=== PATIENT | female | born 1965 | race Caucasian/White ===

== ENCOUNTER 2018-02-28 13:03 | Inpatient (IN) ==
[2018-02-28] MEDS ORDERED: Sodium Phosphate Inj 15 MMOL in Sodium Chlor 0.9% Inj 100 ML IV.SIG PRN (15:06)
[2018-02-28] MEDS ORDERED: Potassium Chlor 40 mEq Premix 40 MEQ/100 ML PIGGYBACK IV.SIG PRN ×2 (15:06)
[2018-02-28] MEDS ORDERED: Potassium Chlor 20 mEq Premix 20 MEQ/100 ML PIGGYBACK IV.SIG PRN ×5 (15:06)
[2018-02-28] MEDS ORDERED: Vancomycin Consult Pharmacy OTHER PRN (15:06)
[2018-02-28] MEDS: Sod Chloride 0.9% Inj 1,000 ML IV.CONT SCH ×5 (18:45→22:19)
[2018-02-28] MEDS: Insulin Regular (For Infusion) 100 UNIT in Sodium Chlor 0.9% Inj 99 ML IV.CONT PRN (20:00)
[2018-02-28] MEDS: Dextrose 5%/NaCl 0.9% Inj 1,000 ML IV.CONT SCH ×2 (20:29→20:30)
[2018-02-28] MEDS: Enoxaparin Inj 40 MG/0.4 ML Syringe SQ SCH (20:30)
[2018-02-28] MEDS: Lactobacillus Acidophilus/L. Spores Tablet PO SCH (20:35)
--- NOTE | 2018-02-28 21:15 | P.HPIM ---
History of Present Illness Service: [facility] Primary Care Physician: UNKNOWN Chief Complaint: nausea, vomiting, foot wound History of Present Illness: 52 y/o female with a history of diabetes presented to the ED with complaints of fatigue, nausea and vomiting and a foot wound. She states she has had a foot wound for the past 2 weeks that is been managed by her primary care physician. She states the last 2 days she has been having increased nausea and vomiting and feeling very fatigued with fevers and chills. She denies any foot pain due to her diabetic neuropathy. She is currently only on metformin at home and states she can only take it once a day because she is unable to swallow big pills although it is prescribed twice a day. She has yet to start on long-acting insulin but states her PCP was going to do so. She denies any associated chest pain, or shortness of breath. Inpatient Certification Inpatient Certification: I certify that the inpatient services were ordered in accordance with Medicare regulations governing the order. This includes certification that hospital inpatient services are reasonable and necessary and in the case of services not specified as inpatient-only under 42 CFR 419.22(n), that they are appropriately provided as inpatient services in accordance to with the 2-midnight benchmark under 43 CFR 412.3(e) Estimated Total Length of Stay (Days): 3 Plans for Post Hospital Care: Home Review of Systems Review of Systems: all other systems reviewed are negative [facility] Medical History Medical History Diabetes (Acute) Neuropathic foot ulcer (Acute) Surgical History Surgical History Hx of cholecystectomy (Acute) Social History Social History Substance History: No History of Abuse Second Hand Smoke Exposure: No Smoking Status: Never smoker How Often Do You Have a Drink Containing Alcohol: Never Medications and Allergies Allergies Allergy/AdvReac Type Severity Reaction Status Date / Time Sulfa (Sulfonamide Allergy Hives Verified 02/26/18 11:06 Antibiotics) Home Medications Medication Instructions Recorded Confirmed Type metformin 500 mg PO BID 02/26/18 02/28/18 History Active Medications: Active Medications Acetaminophen (Tylenol) 650 mg PO Q4H PRN PRN Reason: Temp > 100.4 Hydrocodone Bitart/Acetaminophen ([place] 10/325) 1 tab PO Q4H PRN PRN Reason: Pain 7 to 10 Hydrocodone Bitart/Acetaminophen ([place] 5/325) 1 tab PO Q4H PRN PRN Reason: Pain 3 to 6 Al Hydroxide/Mg Hydroxide (Milk Of Magnjeni Liq) 30 ml PO Q12H PRN PRN Reason: Mild Constipation Chlorhexidine Gluconate (Chlorhexidine 2% Cloth) 3 pack TOPICAL DAILY@0400 RAD[facility] Stop: 03/06/18 03:59 Chlorhexidine Gluconate (Chlorhexidine 2% Cloth) 3 pack TOPICAL DAILY@0400 PRN PRN Reason: Extra cloth needed Stop: 03/06/18 03:59 Enoxaparin Sodium (Lovenox Inj) 40 mg SQ Q24H [facility] Last Admin: 02/28/18 20:30 Dose: Not Given Insulin Human Regular 100 unit (/ Sodium Chloride) 100 mls @ 5 mls/hr IV.CONT TITRATE PRN; Protocol PRN Reason: Per Protocol Last Titration: 02/28/18 21:04 Dose: 8 units/hr, 8 mls/hr Potassium Chloride (Kcl 20 Meq Premix Inj) 20 meq in 100 mls @ 100 mls/hr IV.SIG Q1H PRN PRN Reason: for K+ 4.5 to 5 Potassium Chloride (Kcl 20 Meq Premix Inj) 20 meq in 100 mls @ 50 mls/hr IV.SIG Q2H PRN PRN Reason: for K+ 4.5 to 5 Potassium Chloride (Kcl 20 Meq Premix Inj) 20 meq in 100 mls @ 50 mls/hr IV.SIG Q2H PRN PRN Reason: for K+ 3.5 to 4.4 Potassium Chloride (Kcl 20 Meq Premix Inj) 20 meq in 100 mls @ 50 mls/hr IV.SIG Q2H PRN PRN Reason: for Initial K+ ONLY < 3.5 Potassium Chloride (Kcl 40 Meq Premix Inj) 40 meq in 100 mls @ 100 mls/hr IV.SIG Q1H PRN PRN Reason: for Initial K+ ONLY < 3.5 Potassium Chloride (Kcl 20 Meq Premix Inj) 20 meq in 100 mls @ 50 mls/hr IV.SIG Q2H PRN PRN Reason: for Subsequent K+ < 3.5 Potassium Chloride (Kcl 40 Meq Premix Inj) 40 meq in 100 mls @ 50 mls/hr IV.SIG Q2H PRN PRN Reason: for Subsequent K+ < 3.5 Sodium Chloride (Ns Inj) 1,000 mls @ 250 mls/hr IV.CONT .Q4H [facility] Last Admin: 02/28/18 20:31 Dose: Not Given Piperacillin/Tazobactam/Dextrose (Zosyn 3.375 Gm Premix) 3.375 gm in 50 mls @ 100 mls/hr IV.SIG Q8H [facility] Sodium Chloride (Ns Inj) 1,000 mls @ 100 mls/hr IV.CONT .Q10H [facility] Last Admin: 02/28/18 20:34 Dose: Not Given Sodium Phosphate 15 mmol/ (Sodium Chloride) 105 mls @ 25 mls/hr IV.SIG UNSCH PRN PRN Reason: for Phosphate Level < 1.0 Dextrose/Sodium Chloride (D5w/Normal Saline Inj) 1,000 mls @ 200 mls/hr IV.CONT .Q5H [facility] Last Admin: 02/28/18 20:30 Dose: Not Given Potassium Chloride (Kcl 20 Meq Premix Inj) 20 meq in 100 mls @ 100 mls/hr IV.SIG Q1H PRN PRN Reason: for K+ 3.5 to 4.4 Vancomycin HCl 1,250 mg/ (Sodium Chloride) 262.5 mls @ 262.5 mls/hr IV.SIG Q24H [facility] Lactobacillus Acidophilus (Lactinex) 1 tab PO TID [facility] Last Admin: 02/28/18 20:35 Dose: Not Given Miscellaneous Information ([facility] Ordered Lab Info) 0 each OTHER ONCE ONE Stop: 03/03/18 11:46 Ondansetron HCl (Zofran Inj) 4 mg IV.PUSH Q6H PRN PRN Reason: NAUSEA OR VOMITING Pharmacy Profile Note (Vancomycin Consult Pharmacy) 1 each OTHER UNSCH PRN PRN Reason: Pharmacy to dose Sodium Bicarbonate (Sodium Bicarbonate 8.4% Inj) 50 meq IV.PUSH UNSCH PRN PRN Reason: for pH 6.9 to 7.0 Sodium Bicarbonate (Sodium Bicarbonate 8.4% Inj) 100 meq IV.PUSH UNSCH PRN PRN Reason: for pH less than 6.9 Sodium Chloride (Ns Flush) 2 ml IV.FLUSH BID [facility] Sodium Chloride (Ns Flush) 2 ml IV.FLUSH PRN PRN PRN Reason: FLUSH AFTER USING IV ACCESS Physical Exam Vital signs: Intake & Output 02/28/18 02/28/18 03/01/18 06:59 18:59 06:59 Weight 70.1 kg Other: Weight On Admission 70.1 kg Narrative: GENERAL: Well-nourished patient in no acute distress SKIN: Warm and dry. Right foot with a plantar dry ulcer, and a purulent draining ulcer between her first and second digit with surrounding warmth and erythema EYES: No scleral icterus. No injection or drainage. CARDIOVASCULAR: Regular rate and rhythm without murmurs, gallops, or rubs. RESPIRATORY: Breath sounds equal bilaterally. No accessory muscle use. GASTROINTESTINAL: Abdomen soft, non-tender, nondistended. MUSCULOSKELETAL: +2 edema to her right foot Neurological: Alert and oriented x3, moves all follows commands, diabetic neuropathy bilateral feet Results Labs CBC & Chem 7: 02/28/18 23:40 Caprini VTE Risk Assessment Caprini VTE Risk Assessment: No/Low Risk (score <= 1) Caprini Risk Assessment Model: Point Value = 1 Point Value = 2 Point Value = 3 Point Value = 5 Age 41-60 Minor surgery BMI > 25 kg/m2 Swollen legs Varicose veins or History of unexplained or recurrent spontaneous Oral contraceptives or hormone replacement Sepsis (< 1 month) Serious lung disease, including pneumonia (< 1 month) Abnormal pulmonary function Acute myocardial infarction Congestive heart failure (< 1 month) History of inflammatory bowel disease Medical patient at bed rest Age 61-74 Arthroscopic surgery Major open surgery (> 45 min) Laparoscopic surgery (> 45 min) Malignancy Confined to bed (> 72 hours) Immobilizing plaster cast Central venous access Age >= 75 History of VTE Family history of VTE Factor V Leiden Prothrombin [id number] Lupus anticoagulant Anticardiolipin antibodies Elevated serum homocysteine Heparin-induced thrombocytopenia Other congenital or acquired thrombophilia Stroke (< 1 month) Elective arthroplasty Hip, pelvis, or leg fracture Acute spinal cord injury (< 1 month) Prophylaxis Regimen: Total Risk Factor Score Risk Level Prophylaxis Regimen 0-1 Low Early ambulation 2 Moderate Order ONE of the following: *Sequential Compression Device (SCD) *Heparin 5000 units SQ BID 3-4 Higher Order ONE of the following medications: *Heparin 5000 units SQ TID *Enoxaparin/Lovenox 40 mg SQ daily (WT < 150 kg, CrCl > 30 mL/min) *Enoxaparin/Lovenox 30 mg SQ daily (WT < 150 kg, CrCl > 10-29 mL/min) *Enoxaparin/Lovenox 30 mg SQ BID (WT < 150 kg, CrCl > 30 mL/min) AND/OR *Sequential Compression Device (SCD) 5 or more Highest Order ONE of the following medications: *Heparin 5000 units SQ TID (Preferred with Epidurals) *Enoxaparin/Lovenox 40 mg SQ daily (WT < 150 kg, CrCl > 30 mL/min) *Enoxaparin/Lovenox 30 mg SQ daily (WT < 150 kg, CrCl > 10-29 mL/min) *Enoxaparin/Lovenox 30 mg SQ BID (WT < 150 kg, CrCl > 30 mL/min) AND *Sequential Compression Device (SCD) Assessment and Plan Plan 52 y/o female with a history of diabetes presented to the ED with complaints of fatigue, nausea and vomiting and a foot wound. DKA, in a noncompliant type II diabetic, acute Anion gap 28, pH 7.2, bicarb 5, beta hydroxybutyrate 9.5 -Insulin drip with DKA protocol -N.p.o. -Serial labs Sepsis, WBC 17.8, heart rate 130, source right diabetic foot infection Lactic acid 2.0 Foot x-ray reviewed and shows soft tissue swelling surrounding the right great toe. The findings are suggestive of probable cellulitis -Blood cultures and wound culture pending -IV antibiotics vancomycin and Zosyn -Consult podiatry for evaluation -MRI ordered of the right foot for rule out osteomyelitis DVT prophylaxis: SCDs Code Status: Full Discussed Condition With: Patient and RN H&P: Quality VTE Deep Vein Thrombosis/Pulmonary Embolism Present on Admission: No
[2018-02-28] MEDS: Piperacil/Tazo 3.375 GM Premix 3.375 GM/50 ML PIGGYBACK IV.SIG SCH (21:51)
[2018-03-01 00:41] LABS: Carbon Dioxide 13.7 meq/L (21.0-32.0)
[2018-03-01] MEDS: Potassium Chlor 20 mEq Premix 20 MEQ/100 ML PIGGYBACK IV.SIG PRN ×3 (01:07→05:04)
[2018-03-01] MEDS: Dextrose 5%/NaCl 0.9% Inj 1,000 ML IV.CONT SCH ×4 (01:12→16:12)
[2018-03-01] MEDS ORDERED: Vancomycin Inj 1,000 MG in Sodium Chlor 0.9% Inj 250 ML IV.SIG SCH (02:00)
[2018-03-01] MEDS: Sod Chloride 0.9% Inj 1,000 ML IV.CONT SCH ×5 (02:16→23:15)
[2018-03-01] MEDS: Chlorhexidine Gluconate 2% 1 Pack (2 Cloths) TOPICAL SCH (03:03)
[2018-03-01] MEDS ORDERED: Chlorhexidine Gluconate 2% 1 Pack (2 Cloths) TOPICAL PRN (04:00)
[2018-03-01] MEDS: Piperacil/Tazo 3.375 GM Premix 3.375 GM/50 ML PIGGYBACK IV.SIG SCH ×3 (05:02→22:40)
[2018-03-01] MEDS: Insulin Regular (For Infusion) 100 UNIT in Sodium Chlor 0.9% Inj 99 ML IV.CONT PRN (06:02)
[2018-03-01 07:02] LABS: Baso # (Auto) 0.1 th/mm3 (0.0-0.2); Baso % (Auto) 0.4 % (0.0-2.0); Hematocrit 33.9 % (35.0-46.0); Hemoglobin 11.3 gm/dL (11.6-15.3); Lymph # (Auto) 1.1 th/mm3 (1.0-4.8); Lymph % (Auto) 9.2 % (9.0-44.0); Mean Corpuscular HGB Conc 33.4 % (32.0-36.0); Mean Corpuscular Hemoglobin 28.9 pg (27.0-34.0); Mean Corpuscular Volume 86.7 fL (80.0-100.0); Mean Platelet Volume 7.5 fL (7.0-11.0); Mono # (Auto) 1.2 th/mm3 (0.0-0.9); Neut # (Auto) 9.8 th/mm3 (1.8-7.7); Neut % (Auto) 80.4 % (16.0-70.0); Platelet Count 425 th/mm3 (150-450); Red Blood Count 3.91 mil/mm3 (4.00-5.30); Red Cell Distribution Width 13.6 % (11.6-17.2); White Blood Count 12.1 th/mm3 (4.0-11.0)
--- NOTE | 2018-03-01 07:14 | P.PNPOD ---
Physical Exam Vital signs: Vital Signs 02/28/18 20:00 02/28/18 21:00 02/28/18 22:00 Pulse Rate 126 H 115 H 106 H Respiratory Rate 21 25 H Blood Pressure 132/68 134/68 Pulse Oximetry 98 97 97 02/28/18 22:02 02/28/18 23:00 03/01/18 00:00 Pulse Rate 105 H 98 H 107 H Respiratory Rate 19 15 35 H Blood Pressure 124/62 120/60 129/64 Pulse Oximetry 97 95 95 03/01/18 01:00 03/01/18 02:00 03/01/18 03:00 Pulse Rate 119 H 93 H 95 H Respiratory Rate 23 13 31 H Blood Pressure 97/64 L 117/61 147/63 H Pulse Oximetry 97 92 L 96 03/01/18 04:00 03/01/18 05:00 03/01/18 06:00 Pulse Rate 91 H 90 100 H Respiratory Rate 12 24 40 H Blood Pressure 121/68 135/68 130/77 Pulse Oximetry 91 L 94 L 97 Intake & Output 02/28/18 03/01/18 03/01/18 18:59 06:59 18:59 Intake Total 2371 / 2371 Balance 2371 / 2371 Weight 70 kg Intake: IV 2371 / 2371 D5W/Normal Saline Inj 1,000 ML 1000 / 1000 @ 200 mls/hr IV.CONT .Q5H [facility] Rx#:[id number] NovoLIN R (IV Infusion) 100 100 / 100 UNIT In NS Inj 99 ML @ 5 UNITS/ HR 5 mls/hr IV.CONT TITRATE PRN Rx#:[id number] NS Inj 1,000 ML @ 250 mls/hr IV 971 / 971 .CONT .Q4H [facility] Rx#:[id number] Zosyn 3.375 GM Premix 3.375 gm 100 / 100 In 50 ml @ 100 mls/hr IV.SIG Q8H [facility] Rx#:[id number] KCl 20 mEq Premix Inj 20 meq In 200 / 200 100 ml @ 50 mls/hr IV.SIG Q2H PRN Rx#:[id number] Other: # Voids 6 # Bowel Movements 0 # Emeses 6 Weight On Admission 70.1 kg Medications and Allergies Active Medications: Active Medications Acetaminophen (Tylenol) 650 mg PO Q4H PRN PRN Reason: Temp > 100.4 Hydrocodone Bitart/Acetaminophen ([place] 10/325) 1 tab PO Q4H PRN PRN Reason: Pain 7 to 10 Hydrocodone Bitart/Acetaminophen ([place] 5/325) 1 tab PO Q4H PRN PRN Reason: Pain 3 to 6 Al Hydroxide/Mg Hydroxide (Milk Of Magnjeni Liq) 30 ml PO Q12H PRN PRN Reason: Mild Constipation Chlorhexidine Gluconate (Chlorhexidine 2% Cloth) 3 pack TOPICAL DAILY@0400 RADHA Stop: 03/06/18 03:59 Last Admin: 03/01/18 03:03 Dose: 3 pack Chlorhexidine Gluconate (Chlorhexidine 2% Cloth) 3 pack TOPICAL DAILY@0400 PRN PRN Reason: Extra cloth needed Stop: 03/06/18 03:59 Enoxaparin Sodium (Lovenox Inj) 40 mg SQ Q24H [facility] Last Admin: 02/28/18 20:30 Dose: Not Given Insulin Human Regular 100 unit (/ Sodium Chloride) 100 mls @ 5 mls/hr IV.CONT TITRATE PRN; Protocol PRN Reason: Per Protocol Last Titration: 03/01/18 06:49 Dose: 10.5 units/hr, 10.5 mls/hr Potassium Chloride (Kcl 20 Meq Premix Inj) 20 meq in 100 mls @ 100 mls/hr IV.SIG Q1H PRN PRN Reason: for K+ 4.5 to 5 Potassium Chloride (Kcl 20 Meq Premix Inj) 20 meq in 100 mls @ 50 mls/hr IV.SIG Q2H PRN PRN Reason: for K+ 4.5 to 5 Potassium Chloride (Kcl 20 Meq Premix Inj) 20 meq in 100 mls @ 50 mls/hr IV.SIG Q2H PRN PRN Reason: for K+ 3.5 to 4.4 Potassium Chloride (Kcl 20 Meq Premix Inj) 20 meq in 100 mls @ 50 mls/hr IV.SIG Q2H PRN PRN Reason: for Initial K+ ONLY < 3.5 Last Admin: 03/01/18 05:04 Dose: 50 mls/hr Potassium Chloride (Kcl 40 Meq Premix Inj) 40 meq in 100 mls @ 100 mls/hr IV.SIG Q1H PRN PRN Reason: for Initial K+ ONLY < 3.5 Potassium Chloride (Kcl 20 Meq Premix Inj) 20 meq in 100 mls @ 50 mls/hr IV.SIG Q2H PRN PRN Reason: for Subsequent K+ < 3.5 Potassium Chloride (Kcl 40 Meq Premix Inj) 40 meq in 100 mls @ 50 mls/hr IV.SIG Q2H PRN PRN Reason: for Subsequent K+ < 3.5 Sodium Chloride (Ns Inj) 1,000 mls @ 250 mls/hr IV.CONT .Q4H [facility] Last Admin: 03/01/18 06:14 Dose: Not Given Piperacillin/Tazobactam/Dextrose (Zosyn 3.375 Gm Premix) 3.375 gm in 50 mls @ 100 mls/hr IV.SIG Q8H [facility] Last Infusion: 03/01/18 05:34 Dose: Infused Sodium Phosphate 15 mmol/ (Sodium Chloride) 105 mls @ 25 mls/hr IV.SIG UNSCH PRN PRN Reason: for Phosphate Level < 1.0 Dextrose/Sodium Chloride (D5w/Normal Saline Inj) 1,000 mls @ 200 mls/hr IV.CONT .Q5H [facility] Last Admin: 03/01/18 05:14 Dose: 200 mls/hr Potassium Chloride (Kcl 20 Meq Premix Inj) 20 meq in 100 mls @ 100 mls/hr IV.SIG Q1H PRN PRN Reason: for K+ 3.5 to 4.4 Vancomycin HCl 1,250 mg/ (Sodium Chloride) 262.5 mls @ 262.5 mls/hr IV.SIG Q24H [facility] Lactobacillus Acidophilus (Lactinex) 1 tab PO TID [facility] Last Admin: 02/28/18 20:35 Dose: Not Given Miscellaneous Information ([facility] Ordered Lab Info) 0 each OTHER ONCE ONE Stop: 03/03/18 11:46 Ondansetron HCl (Zofran Inj) 4 mg IV.PUSH Q6H PRN PRN Reason: NAUSEA OR VOMITING Last Admin: 02/28/18 23:48 Dose: 4 mg Pharmacy Profile Note (Vancomycin Consult Pharmacy) 1 each OTHER UNSCH PRN PRN Reason: Pharmacy to dose Sodium Bicarbonate (Sodium Bicarbonate 8.4% Inj) 50 meq IV.PUSH UNSCH PRN PRN Reason: for pH 6.9 to 7.0 Sodium Bicarbonate (Sodium Bicarbonate 8.4% Inj) 100 meq IV.PUSH UNSCH PRN PRN Reason: for pH less than 6.9 Sodium Chloride (Ns Flush) 2 ml IV.FLUSH BID [facility] Last Admin: 02/28/18 21:43 Dose: 2 ml Sodium Chloride (Ns Flush) 2 ml IV.FLUSH PRN PRN PRN Reason: FLUSH AFTER USING IV ACCESS Allergies Allergy/AdvReac Type Severity Reaction Status Date / Time Sulfa (Sulfonamide Allergy Hives Verified 02/26/18 11:06 Antibiotics) Home Medications Medication Instructions Recorded Confirmed Type metformin 500 mg PO BID 02/26/18 02/28/18 History Results - Labs CBC & Chem 7: 03/01/18 06:29 02/28/18 23:40 Laboratory Results - last 24 hr 02/28/18 02/28/18 02/28/18 19:15 20:01 21:01 WBC RBC Hgb Hct MCV MCH MCHC RDW Plt Count MPV Neut % (Auto) Lymph % (Auto) [place] % (Auto) Eos % (Auto) Baso % (Auto) Neut # (Auto) Lymph # (Auto) [place] # (Auto) Eos # (Auto) Baso # (Auto) WBC Differential Differential Comment Sodium Potassium Chloride Carbon Dioxide Anion Gap BUN Creatinine Estimated GFR POC Glucose 368 H 376 H Random Glucose Calcium Nasal Screen MRSA (PCR) Not detected 02/28/18 02/28/18 02/28/18 21:58 22:56 23:40 WBC RBC Hgb Hct MCV MCH MCHC RDW Plt Count MPV Neut % (Auto) Lymph % (Auto) [place] % (Auto) Eos % (Auto) Baso % (Auto) Neut # (Auto) Lymph # (Auto) [place] # (Auto) Eos # (Auto) Baso # (Auto) WBC Differential Differential Comment Sodium 147 H D Potassium 3.0 L D Chloride 119 H D Carbon Dioxide 13.7 L Anion Gap 14 BUN 19 H Creatinine 1.00 Estimated GFR 59 L POC Glucose 326 H 246 H Random Glucose 209 H D Calcium 8.0 L D Nasal Screen MRSA (PCR) 02/28/18 03/01/18 03/01/18 23:52 00:57 01:55 WBC RBC Hgb Hct MCV MCH MCHC RDW Plt Count MPV Neut % (Auto) Lymph % (Auto) [place] % (Auto) Eos % (Auto) Baso % (Auto) Neut # (Auto) Lymph # (Auto) [place] # (Auto) Eos # (Auto) Baso # (Auto) WBC Differential Differential Comment Sodium Potassium Chloride Carbon Dioxide Anion Gap BUN Creatinine Estimated GFR POC Glucose 211 H 227 H 208 H Random Glucose Calcium Nasal Screen MRSA (PCR) 03/01/18 03/01/18 03/01/18 03:08 03:56 05:00 WBC RBC Hgb Hct MCV MCH MCHC RDW Plt Count MPV Neut % (Auto) Lymph % (Auto) [place] % (Auto) Eos % (Auto) Baso % (Auto) Neut # (Auto) Lymph # (Auto) [place] # (Auto) Eos # (Auto) Baso # (Auto) WBC Differential Differential Comment Sodium Potassium Chloride Carbon Dioxide Anion Gap BUN Creatinine Estimated GFR POC Glucose 229 H 209 H 194 H Random Glucose Calcium Nasal Screen MRSA (PCR) 03/01/18 03/01/18 03/01/18 05:59 06:29 06:47 WBC 12.1 H RBC 3.91 L Hgb 11.3 L D Hct 33.9 L MCV 86.7 MCH 28.9 MCHC 33.4 RDW 13.6 Plt Count 425 MPV 7.5 Neut % (Auto) 80.4 H Lymph % (Auto) 9.2 [place] % (Auto) 10.0 H Eos % (Auto) 0.0 Baso % (Auto) 0.4 Neut # (Auto) 9.8 H Lymph # (Auto) 1.1 [place] # (Auto) 1.2 H Eos # (Auto) 0.0 Baso # (Auto) 0.1 WBC Differential . Differential Comment Auto diff final Sodium Potassium Chloride Carbon Dioxide Anion Gap BUN Creatinine Estimated GFR POC Glucose 173 H 154 H Random Glucose Calcium Nasal Screen MRSA (PCR) Assessment and Plan - Assessment (1) Diabetic infection of right foot Code(s): E11.628 - Type 2 diabetes mellitus with other skin complications; L08.9 - Local infection of the skin and subcutaneous tissue, unspecified Status: Acute - Plan FULL CONSULT DICTATED. MRI pending, OR today once medically cleared for right foot incision drainage debridement with possible bone biopsy and wound vac application. Will likely need IV ABX minimum 2 weeks, ID consult? Surgery planned for this afternoon, NPO.
[2018-03-01 07:24] LABS: Albumin 2.5 g/dL (3.4-5.0); Anion Gap 9 meq/L (5-15); Aspartate Aminotransferase 5 U/L (15-37); Blood Urea Nitrogen 19 mg/dL (7-18); Carbon Dioxide 19.1 meq/L (21.0-32.0); Chloride 123 meq/L (98-107); Glomerular Filtration Rate 58 mL/min (>89); Glucose,Random 156 mg/dL (74-106); Potassium 3.6 meq/L (3.5-5.1); Sodium 151 meq/L (136-145)
[2018-03-01 07:25] LABS: Alanine Aminotransferase 14 U/L (10-53)
[2018-03-01 07:27] LABS: Alkaline Phosphatase 93 U/L (45-117); Total Protein 6.9 g/dL (6.4-8.2)
--- NOTE | 2018-03-01 07:47 | MB ---
cc: Mic Mohan DPM DATE: 03/01/2018 REASON FOR CONSULTATION: Right diabetic foot infection. HISTORY OF PRESENT ILLNESS: This is a 52-year-old female who presents to the ED with fatigue, nausea, and vomiting. The patient had poorly controlled blood sugar, it was then decided that she be transferred from [place] to inpatient management. Currently, I am seeing the patient at bedside. She is having severe vomiting. She is not having significant pain. She denies any obvious incident or injury associated with the onset of the right foot wound. She does have a history of an ulcer in the past. She has had the current ulcer for the past 2 months. She admits poor hyperglycemic control. PAST MEDICAL HISTORY: Significant for diabetes, neuropathic foot ulcer, history of cholecystectomy history. ALLERGIES: SULFA. INPATIENT MEDICATIONS: Reviewed. The patient is receiving vancomycin and Zosyn. PHYSICAL EXAMINATION: VITAL SIGNS: Afebrile. Elevated pulse rate 126, respiratory rate 21, blood pressure 132/60. GENERAL: This is an alert and oriented female seen at bedside exhibiting nonlabored respirations. She is obviously in distress. She is gagging breathing. No shortness of breath, but she is having significant nausea with a nonproductive emesis. EXTREMITIES: Bilateral lower extremities examined. On the right lower extremity, there is noted to be interdigital eschar, fluctuance, redness, swelling, and a boggy texture. There is an obvious 1st interspace abscess. There is a plantar ulceration that appears to communicate with the dorsal aspect of the foot. There is no obvious gas in the tissue, but there is skin necrosis noted. There is edema that extends to the dorsum of the foot. The pedal pulses are readily palpable. There is mild crepitus upon range of motion of the 1st MPJ, but no instability of the rearfoot, hindfoot, or ankle. Sensation decreased to light touch below the patient's ankle. DIAGNOSTIC DATA: LABORATORY FINDINGS: White blood cell 12.1. Hemoglobin and hematocrit 11 and 33. Platelet count is 425, neutrophils 80.4. Chem-7: Last glucose is 154, sodium 147, potassium 3.0. Repeat labs are pending. Chloride is 119, CO2 is 13.7, BUN is 19. Random glucose as previously stated. AST and ALT are pending. X-ray findings were reviewed. There appears to be increased soft tissue envelope but there is no obvious joint destructive findings consistent with osteomyelitis. MRI ordered and pending. Blood culture and foot culture ordered and pending. ASSESSMENT AND PLAN: Right diabetic foot infection, deep within the 1st interspace, possible osteomyelitis. MRI is pending. Due to the severity of the infection, I am recommending urgent incision, drainage, and debridement if the patient is deemed medically stable. We will continue to monitor the potassium. The plan is for surgery later on today permitting evaluation from medical team. The patient will remain n.p.o. Risks and benefits explained regarding surgical intervention. The patient may need for multiple surgeries at a later date including, but not limited to incision and drainage, debridement, partial foot amputation if not loss of the leg. The patient was educated in great detail the need for strict hyperglycemic control and to take better care of her foot to allow for healing. The patient does appear to have good circulation. I do not feel a vascular intervention or consultation is needed at this point; however, if the patient has minimal bleeding intraoperatively, I will make that decision in the postoperative setting. Plan for surgery later on today. TATIANNA Glez , 07:06 AM , 07:15 AM
[2018-03-01] MEDS: Lactobacillus Acidophilus/L. Spores Tablet PO SCH ×4 (10:01→17:30)
--- NOTE | 2018-03-01 10:10 | MR ---
EXAM DATE: 03/01/2018 9:37 AM EST AGE/SEX: 52 years / Female INDICATIONS: Osteomyelitis. CLINICAL DATA: This is the patient's initial encounter. Patient reports that signs and symptoms have been present for 1 week and indicates a pain score of 0/10. MEDICAL/SURGICAL HISTORY: Diabetes mellitus type II. Cholecystectomy. COMPARISON: [facility], FOOT COMPLETE RIGHT 3V, 02/28/2018. . TECHNIQUE: Multiplanar, multisequence MRI examination was performed without contrast and after th e intravenous administration of 7 ml Gadavist (gadobutrol) single exam dose. FINDINGS: Bones: The osseous structures are in normal alignment. No evidence of fracture or bony edema. There are no obvious erosions present. Joint Spaces: No joint effusion or loose bodies are seen. The joint spaces are preserved. Tendons: The flexor tendons are intact. Soft Tissues: There is some soft tissue edema identified about the great toe particularly in the plan tar region with a small superficial ulceration subjacent to the MTP joint. Other: The plantar fascia is intact. No signal abnormalities are seen in the plantar musculature. Post Contrast: There are no abnormal areas of enhancement in the marrow, muscle or soft tissues on im ages obtained after intravenous administration of gadolinium. CONCLUSION: 1. Small ulcer subjacent to the MTP joint with regional cellulitis. 2. No findings of associated osteomyelitis. Electronically signed by: Dorian Khan MD Board Certified Radiologist 03/01/2018 10:09 AM EST
[2018-03-01] MEDS ORDERED: Gadobutrol PF 7.5 MMOL/7.5 ML Vial (for RAD) IV.SIG ONE (10:28)
[2018-03-01] MEDS ORDERED: Dextrose 50% in Water 50 ML Vial IV.PUSH PRN (10:56)
--- NOTE | 2018-03-01 11:11 | P.PN ---
Subjective Interval history: Follow-up DKA/sepsis/diabetic foot infection March 01, 2018-patient seen and examined, currently n.p.o., significant left foot pain. Afebrile. Positive for nausea, emesis Physical Exam Vital signs: Vital Signs 02/28/18 20:00 02/28/18 21:00 02/28/18 22:00 Temperature Pulse Rate 126 H 115 H 106 H Respiratory Rate 21 25 H Blood Pressure 132/68 134/68 Pulse Oximetry 98 97 97 02/28/18 22:02 02/28/18 23:00 03/01/18 00:00 Temperature Pulse Rate 105 H 98 H 107 H Respiratory Rate 19 15 35 H Blood Pressure 124/62 120/60 129/64 Pulse Oximetry 97 95 95 03/01/18 01:00 03/01/18 02:00 03/01/18 03:00 Temperature Pulse Rate 119 H 93 H 95 H Respiratory Rate 23 13 31 H Blood Pressure 97/64 L 117/61 147/63 H Pulse Oximetry 97 92 L 96 03/01/18 04:00 03/01/18 05:00 03/01/18 06:00 Temperature Pulse Rate 91 H 90 100 H Respiratory Rate 12 24 40 H Blood Pressure 121/68 135/68 130/77 Pulse Oximetry 91 L 94 L 97 03/01/18 08:00 Temperature 98.6 F Pulse Rate 79 Respiratory Rate 13 Blood Pressure 117/57 L Pulse Oximetry 95 Intake & Output 02/28/18 03/01/18 03/01/18 18:59 06:59 18:59 Intake Total 2371 / 2371 0 / 0 Balance 2371 / 2371 0 / 0 Weight 70 kg Intake: IV 2371 / 2371 0 / 0 D5W/Normal Saline Inj 1,000 ML 1000 / 1000 0 / 0 @ 200 mls/hr IV.CONT .Q5H RADHA Rx#:[id number] NovoLIN R (IV Infusion) 100 100 / 100 UNIT In NS Inj 99 ML @ 5 UNITS/ HR 5 mls/hr IV.CONT TITRATE PRN Rx#:[id number] NS Inj 1,000 ML @ 250 mls/hr IV 971 / 971 .CONT .Q4H RADHA Rx#:[id number] Zosyn 3.375 GM Premix 3.375 gm 100 / 100 In 50 ml @ 100 mls/hr IV.SIG Q8H RADHA Rx#:[id number] KCl 20 mEq Premix Inj 20 meq In 200 / 200 100 ml @ 50 mls/hr IV.SIG Q2H PRN Rx#:[id number] Other: # Voids 6 # Bowel Movements 0 # Emeses 6 Weight On Admission 70.1 kg Narrative: GENERAL: NAD SKIN: Warm and dry. Right foot infection, tender to palpation big toe and fourth toe with induration and drainage HEAD: Atraumatic. Normocephalic. EYES: Pupils equal and round. No scleral icterus. No injection or drainage. ENT: No nasal bleeding or discharge. Mucous membranes pink and moist. NECK: Trachea midline. No JVD. CARDIOVASCULAR: Regular rate and rhythm. RESPIRATORY: No accessory muscle use. Clear to auscultation. Breath sounds equal bilaterally. GASTROINTESTINAL: Abdomen soft, non-tender, nondistended. Hepatic and splenic margins not palpable. MUSCULOSKELETAL: Extremities without clubbing, cyanosis, or edema. No obvious deformities. NEUROLOGICAL: Awake and alert. No obvious cranial nerve deficits. Motor grossly within normal limits. Five out of 5 muscle strength in the arms and legs. Normal speech. PSYCHIATRIC: Appropriate mood and affect; insight and judgment normal. Results - Labs CBC & Chem 7: 03/01/18 06:29 03/01/18 06:29 Laboratory Results - last 24 hr 02/28/18 02/28/18 02/28/18 19:15 20:01 21:01 WBC RBC Hgb Hct MCV MCH MCHC RDW Plt Count MPV Neut % (Auto) Lymph % (Auto) [place] % (Auto) Eos % (Auto) Baso % (Auto) Neut # (Auto) Lymph # (Auto) [place] # (Auto) Eos # (Auto) Baso # (Auto) WBC Differential Differential Comment Sodium Potassium Chloride Carbon Dioxide Anion Gap BUN Creatinine Estimated GFR POC Glucose 368 H 376 H Random Glucose Calcium Total Bilirubin AST ALT Alkaline Phosphatase Total Protein Albumin Nasal Screen MRSA (PCR) Not detected 02/28/18 02/28/18 02/28/18 21:58 22:56 23:40 WBC RBC Hgb Hct MCV MCH MCHC RDW Plt Count MPV Neut % (Auto) Lymph % (Auto) [place] % (Auto) Eos % (Auto) Baso % (Auto) Neut # (Auto) Lymph # (Auto) [place] # (Auto) Eos # (Auto) Baso # (Auto) WBC Differential Differential Comment Sodium 147 H D Potassium 3.0 L D Chloride 119 H D Carbon Dioxide 13.7 L Anion Gap 14 BUN 19 H Creatinine 1.00 Estimated GFR 59 L POC Glucose 326 H 246 H Random Glucose 209 H D Calcium 8.0 L D Total Bilirubin AST ALT Alkaline Phosphatase Total Protein Albumin Nasal Screen MRSA (PCR) 02/28/18 03/01/18 03/01/18 23:52 00:57 01:55 WBC RBC Hgb Hct MCV MCH MCHC RDW Plt Count MPV Neut % (Auto) Lymph % (Auto) [place] % (Auto) Eos % (Auto) Baso % (Auto) Neut # (Auto) Lymph # (Auto) [place] # (Auto) Eos # (Auto) Baso # (Auto) WBC Differential Differential Comment Sodium Potassium Chloride Carbon Dioxide Anion Gap BUN Creatinine Estimated GFR POC Glucose 211 H 227 H 208 H Random Glucose Calcium Total Bilirubin AST ALT Alkaline Phosphatase Total Protein Albumin Nasal Screen MRSA (PCR) 03/01/18 03/01/18 03/01/18 03:08 03:56 05:00 WBC RBC Hgb Hct MCV MCH MCHC RDW Plt Count MPV Neut % (Auto) Lymph % (Auto) [place] % (Auto) Eos % (Auto) Baso % (Auto) Neut # (Auto) Lymph # (Auto) [place] # (Auto) Eos # (Auto) Baso # (Auto) WBC Differential Differential Comment Sodium Potassium Chloride Carbon Dioxide Anion Gap BUN Creatinine Estimated GFR POC Glucose 229 H 209 H 194 H Random Glucose Calcium Total Bilirubin AST ALT Alkaline Phosphatase Total Protein Albumin Nasal Screen MRSA (PCR) 03/01/18 03/01/18 03/01/18 05:59 06:29 06:29 WBC 12.1 H RBC 3.91 L Hgb 11.3 L D Hct 33.9 L MCV 86.7 MCH 28.9 MCHC 33.4 RDW 13.6 Plt Count 425 MPV 7.5 Neut % (Auto) 80.4 H Lymph % (Auto) 9.2 [place] % (Auto) 10.0 H Eos % (Auto) 0.0 Baso % (Auto) 0.4 Neut # (Auto) 9.8 H Lymph # (Auto) 1.1 [place] # (Auto) 1.2 H Eos # (Auto) 0.0 Baso # (Auto) 0.1 WBC Differential . Differential Comment Auto diff final Sodium 151 H Potassium 3.6 Chloride 123 H Carbon Dioxide 19.1 L Anion Gap 9 BUN 19 H Creatinine 1.01 H Estimated GFR 58 L POC Glucose 173 H Random Glucose 156 H Calcium 8.0 L Total Bilirubin 0.3 AST 5 L ALT 14 Alkaline Phosphatase 93 Total Protein 6.9 D Albumin 2.5 L D Nasal Screen MRSA (PCR) 03/01/18 03/01/18 06:47 08:14 WBC RBC Hgb Hct MCV MCH MCHC RDW Plt Count MPV Neut % (Auto) Lymph % (Auto) [place] % (Auto) Eos % (Auto) Baso % (Auto) Neut # (Auto) Lymph # (Auto) [place] # (Auto) Eos # (Auto) Baso # (Auto) WBC Differential Differential Comment Sodium Potassium Chloride Carbon Dioxide Anion Gap BUN Creatinine Estimated GFR POC Glucose 154 H 115 H Random Glucose Calcium Total Bilirubin AST ALT Alkaline Phosphatase Total Protein Albumin Nasal Screen MRSA (PCR) - Imaging Impressions Foot MRI 03/01/18 00:00 CONCLUSION: 1. Small ulcer subjacent to the MTP joint with regional cellulitis. 2. No findings of associated osteomyelitis. Assessment and Plan - Plan 52-year-old female with DKA, in a noncompliant type II diabetic, acute Resolved DC insulin drip Diabetes type 1 Start insulin sliding scale Check hemoglobin A1c Likely will start patient on basal insulin Sepsis-source right foot infection/cellulitis Diabetic right foot infection Currently on vancomycin and Zosyn pending culture report MRI of the foot noted and reviewed by me without any evidence of osteomyelitis Appreciate input from podiatry, and plan for incision and drainage today in [place] Infectious disease special consultation PRN Patient is medically clear for today's procedure March 01, 2018 DVT prophylaxis: SCDs Transfer to [facility]
[2018-03-01] MEDS ORDERED: Bupivacaine PF 0.25% Inj 30 ML Vial ONE (11:39)
[2018-03-01] MEDS: Vancomycin Inj 1,250 MG in Sodium Chlor 0.9% Inj 250 ML IV.SIG SCH (11:57)
[2018-03-01] MEDS ORDERED: Lidocaine PF 1% Inj 5 ML Syringe OTHER ONE (12:49)
[2018-03-01] MEDS ORDERED: Chlorhexidine Gluconate 2% 1 Pack (2 Cloths) TOPICAL ONE (13:00)
[2018-03-01] MEDS ORDERED: Metoprolol Tartrate 25 MG Tablet PO ONE (13:00)
[2018-03-01] MEDS ORDERED: Sodium Chlor 0.9% Inj 500 ML IV.CONT ONE (13:00)
[2018-03-01] MEDS: Insulin NovoLOG Aspart Correctional Sugar Inj SQ SCH ×4 (13:35→21:25)
--- NOTE | 2018-03-01 14:06 | P.BOP ---
- Preoperative Diagnosis (1) Abscess of foot including toes (2) Diabetic infection of right foot (3) Right foot infection - Postoperative Diagnosis (1) Abscess of foot including toes (2) Diabetic infection of right foot (3) Right foot infection Date of procedure: 03/01/18 Procedure: Incision drainage debridement expansile to joint capsule and muscle with wound vac application Anesthesia: GETA Surgeon: Mic Russo DPM Estimated blood loss (mL): 30 Tourniquet time (min): 15 (min 250mmhg) Pathology: other (tissue cx deep for for micro) Condition: stable
[2018-03-01] MEDS ORDERED: fentaNYL Citrate Inj 100 MCG/2 ML Ampul ONE (14:11)
--- NOTE | 2018-03-01 14:18 | MP ---
cc: Mic Mohan DPM DATE OF OPERATION: 03/01/2018 PREOPERATIVE DIAGNOSIS: Right foot abscess, cellulitis, severe diabetic foot infection involving interspace and hallux. POSTOPERATIVE DIAGNOSIS: Right foot abscess, cellulitis, severe diabetic foot infection involving interspace and hallux. PROCEDURE PERFORMED: Expansile incision and drainage, debridement to joint capsule first interspace plantar first MPJ, ulcer debridement, and wound VAC application. This was a sharp excisional debridement. ANESTHESIA: General. INJECTABLES: None. TOURNIQUET: Approximately 15 minutes at a setting at 250 mmHg about the patient's right mid calf. SPECIMENS: Deep wound culture. DRAINS: None. However, a wound VAC was applied at 125 continuous suction. ESTIMATED BLOOD LOSS: Less than 30 mL. DISPOSITION: Returned to unit. Monitor medical condition and plan for repeat incision and drainage, debridement within 48 hours. Severe deep infection with expansile soft tissue loss; however, adequate bleeding at the time of surgery. PROCEDURE IN DETAIL: Under mild sedation, the patient was brought to the operating room, placed on the operating table in supine position. Following the induction of general anesthesia, the right lower extremity was scrubbed, prepped and draped in the usual aseptic fashion. The foot was elevated and examined. There was noted to be significant edema, erythema localized to the foot with interdigital fibrotic tissue necrosis with odor extending and communicating to a plantar ulceration beneath the first MPJ. An incision was made in the first interspace. There was noted to be necrotic gunderson tissue. This was debrided down to viable tissue. Further incision was made on the dorsal aspect of the first metatarsal base. There was noted to be an expansile abscess that appeared to go deep to fascia, but superficial to bone and tendon. This was evacuated and deep culture taken. A plantar elliptical incision took place of the first MPJ ulcer. This was approximately 2 cm x 1 cm full-thickness incision. There was noted to be a superficial bursa that was removed at this time. This communicated directly along the FHL tendon to the plantar aspect of the MPJ, but appeared not to involve the joint capsule, but did go to the joint capsule. Tourniquet dropped. There was noted to be adequate bleeding. Bovie and ligation took place of venous structures. No arterial loss was identified. The wound was then flushed with 1 liter of normal saline. A wound VAC was then placed on the first interspace incision under adequate seal and suction. The patient was then transferred to PACU with all vital signs stable. The patient will continue to be followed closely. The plan is for a repeat incision and drainage, debridement within the next 48 hours. I reviewed the case with medicine in the PACU area. TATIANNA Glez/kirsten , 02:06 PM , 02:13 PM
[2018-03-01] MEDS: Enoxaparin Inj 40 MG/0.4 ML Syringe SQ SCH (16:14)
[2018-03-01] MEDS: Insulin Detemir Inj 1,000 UNIT/10 ML Vial SQ SCH (21:25)
[2018-03-02] MEDS: Sod Chloride 0.9% Inj 1,000 ML IV.CONT SCH ×6 (03:20→23:15)
[2018-03-02] MEDS: Chlorhexidine Gluconate 2% 1 Pack (2 Cloths) TOPICAL SCH (04:00)
[2018-03-02 05:38] LABS: Baso # (Auto) 0.1 th/mm3 (0.0-0.2); Baso % (Auto) 0.5 % (0.0-2.0); Hemoglobin 12.1 gm/dL (11.6-15.3); Lymph # (Auto) 1.1 th/mm3 (1.0-4.8); Lymph % (Auto) 10.7 % (9.0-44.0); Mean Corpuscular HGB Conc 33.5 % (32.0-36.0); Mean Corpuscular Hemoglobin 29.1 pg (27.0-34.0); Mean Corpuscular Volume 86.6 fL (80.0-100.0); Mean Platelet Volume 7.5 fL (7.0-11.0); Mono # (Auto) 1.1 th/mm3 (0.0-0.9); Neut # (Auto) 7.9 th/mm3 (1.8-7.7); Neut % (Auto) 77.8 % (16.0-70.0); Platelet Count 432 th/mm3 (150-450); Red Blood Count 4.16 mil/mm3 (4.00-5.30); Red Cell Distribution Width 13.9 % (11.6-17.2); White Blood Count 10.1 th/mm3 (4.0-11.0)
[2018-03-02] MEDS: Piperacil/Tazo 3.375 GM Premix 3.375 GM/50 ML PIGGYBACK IV.SIG SCH ×3 (05:48→21:55)
[2018-03-02 06:08] LABS: Alanine Aminotransferase 13 U/L (10-53); Albumin 2.6 g/dL (3.4-5.0); Alkaline Phosphatase 99 U/L (45-117); Anion Gap 12 meq/L (5-15); Aspartate Aminotransferase 11 U/L (15-37); Blood Urea Nitrogen 22 mg/dL (7-18); Calcium 8.3 mg/dL (8.5-10.1); Carbon Dioxide 21.4 meq/L (21.0-32.0); Chloride 117 meq/L (98-107); Glomerular Filtration Rate 72 mL/min (>89); Glucose,Random 288 mg/dL (74-106); Potassium 3.4 meq/L (3.5-5.1); Sodium 150 meq/L (136-145)
[2018-03-02] MEDS: Insulin NovoLOG Aspart Correctional Sugar Inj SQ SCH ×5 (08:29→22:27)
[2018-03-02] MEDS: Lactobacillus Acidophilus/L. Spores Tablet PO SCH ×3 (08:32→17:04)
[2018-03-02] MEDS: Vancomycin Inj 1,250 MG in Sodium Chlor 0.9% Inj 250 ML IV.SIG SCH (11:39)
--- NOTE | 2018-03-02 12:00 | P.PN ---
Subjective Interval history: Follow-up DKA/sepsis/diabetic foot infection March 01, 2018-patient seen and examined, currently n.p.o., significant left foot pain. Afebrile. Positive for nausea, emesis March 02, 2018-patient seen and examined, still with nausea and dry heaves. She is status post Incision drainage debridement expansile to joint capsule and muscle with wound vac application. Case discussed with podiatry, Dr. Mohan Physical Exam Vital signs: Vital Signs 03/01/18 14:01 03/01/18 14:15 03/01/18 14:30 Temperature 98.4 F Pulse Rate 98 H 92 H 85 Respiratory Rate 12 16 16 Blood Pressure 118/75 142/85 H 131/78 Pulse Oximetry 99 100 100 03/01/18 14:45 03/01/18 15:00 03/01/18 20:00 Temperature 98.3 F 99.6 F Pulse Rate 86 86 87 Respiratory Rate 19 17 18 Blood Pressure 150/75 H 136/77 125/59 L Pulse Oximetry 100 100 96 03/02/18 00:00 03/02/18 04:00 03/02/18 08:00 Temperature 99.4 F 97.8 F 98.6 F Pulse Rate 83 76 69 Respiratory Rate 18 18 18 Blood Pressure 156/73 H 155/75 H 157/82 H Pulse Oximetry 93 L 96 97 03/02/18 08:28 Temperature 99.7 F H Pulse Rate Respiratory Rate Blood Pressure Pulse Oximetry Intake & Output 03/01/18 03/02/18 03/02/18 18:59 06:59 18:59 Intake Total 2312.5 / 2312.5 450 / 450 240 / 240 Output Total 830 / 830 Balance 1482.5 / 1482.5 450 / 450 240 / 240 Weight 70 kg Intake: IV 1412.5 / 1412.5 100 / 100 D5W/Normal Saline Inj 1,000 ML 800 / 800 @ 70 mls/hr IV.CONT .[id number] RADHA Rx#:[id number] NovoLIN R (IV Infusion) 100 100 / 100 UNIT In NS Inj 99 ML @ 5 UNITS/ HR 5 mls/hr IV.CONT TITRATE PRN Rx#:[id number] Zosyn 3.375 GM Premix 3.375 gm 50 / 50 100 / 100 In 50 ml @ 100 mls/hr IV.SIG Q8H RADHA Rx#:[id number] KCl 20 mEq Premix Inj 20 meq In 200 / 200 100 ml @ 50 mls/hr IV.SIG Q2H PRN Rx#:[id number] Vancomycin Inj 1,250 MG In NS 262.5 / 262.5 Inj 250 ML @ 262.5 mls/hr IV. SIG Q24H RADHA Rx#:[id number] Oral 0 / 0 350 / 350 240 / 240 Anesthesia Amount 900 / 900 Output: Urine 300 / 300 Emesis 500 / 500 Estimated Blood Loss 30 / 30 Other: Mode Setting Right Foot Continuous Continuous # Voids 2 3 Narrative: GENERAL: NAD SKIN: Warm and dry. HEAD: Atraumatic. Normocephalic. EYES: Pupils equal and round. No scleral icterus. No injection or drainage. ENT: No nasal bleeding or discharge. Mucous membranes pink and moist. NECK: Trachea midline. No JVD. CARDIOVASCULAR: Regular rate and rhythm. RESPIRATORY: No accessory muscle use. Clear to auscultation. Breath sounds equal bilaterally. GASTROINTESTINAL: Abdomen soft, non-tender, nondistended. Hepatic and splenic margins not palpable. MUSCULOSKELETAL: Extremities without clubbing, cyanosis, or edema. No obvious deformities. Dressing over right foot, wound VAC in place NEUROLOGICAL: Awake and alert. No obvious cranial nerve deficits. Motor grossly within normal limits. Five out of 5 muscle strength in the arms and legs. Normal speech. PSYCHIATRIC: Appropriate mood and affect; insight and judgment normal. Results - Labs CBC & Chem 7: 03/02/18 05:02 03/02/18 05:02 Laboratory Results - last 24 hr 03/01/18 03/01/18 03/01/18 14:04 16:19 22:12 WBC RBC Hgb Hct MCV MCH MCHC RDW Plt Count MPV Neut % (Auto) Lymph % (Auto) [place] % (Auto) Eos % (Auto) Baso % (Auto) Neut # (Auto) Lymph # (Auto) [place] # (Auto) Eos # (Auto) Baso # (Auto) WBC Differential Differential Comment Sodium Potassium Chloride Carbon Dioxide Anion Gap BUN Creatinine Estimated GFR POC Glucose 286 H 334 H 255 H Random Glucose Calcium Total Bilirubin AST ALT Alkaline Phosphatase Total Protein Albumin 03/02/18 03/02/18 03/02/18 05:02 05:02 08:17 WBC 10.1 RBC 4.16 Hgb 12.1 Hct 36.0 MCV 86.6 MCH 29.1 MCHC 33.5 RDW 13.9 Plt Count 432 MPV 7.5 Neut % (Auto) 77.8 H Lymph % (Auto) 10.7 [place] % (Auto) 11.0 H Eos % (Auto) 0.0 Baso % (Auto) 0.5 Neut # (Auto) 7.9 H Lymph # (Auto) 1.1 [place] # (Auto) 1.1 H Eos # (Auto) 0.0 Baso # (Auto) 0.1 WBC Differential . Differential Comment Auto diff final Sodium 150 H Potassium 3.4 L Chloride 117 H Carbon Dioxide 21.4 Anion Gap 12 BUN 22 H Creatinine 0.84 Estimated GFR 72 L POC Glucose 321 H Random Glucose 288 H D Calcium 8.3 L Total Bilirubin 0.6 AST 11 L ALT 13 Alkaline Phosphatase 99 Total Protein 7.0 Albumin 2.6 L 03/02/18 11:50 WBC RBC Hgb Hct MCV MCH MCHC RDW Plt Count MPV Neut % (Auto) Lymph % (Auto) [place] % (Auto) Eos % (Auto) Baso % (Auto) Neut # (Auto) Lymph # (Auto) [place] # (Auto) Eos # (Auto) Baso # (Auto) WBC Differential Differential Comment Sodium Potassium Chloride Carbon Dioxide Anion Gap BUN Creatinine Estimated GFR POC Glucose 294 H Random Glucose Calcium Total Bilirubin AST ALT Alkaline Phosphatase Total Protein Albumin Microbiology 03/01/18 13:15 Wound - Foot Gram Stain - Final 03/01/18 13:15 Wound - Foot Wound Culture - Preliminary Group B beta Strep 03/01/18 13:15 Wound - Foot Fungal Smear - Final No fungal elements seen - Procedures s/p Incision drainage debridement expansile to joint capsule and muscle with wound vac application Assessment and Plan - Plan 52-year-old female with DKA, in a noncompliant type II diabetic, acute Resolved s/p insulin drip Diabetes type 1 Continue with Levemir 5 units at bedtime, insulin sliding scale hemoglobin A1c pending Hypokalemia Replace electrolytes and monitor Diabetic gastroparesis Start Reglan 10 mg TID before meals Sepsis-source right foot infection/cellulitis Diabetic right foot infection Currently on vancomycin and Zosyn pending culture report MRI of the foot noted and reviewed by me without any evidence of osteomyelitis s/p Incision drainage debridement expansile to joint capsule and muscle with wound vac application Appreciate input from podiatry, Infectious disease special consultation PRN DVT prophylaxis: SCDs
--- NOTE | 2018-03-02 12:59 | P.PNPOD ---
Subjective Interval history: Nausea epigastric pain remains, minimal right foot pain Physical Exam Vital signs: Vital Signs 03/01/18 14:01 03/01/18 14:15 03/01/18 14:30 Temperature 98.4 F Pulse Rate 98 H 92 H 85 Respiratory Rate 12 16 16 Blood Pressure 118/75 142/85 H 131/78 Pulse Oximetry 99 100 100 03/01/18 14:45 03/01/18 15:00 03/01/18 20:00 Temperature 98.3 F 99.6 F Pulse Rate 86 86 87 Respiratory Rate 19 17 18 Blood Pressure 150/75 H 136/77 125/59 L Pulse Oximetry 100 100 96 03/02/18 00:00 03/02/18 04:00 03/02/18 08:00 Temperature 99.4 F 97.8 F 98.6 F Pulse Rate 83 76 69 Respiratory Rate 18 18 18 Blood Pressure 156/73 H 155/75 H 157/82 H Pulse Oximetry 93 L 96 97 03/02/18 08:28 03/02/18 12:00 Temperature 99.7 F H 99.0 F Pulse Rate 81 Respiratory Rate 20 Blood Pressure 145/69 H Pulse Oximetry 97 Intake & Output 03/01/18 03/02/18 03/02/18 18:59 06:59 18:59 Intake Total 2312.5 / 2312.5 450 / 450 240 / 240 Output Total 830 / 830 Balance 1482.5 / 1482.5 450 / 450 240 / 240 Weight 70 kg Intake: IV 1412.5 / 1412.5 100 / 100 D5W/Normal Saline Inj 1,000 ML 800 / 800 @ 70 mls/hr IV.CONT .[id number] [facility] Rx#:[id number] NovoLIN R (IV Infusion) 100 100 / 100 UNIT In NS Inj 99 ML @ 5 UNITS/ HR 5 mls/hr IV.CONT TITRATE PRN Rx#:[id number] Zosyn 3.375 GM Premix 3.375 gm 50 / 50 100 / 100 In 50 ml @ 100 mls/hr IV.SIG Q8H [facility] Rx#:[id number] KCl 20 mEq Premix Inj 20 meq In 200 / 200 100 ml @ 50 mls/hr IV.SIG Q2H PRN Rx#:[id number] Vancomycin Inj 1,250 MG In NS 262.5 / 262.5 Inj 250 ML @ 262.5 mls/hr IV. SIG Q24H [facility] Rx#:[id number] Oral 0 / 0 350 / 350 240 / 240 Anesthesia Amount 900 / 900 Output: Urine 300 / 300 Emesis 500 / 500 Estimated Blood Loss 30 / 30 Other: Mode Setting Right Foot Continuous Continuous # Voids 2 3 - Constitutional no acute distress Comments: Nauseated with dry heaving - Neurological Alert and oriented x3 - Routine Extremities Exam Comments: Right lower extremity significant edema erythema with wound VAC intact dorsum of the foot, ankle appears to have no ascending signs of infection capillary refill time remains to digits sensation decreased to light touch Medications and Allergies Active Medications: Active Medications Acetaminophen (Tylenol) 650 mg PO Q4H PRN PRN Reason: Temp > 100.4 Hydrocodone Bitart/Acetaminophen ([place] 10/325) 1 tab PO Q4H PRN PRN Reason: Pain 7 to 10 Hydrocodone Bitart/Acetaminophen ([place] 5/325) 1 tab PO Q4H PRN PRN Reason: Pain 3 to 6 Al Hydroxide/Mg Hydroxide (Milk Of Magnesia Liq) 30 ml PO Q12H PRN PRN Reason: Mild Constipation Chlorhexidine Gluconate (Chlorhexidine 2% Cloth) 3 pack TOPICAL DAILY@0400 [facility] Stop: 03/06/18 03:59 Last Admin: 03/02/18 04:00 Dose: Not Given Chlorhexidine Gluconate (Chlorhexidine 2% Cloth) 3 pack TOPICAL DAILY@0400 PRN PRN Reason: Extra cloth needed Stop: 03/06/18 03:59 Dextrose (D50w Vial) 50 ml IV.PUSH UNSCH PRN PRN Reason: PER HYPOGLYCEMIA PROTOCOL Enoxaparin Sodium (Lovenox Inj) 40 mg SQ Q24H [facility] Last Admin: 03/01/18 16:14 Dose: Not Given Glucagon (Glucagon Inj) 1 mg OTHER PRN PRN PRN Reason: for Hypoglycemia Protocol Sodium Chloride (Ns Inj) 1,000 mls @ 250 mls/hr IV.CONT .Q4H [facility] Last Admin: 03/02/18 11:43 Dose: Not Given Piperacillin/Tazobactam/Dextrose (Zosyn 3.375 Gm Premix) 3.375 gm in 50 mls @ 100 mls/hr IV.SIG Q8H [facility] Last Infusion: 03/02/18 06:25 Dose: Infused Sodium Phosphate 15 mmol/ (Sodium Chloride) 105 mls @ 25 mls/hr IV.SIG UNSCH PRN PRN Reason: for Phosphate Level < 1.0 Vancomycin HCl 1,250 mg/ (Sodium Chloride) 262.5 mls @ 262.5 mls/hr IV.SIG Q24H [facility] Last Admin: 03/02/18 11:39 Dose: 262.5 mls/hr Lactated Ringer's (Lr 1000 Ml Inj) 1,000 mls @ 30 mls/hr IV.CONT .Q24H [facility] Stop: 03/02/18 12:59 Last Admin: 03/01/18 16:13 Dose: Not Given Potassium Chloride (Kcl 10 Meq Premix Inj) 10 meq in 100 mls @ 100 mls/hr IV.SIG Q1H [facility] Stop: 03/02/18 14:59 Insulin Aspart (Novolog Insulin [place] Sugar Inj) 0 unit SQ ACHS [facility]; Protocol Last Admin: 03/02/18 11:53 Dose: 7 unit Insulin Detemir (Levemir Inj) 5 unit SQ HS [facility] Last Admin: 03/01/18 21:25 Dose: 5 unit Lactobacillus Acidophilus (Lactinex) 1 tab PO TID [facility] Last Admin: 03/02/18 08:32 Dose: 1 tab Metoclopramide HCl (Reglan Inj) 10 mg IV.PUSH Q8HR [facility]; Protocol Miscellaneous Information ([facility] Ordered Lab Info) 0 each OTHER ONCE ONE Stop: 03/03/18 11:46 Ondansetron HCl (Zofran Inj) 4 mg IV.PUSH Q6H PRN PRN Reason: NAUSEA OR VOMITING Last Admin: 03/02/18 08:30 Dose: 4 mg Pharmacy Profile Note (Vancomycin Consult Pharmacy) 1 each OTHER UNSCH PRN PRN Reason: Pharmacy to dose Prochlorperazine Edisylate (Compazine Inj) 10 mg IV.PUSH Q6H PRN PRN Reason: NAUSEA Sodium Bicarbonate (Sodium Bicarbonate 8.4% Inj) 50 meq IV.PUSH UNSCH PRN PRN Reason: for pH 6.9 to 7.0 Sodium Bicarbonate (Sodium Bicarbonate 8.4% Inj) 100 meq IV.PUSH UNSCH PRN PRN Reason: for pH less than 6.9 Sodium Chloride (Ns Flush) 2 ml IV.FLUSH BID [facility] Last Admin: 03/02/18 08:31 Dose: 2 ml Sodium Chloride (Ns Flush) 2 ml IV.FLUSH PRN PRN PRN Reason: FLUSH AFTER USING IV ACCESS Allergies Allergy/AdvReac Type Severity Reaction Status Date / Time Sulfa (Sulfonamide Allergy Hives Verified 02/26/18 11:06 Antibiotics) Home Medications Medication Instructions Recorded Confirmed Type metformin 500 mg PO BID 02/26/18 02/28/18 History Results - Labs CBC & Chem 7: 03/02/18 05:02 03/02/18 05:02 Laboratory Results - last 24 hr 03/01/18 03/01/18 03/01/18 14:04 16:19 22:12 WBC RBC Hgb Hct MCV MCH MCHC RDW Plt Count MPV Neut % (Auto) Lymph % (Auto) [place] % (Auto) Eos % (Auto) Baso % (Auto) Neut # (Auto) Lymph # (Auto) [place] # (Auto) Eos # (Auto) Baso # (Auto) WBC Differential Differential Comment Sodium Potassium Chloride Carbon Dioxide Anion Gap BUN Creatinine Estimated GFR POC Glucose 286 H 334 H 255 H Random Glucose Calcium Total Bilirubin AST ALT Alkaline Phosphatase Total Protein Albumin 03/02/18 03/02/18 03/02/18 05:02 05:02 08:17 WBC 10.1 RBC 4.16 Hgb 12.1 Hct 36.0 MCV 86.6 MCH 29.1 MCHC 33.5 RDW 13.9 Plt Count 432 MPV 7.5 Neut % (Auto) 77.8 H Lymph % (Auto) 10.7 [place] % (Auto) 11.0 H Eos % (Auto) 0.0 Baso % (Auto) 0.5 Neut # (Auto) 7.9 H Lymph # (Auto) 1.1 [place] # (Auto) 1.1 H Eos # (Auto) 0.0 Baso # (Auto) 0.1 WBC Differential . Differential Comment Auto diff final Sodium 150 H Potassium 3.4 L Chloride 117 H Carbon Dioxide 21.4 Anion Gap 12 BUN 22 H Creatinine 0.84 Estimated GFR 72 L POC Glucose 321 H Random Glucose 288 H D Calcium 8.3 L Total Bilirubin 0.6 AST 11 L ALT 13 Alkaline Phosphatase 99 Total Protein 7.0 Albumin 2.6 L 03/02/18 11:50 WBC RBC Hgb Hct MCV MCH MCHC RDW Plt Count MPV Neut % (Auto) Lymph % (Auto) [place] % (Auto) Eos % (Auto) Baso % (Auto) Neut # (Auto) Lymph # (Auto) [place] # (Auto) Eos # (Auto) Baso # (Auto) WBC Differential Differential Comment Sodium Potassium Chloride Carbon Dioxide Anion Gap BUN Creatinine Estimated GFR POC Glucose 294 H Random Glucose Calcium Total Bilirubin AST ALT Alkaline Phosphatase Total Protein Albumin Microbiology 03/01/18 13:15 Wound - Foot Gram Stain - Final 03/01/18 13:15 Wound - Foot Wound Culture - Preliminary Group B beta Strep 03/01/18 13:15 Wound - Foot Fungal Smear - Final No fungal elements seen - Procedures s/p Incision drainage debridement expansile to joint capsule and muscle with wound vac application Assessment and Plan - Assessment (1) Diabetic infection of right foot Code(s): E11.628 - Type 2 diabetes mellitus with other skin complications; L08.9 - Local infection of the skin and subcutaneous tissue, unspecified Status: Acute - Plan Unsure if the patient is improving at this point, recommend incision and drainage and repeat debridement tomorrow with replacement of wound VAC right foot. We had a long discussion regarding possible first ray amputation versus transmetatarsal amputation. The patient wishes for digit and forefoot salvage at this point. Patient will be n.p.o. after midnight surgery tomorrow. Reviewed the case with medicine.
[2018-03-02] MEDS: Potassium Chlor 10 mEq Premix 10 MEQ/100 ML PIGGYBACK IV.SIG SCH ×3 (14:07→17:03)
[2018-03-02] MEDS: Enoxaparin Inj 40 MG/0.4 ML Syringe SQ SCH (17:54)
[2018-03-02] MEDS: Insulin Detemir Inj 1,000 UNIT/10 ML Vial SQ SCH (22:23)
[2018-03-03] MEDS: Sod Chloride 0.9% Inj 1,000 ML IV.CONT SCH ×3 (03:16→19:28)
[2018-03-03] MEDS ORDERED: Sodium Chlor 0.9% Inj 500 ML IV.CONT ONE (04:00)
[2018-03-03] MEDS ORDERED: Chlorhexidine Gluconate 2% 1 Pack (2 Cloths) TOPICAL ONE (04:00)
[2018-03-03] MEDS: Piperacil/Tazo 3.375 GM Premix 3.375 GM/50 ML PIGGYBACK IV.SIG SCH ×2 (05:04→14:03)
[2018-03-03 06:33] LABS: Baso % (Auto) 0.5 % (0.0-2.0); Hematocrit 34.9 % (35.0-46.0); Hemoglobin 11.9 gm/dL (11.6-15.3); Lymph # (Auto) 1.3 th/mm3 (1.0-4.8); Lymph % (Auto) 17.4 % (9.0-44.0); Mean Corpuscular HGB Conc 34.2 % (32.0-36.0); Mean Corpuscular Hemoglobin 29.5 pg (27.0-34.0); Mean Corpuscular Volume 86.2 fL (80.0-100.0); Mean Platelet Volume 7.9 fL (7.0-11.0); Mono # (Auto) 0.9 th/mm3 (0.0-0.9); Mono % (Auto) 12.1 % (0.0-8.0); Neut # (Auto) 5.2 th/mm3 (1.8-7.7); Platelet Count 382 th/mm3 (150-450); Red Blood Count 4.05 mil/mm3 (4.00-5.30); Red Cell Distribution Width 13.7 % (11.6-17.2); White Blood Count 7.4 th/mm3 (4.0-11.0)
[2018-03-03] MEDS: Acetaminophen 325 MG Tablet PO PRN (07:20)
[2018-03-03] MEDS: Insulin NovoLOG Aspart Correctional Sugar Inj SQ SCH ×4 (07:30→21:33)
[2018-03-03] MEDS ORDERED: Succinylcholine Inj 100 MG/5 ML Syringe IV.PUSH ONE (07:57)
[2018-03-03] MEDS ORDERED: Phenylephrine/NS 1000 MCG/10ML Syringe IV.PUSH ONE (07:57)
[2018-03-03] MEDS ORDERED: Lidocaine PF 1% Inj 5 ML Syringe OTHER ONE (07:57)
--- NOTE | 2018-03-03 08:50 | P.BOP ---
- Preoperative Diagnosis (1) Right foot infection (2) Abscess of foot including toes (3) Diabetic infection of right foot - Postoperative Diagnosis (1) Right foot infection (2) Abscess of foot including toes (3) Diabetic infection of right foot Date of procedure: 03/03/18 Procedure: Right foot incision drainage debridement to muscle and joint capsule with wound vac application Anesthesia: MATT Surgeon: Mic Russo DPM Estimated blood loss (mL): 15 (mL) Pathology: none sent Condition: stable
[2018-03-03] MEDS ORDERED: fentaNYL Citrate Inj 100 MCG/2 ML Ampul ONE (09:01)
[2018-03-03] MEDS: Chlorhexidine Gluconate 2% 1 Pack (2 Cloths) TOPICAL SCH (10:56)
[2018-03-03] MEDS: Lactobacillus Acidophilus/L. Spores Tablet PO SCH ×3 (10:57→18:48)
[2018-03-03] MEDS ORDERED: Pharmacy Ordered Lab Info OTHER ONE (11:45)
[2018-03-03] MEDS ORDERED: Insulin Detemir Inj 1,000 UNIT/10 ML Vial SQ SCH (11:45)
--- NOTE | 2018-03-03 11:48 | P.PN ---
Subjective Interval history: Follow-up DKA/sepsis/diabetic foot infection March 01, 2018-patient seen and examined, currently n.p.o., significant left foot pain. Afebrile. Positive for nausea, emesis March 02, 2018-patient seen and examined, still with nausea and dry heaves. She is status post Incision drainage debridement expansile to joint capsule and muscle with wound vac application. Case discussed with podiatry, Dr. Mohan March 03, 2018-patient seen and examined, came back from the OR where patient is status post I&D. Only complaint of nausea without any emesis. States she is feeling much better today. Physical Exam Vital signs: Vital Signs 03/02/18 12:00 03/02/18 16:00 03/02/18 20:00 Temperature 99.0 F 99.4 F 99.7 F H Pulse Rate 81 75 73 Respiratory Rate 20 18 18 Blood Pressure 145/69 H 143/70 H 172/69 H Pulse Oximetry 97 96 98 03/03/18 00:00 03/03/18 04:00 03/03/18 07:48 Temperature 99.2 F 99.2 F 101.3 F H Pulse Rate 78 69 74 Respiratory Rate 18 18 18 Blood Pressure 187/83 H 187/83 H 181/79 H Pulse Oximetry 97 97 94 L 03/03/18 08:53 03/03/18 09:00 03/03/18 09:15 Temperature 99.8 F H Pulse Rate 83 83 79 Respiratory Rate 14 15 17 Blood Pressure 145/72 H 150/78 H 156/81 H Pulse Oximetry 96 94 L 94 L Intake & Output 03/02/18 03/03/18 03/03/18 18:59 06:59 18:59 Intake Total 3012.5 / 3012.5 50 / 50 50 / 50 Output Total 300 / 300 Balance 2712.5 / 2712.5 50 / 50 50 / 50 Weight 71 kg Intake: IV 612.5 / 612.5 50 / 50 50 / 50 Zosyn 3.375 GM Premix 3.375 gm 50 / 50 50 / 50 50 / 50 In 50 ml @ 100 mls/hr IV.SIG Q8H [facility] Rx#:[id number] KCl 10 mEq Premix Inj 10 meq In 300 / 300 100 ml @ 100 mls/hr IV.SIG Q1H [facility] Rx#:[id number] Vancomycin Inj 1,250 MG In NS 262.5 / 262.5 Inj 250 ML @ 262.5 mls/hr IV. SIG Q24H [facility] Rx#:[id number] Oral 2400 / 2400 Output: Urine 300 / 300 Other: # Voids 1 4 Narrative: GENERAL: NAD SKIN: Warm and dry. HEAD: Atraumatic. Normocephalic. EYES: Pupils equal and round. No scleral icterus. No injection or drainage. ENT: No nasal bleeding or discharge. Mucous membranes pink and moist. NECK: Trachea midline. No JVD. CARDIOVASCULAR: Regular rate and rhythm. RESPIRATORY: No accessory muscle use. Clear to auscultation. Breath sounds equal bilaterally. GASTROINTESTINAL: Abdomen soft, non-tender, nondistended. Hepatic and splenic margins not palpable. MUSCULOSKELETAL: Extremities without clubbing, cyanosis, or edema. No obvious deformities. Dressing over right foot, wound VAC in place NEUROLOGICAL: Awake and alert. No obvious cranial nerve deficits. Motor grossly within normal limits. Five out of 5 muscle strength in the arms and legs. Normal speech. PSYCHIATRIC: Appropriate mood and affect; insight and judgment normal. Results - Labs CBC & Chem 7: 03/03/18 05:17 03/02/18 05:02 Laboratory Results - last 24 hr 03/02/18 03/02/18 03/02/18 05:02 11:50 17:59 WBC RBC Hgb Hct MCV MCH MCHC RDW Plt Count MPV Neut % (Auto) Lymph % (Auto) [place] % (Auto) Eos % (Auto) Baso % (Auto) Neut # (Auto) Lymph # (Auto) [place] # (Auto) Eos # (Auto) Baso # (Auto) WBC Differential Differential Comment POC Glucose 294 H 276 H Hemoglobin A1c 13.0 H 03/02/18 03/03/18 21:53 05:17 WBC 7.4 RBC 4.05 Hgb 11.9 Hct 34.9 L MCV 86.2 MCH 29.5 MCHC 34.2 RDW 13.7 Plt Count 382 MPV 7.9 Neut % (Auto) 70.0 Lymph % (Auto) 17.4 [place] % (Auto) 12.1 H Eos % (Auto) 0.0 Baso % (Auto) 0.5 Neut # (Auto) 5.2 Lymph # (Auto) 1.3 [place] # (Auto) 0.9 Eos # (Auto) 0.0 Baso # (Auto) 0.0 WBC Differential . Differential Comment Auto diff final POC Glucose 235 H Hemoglobin A1c Microbiology 03/01/18 13:15 Wound - Foot Gram Stain - Final 03/01/18 13:15 Wound - Foot Wound Culture - Final Group B beta Strep 03/01/18 13:15 Wound - Foot Fungal Smear - Final No fungal elements seen - Procedures s/p Incision drainage debridement expansile to joint capsule and muscle with wound vac application Assessment and Plan - Plan 52-year-old female with DKA, in a noncompliant type II diabetic, acute Resolved s/p insulin drip Diabetes type 1 Increase Levemir to 10 units at bedtime, insulin sliding scale. Will add short acting insulin when patient is able to tolerate p.o. hemoglobin A1c >13 Hypokalemia Replace electrolytes and monitor Diabetic gastroparesis Continue Reglan 10 mg TID before meals Sepsis-source right foot infection/cellulitis Diabetic right foot infection Currently on vancomycin and Zosyn pending culture report MRI of the foot without any evidence of osteomyelitis s/p Incision drainage debridement expansile to joint capsule and muscle with wound vac application Appreciate input from podiatry, Infectious disease special consultation PRN DVT prophylaxis: SCDs
--- NOTE | 2018-03-03 12:40 | MP ---
cc: Mic Mohan DPM DATE OF OPERATION: 03/03/2018 PREOPERATIVE DIAGNOSIS: Severe right foot infection, abscess with ulceration. POSTOPERATIVE DIAGNOSIS: Severe right foot infection, abscess with ulceration. PROCEDURE PERFORMED: Right foot incision and drainage, debridement to muscle and joint capsule with wound VAC application. COMPLICATIONS: None. ANESTHESIA: General. ESTIMATED BLOOD LOSS: 15 mL. PATHOLOGY: No pathology sent. DISPOSITION: Return to floor. The patient will need minimum 2-4 weeks of wound VAC changes to hopefully promote secondary intention and may need skin graft or grafting type procedure to close the wound. PROCEDURE IN DETAIL: Under mild sedation, the patient was brought to the operating room, placed on the operating table in supine position. Following the induction of general anesthesia, the right lower extremity was scrubbed, prepped and draped in the usual aseptic fashion. The foot was elevated and examined. Overall, the foot remained viable. There was increased ischemic findings of the dorsal aspect of the distal first interspace incision. Sharp dissection took place of this necrotic skin. Utilizing curette and rongeur, any fibrotic tissue deep within the first interspace, the plantar first MPJ joint capsule was debrided to viable bleeding tissue. The wound was then flushed with 1 liter pulse lavage normal saline. Muscle was debrided down to joint capsule of the first MPJ. At this time, the most proximal aspect of the incision was coapted utilizing nylon. Now, leaving a soft tissue void that went to joint capsule of the plantar hallux with a small skin island in the first interspace. The wound measurements were approximately 4.5 x 2 cm with 1.5 cm of depth. The wound VAC was then applied under adequate sealant suction 125 mmHg. We had difficulty getting a seal and suction. The nail was noted to be very large, thick, and fungal. At this time, the nail was debrided to allow for sealant suction of the wound VAC. Otherwise, there was no way to get the suction given the severe deformity and chronic fungal infection of the nail. The patient then recovered in PACU. The plan is for wound VAC changes Sunday, Sunday, Sunday. My recommendation is the next wound VAC change to take place on Sunday. This is a severe infection. In order to salvage the patient's extremity, she will need IV antibiotics, careful wound care, strict hyperglycemic glycemic control. Given the patient self-pay status, I am unsure if we can get those arranged for outpatient followup to have success keeping the extremity and preventing the first ray amputation. Given that the patient does ambulate, she is employed, she is 52, I am trying to provide all digit and limb salvage efforts at this point. A wound VAC nurse will be consulted. We will continue to follow. I will sign out to Dr. Jacobson, who will begin care starting on Sunday. No further immediate surgical plans at this point; however, the patient may need a skin graft or graft-like substance applied in the next 10-14 days. TATIANNA Glez/deedee , 10:49 AM , 10:57 AM
[2018-03-03] MEDS: Vancomycin Inj 1,250 MG in Sodium Chlor 0.9% Inj 250 ML IV.SIG SCH ×2 (13:30→21:04)
[2018-03-03] MEDS: Enoxaparin Inj 40 MG/0.4 ML Syringe SQ SCH (16:00)
[2018-03-04] MEDS: Piperacil/Tazo 3.375 GM Premix 3.375 GM/50 ML PIGGYBACK IV.SIG SCH ×4 (00:22→21:06)
[2018-03-04] MEDS: Chlorhexidine Gluconate 2% 1 Pack (2 Cloths) TOPICAL SCH (03:13)
[2018-03-04] MEDS: Insulin NovoLOG Aspart Correctional Sugar Inj SQ SCH ×4 (09:07→20:36)
[2018-03-04 09:13] LABS: Baso % (Auto) 0.5 % (0.0-2.0); Hematocrit 35.6 % (35.0-46.0); Hemoglobin 11.8 gm/dL (11.6-15.3); Lymph # (Auto) 1.2 th/mm3 (1.0-4.8); Lymph % (Auto) 15.2 % (9.0-44.0); Mean Corpuscular Hemoglobin 29.1 pg (27.0-34.0); Mean Platelet Volume 7.8 fL (7.0-11.0); Mono # (Auto) 0.9 th/mm3 (0.0-0.9); Mono % (Auto) 10.9 % (0.0-8.0); Neut % (Auto) 73.4 % (16.0-70.0); Platelet Count 343 th/mm3 (150-450); Red Blood Count 4.04 mil/mm3 (4.00-5.30); Red Cell Distribution Width 13.7 % (11.6-17.2); White Blood Count 8.1 th/mm3 (4.0-11.0)
[2018-03-04 09:39] LABS: Alanine Aminotransferase 15 U/L (10-53); Albumin 2.5 g/dL (3.4-5.0); Alkaline Phosphatase 73 U/L (45-117); Anion Gap 11 meq/L (5-15); Aspartate Aminotransferase 15 U/L (15-37); Blood Urea Nitrogen 14 mg/dL (7-18); Calcium 7.7 mg/dL (8.5-10.1); Carbon Dioxide 26.7 meq/L (21.0-32.0); Chloride 110 meq/L (98-107); Glomerular Filtration Rate Greater Than 89 mL/min (>89); Glucose,Random 257 mg/dL (74-106); Sodium 148 meq/L (136-145); Total Protein 6.4 g/dL (6.4-8.2)
[2018-03-04] MEDS: Vancomycin Inj 1,250 MG in Sodium Chlor 0.9% Inj 250 ML IV.SIG SCH ×2 (09:55→20:37)
[2018-03-04] MEDS: Lactobacillus Acidophilus/L. Spores Tablet PO SCH ×3 (09:55→18:40)
[2018-03-04 10:05] LABS: Potassium 2.8 meq/L (3.5-5.1)
[2018-03-04] MEDS ORDERED: Potassium Chloride 25 MEQ Effervescent Tablet PO ONE (10:32)
--- NOTE | 2018-03-04 10:35 | P.PN ---
Subjective Interval history: Follow-up DKA/sepsis/diabetic foot infection March 01, 2018-patient seen and examined, currently n.p.o., significant left foot pain. Afebrile. Positive for nausea, emesis March 02, 2018-patient seen and examined, still with nausea and dry heaves. She is status post Incision drainage debridement expansile to joint capsule and muscle with wound vac application. Case discussed with podiatry, Dr. Mohan March 03, 2018-patient seen and examined, came back from the OR where patient is status post I&D. Only complaint of nausea without any emesis. States she is feeling much better today. March 04, 2018-patient seen and examined, planes of abdominal pain. Denies any emesis times 2 days. Physical Exam Vital signs: Vital Signs 03/03/18 12:00 03/03/18 16:00 03/03/18 20:00 Temperature 100.1 F H 99.2 F 99.0 F Pulse Rate 84 84 79 Respiratory Rate 20 18 18 Blood Pressure 156/74 H 179/84 H 162/88 H Pulse Oximetry 97 96 98 03/04/18 00:00 03/04/18 04:00 03/04/18 08:00 Temperature 98.7 F 98.7 F 99.3 F Pulse Rate 80 82 76 Respiratory Rate 18 18 18 Blood Pressure 163/71 H 177/87 H 167/81 H Pulse Oximetry 95 95 94 L Intake & Output 03/03/18 03/04/18 03/04/18 18:59 06:59 18:59 Intake Total 1320 / 1320 625.00 / 625.00 240 / 240 Output Total 15 / 15 Balance 1305 / 1305 625.00 / 625.00 240 / 240 Weight 68.9 kg Intake: IV 100 / 100 625.00 / 625.00 Zosyn 3.375 GM Premix 3.375 gm 100 / 100 100 / 100 In 50 ml @ 100 mls/hr IV.SIG Q8H [facility] Rx#:[id number] Vancomycin Inj 1,250 MG In NS 525.00 / 525.00 Inj 250 ML @ 262.5 mls/hr IV. SIG Q12H [facility] Rx#:[id number] Oral 720 / 720 240 / 240 Anesthesia Amount 500 / 500 Output: Estimated Blood Loss 15 / 15 Other: # Voids 4 6 Narrative: GENERAL: NAD SKIN: Warm and dry. HEAD: Atraumatic. Normocephalic. EYES: Pupils equal and round. No scleral icterus. No injection or drainage. ENT: No nasal bleeding or discharge. Mucous membranes pink and moist. NECK: Trachea midline. No JVD. CARDIOVASCULAR: Regular rate and rhythm. RESPIRATORY: No accessory muscle use. Clear to auscultation. Breath sounds equal bilaterally. GASTROINTESTINAL: Abdomen soft, mildly tender, nondistended. Hepatic and splenic margins not palpable. MUSCULOSKELETAL: Extremities without clubbing, cyanosis, or edema. No obvious deformities. Dressing over right foot, wound VAC in place NEUROLOGICAL: Awake and alert. No obvious cranial nerve deficits. Motor grossly within normal limits. Five out of 5 muscle strength in the arms and legs. Normal speech. PSYCHIATRIC: Appropriate mood and affect; insight and judgment normal. Results - Labs CBC & Chem 7: 03/04/18 07:37 03/04/18 07:37 Laboratory Results - last 24 hr 03/02/18 03/03/18 03/04/18 05:02 13:00 07:37 WBC 8.1 RBC 4.04 Hgb 11.8 Hct 35.6 MCV 88.0 MCH 29.1 MCHC 33.0 RDW 13.7 Plt Count 343 MPV 7.8 Neut % (Auto) 73.4 H Lymph % (Auto) 15.2 [place] % (Auto) 10.9 H Eos % (Auto) 0.0 Baso % (Auto) 0.5 Neut # (Auto) 6.0 Lymph # (Auto) 1.2 [place] # (Auto) 0.9 Eos # (Auto) 0.0 Baso # (Auto) 0.0 WBC Differential . Differential Comment Auto diff final Sodium Potassium Chloride Carbon Dioxide Anion Gap BUN Creatinine Estimated GFR Random Glucose Hemoglobin A1c 13.0 H Calcium Total Bilirubin AST ALT Alkaline Phosphatase Total Protein Albumin Vancomycin Trough 1.1 L 03/04/18 07:37 WBC RBC Hgb Hct MCV MCH MCHC RDW Plt Count MPV Neut % (Auto) Lymph % (Auto) [place] % (Auto) Eos % (Auto) Baso % (Auto) Neut # (Auto) Lymph # (Auto) [place] # (Auto) Eos # (Auto) Baso # (Auto) WBC Differential Differential Comment Sodium 148 H Potassium 2.8 L* Chloride 110 H Carbon Dioxide 26.7 Anion Gap 11 BUN 14 Creatinine 0.49 L Estimated GFR Greater than 89 Random Glucose 257 H Hemoglobin A1c Calcium 7.7 L Total Bilirubin 0.8 AST 15 ALT 15 Alkaline Phosphatase 73 Total Protein 6.4 D Albumin 2.5 L Vancomycin Trough Microbiology 03/01/18 13:15 Wound - Foot Gram Stain - Final 03/01/18 13:15 Wound - Foot Wound Culture - Final Group B beta Strep - Procedures s/p Incision drainage debridement expansile to joint capsule and muscle with wound vac application Assessment and Plan - Plan 52-year-old female with DKA, in a noncompliant type II diabetic, acute Resolved s/p insulin drip Diabetes type 1 Currently on Levemir 10 units at bedtime, insulin sliding scale. Add Aspart 3 units TIDAC hemoglobin A1c >13 Hypokalemia Keep potassium 75 mEq x1 now and monitor Diabetic gastroparesis Continue Reglan 10 mg TID before meals Sepsis-source right foot infection/cellulitis Diabetic right foot infection Currently on vancomycin and Zosyn pending culture report MRI of the foot without any evidence of osteomyelitis s/p Incision drainage debridement expansile to joint capsule and muscle with wound vac application Wound VAC management per podiatry Appreciate input from podiatry, Infectious disease special consultation PRN Abdominal pain No clear etiology Consider abdominal CT scan DVT prophylaxis: SCDs
--- NOTE | 2018-03-04 16:36 | CT ---
EXAM DATE: 03/04/2018 4:32 PM EST AGE/SEX: 52 years / Female INDICATIONS: Right upper abdominal pain. CLINICAL DATA: This is the patient's initial encounter. Patient reports that signs and symptoms have been present for 1 week and indicates a pain score of 10/10. MEDICAL/SURGICAL HISTORY: Diabetes. Cholecystectomy. ORAL CONTRAST: No oral contrast ingested. RADIATION DOSE: 15.97 CTDI (mGy) COMPARISON: No prior exams available for comparison. TECHNIQUE: Multiple contiguous axial images were obtained through the abdomen and pelvis following b olus infusion of 75 ml Omnipaque 350 (iohexol) nonionic water-soluble contrast as a single exam dos e. No oral contrast ingested. Using automated exposure control and adjustment of the mA and/or kV ac cording to patient size, radiation dose was kept as low as reasonably achievable to obtain optimal di agnostic quality images. DICOM format image data is available electronically for review and comparis on. FINDINGS: Lower Lungs: The visualized lower lungs are clear. Liver: The liver is mildly enlarged. The liver has a homogeneous density without space-occupying lesi on. There is no dilation of the biliary tree. The gallbladder has been resected. Spleen: Homogeneous density without enlargement. Pancreas: Unremarkable without mass or calcification. Kidneys: Normal in size and shape. No evidence of mass or hydronephrosis. Adrenal Glands: Unremarkable. Aorta: The aorta and proximal iliac vessels are grossly unremarkable without aneurysmal dilation. Bowel/Mesentery: The bowel loops are grossly unremarkable. The cecum and sigmoid colon have a normal configuration. Appendix is normal. Abdominal Wall: Intact. Retroperitoneum: No evidence of adenopathy in the retrocrural, para-aortic, or deep pelvic regions. Bladder: Contours are smooth. Reproductive Organs: No abnormal masses or calcifications seen. Inguinal: The inguinal region is unremarkable without evidence of adenopathy. Bony Structures: Mild degenerative changes are noted throughout the thoracolumbar spine. CONCLUSION: 1. Mild hepatomegaly. 2. Mild degenerative changes throughout the thoracolumbar spine. Electronically signed by: Thomas Gamez MD Board Certified Radiologist 03/04/2018 4:35 PM EST
[2018-03-04] MEDS: Enoxaparin Inj 40 MG/0.4 ML Syringe SQ SCH (16:43)
--- NOTE | 2018-03-04 17:46 | P.PNPOD ---
Subjective Interval history: Patient seen bedside with family present resting comfortably. Denies any issues with her right foot however she does report severe abdominal pain. She states the pain is sharp in nature. She reports she just returned from [place]. Physical Exam Vital signs: Vital Signs 03/03/18 20:00 03/04/18 00:00 03/04/18 04:00 Temperature 99.0 F 98.7 F 98.7 F Pulse Rate 79 80 82 Respiratory Rate 18 18 18 Blood Pressure 162/88 H 163/71 H 177/87 H Pulse Oximetry 98 95 95 03/04/18 08:00 03/04/18 12:00 03/04/18 16:00 Temperature 99.3 F 98.9 F 99.6 F Pulse Rate 68 77 75 Respiratory Rate 18 20 18 Blood Pressure 167/81 H 159/81 H 161/79 H Pulse Oximetry 94 L 97 94 L Intake & Output 03/03/18 03/04/18 03/04/18 18:59 06:59 18:59 Intake Total 1320 / 1320 625.00 / 625.00 1979 Output Total Balance 1305 / 1305 625.00 / 625.00 1979 Weight 68.9 kg Intake: IV 100 / 100 625.00 / 625.00 300 / 300 Zosyn 3.375 GM Premix 3.375 gm 100 / 100 100 / 100 50 / 50 In 50 ml @ 100 mls/hr IV.SIG Q8H [facility] Rx#:[id number] Vancomycin Inj 1,250 MG In NS 525.00 / 525.00 250 / 250 Inj 250 ML @ 262.5 mls/hr IV. SIG Q12H [facility] Rx#:[id number] Oral 720 / 720 1680 / 1680 Anesthesia Amount 500 / 500 Output: Estimated Blood Loss Other: # Voids 4 6 Narrative: Dressing intact to right lower extremity. Wound VAC functioning at 125 mm per mercury. No leaks detected to right foot wound VAC. Medications and Allergies Active Medications: Active Medications Acetaminophen (Tylenol) 650 mg PO Q4H PRN PRN Reason: Temp > 100.4 Last Admin: 03/03/18 07:20 Dose: 650 mg Hydrocodone Bitart/Acetaminophen ([place] 10/325) 1 tab PO Q4H PRN PRN Reason: Pain 7 to 10 Hydrocodone Bitart/Acetaminophen ([place] 5/325) 1 tab PO Q4H PRN PRN Reason: Pain 3 to 6 Al Hydroxide/Mg Hydroxide (Milk Of Nicole Liq) 30 ml PO Q12H PRN PRN Reason: Mild Constipation Chlorhexidine Gluconate (Chlorhexidine 2% Cloth) 3 pack TOPICAL DAILY@0400 [facility] Stop: 03/06/18 03:59 Last Admin: 03/04/18 03:13 Dose: Not Given Chlorhexidine Gluconate (Chlorhexidine 2% Cloth) 3 pack TOPICAL DAILY@0400 PRN PRN Reason: Extra cloth needed Stop: 03/06/18 03:59 Dextrose (D50w Vial) 50 ml IV.PUSH UNSCH PRN PRN Reason: PER HYPOGLYCEMIA PROTOCOL Enalaprilat (Vasotec Inj) 2.5 mg IV.PUSH Q6H PRN PRN Reason: SBP>160, DBP>90 Enoxaparin Sodium (Lovenox Inj) 40 mg SQ Q24H [facility] Last Admin: 03/04/18 16:43 Dose: 40 mg Glucagon (Glucagon Inj) 1 mg OTHER PRN PRN PRN Reason: for Hypoglycemia Protocol Piperacillin/Tazobactam/Dextrose (Zosyn 3.375 Gm Premix) 3.375 gm in 50 mls @ 100 mls/hr IV.SIG Q8H [facility] Last Infusion: 03/04/18 14:17 Dose: Infused Sodium Phosphate 15 mmol/ (Sodium Chloride) 105 mls @ 25 mls/hr IV.SIG UNSCH PRN PRN Reason: for Phosphate Level < 1.0 Vancomycin HCl 1,250 mg/ (Sodium Chloride) 262.5 mls @ 262.5 mls/hr IV.SIG Q12H [facility] Last Infusion: 03/04/18 11:00 Dose: Infused Insulin Aspart (Novolog Insulin Correctional Sugar Inj) 0 unit SQ ACHS [facility]; Protocol Last Admin: 03/04/18 13:41 Dose: 4 unit Insulin Human Isoph/Insulin Regular (Novolin 70/30 Inj) 13 units SQ BID@0800, 1700 [facility] Lactobacillus Acidophilus (Lactinex) 1 tab PO TID [facility] Last Admin: 03/04/18 13:41 Dose: 1 tab Metoclopramide HCl (Reglan Inj) 10 mg IV.PUSH Q8HR [facility]; Protocol Last Admin: 03/04/18 13:41 Dose: 10 mg Miscellaneous Information ([facility] Ordered Lab Info) 0 each OTHER ONCE ONE Stop: 03/05/18 08:46 Ondansetron HCl (Zofran Inj) 4 mg IV.PUSH Q6H PRN PRN Reason: NAUSEA OR VOMITING Last Admin: 03/04/18 09:56 Dose: 4 mg Pharmacy Profile Note (Vancomycin Consult Pharmacy) 1 each OTHER UNSCH PRN PRN Reason: Pharmacy to dose Prochlorperazine Edisylate (Compazine Inj) 10 mg IV.PUSH Q6H PRN PRN Reason: NAUSEA Last Admin: 03/04/18 16:44 Dose: 10 mg Sodium Bicarbonate (Sodium Bicarbonate 8.4% Inj) 50 meq IV.PUSH UNSCH PRN PRN Reason: for pH 6.9 to 7.0 Sodium Bicarbonate (Sodium Bicarbonate 8.4% Inj) 100 meq IV.PUSH UNSCH PRN PRN Reason: for pH less than 6.9 Sodium Chloride (Ns Flush) 2 ml IV.FLUSH BID [facility] Last Admin: 03/04/18 11:19 Dose: 2 ml Sodium Chloride (Ns Flush) 2 ml IV.FLUSH PRN PRN PRN Reason: FLUSH AFTER USING IV ACCESS Last Admin: 03/04/18 09:56 Dose: 2 ml Allergies Allergy/AdvReac Type Severity Reaction Status Date / Time Sulfa (Sulfonamide Allergy Hives Verified 02/26/18 11:06 Antibiotics) Home Medications Medication Instructions Recorded Confirmed Type metformin 500 mg PO BID 02/26/18 02/28/18 History Results - Labs CBC & Chem 7: 03/04/18 07:37 03/04/18 07:37 Laboratory Results - last 24 hr 03/04/18 03/04/18 07:37 07:37 WBC 8.1 RBC 4.04 Hgb 11.8 Hct 35.6 MCV 88.0 MCH 29.1 MCHC 33.0 RDW 13.7 Plt Count 343 MPV 7.8 Neut % (Auto) 73.4 H Lymph % (Auto) 15.2 [place] % (Auto) 10.9 H Eos % (Auto) 0.0 Baso % (Auto) 0.5 Neut # (Auto) 6.0 Lymph # (Auto) 1.2 [place] # (Auto) 0.9 Eos # (Auto) 0.0 Baso # (Auto) 0.0 WBC Differential . Differential Comment Auto diff final Sodium 148 H Potassium 2.8 L* Chloride 110 H Carbon Dioxide 26.7 Anion Gap 11 BUN 14 Creatinine 0.49 L Estimated GFR Greater than 89 Random Glucose 257 H Calcium 7.7 L Total Bilirubin 0.8 AST 15 ALT 15 Alkaline Phosphatase 73 Total Protein 6.4 D Albumin 2.5 L - Imaging Impressions Abdomen/Pelvis CT 03/04/18 00:00 CONCLUSION: 1. Mild hepatomegaly. 2. Mild degenerative changes throughout the thoracolumbar spine. - Procedures s/p Incision drainage debridement expansile to joint capsule and muscle with wound vac application Assessment and Plan - Assessment (1) Diabetic infection of right foot Code(s): E11.628 - Type 2 diabetes mellitus with other skin complications; L08.9 - Local infection of the skin and subcutaneous tissue, unspecified Status: Acute - Plan 52-year-old female status post right foot incision and drainage with wound VAC placement performed by Dr. Mohan Patient examined and evaluated with all questions answered Will evaluate wound in 48 hours Patient may need repeat debridement and irrigation Possible wound graft placement Patient to remain in house Continue IV antibiotics Nonweightbearing to right foot, heel touch okay in surgical shoe
[2018-03-05] MEDS: Chlorhexidine Gluconate 2% 1 Pack (2 Cloths) TOPICAL SCH (03:24)
[2018-03-05] MEDS: Piperacil/Tazo 3.375 GM Premix 3.375 GM/50 ML PIGGYBACK IV.SIG SCH (06:06)
[2018-03-05 07:33] LABS: Baso % (Auto) 0.4 % (0.0-2.0); Eos % (Auto) 0.1 % (0.0-4.0); Hemoglobin 11.8 gm/dL (11.6-15.3); Lymph # (Auto) 1.6 th/mm3 (1.0-4.8); Lymph % (Auto) 17.6 % (9.0-44.0); Mean Corpuscular HGB Conc 32.8 % (32.0-36.0); Mean Corpuscular Hemoglobin 28.6 pg (27.0-34.0); Mean Corpuscular Volume 87.3 fL (80.0-100.0); Mean Platelet Volume 7.7 fL (7.0-11.0); Mono # (Auto) 0.9 th/mm3 (0.0-0.9); Mono % (Auto) 9.7 % (0.0-8.0); Neut # (Auto) 6.4 th/mm3 (1.8-7.7); Neut % (Auto) 72.2 % (16.0-70.0); Platelet Count 339 th/mm3 (150-450); Red Blood Count 4.12 mil/mm3 (4.00-5.30); Red Cell Distribution Width 13.3 % (11.6-17.2); White Blood Count 8.8 th/mm3 (4.0-11.0)
[2018-03-05 08:00] LABS: Alanine Aminotransferase 14 U/L (10-53); Albumin 2.6 g/dL (3.4-5.0); Alkaline Phosphatase 66 U/L (45-117); Anion Gap 11 meq/L (5-15); Aspartate Aminotransferase 13 U/L (15-37); Blood Urea Nitrogen 12 mg/dL (7-18); Calcium 7.7 mg/dL (8.5-10.1); Carbon Dioxide 28.3 meq/L (21.0-32.0); Chloride 105 meq/L (98-107); Glomerular Filtration Rate Greater Than 89 mL/min (>89); Glucose,Random 206 mg/dL (74-106); Sodium 144 meq/L (136-145); Total Protein 6.2 g/dL (6.4-8.2)
[2018-03-05 08:21] LABS: Potassium 2.8 meq/L (3.5-5.1)
[2018-03-05] MEDS ORDERED: Pharmacy Ordered Lab Info OTHER ONE (08:45)
[2018-03-05] MEDS ORDERED: Potassium Chloride 25 MEQ Effervescent Tablet PO ONE (09:20)
[2018-03-05] MEDS: Lisinopril 5 MG Tablet PO SCH (10:19)
[2018-03-05] MEDS: Lactobacillus Acidophilus/L. Spores Tablet PO SCH ×3 (10:20→19:02)
[2018-03-05] MEDS: Vancomycin Inj 1,250 MG in Sodium Chlor 0.9% Inj 250 ML IV.SIG SCH (10:24)
[2018-03-05] MEDS: Insulin NovoLOG Aspart Correctional Sugar Inj SQ SCH ×4 (10:26→21:44)
--- NOTE | 2018-03-05 11:29 | P.PN ---
Subjective Interval history: Follow-up DKA/sepsis/diabetic foot infection March 01, 2018-patient seen and examined, currently n.p.o., significant left foot pain. Afebrile. Positive for nausea, emesis March 02, 2018-patient seen and examined, still with nausea and dry heaves. She is status post Incision drainage debridement expansile to joint capsule and muscle with wound vac application. Case discussed with podiatry, Dr. Mohan March 03, 2018-patient seen and examined, came back from the OR where patient is status post I&D. Only complaint of nausea without any emesis. States she is feeling much better today. March 04, 2018-patient seen and examined, planes of abdominal pain. Denies any emesis times 2 days. March 05, 2018-patient seen and examined, reports some improvement of abdominal pain. Denies any emesis. Labile blood glucose and blood pressure. Low potassium. Physical Exam Vital signs: Vital Signs 03/04/18 12:00 03/04/18 16:00 03/04/18 20:00 Temperature 98.9 F 99.6 F 98.6 F Pulse Rate 77 75 67 Respiratory Rate 20 18 18 Blood Pressure 159/81 H 161/79 H 140/67 Pulse Oximetry 97 94 L 92 L 03/04/18 20:10 03/05/18 00:00 03/05/18 02:04 Temperature 99.1 F Pulse Rate 68 62 Respiratory Rate 18 16 Blood Pressure 125/60 Pulse Oximetry 95 03/05/18 04:00 03/05/18 05:19 03/05/18 08:00 Temperature 97.8 F 98.5 F Pulse Rate 80 61 70 Respiratory Rate 18 20 Blood Pressure 171/83 H 183/84 H Pulse Oximetry 95 97 Intake & Output 03/04/18 03/05/18 03/05/18 18:59 06:59 18:59 Intake Total 1979 362.5 / 362.5 Balance 1979 362.5 / 362.5 Weight 68.9 kg Intake: IV 300 / 300 362.5 / 362.5 Zosyn 3.375 GM Premix 3.375 gm 50 / 50 100 / 100 In 50 ml @ 100 mls/hr IV.SIG Q8H [facility] Rx#:[id number] Vancomycin Inj 1,250 MG In NS 250 / 250 262.5 / 262.5 Inj 250 ML @ 262.5 mls/hr IV. SIG Q12H [facility] Rx#:[id number] Oral 1680 / 1680 Other: Mode Setting Right Foot Continuous # Voids 4 Narrative: GENERAL: NAD SKIN: Warm and dry. HEAD: Atraumatic. Normocephalic. EYES: Pupils equal and round. No scleral icterus. No injection or drainage. ENT: No nasal bleeding or discharge. Mucous membranes pink and moist. NECK: Trachea midline. No JVD. CARDIOVASCULAR: Regular rate and rhythm. RESPIRATORY: No accessory muscle use. Clear to auscultation. Breath sounds equal bilaterally. GASTROINTESTINAL: Abdomen soft, nontender, nondistended. Hepatic and splenic margins not palpable. MUSCULOSKELETAL: Extremities without clubbing, cyanosis, or edema. No obvious deformities. Dressing over right foot, wound VAC in place NEUROLOGICAL: Awake and alert. No obvious cranial nerve deficits. Motor grossly within normal limits. Five out of 5 muscle strength in the arms and legs. Normal speech. PSYCHIATRIC: Appropriate mood and affect; insight and judgment normal. Results - Labs CBC & Chem 7: 03/05/18 06:39 03/05/18 06:39 Laboratory Results - last 24 hr 03/03/18 03/03/18 03/03/18 05:56 07:20 08:56 WBC RBC Hgb Hct MCV MCH MCHC RDW Plt Count MPV Neut % (Auto) Lymph % (Auto) [place] % (Auto) Eos % (Auto) Baso % (Auto) Neut # (Auto) Lymph # (Auto) [place] # (Auto) Eos # (Auto) Baso # (Auto) WBC Differential Differential Comment Sodium Potassium Chloride Carbon Dioxide Anion Gap BUN Creatinine Estimated GFR POC Glucose 295 H 264 H 241 H Random Glucose Calcium Total Bilirubin AST ALT Alkaline Phosphatase Total Protein Albumin Vancomycin Trough 03/03/18 03/03/18 03/03/18 13:16 19:05 21:06 WBC RBC Hgb Hct MCV MCH MCHC RDW Plt Count MPV Neut % (Auto) Lymph % (Auto) [place] % (Auto) Eos % (Auto) Baso % (Auto) Neut # (Auto) Lymph # (Auto) [place] # (Auto) Eos # (Auto) Baso # (Auto) WBC Differential Differential Comment Sodium Potassium Chloride Carbon Dioxide Anion Gap BUN Creatinine Estimated GFR POC Glucose 312 H 326 H 242 H Random Glucose Calcium Total Bilirubin AST ALT Alkaline Phosphatase Total Protein Albumin Vancomycin Trough 03/04/18 03/04/18 03/04/18 07:36 12:46 17:41 WBC RBC Hgb Hct MCV MCH MCHC RDW Plt Count MPV Neut % (Auto) Lymph % (Auto) [place] % (Auto) Eos % (Auto) Baso % (Auto) Neut # (Auto) Lymph # (Auto) [place] # (Auto) Eos # (Auto) Baso # (Auto) WBC Differential Differential Comment Sodium Potassium Chloride Carbon Dioxide Anion Gap BUN Creatinine Estimated GFR POC Glucose 259 H 201 H 213 H Random Glucose Calcium Total Bilirubin AST ALT Alkaline Phosphatase Total Protein Albumin Vancomycin Trough 03/04/18 03/05/18 03/05/18 20:33 06:39 06:39 WBC 8.8 RBC 4.12 Hgb 11.8 Hct 36.0 MCV 87.3 MCH 28.6 MCHC 32.8 RDW 13.3 Plt Count 339 MPV 7.7 Neut % (Auto) 72.2 H Lymph % (Auto) 17.6 [place] % (Auto) 9.7 H Eos % (Auto) 0.1 Baso % (Auto) 0.4 Neut # (Auto) 6.4 Lymph # (Auto) 1.6 [place] # (Auto) 0.9 Eos # (Auto) 0.0 Baso # (Auto) 0.0 WBC Differential . Differential Comment Auto diff final Sodium 144 Potassium 2.8 L* Chloride 105 Carbon Dioxide 28.3 Anion Gap 11 BUN 12 Creatinine 0.43 L Estimated GFR Greater than 89 POC Glucose 182 H Random Glucose 206 H Calcium 7.7 L Total Bilirubin 0.7 AST 13 L ALT 14 Alkaline Phosphatase 66 Total Protein 6.2 L Albumin 2.6 L Vancomycin Trough 03/05/18 03/05/18 07:51 08:40 WBC RBC Hgb Hct MCV MCH MCHC RDW Plt Count MPV Neut % (Auto) Lymph % (Auto) [place] % (Auto) Eos % (Auto) Baso % (Auto) Neut # (Auto) Lymph # (Auto) [place] # (Auto) Eos # (Auto) Baso # (Auto) WBC Differential Differential Comment Sodium Potassium Chloride Carbon Dioxide Anion Gap BUN Creatinine Estimated GFR POC Glucose 220 H Random Glucose Calcium Total Bilirubin AST ALT Alkaline Phosphatase Total Protein Albumin Vancomycin Trough 5.1 - Imaging Impressions Abdomen/Pelvis CT 03/04/18 00:00 CONCLUSION: 1. Mild hepatomegaly. 2. Mild degenerative changes throughout the thoracolumbar spine. - Procedures s/p Incision drainage debridement expansile to joint capsule and muscle with wound vac application Assessment and Plan - Plan 52-year-old female with DKA, in a noncompliant type II diabetic, acute Resolved s/p insulin drip Diabetes type 1 Currently on NovoLog 70/30 and increased to 15 units twice daily, insulin sliding scale. hemoglobin A1c >13 Hypokalemia Continue with potassium replacement Diabetic gastroparesis Continue Reglan 10 mg TID before meals Hypertension Start lisinopril 10 mg daily Sepsis-source right foot infection/cellulitis Diabetic right foot infection Currently on vancomycin and Zosyn pending culture report, however will discontinue Zosyn MRI of the foot without any evidence of osteomyelitis s/p Incision drainage debridement expansile to joint capsule and muscle with wound vac application Wound VAC management per podiatry Appreciate input from podiatry, and considering possible wound graft placement Infectious disease special consultation PRN Abdominal pain Likely secondary to gastroparesis CT abdomen/pelvis unremarkable DVT prophylaxis: Lovenox
[2018-03-05] MEDS: Metoclopramide 10 MG Tablet PO SCH ×3 (13:13→21:34)
[2018-03-05] MEDS: Enoxaparin Inj 40 MG/0.4 ML Syringe SQ SCH (15:30)
[2018-03-05] MEDS: Vancomycin Inj 1,500 MG in Sodium Chlor 0.9% Inj 500 ML IV.SIG SCH (20:40)
[2018-03-06] MEDS: Vancomycin Inj 1,500 MG in Sodium Chlor 0.9% Inj 500 ML IV.SIG SCH ×3 (08:58→21:00)
[2018-03-06] MEDS: Lactobacillus Acidophilus/L. Spores Tablet PO SCH ×3 (09:01→18:36)
[2018-03-06] MEDS: Lisinopril 5 MG Tablet PO SCH (09:01)
[2018-03-06] MEDS: Metoclopramide 10 MG Tablet PO SCH ×4 (09:10→22:01)
[2018-03-06 09:11] LABS: Anion Gap 8 meq/L (5-15); Blood Urea Nitrogen 8 mg/dL (7-18); Calcium 7.7 mg/dL (8.5-10.1); Carbon Dioxide 30.4 meq/L (21.0-32.0); Chloride 100 meq/L (98-107); Glomerular Filtration Rate Greater Than 89 mL/min (>89); Glucose,Random 201 mg/dL (74-106); Potassium 3.2 meq/L (3.5-5.1); Sodium 138 meq/L (136-145)
[2018-03-06] MEDS: Insulin NovoLOG Aspart Correctional Sugar Inj SQ SCH ×4 (09:11→21:30)
--- NOTE | 2018-03-06 10:55 | P.PN ---
Subjective Interval history: Follow-up DKA/sepsis/diabetic foot infection March 01, 2018-patient seen and examined, currently n.p.o., significant left foot pain. Afebrile. Positive for nausea, emesis March 02, 2018-patient seen and examined, still with nausea and dry heaves. She is status post Incision drainage debridement expansile to joint capsule and muscle with wound vac application. Case discussed with podiatry, Dr. Mohan March 03, 2018-patient seen and examined, came back from the OR where patient is status post I&D. Only complaint of nausea without any emesis. States she is feeling much better today. March 04, 2018-patient seen and examined, planes of abdominal pain. Denies any emesis times 2 days. March 05, 2018-patient seen and examined, reports some improvement of abdominal pain. Denies any emesis. Labile blood glucose and blood pressure. Low potassium. March 06, 2018-patient seen and examined, taking p.o. without any complication of abdominal pain, nausea and vomiting. Afebrile. Physical Exam Vital signs: Vital Signs 03/05/18 12:00 03/05/18 16:00 03/05/18 20:00 Temperature 99.2 F 97.8 F 97.4 F L Pulse Rate 77 70 55 L Respiratory Rate 20 20 19 Blood Pressure 147/76 H 147/82 H 140/71 Pulse Oximetry 97 97 98 03/06/18 00:00 03/06/18 04:00 03/06/18 08:15 Temperature 97.9 F 97.3 F L 98.0 F Pulse Rate 54 L 51 L 66 Respiratory Rate 18 19 20 Blood Pressure 150/74 H 163/74 H 157/74 H Pulse Oximetry 95 98 99 Intake & Output 03/05/18 03/06/18 03/06/18 18:59 06:59 18:59 Intake Total 262.5 / 262.5 515 / 515 Balance 262.5 / 262.5 515 / 515 Intake: IV 262.5 / 262.5 515 / 515 Vancomycin Inj 1,250 MG In NS 262.5 / 262.5 Inj 250 ML @ 262.5 mls/hr IV. SIG Q12H [facility] Rx#:[id number] Vancomycin Inj 1,500 MG In NS 515 / 515 Inj 500 ML @ 257.5 mls/hr IV. SIG Q12H [facility] Rx#:[id number] Narrative: GENERAL: NAD SKIN: Warm and dry. HEAD: Atraumatic. Normocephalic. EYES: Pupils equal and round. No scleral icterus. No injection or drainage. ENT: No nasal bleeding or discharge. Mucous membranes pink and moist. NECK: Trachea midline. No JVD. CARDIOVASCULAR: Regular rate and rhythm. RESPIRATORY: No accessory muscle use. Clear to auscultation. Breath sounds equal bilaterally. GASTROINTESTINAL: Abdomen soft, nontender, nondistended. Hepatic and splenic margins not palpable. MUSCULOSKELETAL: Extremities without clubbing, cyanosis, or edema. No obvious deformities. Dressing over right foot, wound VAC in place NEUROLOGICAL: Awake and alert. No obvious cranial nerve deficits. Motor grossly within normal limits. Five out of 5 muscle strength in the arms and legs. Normal speech. PSYCHIATRIC: Appropriate mood and affect; insight and judgment normal. Results - Labs CBC & Chem 7: 03/05/18 06:39 03/06/18 07:50 Laboratory Results - last 24 hr 03/05/18 03/05/18 03/05/18 12:16 18:25 21:31 Sodium Potassium Chloride Carbon Dioxide Anion Gap BUN Creatinine Estimated GFR POC Glucose 200 H 169 H 146 H Random Glucose Calcium 03/06/18 03/06/18 07:49 07:50 Sodium 138 Potassium 3.2 L Chloride 100 Carbon Dioxide 30.4 Anion Gap 8 BUN 8 Creatinine 0.40 L Estimated GFR Greater than 89 POC Glucose 207 H Random Glucose 201 H Calcium 7.7 L Microbiology 03/01/18 13:15 Wound - Foot Acid Fast Bacilli Smear - Final No acid fast bacilli seen - Procedures s/p Incision drainage debridement expansile to joint capsule and muscle with wound vac application Assessment and Plan - Plan 52-year-old female with DKA, in a noncompliant type II diabetic, acute Resolved s/p insulin drip Diabetes type 1 Currently on NovoLog 70/30 and increased to 20 units twice daily, insulin sliding scale. hemoglobin A1c >13 Hypokalemia Continue with potassium replacement Diabetic gastroparesis Continue Reglan 10 mg TID before meals Hypertension Start lisinopril 10 mg daily Sepsis-source right foot infection/cellulitis Diabetic right foot infection Currently on vancomycin IV MRI of the foot without any evidence of osteomyelitis s/p Incision drainage debridement expansile to joint capsule and muscle with wound vac application Wound VAC management per podiatry Appreciate input from podiatry, and considering possible wound graft placement Infectious disease special consultation PRN Abdominal pain Likely secondary to gastroparesis CT abdomen/pelvis unremarkable DVT prophylaxis: Lovenox
[2018-03-06] MEDS: Enoxaparin Inj 40 MG/0.4 ML Syringe SQ SCH (16:05)
--- NOTE | 2018-03-06 17:10 | P.PNWCN ---
Wound Care Nurse Consult Description: Patient seen today for wound VAC dressing change today with Doctor Jacobson Communicated with: DANIEL Patricio, Doctor Jacobson, and DANIEL Chadwick Recommendation: R foot 1st interspace 1.Please cleanse wound to R foot 1st interspace with normal saline only. DO NOT use wound cleanser with Santyl. 2. Apply Santyl roxana thickness to wound bed and loosely pack wound with moistened fluffed 2x2 gauze pad. 3. Cover with dry 4x4 gauze secure with rolled gauze and YOHAN (elastic) wrap. 4. Change dressing daily R great toe, toe nail area 1.Cleanse open wound with normal saline and pat dry 2.Apply oil emulsion gauze over open pink tissue. 3. Secure with rolled gauze. 4. Change daily Wound/Pressure Injury - Wound Right foot first interspace Wound Assessment: Ongoing Wound Type: Traumatic Wound Is This a Chronic Wound: No Requested from Provider a Wound Care Consult: Yes (Patient seen for wound VAC dressing change today by wound care) Length (cm): 7 Width (cm): 1.9 Depth (cm): 0.9 Wound Bed Appearance: Red, Yellow Wound Bed Appearance: ~60% yellow slough and ~40% pink tissue. Periwound presents with 3 sutures at 6 o'clock. There is also 3 sutures noted to plantar surface of R foot. Surrounding Tissue Appearance: Blanched/Dull Surrounding Tissue Temperature: Warm Drainage Description: Serosanguinous Drainage Amount: Scant Drainage Odor: No Odor Dressing Status: Changed Cleansing Solution: Saline Primary Dressing: Gauze Pad Cover Dressing: gauze pad, secured with rolled gauze and elastic wrap Wound Dressing Change Date: 03/06/18 Wound Margin Description: Steep - Additional Information Patient seen on for wound VAC dressing change and wound assessment.Patient is noted laying in bed upon film writer's arrival. Patient was seen and assessed today with the assistance of DANIEL Chadwick and Doctor Jacobson was at bedside for assessment.Wound VAC dressing including one piece of black foam was removed at this time to reveal open open wound to R foot first interspace. Wound bed presents with ~60% yellow slough and ~40% pink tissue. Periwound presents with 3 sutures at 6 o'clock. There is also 3 sutures noted to plantar surface of R foot.Periwound is macerated with partial thickness skin loss on the plantar distal foot.Wound drainage is scant and sero-sanguinousand is without odor. Wound VAC was discontinued at this time, per Doctor Kavon order, she then ordered Santyl ointment for wound to R foot 1st interspace. There is a missing toe nail on the R great toe, reveal pink open tissue that has scant sero -sanguinous drainage that is without foul odor. Cleansed open wounds with normal saline and patted dry.Applied moist to dry dressing, secured dressing in place with rolled gauze and elastic (Yohan) wrap. Until santyl is available for R great toe 1st interspace. Covered R great toenail site with oil emulsion gauze and secured with dry 4x4 gauze and tape.Patient tolerated wound assessment and dressing change well. Please follow podiatry orders and recommendations for wound care per Doctor Jacobson. Wound Vac - Wound Vac Right foot first interspace Wound Vac Discontinue Date: 03/06/18 Wound Vac Discontinue Time: 15:45 Wound Vac DC'd by: Kasey Velasquez
--- NOTE | 2018-03-06 17:27 | P.PNPOD ---
Subjective Interval history: Patient seen bedside with wound care present for wound VAC dressing change. Patient is anxious to get out of the hospital as she states there is a cruise she would like to attend with her family on the . Physical Exam Vital signs: Vital Signs 03/05/18 20:00 03/06/18 00:00 03/06/18 04:00 Temperature 97.4 F L 97.9 F 97.3 F L Pulse Rate 55 L 54 L 51 L Respiratory Rate 19 18 19 Blood Pressure 140/71 150/74 H 163/74 H Pulse Oximetry 98 95 98 03/06/18 08:15 03/06/18 12:00 Temperature 98.0 F 98.0 F Pulse Rate 66 72 Respiratory Rate 20 20 Blood Pressure 157/74 H 175/83 H Pulse Oximetry 99 100 Intake & Output 03/05/18 03/06/18 03/06/18 18:59 06:59 18:59 Intake Total 262.5 / 262.5 515 / 515 515 / 515 Balance 262.5 / 262.5 515 / 515 515 / 515 Intake: IV 262.5 / 262.5 515 / 515 515 / 515 Vancomycin Inj 1,250 MG In NS 262.5 / 262.5 Inj 250 ML @ 262.5 mls/hr IV. SIG Q12H [facility] Rx#:[id number] Vancomycin Inj 1,500 MG In NS 515 / 515 515 / 515 Inj 500 ML @ 257.5 mls/hr IV. SIG Q12H [facility] Rx#:[id number] Narrative: Right foot dorsal wound with probe to proximal phalanx of right hallux wound has fibro-granular mixed base. No periwound erythema or edema noted. Medications and Allergies Active Medications: Active Medications Acetaminophen (Tylenol) 650 mg PO Q4H PRN PRN Reason: Temp > 100.4 Last Admin: 03/03/18 07:20 Dose: 650 mg Hydrocodone Bitart/Acetaminophen ([place] 10/325) 1 tab PO Q4H PRN PRN Reason: Pain 7 to 10 Hydrocodone Bitart/Acetaminophen ([place] 5/325) 1 tab PO Q4H PRN PRN Reason: Pain 3 to 6 Al Hydroxide/Mg Hydroxide (Milk Of Magnesia Liq) 30 ml PO Q12H PRN PRN Reason: Mild Constipation Collagenase (Santyl Oint) 1 applicatio TOPICAL DAILY [facility] Dextrose (D50w Vial) 50 ml IV.PUSH UNSCH PRN PRN Reason: PER HYPOGLYCEMIA PROTOCOL Enalaprilat (Vasotec Inj) 2.5 mg IV.PUSH Q6H PRN PRN Reason: SBP>160, DBP>90 Enoxaparin Sodium (Lovenox Inj) 40 mg SQ Q24H [facility] Last Admin: 03/06/18 16:05 Dose: 40 mg Glucagon (Glucagon Inj) 1 mg OTHER PRN PRN PRN Reason: for Hypoglycemia Protocol Sodium Phosphate 15 mmol/ (Sodium Chloride) 105 mls @ 25 mls/hr IV.SIG UNSCH PRN PRN Reason: for Phosphate Level < 1.0 Vancomycin HCl 1,500 mg/ (Sodium Chloride) 515 mls @ 257.5 mls/hr IV.SIG Q12H [facility] Last Infusion: 03/06/18 11:30 Dose: Infused Insulin Aspart (Novolog Insulin Correctional Sugar Inj) 0 unit SQ ACHS [facility]; Protocol Last Admin: 03/06/18 13:18 Dose: 4 unit Insulin Human Isoph/Insulin Regular (Novolin 70/30 Inj) 20 units SQ BID@0800, 1700 [facility] Lactobacillus Acidophilus (Lactinex) 1 tab PO TID [facility] Last Admin: 03/06/18 13:17 Dose: 1 tab Lisinopril (Prinivil) 5 mg PO DAILY [facility] Last Admin: 03/06/18 09:01 Dose: 5 mg Metoclopramide HCl (Reglan) 10 mg PO ACHS [facility] Last Admin: 03/06/18 13:17 Dose: 10 mg Miscellaneous Information ([facility] Ordered Lab Info) 0 each OTHER ONCE ONE Stop: 03/07/18 07:46 Ondansetron HCl (Zofran Inj) 4 mg IV.PUSH Q6H PRN PRN Reason: NAUSEA OR VOMITING Last Admin: 03/04/18 09:56 Dose: 4 mg Pharmacy Profile Note (Vancomycin Consult Pharmacy) 1 each OTHER UNSCH PRN PRN Reason: Pharmacy to dose Prochlorperazine Edisylate (Compazine Inj) 10 mg IV.PUSH Q6H PRN PRN Reason: NAUSEA Last Admin: 03/04/18 16:44 Dose: 10 mg Sodium Bicarbonate (Sodium Bicarbonate 8.4% Inj) 50 meq IV.PUSH UNSCH PRN PRN Reason: for pH 6.9 to 7.0 Sodium Bicarbonate (Sodium Bicarbonate 8.4% Inj) 100 meq IV.PUSH UNSCH PRN PRN Reason: for pH less than 6.9 Sodium Chloride (Ns Flush) 2 ml IV.FLUSH BID [facility] Last Admin: 03/06/18 09:12 Dose: 2 ml Sodium Chloride (Ns Flush) 2 ml IV.FLUSH PRN PRN PRN Reason: FLUSH AFTER USING IV ACCESS Last Admin: 03/04/18 09:56 Dose: 2 ml Allergies Allergy/AdvReac Type Severity Reaction Status Date / Time Sulfa (Sulfonamide Allergy Hives Verified 02/26/18 11:06 Antibiotics) Home Medications Medication Instructions Recorded Confirmed Type metformin 500 mg PO BID 02/26/18 02/28/18 History Results - Labs CBC & Chem 7: 03/05/18 06:39 03/06/18 07:50 Laboratory Results - last 24 hr 03/05/18 03/05/18 03/06/18 18:25 21:31 07:49 Sodium Potassium Chloride Carbon Dioxide Anion Gap BUN Creatinine Estimated GFR POC Glucose 169 H 146 H 207 H Random Glucose Calcium 03/06/18 03/06/18 07:50 11:52 Sodium 138 Potassium 3.2 L Chloride 100 Carbon Dioxide 30.4 Anion Gap 8 BUN 8 Creatinine 0.40 L Estimated GFR Greater than 89 POC Glucose 225 H Random Glucose 201 H Calcium 7.7 L - Procedures s/p Incision drainage debridement expansile to joint capsule and muscle with wound vac application Assessment and Plan - Assessment (1) Diabetic infection of right foot Code(s): E11.628 - Type 2 diabetes mellitus with other skin complications; L08.9 - Local infection of the skin and subcutaneous tissue, unspecified Status: Acute - Plan 52-year-old female status post right foot incision and drainage with wound VAC placement performed by Dr. Mohan Patient examined and evaluated with all questions answered Wound VAC discontinued and Santyl with moist to dry dressing to be applied to right dorsal foot Possible wound graft placement later early next week depending on progress of wound Continue IV antibiotics There is probe to bone and patient has high risk of limb loss Patient to stay in house for IV antibiotics secondary to degree of infection as well as to closely monitor wound at this time Nonweightbearing to right foot, heel touch okay in surgical shoe
[2018-03-07] MEDS ORDERED: Pharmacy Ordered Lab Info OTHER ONE ×2 (07:45→11:45)
[2018-03-07] MEDS: Metoclopramide 10 MG Tablet PO SCH ×4 (09:41→21:41)
[2018-03-07] MEDS: Lisinopril 5 MG Tablet PO SCH (09:41)
[2018-03-07] MEDS: Insulin NovoLOG Aspart Correctional Sugar Inj SQ SCH ×4 (09:41→21:40)
[2018-03-07] MEDS: Lactobacillus Acidophilus/L. Spores Tablet PO SCH ×3 (09:41→17:56)
--- NOTE | 2018-03-07 10:20 | P.PN ---
Subjective Interval history: Follow-up DKA/sepsis/diabetic foot infection March 07, 2018-patient seen and examined, wound VAC has been removed yesterday by podiatry. Patient has no complaints. Currently afebrile. Physical Exam Vital signs: Vital Signs 03/06/18 12:00 03/06/18 12:10 03/06/18 16:00 Temperature 98.0 F 98.2 F Pulse Rate 72 56 L 65 Respiratory Rate 20 20 Blood Pressure 175/83 H 164/77 H Pulse Oximetry 100 98 03/06/18 19:52 03/07/18 00:00 03/07/18 04:00 Temperature 98.3 F 98.0 F 97.6 F Pulse Rate 69 60 55 L Respiratory Rate 20 20 20 Blood Pressure 132/75 119/59 L 117/56 L Pulse Oximetry 99 98 97 03/07/18 08:00 Temperature 97.2 F L Pulse Rate 66 Respiratory Rate 20 Blood Pressure 138/72 Pulse Oximetry 96 Intake & Output 03/06/18 03/07/18 03/07/18 18:59 06:59 18:59 Intake Total 1395 / 1395 251 / 251 Balance 1395 / 1395 251 / 251 Intake: IV 515 / 515 Vancomycin Inj 1,500 MG In NS 515 / 515 Inj 500 ML @ 257.5 mls/hr IV. SIG Q12H [facility] Rx#:[id number] Oral 880 / 880 251 / 251 Other: # Voids 5 # Incontinent Voids 2 Narrative: GENERAL: NAD SKIN: Warm and dry. HEAD: Atraumatic. Normocephalic. EYES: Pupils equal and round. No scleral icterus. No injection or drainage. ENT: No nasal bleeding or discharge. Mucous membranes pink and moist. NECK: Trachea midline. No JVD. CARDIOVASCULAR: Regular rate and rhythm. RESPIRATORY: No accessory muscle use. Clear to auscultation. Breath sounds equal bilaterally. GASTROINTESTINAL: Abdomen soft, nontender, nondistended. Hepatic and splenic margins not palpable. MUSCULOSKELETAL: Extremities without clubbing, cyanosis, or edema. No obvious deformities. Dressing over right foot NEUROLOGICAL: Awake and alert. No obvious cranial nerve deficits. Motor grossly within normal limits. Five out of 5 muscle strength in the arms and legs. Normal speech. PSYCHIATRIC: Appropriate mood and affect; insight and judgment normal. Results - Labs CBC & Chem 7: 03/05/18 06:39 03/06/18 07:50 Laboratory Results - last 24 hr 03/06/18 03/06/18 03/06/18 11:52 17:43 21:58 POC Glucose 225 H 181 H 173 H 03/07/18 07:45 POC Glucose 151 H - Procedures s/p Incision drainage debridement expansile to joint capsule and muscle with wound vac application Assessment and Plan - Plan 52-year-old female with DKA, in a noncompliant type II diabetic, acute Resolved s/p insulin drip Diabetes type 1 Currently on NovoLog 70/30 20 units twice daily, insulin sliding scale. hemoglobin A1c >13 Hypokalemia Resolved with potassium replacement Diabetic gastroparesis Continue Reglan 10 mg TID before meals Hypertension Continue lisinopril 10 mg daily Sepsis-source right foot infection/cellulitis Diabetic right foot infection Currently on vancomycin IV MRI of the foot without any evidence of osteomyelitis s/p Incision drainage debridement expansile to joint capsule and muscle with wound vac application Wound VAC management per podiatry, however he was removed on March 06, 2018 Appreciate input from podiatry, and considering possible wound graft placement next week Infectious disease special consultation PRN Abdominal pain Likely secondary to gastroparesis CT abdomen/pelvis unremarkable DVT prophylaxis: Lovenox
[2018-03-07] MEDS: Collagenase Oint 30 GM Tube TOPICAL SCH (12:25)
[2018-03-07] MEDS: Vancomycin Inj 1,500 MG in Sodium Chlor 0.9% Inj 500 ML IV.SIG SCH ×2 (12:28→15:17)
[2018-03-07] MEDS: Enoxaparin Inj 40 MG/0.4 ML Syringe SQ SCH (15:42)
[2018-03-08] MEDS: Vancomycin Inj 1,500 MG in Sodium Chlor 0.9% Inj 500 ML IV.SIG SCH ×2 (00:33→12:22)
[2018-03-08] MEDS: Insulin NovoLOG Aspart Correctional Sugar Inj SQ SCH ×4 (08:26→23:07)
[2018-03-08] MEDS: Metoclopramide 10 MG Tablet PO SCH ×4 (08:26→22:59)
[2018-03-08] MEDS: Lactobacillus Acidophilus/L. Spores Tablet PO SCH ×3 (08:26→17:15)
[2018-03-08] MEDS: Collagenase Oint 30 GM Tube TOPICAL SCH (08:27)
[2018-03-08] MEDS: Lisinopril 5 MG Tablet PO SCH (08:27)
--- NOTE | 2018-03-08 12:48 | P.PN ---
Subjective Interval history: Follow-up DKA/sepsis/diabetic foot infection March 07, 2018-patient seen and examined, wound VAC has been removed yesterday by podiatry. Patient has no complaints. Currently afebrile. March 08, 2018-patient seen and examined, appears stable and no complaint. Denies any abdominal pain. Afebrile. Physical Exam Vital signs: Vital Signs 03/07/18 13:10 03/07/18 15:45 03/07/18 20:00 Temperature 97.8 F 98.1 F 98.8 F Pulse Rate 68 71 76 Respiratory Rate 20 20 18 Blood Pressure 144/73 H 147/74 H 121/53 L Pulse Oximetry 99 97 99 03/08/18 00:00 03/08/18 04:00 03/08/18 07:45 Temperature 98.3 F 98.7 F 98.0 F Pulse Rate 90 80 80 Respiratory Rate 18 18 20 Blood Pressure 121/55 L 121/55 L 140/83 Pulse Oximetry 100 100 97 Intake & Output 03/07/18 03/08/18 03/08/18 18:59 06:59 18:59 Intake Total 1235 / 1235 515 / 515 Balance 1235 / 1235 515 / 515 Weight 69.9 kg Intake: IV 515 / 515 515 / 515 Vancomycin Inj 1,500 MG In NS 515 / 515 515 / 515 Inj 500 ML @ 257.5 mls/hr IV. SIG Q12H [facility] Rx#:[id number] Oral 720 / 720 Other: # Voids 5 3 Narrative: GENERAL: NAD SKIN: Warm and dry. HEAD: Atraumatic. Normocephalic. EYES: Pupils equal and round. No scleral icterus. No injection or drainage. ENT: No nasal bleeding or discharge. Mucous membranes pink and moist. NECK: Trachea midline. No JVD. CARDIOVASCULAR: Regular rate and rhythm. RESPIRATORY: No accessory muscle use. Clear to auscultation. Breath sounds equal bilaterally. GASTROINTESTINAL: Abdomen soft, nontender, nondistended. Hepatic and splenic margins not palpable. MUSCULOSKELETAL: Extremities without clubbing, cyanosis, or edema. No obvious deformities. Dressing over right foot NEUROLOGICAL: Awake and alert. No obvious cranial nerve deficits. Motor grossly within normal limits. Five out of 5 muscle strength in the arms and legs. Normal speech. PSYCHIATRIC: Appropriate mood and affect; insight and judgment normal. Results - Labs CBC & Chem 7: 03/05/18 06:39 03/06/18 07:50 Laboratory Results - last 24 hr 03/07/18 03/07/18 03/07/18 11:45 17:01 21:03 POC Glucose 161 H 212 H Vancomycin Trough 3.4 L 03/08/18 03/08/18 07:22 11:52 POC Glucose 166 H 196 H Vancomycin Trough - Procedures s/p Incision drainage debridement expansile to joint capsule and muscle with wound vac application Assessment and Plan - Plan 52-year-old female with Sepsis-source right foot infection/cellulitis-resolved Diabetic right foot infection Currently on vancomycin IV MRI of the foot without any evidence of osteomyelitis s/p Incision drainage debridement expansile to joint capsule and muscle with wound vac application Wound VAC management per podiatry, however it was removed on March 06, 2018 Appreciate input from podiatry, and considering possible wound graft placement next week Infectious disease special consultation PRN DKA, in a noncompliant type II diabetic, acute Resolved s/p insulin drip Diabetes type 1 Currently on NovoLog 70/30 20 units twice daily, insulin sliding scale. hemoglobin A1c >13 Hypokalemia Resolved with potassium replacement Diabetic gastroparesis Continue Reglan 10 mg TID before meals Hypertension Continue lisinopril 10 mg daily Abdominal pain-resolved Likely secondary to gastroparesis CT abdomen/pelvis unremarkable DVT prophylaxis: Lovenox
[2018-03-08] MEDS: Enoxaparin Inj 40 MG/0.4 ML Syringe SQ SCH (15:40)
--- NOTE | 2018-03-08 16:40 | P.PNPOD ---
Subjective Interval history: No events over night, nausea has resolved Physical Exam Vital signs: Vital Signs 03/07/18 20:00 03/08/18 00:00 03/08/18 04:00 Temperature 98.8 F 98.3 F 98.7 F Pulse Rate 76 90 80 Respiratory Rate 18 18 18 Blood Pressure 121/53 L 121/55 L 121/55 L Pulse Oximetry 99 100 100 03/08/18 07:45 03/08/18 13:00 Temperature 98.0 F 98.1 F Pulse Rate 80 70 Respiratory Rate 20 20 Blood Pressure 140/83 139/73 Pulse Oximetry 97 100 Intake & Output 03/07/18 03/08/18 03/08/18 18:59 06:59 18:59 Intake Total 1235 / 1235 515 / 515 515 / 515 Balance 1235 / 1235 515 / 515 515 / 515 Weight 69.9 kg Intake: IV 515 / 515 515 / 515 515 / 515 Vancomycin Inj 1,500 MG In NS 515 / 515 515 / 515 515 / 515 Inj 500 ML @ 257.5 mls/hr IV. SIG Q12H [facility] Rx#:[id number] Oral 720 / 720 Other: # Voids 5 3 - Neurological Alert and oriented x3 - Routine Extremities Exam Comments: Right foot- 1st interspace surgical ulcer, full thickness to muscle and 1st MPJ with increased granulation tissue with mixed fibrotic tissue at the borders of wound down to plantar hallux, aprrox 7cm 3cm 1.5cm, plantar 1st MPJ ulcer closed with sutures intact. loss of sensation below ankle, no crepitus or instability of digits, pulses palpable good CFT to digits. Medications and Allergies Active Medications: Active Medications Acetaminophen (Tylenol) 650 mg PO Q4H PRN PRN Reason: Temp > 100.4 Last Admin: 03/03/18 07:20 Dose: 650 mg Hydrocodone Bitart/Acetaminophen ([place] 10/325) 1 tab PO Q4H PRN PRN Reason: Pain 7 to 10 Hydrocodone Bitart/Acetaminophen ([place] 5/325) 1 tab PO Q4H PRN PRN Reason: Pain 3 to 6 Al Hydroxide/Mg Hydroxide (Milk Of Magnesia Liq) 30 ml PO Q12H PRN PRN Reason: Mild Constipation Collagenase (Santyl Oint) 1 applicatio TOPICAL DAILY [facility] Last Admin: 03/08/18 08:27 Dose: 1 applicatio Dextrose (D50w Vial) 50 ml IV.PUSH UNSCH PRN PRN Reason: PER HYPOGLYCEMIA PROTOCOL Enalaprilat (Vasotec Inj) 2.5 mg IV.PUSH Q6H PRN PRN Reason: SBP>160, DBP>90 Enoxaparin Sodium (Lovenox Inj) 40 mg SQ Q24H [facility] Last Admin: 03/08/18 15:40 Dose: 40 mg Glucagon (Glucagon Inj) 1 mg OTHER PRN PRN PRN Reason: for Hypoglycemia Protocol Sodium Phosphate 15 mmol/ (Sodium Chloride) 105 mls @ 25 mls/hr IV.SIG UNSCH PRN PRN Reason: for Phosphate Level < 1.0 Vancomycin HCl 1,500 mg/ (Sodium Chloride) 515 mls @ 257.5 mls/hr IV.SIG Q12H [facility] Last Infusion: 03/08/18 12:30 Dose: Infused Insulin Aspart (Novolog Insulin Correctional Sugar Inj) 0 unit SQ ACHS [facility]; Protocol Last Admin: 03/08/18 12:21 Dose: 2 unit Insulin Human Isoph/Insulin Regular (Novolin 70/30 Inj) 20 units SQ BID@0800, 1700 [facility] Last Admin: 03/08/18 08:25 Dose: 20 units Lactobacillus Acidophilus (Lactinex) 1 tab PO TID [facility] Last Admin: 03/08/18 12:21 Dose: 1 tab Lisinopril (Prinivil) 5 mg PO DAILY [facility] Last Admin: 03/08/18 08:27 Dose: 5 mg Metoclopramide HCl (Reglan) 10 mg PO ACHS [facility] Last Admin: 03/08/18 12:21 Dose: 10 mg Miscellaneous Information ([facility] Ordered Lab Info) 1 each OTHER ONCE ONE Stop: 03/08/18 23:46 Ondansetron HCl (Zofran Inj) 4 mg IV.PUSH Q6H PRN PRN Reason: NAUSEA OR VOMITING Last Admin: 03/04/18 09:56 Dose: 4 mg Pharmacy Profile Note (Vancomycin Consult Pharmacy) 1 each OTHER UNSCH PRN PRN Reason: Pharmacy to dose Prochlorperazine Edisylate (Compazine Inj) 10 mg IV.PUSH Q6H PRN PRN Reason: NAUSEA Last Admin: 03/04/18 16:44 Dose: 10 mg Sodium Bicarbonate (Sodium Bicarbonate 8.4% Inj) 50 meq IV.PUSH UNSCH PRN PRN Reason: for pH 6.9 to 7.0 Sodium Bicarbonate (Sodium Bicarbonate 8.4% Inj) 100 meq IV.PUSH UNSCH PRN PRN Reason: for pH less than 6.9 Sodium Chloride (Ns Flush) 2 ml IV.FLUSH BID [facility] Last Admin: 03/08/18 08:34 Dose: 2 ml Sodium Chloride (Ns Flush) 2 ml IV.FLUSH PRN PRN PRN Reason: FLUSH AFTER USING IV ACCESS Last Admin: 03/04/18 09:56 Dose: 2 ml Allergies Allergy/AdvReac Type Severity Reaction Status Date / Time Sulfa (Sulfonamide Allergy Hives Verified 02/26/18 11:06 Antibiotics) Home Medications Medication Instructions Recorded Confirmed Type metformin 500 mg PO BID 02/26/18 02/28/18 History Results - Labs CBC & Chem 7: 03/05/18 06:39 03/06/18 07:50 Laboratory Results - last 24 hr 03/07/18 03/07/18 03/08/18 17:01 21:03 07:22 POC Glucose 161 H 212 H 166 H 03/08/18 11:52 POC Glucose 196 H Microbiology 03/01/18 13:15 Wound - Foot Fungal Smear - Final No fungal elements seen 03/01/18 13:15 Wound - Foot Fungal Culture - Preliminary No growth in 1 week 03/01/18 13:15 Wound - Foot Acid Fast Bacilli Smear - Final No acid fast bacilli seen 03/01/18 13:15 Wound - Foot Mycobacterial Culture - Preliminary No growth in 1 week - Procedures s/p Incision drainage debridement expansile to joint capsule and muscle with wound vac application Assessment and Plan - Assessment (1) Diabetic infection of right foot Code(s): E11.628 - Type 2 diabetes mellitus with other skin complications; L08.9 - Local infection of the skin and subcutaneous tissue, unspecified Status: Acute - Plan There is improvement, surgery tomorrow for right foot repeat incision drainage debridement with partial Delayed primary closure of wound with possible wound vac. Reviewed case with medicine, hoping for skin graft next week if continues to improve. Dr Cannon to assume care tomorrow. Continue ABX, bandage changed.
[2018-03-08] MEDS ORDERED: Pharmacy Ordered Lab Info OTHER ONE (23:45)
[2018-03-09] MEDS: Vancomycin Inj 1,500 MG in Sodium Chlor 0.9% Inj 500 ML IV.SIG SCH (00:32)
[2018-03-09] MEDS: Vancomycin Inj 1,000 MG in Sodium Chlor 0.9% Inj 250 ML IV.SIG SCH ×2 (08:13→17:25)
[2018-03-09] MEDS: Lactobacillus Acidophilus/L. Spores Tablet PO SCH ×3 (09:23→17:25)
[2018-03-09] MEDS: Metoclopramide 10 MG Tablet PO SCH ×3 (09:23→17:25)
[2018-03-09] MEDS: Lisinopril 5 MG Tablet PO SCH (09:23)
[2018-03-09] MEDS: Collagenase Oint 30 GM Tube TOPICAL SCH (09:24)
[2018-03-09] MEDS: Insulin NovoLOG Aspart Correctional Sugar Inj SQ SCH ×3 (09:24→17:27)
[2018-03-09 10:05] LABS: Alanine Aminotransferase 19 U/L (10-53); Albumin 2.5 g/dL (3.4-5.0); Alkaline Phosphatase 63 U/L (45-117); Anion Gap 6 meq/L (5-15); Aspartate Aminotransferase 14 U/L (15-37); Blood Urea Nitrogen 7 mg/dL (7-18); Calcium 8.5 mg/dL (8.5-10.1); Carbon Dioxide 31.7 meq/L (21.0-32.0); Chloride 105 meq/L (98-107); Glomerular Filtration Rate Greater Than 89 mL/min (>89); Glucose,Random 184 mg/dL (74-106); Potassium 4.2 meq/L (3.5-5.1); Sodium 143 meq/L (136-145); Total Protein 6.1 g/dL (6.4-8.2)
--- NOTE | 2018-03-09 11:02 | P.PN ---
Subjective Interval history: Follow-up DKA/sepsis/diabetic foot infection March 07, 2018-patient seen and examined, wound VAC has been removed yesterday by podiatry. Patient has no complaints. Currently afebrile. March 08, 2018-patient seen and examined, appears stable and no complaint. Denies any abdominal pain. Afebrile. March 09, 2018-patient seen and examined, currently n.p.o. pending trip to the OR for debridement of right diabetic foot. Afebrile. Physical Exam Vital signs: Vital Signs 03/08/18 13:00 03/08/18 16:00 03/08/18 20:00 Temperature 98.1 F 98.1 F 98.7 F Pulse Rate 70 60 74 Respiratory Rate 20 20 18 Blood Pressure 139/73 138/80 125/79 Pulse Oximetry 100 96 97 03/08/18 23:42 03/09/18 00:00 03/09/18 04:00 Temperature 98.8 F 98.8 F 98.6 F Pulse Rate 79 79 66 Respiratory Rate 20 20 18 Blood Pressure 128/67 128/67 116/58 L Pulse Oximetry 99 99 96 03/09/18 07:45 Temperature 98.3 F Pulse Rate 69 Respiratory Rate 20 Blood Pressure 143/68 H Pulse Oximetry 93 L Intake & Output 03/08/18 03/09/18 03/09/18 18:59 06:59 18:59 Intake Total 515 / 515 250 / 250 Balance 515 / 515 250 / 250 Weight 74.7 kg Intake: IV 515 / 515 250 / 250 Vancomycin Inj 1,000 MG In NS 250 / 250 Inj 250 ML @ 250 mls/hr IV.SIG Q8H [facility] Rx#:[id number] Vancomycin Inj 1,500 MG In NS 515 / 515 Inj 500 ML @ 257.5 mls/hr IV. SIG Q12H [facility] Rx#:[id number] Other: # Voids 3 4 Narrative: GENERAL: NAD SKIN: Warm and dry. HEAD: Atraumatic. Normocephalic. EYES: Pupils equal and round. No scleral icterus. No injection or drainage. ENT: No nasal bleeding or discharge. Mucous membranes pink and moist. NECK: Trachea midline. No JVD. CARDIOVASCULAR: Regular rate and rhythm. RESPIRATORY: No accessory muscle use. Clear to auscultation. Breath sounds equal bilaterally. GASTROINTESTINAL: Abdomen soft, nontender, nondistended. Hepatic and splenic margins not palpable. MUSCULOSKELETAL: Extremities without clubbing, cyanosis, or edema. No obvious deformities. Dressing over right foot NEUROLOGICAL: Awake and alert. No obvious cranial nerve deficits. Motor grossly within normal limits. Five out of 5 muscle strength in the arms and legs. Normal speech. PSYCHIATRIC: Appropriate mood and affect; insight and judgment normal. Results - Labs CBC & Chem 7: 03/05/18 06:39 03/09/18 09:06 Laboratory Results - last 24 hr 03/08/18 03/08/18 03/08/18 11:52 16:56 23:06 Sodium Potassium Chloride Carbon Dioxide Anion Gap BUN Creatinine Estimated GFR POC Glucose 196 H 212 H 191 H Random Glucose Calcium Total Bilirubin AST ALT Alkaline Phosphatase Total Protein Albumin Vancomycin Trough 03/09/18 03/09/18 03/09/18 00:01 07:31 09:06 Sodium 143 Potassium 4.2 Chloride 105 Carbon Dioxide 31.7 Anion Gap 6 BUN 7 Creatinine 0.56 Estimated GFR Greater than 89 POC Glucose 176 H Random Glucose 184 H Calcium 8.5 Total Bilirubin 0.4 AST 14 L ALT 19 Alkaline Phosphatase 63 Total Protein 6.1 L Albumin 2.5 L Vancomycin Trough 10.6 H Microbiology 03/01/18 13:15 Wound - Foot Fungal Smear - Final No fungal elements seen 03/01/18 13:15 Wound - Foot Fungal Culture - Preliminary No growth in 1 week 03/01/18 13:15 Wound - Foot Acid Fast Bacilli Smear - Final No acid fast bacilli seen 03/01/18 13:15 Wound - Foot Mycobacterial Culture - Preliminary No growth in 1 week - Procedures s/p Incision drainage debridement expansile to joint capsule and muscle with wound vac application Assessment and Plan - Plan 52-year-old female with Sepsis-source right foot infection/cellulitis-resolved Diabetic right foot infection Currently on vancomycin IV MRI of the foot without any evidence of osteomyelitis s/p Incision drainage debridement expansile to joint capsule and muscle with wound vac application Wound VAC management per podiatry, however it was removed on March 06, 2018 Plan for Incision drainage debridement today 03/09/18 Appreciate input from podiatry, and considering possible wound graft placement next week Infectious disease special consultation PRN DKA, in a noncompliant type II diabetic, acute Resolved s/p insulin drip Diabetes type 1 Currently on NovoLog 70/30 20 units twice daily, insulin sliding scale. hemoglobin A1c >13 Hypokalemia Resolved with potassium replacement Diabetic gastroparesis Continue Reglan 10 mg TID before meals Hypertension Continue lisinopril 10 mg daily Abdominal pain-resolved Likely secondary to gastroparesis CT abdomen/pelvis unremarkable DVT prophylaxis: Lovenox
[2018-03-09] MEDS ORDERED: Chlorhexidine Gluconate 2% 1 Pack (2 Cloths) TOPICAL ONE (11:30)
[2018-03-09] MEDS ORDERED: Metoprolol Tartrate 25 MG Tablet PO ONE (11:30)
[2018-03-09] MEDS ORDERED: Sodium Chlor 0.9% Inj 500 ML IV.CONT ONE (11:30)
[2018-03-09] MEDS ORDERED: Neostigmine Inj 5 MG/5 ML Syringe IV.PUSH ONE (13:46)
[2018-03-09] MEDS ORDERED: Glycopyrrolate Inj 1 MG/5 ML Syringe IV.PUSH ONE (13:46)
[2018-03-09] MEDS ORDERED: Lidocaine PF 1% Inj 5 ML Syringe INFILTRATN ONE (13:46)
[2018-03-09] MEDS ORDERED: Succinylcholine Inj 100 MG/5 ML Syringe IV.PUSH ONE (13:46)
--- NOTE | 2018-03-09 14:40 | P.BOP ---
- Preoperative Diagnosis (1) Ulcer of right foot with necrosis of muscle (2) Abscess of right foot (3) Diabetic infection of right foot - Postoperative Diagnosis (1) Diabetic infection of right foot (2) Abscess of right foot (3) Ulcer of right foot with necrosis of muscle Date of procedure: 03/09/18 Procedure: 1. Irrigation and debridement of ulcer right foot with wound vac and partial delayed primary closure Wound to dorsal 1st interspace extending to under great toe. Approximately 4cm x 2cm x 1cm depth Excisional debridement of fibrotic tissue down to level of tendon and joint capsule of 1st MTP joint with #15 blade, curette, and rongeur. Partial closure to dorsal aspect with wound extending and open to plantar hallux and 1st interspace area. Wound vac applied. 125mmHg medium continuous setting. DISPOSITION: Follow up with Dr Jacobson 2 weeks after discharge Continue wound vac upon discharge. Orders in chart. MWF dressing changes. Nonweightbearing right foot Implants: n/a Anesthesia: GETA Surgeon: Florentino Cannon DPM Litigation Specialist: staff Estimated blood loss (mL): 10 Pathology: none sent Condition: stable
[2018-03-09] MEDS: Enoxaparin Inj 40 MG/0.4 ML Syringe SQ SCH (17:25)
[2018-03-09] MEDS ORDERED: fentaNYL Citrate Inj 100 MCG/2 ML Ampul ONE (19:11)
[2018-03-10] MEDS: Metoclopramide 10 MG Tablet PO SCH ×5 (00:37→22:25)
[2018-03-10] MEDS: Insulin NovoLOG Aspart Correctional Sugar Inj SQ SCH ×4 (00:48→18:20)
[2018-03-10] MEDS ORDERED: Pharmacy Ordered Lab Info OTHER ONE (07:45)
[2018-03-10] MEDS: Vancomycin Inj 1,000 MG in Sodium Chlor 0.9% Inj 250 ML IV.SIG SCH ×2 (08:30→09:16)
[2018-03-10] MEDS: Lisinopril 5 MG Tablet PO SCH (09:19)
[2018-03-10] MEDS: Lactobacillus Acidophilus/L. Spores Tablet PO SCH ×4 (09:19→19:26)
--- NOTE | 2018-03-10 09:45 | P.PN ---
Subjective Interval history: awake and alert up in chair no complains known dfiabetic for 10 years0 states good hyplyvemic awareness PCP- in [facility] known diabetic- on metformin 500 mg bid per patient she just got a phone call and got approved for Trulicity states she does not have glucometer at home Physical Exam Vital signs: Vital Signs 03/09/18 12:35 03/09/18 14:36 03/09/18 14:40 Temperature 97.7 F 97.8 F Pulse Rate 58 L 83 79 Respiratory Rate 20 17 17 Blood Pressure 150/75 H 136/74 140/70 Pulse Oximetry 97 97 97 03/09/18 14:45 03/09/18 15:00 03/09/18 15:06 Temperature 97.9 F Pulse Rate 78 60 Respiratory Rate 17 17 Blood Pressure 146/73 H 155/76 H Pulse Oximetry 96 96 96 03/09/18 16:00 03/09/18 20:00 03/10/18 00:00 Temperature 98.2 F 97.1 F L 98.6 F Pulse Rate 63 65 68 Respiratory Rate 20 18 18 Blood Pressure 159/82 H 141/75 H 129/70 Pulse Oximetry 100 97 95 03/10/18 04:00 03/10/18 08:00 Temperature 98.4 F 98.3 F Pulse Rate 71 69 Respiratory Rate 18 20 Blood Pressure 114/59 L 152/70 H Pulse Oximetry 95 95 Intake & Output 03/09/18 03/10/18 03/10/18 18:59 06:59 18:59 Intake Total 900 / 900 730 / 730 Output Total Balance 890 / 890 725 / 725 Weight 74.9 kg Intake: IV 500 / 500 250 / 250 Vancomycin Inj 1,000 MG In NS 500 / 500 250 / 250 Inj 250 ML @ 250 mls/hr IV.SIG Q8H [facility] Rx#:[id number] Oral 480 / 480 Anesthesia Amount 400 / 400 Output: Estimated Blood Loss Wound Drainage # 1 Right Foot Other: Mode Setting Right Foot Continuous Right foot first interspace Continuous # Voids 4 3 Narrative: NAD Normocephalic. anicteric neck supple Regular rate and rhythm. Clear to auscultation. Breath sounds equal bilaterally. Abdomen soft, nontender, LE- foot - wioth post op dressing in palve, VAC in place no calf tenderness Results - Labs CBC & Chem 7: 03/05/18 06:39 03/09/18 09:06 Laboratory Results - last 24 hr 03/09/18 03/09/18 03/09/18 09:06 11:39 14:48 Sodium 143 Potassium 4.2 Chloride 105 Carbon Dioxide 31.7 Anion Gap 6 BUN 7 Creatinine 0.56 Estimated GFR Greater than 89 POC Glucose 176 H 180 H Random Glucose 184 H Calcium 8.5 Total Bilirubin 0.4 AST 14 L ALT 19 Alkaline Phosphatase 63 Total Protein 6.1 L Albumin 2.5 L Vancomycin Trough 03/09/18 03/10/18 03/10/18 17:01 00:26 08:45 Sodium Potassium Chloride Carbon Dioxide Anion Gap BUN Creatinine Estimated GFR POC Glucose 161 H 167 H Random Glucose Calcium Total Bilirubin AST ALT Alkaline Phosphatase Total Protein Albumin Vancomycin Trough 10.3 H - Procedures 03/0903/09/18 Procedure: 1. Irrigation and debridement of ulcer right foot with wound vac and partial delayed primary closure Wound to dorsal 1st interspace extending to under great toe. Approximately 4cm x 2cm x 1cm depth Excisional debridement of fibrotic tissue down to level of tendon and joint capsule of 1st MTP joint with #15 blade, curette, and rongeur. Partial closure to dorsal aspect with wound extending and open to plantar hallux and 1st interspace area. Wound vac applied. 125mmHg medium continuous setting. Assessment and Plan - Plan 52-year-old female known dfiabetic for 10 years0 states good hyplyvemic awareness PCP- in [facility] known diabetic- on metformin 500 mg bid per patient she just got a phone call and got approved for Trulicity states she does not have glucometer at home Diabetic right foot infection - ulcer/abscess with necrosis into the muscle S/P repeated I and D with wound Vac application- last debrided 03/09 s/p Incision drainage debridement expansile to joint capsule and muscle with wound vac application Currently on vancomycin IV MRI of the foot without any evidence of osteomyelitis Wound VAC management per podiatry, Infectious disease consult for recommendation DKA, in a noncompliant type II diabetic, acute hemoglobin a1C - 13 Resolved continue on 70/30 regimen and adjust based on readings will restart her metformin 500 mg po bid per patient her Trulicity was jsut approved Hypokalemia Resolved with potassium replacement Diabetic gastroparesis Continue Reglan 10 mg TID before meals Hypertension Continue lisinopril 10 mg daily Abdominal pain-resolved Likely secondary to gastroparesis CT abdomen/pelvis unremarkable DVT prophylaxis: Lovenox needs to ff up with a PCP- CM consult- needs a glucometer Home health care - going home with a VAC Follow up with Dr Jacobson 2 weeks after discharge Continue wound vac upon discharge. Orders in chart. MWF dressing changes. Nonweightbearing right foot
--- NOTE | 2018-03-10 14:39 | P.PNPOD ---
Physical Exam Vital signs: Vital Signs 03/09/18 14:40 03/09/18 14:45 03/09/18 15:00 Temperature 97.9 F Pulse Rate 79 78 60 Respiratory Rate 17 17 17 Blood Pressure 140/70 146/73 H 155/76 H Pulse Oximetry 97 96 96 03/09/18 15:06 03/09/18 16:00 03/09/18 20:00 Temperature 98.2 F 97.1 F L Pulse Rate 63 65 Respiratory Rate 20 18 Blood Pressure 159/82 H 141/75 H Pulse Oximetry 96 100 97 03/10/18 00:00 03/10/18 04:00 03/10/18 08:00 Temperature 98.6 F 98.4 F 98.3 F Pulse Rate 68 71 69 Respiratory Rate 18 18 20 Blood Pressure 129/70 114/59 L 152/70 H Pulse Oximetry 95 95 95 03/10/18 11:10 Temperature 98.4 F Pulse Rate 72 Respiratory Rate 20 Blood Pressure 148/69 H Pulse Oximetry 96 Intake & Output 03/09/18 03/10/18 03/10/18 18:59 06:59 18:59 Intake Total 900 / 900 730 / 730 Output Total 10 / 10 5 / 5 Balance 890 / 890 725 / 725 Weight 74.9 kg Intake: IV 500 / 500 250 / 250 Vancomycin Inj 1,000 MG In NS 500 / 500 250 / 250 Inj 250 ML @ 250 mls/hr IV.SIG Q8H [facility] Rx#:[id number] Oral 480 / 480 Anesthesia Amount 400 / 400 Output: Estimated Blood Loss 10 / 10 Wound Drainage 5 / 5 # 1 Right Foot 5 / 5 Other: Mode Setting Right Foot Continuous Right foot first interspace Continuous # Voids 4 3 Narrative: Wound vac functioning properly right foot Medications and Allergies Active Medications: Active Medications Acetaminophen (Tylenol) 650 mg PO Q4H PRN PRN Reason: Temp > 100.4 Last Admin: 03/03/18 07:20 Dose: 650 mg Hydrocodone Bitart/Acetaminophen ([place] 10/325) 1 tab PO Q4H PRN PRN Reason: Pain 7 to 10 Hydrocodone Bitart/Acetaminophen ([place] 5/325) 1 tab PO Q4H PRN PRN Reason: Pain 3 to 6 Al Hydroxide/Mg Hydroxide (Milk Of Magnesia Liq) 30 ml PO Q12H PRN PRN Reason: Mild Constipation Collagenase (Santyl Oint) 1 applicatio TOPICAL DAILY [facility] Last Admin: 03/09/18 09:24 Dose: Not Given Dextrose (D50w Vial) 50 ml IV.PUSH UNSCH PRN PRN Reason: PER HYPOGLYCEMIA PROTOCOL Enalaprilat (Vasotec Inj) 2.5 mg IV.PUSH Q6H PRN PRN Reason: SBP>160, DBP>90 Enoxaparin Sodium (Lovenox Inj) 40 mg SQ Q24H [facility] Last Admin: 03/09/18 17:25 Dose: 40 mg Glucagon (Glucagon Inj) 1 mg OTHER PRN PRN PRN Reason: for Hypoglycemia Protocol Sodium Phosphate 15 mmol/ (Sodium Chloride) 105 mls @ 25 mls/hr IV.SIG UNSCH PRN PRN Reason: for Phosphate Level < 1.0 Vancomycin HCl 1,000 mg/ (Sodium Chloride) 250 mls @ 250 mls/hr IV.SIG Q12H [facility] Insulin Aspart (Novolog Insulin Correctional Sugar Inj) 0 unit SQ [facility]; Protocol Last Admin: 03/10/18 14:15 Dose: 7 unit Insulin Human Isoph/Insulin Regular (Novolin 70/30 Inj) 20 units SQ BID@0800, 1700 [facility] Last Admin: 03/10/18 09:20 Dose: 20 units Lactobacillus Acidophilus (Lactinex) 1 tab PO TID [facility] Last Admin: 03/10/18 13:59 Dose: 1 tab Lisinopril (Prinivil) 5 mg PO DAILY [facility] Last Admin: 03/10/18 09:19 Dose: 5 mg [facility] Last Admin: 03/10/18 13:58 Dose: 500 mg Metoclopramide HCl (Reglan) 10 mg PO [facility] Last Admin: 03/10/18 13:58 Dose: 10 mg Miscellaneous Information [place] 0 each OTHER UNSCH PRN PRN Reason: SEE LABEL COMMENTS Stop: 03/10/18 14:37 Miscellaneous Information ([facility] Ordered [place] Info) 0 each OTHER ONCE ONE Stop: 03/11/18 08:46 Ondansetron HCl (Zofran Inj) 4 mg IV.PUSH Q6H PRN PRN Reason: NAUSEA OR VOMITING Last Admin: 03/04/18 09:56 Dose: 4 mg Pharmacy Profile Note (Vancomycin Consult Pharmacy) 1 each OTHER UNSCH PRN PRN Reason: Pharmacy to dose Prochlorperazine Edisylate (Compazine Inj) 10 mg IV.PUSH Q6H PRN PRN Reason: NAUSEA Last Admin: 03/04/18 16:44 Dose: 10 mg Sodium Bicarbonate (Sodium Bicarbonate 8.4% Inj) 50 meq IV.PUSH UNSCH PRN PRN Reason: for pH 6.9 to 7.0 Sodium Bicarbonate (Sodium Bicarbonate 8.4% Inj) 100 meq IV.PUSH UNSCH PRN PRN Reason: for pH less than 6.9 Sodium Chloride (Ns Flush) 2 ml IV.FLUSH BID [facility] Last Admin: 03/10/18 00:44 Dose: 2 ml Sodium Chloride (Ns Flush) 2 ml IV.FLUSH PRN PRN PRN Reason: FLUSH AFTER USING IV ACCESS Last Admin: 03/04/18 09:56 Dose: 2 ml Allergies Allergy/AdvReac Type Severity Reaction Status Date / Time Sulfa (Sulfonamide Allergy Hives Verified 02/26/18 11:06 Antibiotics) Home Medications Medication Instructions Recorded Confirmed Type metformin 500 mg PO BID 02/26/18 02/28/18 History Results - Labs CBC & Chem 7: 03/05/18 06:39 03/09/18 09:06 Laboratory Results - last 24 hr 03/09/18 03/09/18 03/10/18 14:48 17:01 00:26 POC Glucose 180 H 161 H 167 H Vancomycin Trough 03/10/18 08:45 POC Glucose Vancomycin Trough 10.3 H - Procedures 03/0903/09/18 Procedure: 1. Irrigation and debridement of ulcer right foot with wound vac and partial delayed primary closure Wound to dorsal 1st interspace extending to under great toe. Approximately 4cm x 2cm x 1cm depth Excisional debridement of fibrotic tissue down to level of tendon and joint capsule of 1st MTP joint with #15 blade, curette, and rongeur. Partial closure to dorsal aspect with wound extending and open to plantar hallux and 1st interspace area. Wound vac applied. 125mmHg medium continuous setting. Assessment and Plan - Assessment (1) Diabetic infection of right foot Code(s): E11.628 - Type 2 diabetes mellitus with other skin complications; L08.9 - Local infection of the skin and subcutaneous tissue, unspecified Status: Acute - Plan s/p irrigation and debridement right foot with wound vac Wound vac orders in chart Follow up with Wound care center recommended. Patient notified that without insurance, there will be a charge in our outpatient clinic. Discussed with patient long recovery period likely and to reduce amount of time she is on her feet, as well as control blood sugar to improve healing ability.
[2018-03-10] MEDS ORDERED: ceFAZolin Inj 2,000 MG in Sodium Chlor 0.9% Inj 80 ML IV.SIG SCH (16:41)
[2018-03-10] MEDS: Enoxaparin Inj 40 MG/0.4 ML Syringe SQ SCH (16:45)
[2018-03-10] MEDS: Collagenase Oint 30 GM Tube TOPICAL SCH (16:45)
--- NOTE | 2018-03-10 19:22 | MB ---
cc: Blaise Ricci MD DATE: 03/10/2018 REQUESTING PHYSICIAN: Anupama Jenkins MD REASON FOR CONSULTATION: Diabetic foot infection. Status post repeated I and D with findings of necrosis into the muscle. HISTORY OF PRESENT ILLNESS: This is a 52-year-old white female who presented to the emergency department because she had development of an infection of the right great toe interspace. The patient has a callus at the bottom of the interspace between the first and second toe of the right foot, which was being cared for by outpatient debridement of the callus. She came to the emergency department because she noticed redness of the foot. She was seen in the emergency department on 02/26/2018 because of foot and right leg pain. She noted that she was evaluated and a Doppler ultrasound was performed that was negative for deep venous thrombosis and she was sent home. She noted that a blister formed at the dorsal aspect of the interspace between the first and second toe and presented again to the emergency department on 02/28/2018. X-ray of the right foot showed soft tissue swelling surrounding the right great toe suggestive of probable cellulitis and there was no acute fracture or dislocation. MRI of the foot was performed and it showed a small ulcer subjacent to the MTP joint with regional cellulitis. The patient was evaluated by podiatry. She was noted to have vomiting. She was taken to surgery by podiatry and she underwent incision and drainage and also debridement of the joint capsule of the first interspace, and a wound VAC was applied. She was noted to have an abscess, which appeared to go deep into the fascia. A culture was taken and the culture came back showing group B beta strep. Consultation was requested for antibiotic management. The patient's white count was elevated at 17.8 on 02/28/2018. The white blood cell count has decreased to normal. Currently, she has no other complaints. She is afebrile. PAST MEDICAL HISTORY: Neuropathic foot ulcer, diabetes mellitus, history of cholecystectomy. ALLERGIES: SULFA. MEDICATIONS: 1. Lovenox. 2. Insulin. 3. Lactinex 4. Prinivil. 5. Glucophage. 6. Compazine. 7. Vancomycin. SOCIAL HISTORY: No tobacco, no alcohol, no illicit drugs. FAMILY HISTORY: Noncontributory. REVIEW OF SYSTEMS: All systems have been reviewed and negative. PHYSICAL EXAMINATION: GENERAL: She is a well-developed female who is in no acute distress. She is awake and alert and oriented. VITAL SIGNS: Temperature 98.4, BP 140/69, respirations 20, heart rate 72. HEENT: Head is atraumatic. Extraocular movements are grossly intact. Pupils reactive to light. No icterus. Oropharynx: Moist mucosa. No visible lesions. NECK: Supple without adenopathy. LUNGS: Clear to auscultation. HEART: Regular S1 and S2, without murmurs, rubs or gallops. ABDOMEN: Bowel sounds present, soft, nontender. EXTREMITIES: The right foot has a VAC device in place. There is obvious swelling. No visible erythema. SKIN: No diffuse rash. NEUROLOGIC: No gross focal finding. PSYCHIATRIC: The patient is calm and cooperative. LABORATORY DATA: WBC 8.8, platelets 339, hemoglobin 11.8. Creatinine 0.56. Estimated GFR 89. IMPRESSION: 1. Wound infection and abscess of the right foot due to group B beta strep. The patient is status post incision and debridement. 2. Diabetes mellitus. 3. Diabetic foot infection. RECOMMENDATIONS: 1. Discontinue vancomycin. 2. Begin Ancef IV for the group B strep. 3. We will need to arrange for IV Rocephin, which can be given once a day instead of the Ancef when she is discharged. She will require a course of intravenous antibiotics to complete treatment. I anticipate that she will need at least 2-3 weeks of antibiotics. Thank you for this consultation. The patient's progress will be monitored. MD CHARBEL Corrales/graciela , 04:39 PM , 04:50 PM
[2018-03-10] MEDS ORDERED: Vancomycin Inj 1,000 MG in Sodium Chlor 0.9% Inj 250 ML IV.SIG SCH (21:00)
[2018-03-11] MEDS: ceFAZolin 2 GM Premix Inj 2 GM/50 ML PIGGYBACK IV.SIG SCH ×5 (03:48→21:37)
[2018-03-11] MEDS: Insulin NovoLOG Aspart Correctional Sugar Inj SQ SCH ×5 (06:39→21:36)
[2018-03-11 07:22] LABS: Glomerular Filtration Rate Greater Than 89 mL/min (>89)
[2018-03-11] MEDS ORDERED: Pharmacy Ordered Lab Info OTHER ONE (08:45)
[2018-03-11] MEDS: Lactobacillus Acidophilus/L. Spores Tablet PO SCH ×3 (08:49→17:44)
[2018-03-11] MEDS: Lisinopril 5 MG Tablet PO SCH (08:50)
[2018-03-11] MEDS: Metoclopramide 10 MG Tablet PO SCH ×4 (08:50→21:40)
--- NOTE | 2018-03-11 14:40 | MP ---
cc: Florentino Cannon DPOlga DATE OF OPERATION: 03/09/2018 INDICATIONS: The patient presented initially with an abscess to the right plantar and dorsal foot that communicated up there, and surgery was performed with Dr. Mohan originally. She has been undergoing wound VAC changes while in-house. Wound VAC was removed secondary to maceration and she was found to have significant fibrotic and necrotic buildup in the area, and it was deemed necessary to take her back for another repeat irrigation and debridement of the ulcer residual from that original problem to the right foot with possible wound VAC placement. She discussed the risks, benefits and potential complications, and agreed to move forward with surgery. The patient was seen in preop holding by myself, nursing staff, and anesthesia, where the correct patient, side, and site were all confirmed to be correct in the right foot. She was then taken to the surgical suite in supine position. Right foot was addressed. There was a wound noted to the dorsal first interspace area extending to under the great toe. Measurements were approximately 4 x 2 cm and 1 cm in depth. Excisional debridement was performed of this wound of the fibrotic tissue down to the level of tendon and the joint capsule was exposed of the first metatarsophalangeal joint with a number 15 blade curette and rongeur down to healthy bleeding tissue. Partial closure was performed to the entire dorsal aspect, but the wound did extend to between the first and second digits to a large open area under the plantar hallux with measurements as above. The wound VAC was then applied, a small GranuFoam wound VAC and set at 125 mmHg medium continuous setting. The patient tolerated the procedure and anesthesia well and was taken back to PACU with vital signs stable and vascular status intact to the remainder of the right foot. She will be nonweightbearing strictly to the right foot, undergo Sunday, Sunday, Sunday dressing changes, and will continue the wound VAC until it is granulated in enough to receive a graft in order to try to salvage her foot. I did discuss with the patient, however, that worst case scenario the infection would worsen in the area and require something like a partial first ray amputation in order to achieve primary closure of the area, so she can get back to activity and did offer that, and she was not interested in that at this time. She is very much interested in limb salvage as much as possible. SHORT OPERATIVE NOTE SURGEON: Florentino Cannon DPM [employer]: Staff. PREOPERATIVE DIAGNOSES: 1. Ulcer, right foot with necrosis of muscle. 2. Abscess, right foot. 3. Diabetic infection of right foot. POSTOPERATIVE DIAGNOSES: 1. Ulcer, right foot with necrosis of muscle. 2. Abscess, right foot. 3. Diabetic infection of right foot. PROCEDURE PERFORMED: Irrigation and debridement of ulcer right foot with wound VAC and partial delayed primary closure of wound, right foot. PROPHYLAXIS: On scheduled antibiotics. PATHOLOGY: None. ANESTHESIA: General endotracheal anesthesia plus local consisting of 10 mL of 0.25% Marcaine plain. ESTIMATED BLOOD LOSS: 10 mL. COMPLICATIONS: None. CONDITION: Stable to PACU. DISPOSITION: Nonweightbearing to the right foot. Continue wound VAC. We will continue to monitor the progression of the wound. We do recommend that the patient stay in house as long as possible, secondary to having no insurance and likelihood that she will be right back in the hospital with another infection if she is discharged too soon before she is able to have some kind of a definitive treatment. TATIANNA Salmon/graciela , 12:55 PM , 01:03 PM
[2018-03-11] MEDS: Collagenase Oint 30 GM Tube TOPICAL SCH (14:44)
[2018-03-11] MEDS: Enoxaparin Inj 40 MG/0.4 ML Syringe SQ SCH (17:43)
--- NOTE | 2018-03-11 18:36 | P.PNWCN ---
Wound Care Nurse Consult Description: Patient seen today for wound VAC dressing change per Doctor Drake's request Communicated with: DANIEL Ceron and Doctor Drake Recommendation: Wound care will change wound VAc dressing per Doctor Drake's orders.Please reinforce dressing as needed for leaks with shauna seal and VAC drape. Wound/Pressure Injury - Wound Right foot 1st interspace Wound Assessment: Ongoing Wound Type: Traumatic Wound Is This a Chronic Wound: No Requested from Provider a Wound Care Consult: Yes (Patient seen per podiatry request for wound VAC dressing change) Length (cm): 13 Width (cm): 1 Depth (cm): 1.7 Wound Bed Appearance: Wound is partially approximated with 4 sutures toward the proximal dorsal foot portion of wound. Wound is open at the distal portion at the first interspace, revealing 90% red tissue and ~10% yellow tissue Surrounding Tissue Appearance: Edematous, Erythema Surrounding Tissue Temperature: Warm Drainage Description: Serosanguinous Drainage Amount: Scant Drainage Odor: No Odor Dressing Status: Changed Cleansing Solution: Saline Wound Packing Type: Woundvac Sponge Primary Dressing: Negative Pressure Wound Dressing Cover Dressing: Secured with rolled gauze and elastic wrap Wound Dressing Change Date: 03/11/18 Wound Margin Description: Wound margins are steep. - Additional Information Patient seen on for wound VAC dressing change following I&D from Doctor Cannon over the weekend with wound VAC placement. Per request from Doctor Drake, for wound VAC dressing to be reapplied today after he saw the wound. Removed dressing in place to reveal wound.Patient has 4 intact sutures to the dorsal R foot to incision line. Wound was left open and unapproximated at the distal end of the incision at the R foot first interspace.Periwound is erythematous and edematous. Wound bed of open portion of incision presents with ~90% red tissue and ~10% yellow tissue. entire incision was cleansed with normal saline. Shauna seal was applied over approximated area of incision and lining incision area that is open. Covered exposed tendon with oil emulsion gauze. Then one piece of black foam was placed in wound. Black foam was bridged over VAC drape to R medial lower leg. Sensi trac pad was placed over black foam on R lower leg and all exposed granufoam was covered with VAC drape. Wound VAC is suctioning without leaks. Patient tolerated dressing change well. Wound Vac - Wound Vac Right foot 1st interspace Pressure Setting (mmHg): 125 (low) Mode Setting: Continuous Foam type: Black
--- NOTE | 2018-03-11 19:16 | P.PNIM ---
Subjective Interval history: Patient says she is feeling right. Denies any pain. Denies any chest pain or shortness of breath. Physical Exam Vital signs: Vital Signs 03/10/18 20:00 03/11/18 04:00 03/11/18 07:51 Temperature 98.7 F 98.6 F 98.2 F Pulse Rate 66 69 68 Respiratory Rate 18 18 20 Blood Pressure 131/70 124/62 134/71 Pulse Oximetry 98 97 97 03/11/18 12:00 03/11/18 16:13 Temperature 97.8 F 97.9 F Pulse Rate 68 71 Respiratory Rate 20 20 Blood Pressure 155/70 H 148/70 H Pulse Oximetry 96 98 Intake & Output 03/11/18 03/11/18 03/12/18 06:59 18:59 06:59 Intake Total 820 / 820 980 / 980 Output Total Balance 805 / 805 980 / 980 Weight 74.9 kg Intake: IV 300 / 300 100 / 100 Ancef 2 GM Premix Inj 2 gm In 50 / 50 100 / 100 50 ml @ 100 mls/hr IV.SIG Q8H [facility] Rx#:[id number] Oral 520 / 520 880 / 880 Output: Wound Vac Amount Right Foot Other: Mode Setting Right Foot Continuous Continuous Right foot 1st interspace Continuous # Voids 3 6 Date of Last Bowel Movement 03/08/18 Narrative: GENERAL: Sitting up in bed. Appears comfortable. SKIN: Warm and dry. HEAD: Normocephalic. EYES: No scleral icterus. No injection or drainage. NECK: Supple, trachea midline. No JVD . CARDIOVASCULAR: Regular rate and rhythm without murmurs, gallops, or rubs. RESPIRATORY: Breath sounds equal bilaterally. No accessory muscle use. GASTROINTESTINAL: Abdomen soft, non-tender, nondistended. MUSCULOSKELETAL: No cyanosis. Wound care changing right foot dressing during exam. BACK: Nontender without obvious deformity. No CVA tenderness. Results - Labs CBC & Chem 7: 03/05/18 06:39 03/11/18 06:42 Laboratory Results - last 24 hr 03/10/18 03/10/18 03/10/18 08:36 12:39 17:33 Creatinine Estimated GFR POC Glucose 190 H 251 H 231 H 01/27/19 01/28/19 01/28/19 20:14 06:42 07:33 Creatinine 0.51 Estimated GFR Greater than 89 POC Glucose 220 H 139 H 03/11/18 03/11/18 12:12 17:19 Creatinine Estimated GFR POC Glucose 207 H 166 H - Procedures 03/0903/09/18 Procedure: 1. Irrigation and debridement of ulcer right foot with wound vac and partial delayed primary closure Wound to dorsal 1st interspace extending to under great toe. Approximately 4cm x 2cm x 1cm depth Excisional debridement of fibrotic tissue down to level of tendon and joint capsule of 1st MTP joint with #15 blade, curette, and rongeur. Partial closure to dorsal aspect with wound extending and open to plantar hallux and 1st interspace area. Wound vac applied. 125mmHg medium continuous setting. Assessment and Plan - Plan 52-year-old female known dfiabetic for 10 years states good hyplyvemic awareness PCP- in [facility] known diabetic- on metformin 500 mg bid per patient she just got a phone call and got approved for Trulicity states she does not have glucometer at home //Diabetic right foot infection - ulcer/abscess with necrosis into the muscle S/P repeated I and D with wound Vac application- last debrided 03/09 s/p Incision drainage debridement expansile to joint capsule and muscle with wound vac application Currently on vancomycin IV MRI of the foot without any evidence of osteomyelitis Wound VAC management per podiatry, Infectious disease consult for recommendation =Continue with wound VAC as per podiatry as well as IV antibiotics as per infectious disease. //DKA, in a noncompliant type II diabetic, acute hemoglobin a1C - 13 Resolved continue on 70/30 regimen and adjust based on readings will restart her metformin 500 mg po bid per patient her Trulicity was just approved = Glucose overall acceptable here. Continue //Hypokalemia Resolved with potassium replacement //Diabetic gastroparesis Continue Reglan 10 mg TID before meals //Hypertension Continue lisinopril 10 mg daily //Abdominal pain-resolved Likely secondary to gastroparesis CT abdomen/pelvis unremarkable //DVT prophylaxis: Lovenox Discussed Condition With: Patient, nurse. Discharge Planning: needs to ff up with a PCP- CM consult- needs a glucometer Home health care - going home with a VAC ending podiatry clearance Follow up with Dr Jacobson 2 weeks after discharge Continue wound vac upon discharge. Orders in chart. MWF dressing changes. Nonweightbearing right foot
--- NOTE | 2018-03-11 22:23 | P.PNPOD ---
Subjective Interval history: s/p right foot I and D with delayed primary closure and VAC application. DOS 03/09/18. Dr Cannon. Seen at bedside with nursing staff this pm. Physical Exam Vital signs: Vital Signs 03/11/18 04:00 03/11/18 07:51 03/11/18 12:00 Temperature 98.6 F 98.2 F 97.8 F Pulse Rate 69 68 68 Respiratory Rate 18 20 20 Blood Pressure 124/62 134/71 155/70 H Pulse Oximetry 97 97 96 03/11/18 16:13 03/11/18 20:00 Temperature 97.9 F 98.8 F Pulse Rate 71 72 Respiratory Rate 20 18 Blood Pressure 148/70 H 128/61 Pulse Oximetry 98 96 Intake & Output 03/11/18 03/11/18 03/12/18 06:59 18:59 06:59 Intake Total 820 / 820 980 / 980 Output Total Balance 805 / 805 980 / 980 Weight 74.9 kg Intake: IV 300 / 300 100 / 100 Ancef 2 GM Premix Inj 2 gm In 50 / 50 100 / 100 50 ml @ 100 mls/hr IV.SIG Q8H [facility] Rx#:[id number] Oral 520 / 520 880 / 880 Output: Wound Vac Amount Right Foot Other: Mode Setting Right Foot Continuous Continuous Right foot 1st interspace Continuous # Voids 3 6 Date of Last Bowel Movement 03/11/18 # Bowel Movements 1 Narrative: RLE Intact sutures, no exposed tendon, 95% granular, mild serous drainage. NVS unchnaged. Medications and Allergies Active Medications: Active Medications Acetaminophen (Tylenol) 650 mg PO Q4H PRN PRN Reason: Temp > 100.4 Last Admin: 03/03/18 07:20 Dose: 650 mg Hydrocodone Bitart/Acetaminophen (Pomona 10/325) 1 tab PO Q4H PRN PRN Reason: Pain 7 to 10 Hydrocodone Bitart/Acetaminophen (Pomona 5/325) 1 tab PO Q4H PRN PRN Reason: Pain 3 to 6 Al Hydroxide/Mg Hydroxide (Milk Of Magnesia Liq) 30 ml PO Q12H PRN PRN Reason: Mild Constipation Collagenase (Santyl Oint) 1 applicatio TOPICAL DAILY [facility] Last Admin: 03/11/18 14:44 Dose: Not Given Dextrose (D50w Vial) 50 ml IV.PUSH UNSCH PRN PRN Reason: PER HYPOGLYCEMIA PROTOCOL Enalaprilat (Vasotec Inj) 2.5 mg IV.PUSH Q6H PRN PRN Reason: SBP>160, DBP>90 Enoxaparin Sodium (Lovenox Inj) 40 mg SQ Q24H [facility] Last Admin: 03/11/18 17:43 Dose: 40 mg Glucagon (Glucagon Inj) 1 mg OTHER PRN PRN PRN Reason: for Hypoglycemia Protocol Sodium Phosphate 15 mmol/ (Sodium Chloride) 105 mls @ 25 mls/hr IV.SIG UNSCH PRN PRN Reason: for Phosphate Level < 1.0 Cefazolin Sodium/Dextrose (Ancef 2 Gm Premix Inj) 2 gm in 50 mls @ 100 mls/hr IV.SIG Q8H [facility] Last Admin: 03/11/18 21:37 Dose: 100 mls/hr Insulin Aspart (Novolog Insulin Correctional Sugar Inj) 0 unit SQ [facility]; Protocol Last Admin: 03/11/18 21:36 Dose: Not Given Insulin Human Isoph/Insulin Regular (Novolin 70/30 Inj) 20 units SQ BID@0800, 1700 [facility] Last Admin: 03/11/18 17:44 Dose: 20 units Lactobacillus Acidophilus (Lactinex) 1 tab PO TID [facility] Last Admin: 03/11/18 17:44 Dose: 1 tab Lisinopril (Prinivil) 5 mg PO DAILY [facility] Last Admin: 03/11/18 08:50 Dose: 5 mg Metformin HCl (Glucophage) 500 [facility] Last Admin: 03/11/18 17:44 Dose: 500 mg Metoclopramide HCl (Reglan) 10 mg PO [facility] Last Admin: 03/11/18 21:40 Dose: 10 mg Ondansetron HCl (Zofran Inj) 4 mg IV.PUSH Q6H PRN PRN Reason: NAUSEA OR VOMITING Last Admin: 03/04/18 09:56 Dose: 4 mg Prochlorperazine Edisylate (Compazine Inj) 10 mg IV.PUSH Q6H PRN PRN Reason: NAUSEA Last Admin: 03/04/18 16:44 Dose: 10 mg Sodium Bicarbonate (Sodium Bicarbonate 8.4% Inj) 50 meq IV.PUSH UNSCH PRN PRN Reason: for pH 6.9 to 7.0 Sodium Bicarbonate (Sodium Bicarbonate 8.4% Inj) 100 meq IV.PUSH UNSCH PRN PRN Reason: for pH less than 6.9 Sodium Chloride (Ns Flush) 2 ml IV.FLUSH BID [facility] Last Admin: 03/11/18 21:36 Dose: 2 ml Sodium Chloride (Ns Flush) 2 ml IV.FLUSH PRN PRN PRN Reason: FLUSH AFTER USING IV ACCESS Last Admin: 03/04/18 09:56 Dose: 2 ml Allergies Allergy/AdvReac Type Severity Reaction Status Date / Time Sulfa (Sulfonamide Allergy Hives Verified 02/26/18 11:06 Antibiotics) Home Medications Medication Instructions Recorded Confirmed Type metformin 500 mg PO BID 02/26/18 02/28/18 History Results - Labs CBC & Chem 7: 03/05/18 06:39 03/11/18 06:42 Laboratory Results - last 24 hr 03/10/18 03/10/18 03/10/18 08:36 12:39 17:33 Creatinine Estimated GFR POC Glucose 190 H 251 H 231 H 03/10/18 03/11/18 03/11/18 20:14 06:42 07:33 Creatinine 0.51 Estimated GFR Greater than 89 POC Glucose 220 H 139 H 03/11/18 03/11/18 03/11/18 12:12 17:19 21:35 Creatinine Estimated GFR POC Glucose 207 H 166 H 143 H - Procedures 03/0903/09/18 Procedure: 1. Irrigation and debridement of ulcer right foot with wound vac and partial delayed primary closure Wound to dorsal 1st interspace extending to under great toe. Approximately 4cm x 2cm x 1cm depth Excisional debridement of fibrotic tissue down to level of tendon and joint capsule of 1st MTP joint with #15 blade, curette, and rongeur. Partial closure to dorsal aspect with wound extending and open to plantar hallux and 1st interspace area. Wound vac applied. 125mmHg medium continuous setting. Assessment and Plan - Assessment (1) Diabetic infection of right foot Code(s): E11.628 - Type 2 diabetes mellitus with other skin complications; L08.9 - Local infection of the skin and subcutaneous tissue, unspecified Status: Acute - Plan Continue with wound VAC
[2018-03-12] MEDS: ceFAZolin 2 GM Premix Inj 2 GM/50 ML PIGGYBACK IV.SIG SCH ×3 (05:29→21:26)
[2018-03-12] MEDS: Insulin NovoLOG Aspart Correctional Sugar Inj SQ SCH ×4 (08:54→21:42)
[2018-03-12] MEDS: Lisinopril 5 MG Tablet PO SCH (08:55)
[2018-03-12] MEDS: Lactobacillus Acidophilus/L. Spores Tablet PO SCH ×3 (08:55→18:19)
[2018-03-12] MEDS: Metoclopramide 10 MG Tablet PO SCH ×4 (08:55→21:26)
[2018-03-12] MEDS: Collagenase Oint 30 GM Tube TOPICAL SCH (11:19)
--- NOTE | 2018-03-12 16:25 | P.PNIM ---
Subjective Interval history: Patient says she is feeling well. Reports pain is controlled. Denies any chest pain or shortness of breath. Physical Exam Vital signs: Vital Signs 03/11/18 20:00 03/12/18 00:00 03/12/18 03:04 Temperature 98.8 F 98.5 F Pulse Rate 72 75 Respiratory Rate 18 18 16 Blood Pressure 128/61 113/58 L Pulse Oximetry 96 95 03/12/18 04:00 03/12/18 07:50 Temperature 98.6 F 98.4 F Pulse Rate 79 66 Respiratory Rate 18 20 Blood Pressure 140/70 131/71 Pulse Oximetry 96 96 Intake & Output 03/11/18 03/12/18 03/12/18 18:59 06:59 18:59 Intake Total 980 / 980 100 / 100 Balance 980 / 980 100 / 100 Weight 88.6 kg Intake: IV 100 / 100 100 / 100 Ancef 2 GM Premix Inj 2 gm In 100 / 100 100 / 100 50 ml @ 100 mls/hr IV.SIG Q8H [facility] Rx#:[id number] Oral 880 / 880 Other: Mode Setting Right Foot Continuous Continuous Continuous Right foot 1st interspace Continuous # Voids 6 5 Date of Last Bowel Movement 03/11/18 03/11/18 # Bowel Movements 1 Narrative: GENERAL: Sitting up in bed. Appears comfortable. Alert and oriented x3. SKIN: Warm and dry. HEAD: Normocephalic. EYES: No scleral icterus. No injection or drainage. NECK: Supple, trachea midline. No JVD . CARDIOVASCULAR: Regular rate and rhythm without murmurs, gallops, or rubs. RESPIRATORY: Breath sounds equal bilaterally. No accessory muscle use. GASTROINTESTINAL: Abdomen soft, non-tender, nondistended. MUSCULOSKELETAL: No cyanosis. Right foot with wound VAC in place. BACK: Nontender without obvious deformity. No CVA tenderness. Results - Labs CBC & Chem 7: 03/05/18 06:39 03/11/18 06:42 Laboratory Results - last 24 hr 03/11/18 03/11/18 03/12/18 17:19 21:35 07:57 POC Glucose 166 H 143 H 241 H 03/12/18 11:54 POC Glucose 240 H - Procedures 03/0903/09/18 Procedure: 1. Irrigation and debridement of ulcer right foot with wound vac and partial delayed primary closure Wound to dorsal 1st interspace extending to under great toe. Approximately 4cm x 2cm x 1cm depth Excisional debridement of fibrotic tissue down to level of tendon and joint capsule of 1st MTP joint with #15 blade, curette, and rongeur. Partial closure to dorsal aspect with wound extending and open to plantar hallux and 1st interspace area. Wound vac applied. 125mmHg medium continuous setting. Assessment and Plan - Plan 52-year-old female known dfiabetic for 10 years states good hyplyvemic awareness PCP- in [facility] known diabetic- on metformin 500 mg bid per patient she just got a phone call and got approved for Trulicity states she does not have glucometer at home //Diabetic right foot infection - ulcer/abscess with necrosis into the muscle S/P repeated I and D with wound Vac application- last debrided 03/09 s/p Incision drainage debridement expansile to joint capsule and muscle with wound vac application Currently on vancomycin IV MRI of the foot without any evidence of osteomyelitis Wound VAC management per podiatry, Infectious disease consult for recommendation =Continue with wound VAC as per podiatry as well as IV antibiotics as per infectious disease. //DKA, in a noncompliant type II diabetic, acute hemoglobin a1C - 13 Resolved continue on 70/30 regimen and adjust based on readings will restart her metformin 500 mg po bid per patient her Trulicity was just approved = Glucose elevated in the 200s. Will start insulin 2 units before meals. //Hypokalemia Resolved with potassium replacement //Diabetic gastroparesis Continue Reglan 10 mg TID before meals //Hypertension Continue lisinopril 10 mg daily //Abdominal pain-resolved Likely secondary to gastroparesis CT abdomen/pelvis unremarkable //DVT prophylaxis: Lovenox Discharge Planning: needs to ff up with a PCP- CM consult- needs a glucometer Home health care - going home with a VAC pending podiatry clearance Follow up with Dr Jacobson 2 weeks after discharge Continue wound vac upon discharge. Orders in chart. MWF dressing changes. Nonweightbearing right foot
[2018-03-12] MEDS: Enoxaparin Inj 40 MG/0.4 ML Syringe SQ SCH (18:20)
[2018-03-13] MEDS: ceFAZolin 2 GM Premix Inj 2 GM/50 ML PIGGYBACK IV.SIG SCH ×3 (05:50→21:07)
[2018-03-13 07:45] LABS: Glomerular Filtration Rate Greater Than 89 mL/min (>89)
[2018-03-13] MEDS: Lactobacillus Acidophilus/L. Spores Tablet PO SCH ×3 (08:51→17:32)
[2018-03-13] MEDS: Metoclopramide 10 MG Tablet PO SCH ×4 (08:51→21:22)
[2018-03-13] MEDS: Insulin NovoLOG Aspart Correctional Sugar Inj SQ SCH ×4 (08:51→21:24)
[2018-03-13] MEDS: Lisinopril 5 MG Tablet PO SCH (08:51)
[2018-03-13] MEDS: Collagenase Oint 30 GM Tube TOPICAL SCH (08:55)
--- NOTE | 2018-03-13 13:21 | P.PNWCN ---
Wound Care Nurse Consult Description: Patient seen today for wound VAC dressing change today Communicated with: RN Yumiko shukla, and Doctor Drake Recommendation: Wound care will change wound VAc dressing per Doctor Drake's orders.Please reinforce dressing as needed for leaks with shauna seal and VAC drape. Wound/Pressure Injury - Wound Right foot 1st interspace Depth (cm): 1.7 Wound Bed Appearance: Wound is noted with 4 sutures toward the proximal dorsal foot portion of wound that are dehiscing to reveal a mix of yellow and pink tissue. Wound is open at the distal portion at the first interspace, revealing 90% red tissue and ~10% yellow tissue. Surrounding Tissue Appearance: Edematous, [place] Surrounding Tissue Temperature: Cool Drainage Description: Serosanguinous Drainage Amount: Scant Drainage Odor: No Odor Dressing Status: Changed Cleansing Solution: Saline Topical: Povidine-Iodine (Betadine) (to dehiscing incision line) Wound Packing Type: Woundvac Sponge Primary Dressing: Steri strips and maxorb II to dehiscing incision line Cover Dressing: shauna seal and transparent drape Wound Dressing Change Date: 03/13/18 Wound Margin Description: Wound margins are steep. - Additional Information Patient seen for wound VAC dressing change. Removed dressing in place to reveal wound to include one piece of black foam and shauna seal.Patient has 4 sutures to the dorsal R foot incision line that dehiscing to reveal a mix pink and yellow tissue. Wound is open and unapproximated at the distal end of the incision at the R foot first interspace.Periwound is erythematous and edematous. Wound bed of open portion of incision presents with ~90% red tissue and ~10% yellow tissue. entire incision was cleansed with normal saline.Spoke with Doctor Drake about dehiscing incision line on dorsal foot. Doctor still wants VAC dressing, but also wants incision line cleaned with povidone-iodine( betadine, then reinforce sutures with steri strips. Covered incision line with maxorb II. Shauna seal was then applied over sutures and lining open wound at 1 st interspace of R foot. Covered exposed tendon with oil emulsion gauze. Then one piece of black foam was placed in wound. Black foam was bridged over VAC drape to R medial lower leg. Sensi trac pad was placed over black foam on R lower leg and all exposed granufoam was covered with VAC drape. Wound VAC is suctioning without leaks. Patient tolerated dressing change well. Wound Vac - Wound Vac Right foot 1st interspace Pressure Setting (mmHg): 125 Mode Setting: Continuous Drainage Description: Serosanguinous Foam type: Black
[2018-03-13] MEDS: Enoxaparin Inj 40 MG/0.4 ML Syringe SQ SCH (14:17)
--- NOTE | 2018-03-13 14:19 | P.PNID ---
Subjective Remarks: Patient states she feels okay. Afebrile. Has wound VAC in place. Serous drainage. 52-year-old white female who presented to the emergency department because she had development of an infection of the right great toe interspace. The patient has a callus at the bottom of the interspace between the first and second toe of the right foot, which was being cared for by outpatient debridement of the callus. She came to the emergency department because she noticed redness of the foot. She was seen in the emergency department on 02/26/2018 because of foot and right leg pain. She noted that she was evaluated and a Doppler ultrasound was performed that was negative for deep venous thrombosis and she was sent home. She noted that a blister formed at the dorsal aspect of the interspace between the first and second toe and presented again to the emergency department on 02/28/2018. X-ray of the right foot showed soft tissue swelling surrounding the right great toe suggestive of probable cellulitis and there was no acute fracture or dislocation. MRI of the foot was performed and it showed a small ulcer subjacent to the MTP joint with regional cellulitis. The patient was evaluated by podiatry. She was noted to have vomiting. She was taken to surgery by podiatry and she underwent incision and drainage and also debridement of the joint capsule of the first interspace, and a wound VAC was applied. She was noted to have an abscess, which appeared to go deep into the fascia. Consultation was requested for antibiotic management. Past Medical History: PAST MEDICAL HISTORY: Neuropathic foot ulcer, diabetes mellitus, history of cholecystectomy. Allergies/Adverse Reactions: Allergies Sulfa (Sulfonamide Antibiotics) Allergy (Verified 02/26/18 11:06) Hives Objective Vital Signs 03/12/18 16:00 03/12/18 20:00 03/13/18 00:00 Temperature 98.5 F 99.5 F 98.3 F Pulse Rate 83 83 67 Respiratory Rate 20 17 20 Blood Pressure 119/70 118/69 115/58 L Pulse Oximetry 97 95 93 L 03/13/18 02:44 03/13/18 05:40 03/13/18 07:55 Temperature 98.5 F 98.2 F Pulse Rate 72 67 Respiratory Rate 16 20 20 Blood Pressure 137/64 121/74 Pulse Oximetry 95 95 03/13/18 12:55 Temperature 97.9 F Pulse Rate 77 Respiratory Rate 20 Blood Pressure 111/62 Pulse Oximetry 96 Intake & Output 03/12/18 03/13/18 03/13/18 18:59 06:59 18:59 Intake Total 930 / 930 100 / 100 Balance 930 / 930 100 / 100 Weight 86.5 kg Intake: IV 50 / 50 100 / 100 Ancef 2 GM Premix Inj 2 gm In 50 / 50 100 / 100 50 ml @ 100 mls/hr IV.SIG Q8H [facility] Rx#:[id number] Oral 880 / 880 Other: Mode Setting Right Foot Continuous Continuous Right foot 1st interspace Continuous Continuous # Voids 4 3 Date of Last Bowel Movement 03/12/18 # Bowel Movements 2 Lab - Chemistry Results 03/11/18 03/11/18 03/12/18 17:19 21:35 07:57 Creatinine Estimated GFR POC Glucose 166 H 143 H 241 H 03/12/18 03/12/18 03/12/18 11:54 18:08 21:25 Creatinine Estimated GFR POC Glucose 240 H 245 H 236 H 03/13/18 03/13/18 03/13/18 06:00 07:44 11:47 Creatinine 0.60 Estimated GFR Greater than 89 POC Glucose 164 H 154 H Imaging: ITS Impressions Foot MRI 03/01/18 00:00 CONCLUSION: 1. Small ulcer subjacent to the MTP joint with regional cellulitis. 2. No findings of associated osteomyelitis. Abdomen/Pelvis CT 03/04/18 00:00 CONCLUSION: 1. Mild hepatomegaly. 2. Mild degenerative changes throughout the thoracolumbar spine. Physical Exam: PHYSICAL EXAMINATION: GENERAL: Patient in no acute distress. She is awake and alert and oriented. HEENT: Head is atraumatic. Extraocular movements are grossly intact. Pupils reactive to light. No icterus. Oropharynx: Moist mucosa. No visible lesions. NECK: Supple without adenopathy. LUNGS: Clear to auscultation. HEART: Regular S1 and S2, without murmurs, rubs or gallops. ABDOMEN: Bowel sounds present, soft, nontender. EXTREMITIES: The right foot has a VAC device in place. No erythema visible. SKIN: No diffuse rash. NEUROLOGIC: No gross focal finding. PSYCHIATRIC: Calm and cooperative. Assessment and Plan - Plan IMPRESSION: 1. Wound infection and abscess of the right foot due to group B beta strep. Status post incision and debridement. 2. Diabetes mellitus. 3. Diabetic foot infection. RECOMMENDATIONS: Continue Ancef IV. Make arrangements for IV Rocephin 2 gms daily until March 27, 2018 when ready for discharge by podiatry. Will need a PICC line for IV antibiotics if it is to be administered outpatient.
--- NOTE | 2018-03-13 18:23 | P.PNIM ---
Subjective Interval history: Patient says she is feeling right. Reports pain is controlled. Denies any chest pain or shortness of breath. Physical Exam Vital signs: Vital Signs 03/12/18 20:00 03/13/18 00:00 03/13/18 02:44 Temperature 99.5 F 98.3 F Pulse Rate 83 67 Respiratory Rate 17 20 16 Blood Pressure 118/69 115/58 L Pulse Oximetry 95 93 L 03/13/18 05:40 03/13/18 07:55 03/13/18 12:55 Temperature 98.5 F 98.2 F 97.9 F Pulse Rate 72 67 77 Respiratory Rate 20 20 20 Blood Pressure 137/64 121/74 111/62 Pulse Oximetry 95 95 96 03/13/18 16:00 Temperature 98.3 F Pulse Rate 69 Respiratory Rate 20 Blood Pressure 118/61 Pulse Oximetry 94 L Intake & Output 03/12/18 03/13/18 03/13/18 18:59 06:59 18:59 Intake Total 930 / 930 100 / 100 50 / 50 Balance 930 / 930 100 / 100 50 / 50 Weight 86.5 kg Intake: IV 50 / 50 100 / 100 50 / 50 Ancef 2 GM Premix Inj 2 gm In 50 / 50 100 / 100 50 / 50 50 ml @ 100 mls/hr IV.SIG Q8H [facility] Rx#:[id number] Oral 880 / 880 Other: Mode Setting Right Foot Continuous Continuous Right foot 1st interspace Continuous Continuous # Voids 4 3 4 Date of Last Bowel Movement 03/12/18 03/13/18 # Bowel Movements 2 2 Narrative: GENERAL: Sitting up in recliner.. Appears comfortable. Alert and oriented x3. SKIN: Warm and dry. HEAD: Normocephalic. EYES: No scleral icterus. No injection or drainage. NECK: Supple, trachea midline. No JVD . CARDIOVASCULAR: Regular rate and rhythm without murmurs, gallops, or rubs. RESPIRATORY: Breath sounds equal bilaterally. No accessory muscle use. GASTROINTESTINAL: Abdomen soft, non-tender, nondistended. MUSCULOSKELETAL: No cyanosis. Right foot with wound VAC in place. No change on exam. BACK: Nontender without obvious deformity. No CVA tenderness. Results - Labs CBC & Chem 7: 03/05/18 06:39 03/13/18 06:00 Laboratory Results - last 24 hr 03/12/18 03/13/18 03/13/18 21:25 06:00 07:44 Creatinine 0.60 Estimated GFR Greater than 89 POC Glucose 236 H 164 H 03/13/18 03/13/18 11:47 17:17 Creatinine Estimated GFR POC Glucose 154 H 109 - Procedures 03/0903/09/18 Procedure: 1. Irrigation and debridement of ulcer right foot with wound vac and partial delayed primary closure Wound to dorsal 1st interspace extending to under great toe. Approximately 4cm x 2cm x 1cm depth Excisional debridement of fibrotic tissue down to level of tendon and joint capsule of 1st MTP joint with #15 blade, curette, and rongeur. Partial closure to dorsal aspect with wound extending and open to plantar hallux and 1st interspace area. Wound vac applied. 125mmHg medium continuous setting. Assessment and Plan - Plan 52-year-old female known dfiabetic for 10 years states good hyplyvemic awareness PCP- in [facility] known diabetic- on metformin 500 mg bid per patient she just got a phone call and got approved for Trulicity states she does not have glucometer at home //Diabetic right foot infection - ulcer/abscess with necrosis into the muscle S/P repeated I and D with wound Vac application- last debrided 03/09 s/p Incision drainage debridement expansile to joint capsule and muscle with wound vac application Currently on vancomycin IV MRI of the foot without any evidence of osteomyelitis Wound VAC management per podiatry, Infectious disease consult for recommendation =Continue with wound VAC as per podiatry as well as IV antibiotics as per infectious disease. //DKA, in a noncompliant type II diabetic, acute hemoglobin a1C - 13 Resolved continue on 70/30 regimen and adjust based on readings will restart her metformin 500 mg po bid per patient her Trulicity was just approved = Glucose elevated in the 200s. Will start insulin 2 units before meals. = Glucose improved today. Continue to monitor. //Hypokalemia Resolved with potassium replacement //Diabetic gastroparesis Continue Reglan 10 mg TID before meals //Hypertension Continue lisinopril 10 mg daily //Abdominal pain-resolved Likely secondary to gastroparesis CT abdomen/pelvis unremarkable //DVT prophylaxis: Lovenox Discharge Planning: needs to ff up with a PCP- CM consult- needs a glucometer Home health care - going home with a VAC pending podiatry clearance = 03/13. Discussed with podiatry, who will see the patient tomorrow Patient will need IV antibiotics as per ID until 03/27. May need PICC line if cleared to go home. Follow up with Dr Jacobson 2 weeks after discharge Continue wound vac upon discharge. Orders in chart. MWF dressing changes. Nonweightbearing right foot
[2018-03-14 08:09] LABS: Baso # (Auto) 0.1 th/mm3 (0.0-0.2); Baso % (Auto) 0.8 % (0.0-2.0); Eos # (Auto) 0.1 th/mm3 (0.0-0.4); Eos % (Auto) 1.6 % (0.0-4.0); Hematocrit 33.8 % (35.0-46.0); Hemoglobin 11.4 gm/dL (11.6-15.3); Lymph # (Auto) 1.5 th/mm3 (1.0-4.8); Lymph % (Auto) 22.2 % (9.0-44.0); Mean Corpuscular HGB Conc 33.9 % (32.0-36.0); Mean Corpuscular Hemoglobin 29.5 pg (27.0-34.0); Mean Corpuscular Volume 87.1 fL (80.0-100.0); Mean Platelet Volume 8.3 fL (7.0-11.0); Mono % (Auto) 14.8 % (0.0-8.0); Neut # (Auto) 4.2 th/mm3 (1.8-7.7); Neut % (Auto) 60.6 % (16.0-70.0); Platelet Count 319 th/mm3 (150-450); Red Blood Count 3.88 mil/mm3 (4.00-5.30); Red Cell Distribution Width 14.2 % (11.6-17.2); White Blood Count 6.9 th/mm3 (4.0-11.0)
[2018-03-14 08:46] LABS: Alanine Aminotransferase 15 U/L (10-53); Albumin 2.6 g/dL (3.4-5.0); Anion Gap 7 meq/L (5-15); Aspartate Aminotransferase 7 U/L (15-37); Blood Urea Nitrogen 15 mg/dL (7-18); Calcium 8.9 mg/dL (8.5-10.1); Carbon Dioxide 27.5 meq/L (21.0-32.0); Chloride 104 meq/L (98-107); Glomerular Filtration Rate Greater Than 89 mL/min (>89); Glucose,Random 167 mg/dL (74-106); Magnesium 1.8 mg/dL (1.5-2.5); Phosphorus 4.2 mg/dL (2.5-4.9); Potassium 4.1 meq/L (3.5-5.1); Sodium 138 meq/L (136-145)
[2018-03-14 08:48] LABS: Alkaline Phosphatase 67 U/L (45-117); Total Protein 6.6 g/dL (6.4-8.2)
[2018-03-14] MEDS: Lisinopril 5 MG Tablet PO SCH (08:59)
[2018-03-14] MEDS: Metoclopramide 10 MG Tablet PO SCH ×4 (08:59→21:03)
[2018-03-14] MEDS: Lactobacillus Acidophilus/L. Spores Tablet PO SCH ×3 (08:59→17:19)
[2018-03-14] MEDS: Insulin NovoLOG Aspart Correctional Sugar Inj SQ SCH ×4 (09:03→21:21)
[2018-03-14] MEDS: Collagenase Oint 30 GM Tube TOPICAL SCH (09:07)
--- NOTE | 2018-03-14 11:41 | P.PNIM ---
Subjective Interval history: Patient says she is feeling right. Reports pain is controlled. Denies any chest pain shortness of breath. Denies nausea or vomiting. Physical Exam Vital signs: Vital Signs 03/13/18 12:55 03/13/18 16:00 03/13/18 20:00 Temperature 97.9 F 98.3 F 96.6 F L Pulse Rate 77 69 79 Respiratory Rate 20 20 20 Blood Pressure 111/62 118/61 119/70 Pulse Oximetry 96 94 L 96 03/14/18 00:30 03/14/18 02:54 03/14/18 04:35 Temperature 98.3 F 98.2 F Pulse Rate 69 76 Respiratory Rate 20 16 20 Blood Pressure 120/63 124/76 Pulse Oximetry 95 96 03/14/18 08:00 Temperature 97.6 F Pulse Rate 79 Respiratory Rate 20 Blood Pressure 137/63 Pulse Oximetry 97 Intake & Output 03/13/18 03/14/18 03/14/18 18:59 06:59 18:59 Intake Total 50 / 50 50 / 50 Balance 50 / 50 50 / 50 Weight 86.4 kg Intake: IV 50 / 50 50 / 50 Ancef 2 GM Premix Inj 2 gm In 50 / 50 50 / 50 50 ml @ 100 mls/hr IV.SIG Q8H [facility] Rx#:[id number] Other: Mode Setting Right Foot Continuous Right foot 1st interspace Continuous Continuous # Voids 4 1 Date of Last Bowel Movement 03/13/18 03/13/18 # Bowel Movements 2 Narrative: GENERAL: Sitting up in recliner.. Appears comfortable. Alert and oriented x3. SKIN: Warm and dry. HEAD: Normocephalic. EYES: No scleral icterus. No injection or drainage. NECK: Supple, trachea midline. No JVD . CARDIOVASCULAR: Regular rate and rhythm without murmurs, gallops, or rubs. RESPIRATORY: Breath sounds equal bilaterally. No accessory muscle use. GASTROINTESTINAL: Abdomen soft, non-tender, nondistended. MUSCULOSKELETAL: No cyanosis. Right foot with wound VAC in place. again No change on exam. BACK: Nontender without obvious deformity. No CVA tenderness. Results - Labs CBC & Chem 7: 03/14/18 06:55 03/14/18 06:55 Laboratory Results - last 24 hr 03/13/18 03/13/18 03/13/18 11:47 17:17 21:09 WBC RBC Hgb Hct MCV MCH MCHC RDW Plt Count MPV Neut % (Auto) Lymph % (Auto) [place] % (Auto) Eos % (Auto) Baso % (Auto) Neut # (Auto) Lymph # (Auto) [place] # (Auto) Eos # (Auto) Baso # (Auto) WBC Differential Differential Comment Sodium Potassium Chloride Carbon Dioxide Anion Gap BUN Creatinine Estimated GFR POC Glucose 154 H 109 242 H Random Glucose Calcium Phosphorus Magnesium Total Bilirubin Direct Bilirubin Indirect Bilirubin AST ALT Alkaline Phosphatase Total Protein Albumin 03/14/18 03/14/18 03/14/18 06:55 06:55 07:19 WBC 6.9 RBC 3.88 L Hgb 11.4 L Hct 33.8 L MCV 87.1 MCH 29.5 MCHC 33.9 RDW 14.2 Plt Count 319 MPV 8.3 Neut % (Auto) 60.6 Lymph % (Auto) 22.2 [place] % (Auto) 14.8 H Eos % (Auto) 1.6 Baso % (Auto) 0.8 Neut # (Auto) 4.2 Lymph # (Auto) 1.5 [place] # (Auto) 1.0 H Eos # (Auto) 0.1 Baso # (Auto) 0.1 WBC Differential . Differential Comment Auto diff final Sodium 138 Potassium 4.1 Chloride 104 Carbon Dioxide 27.5 Anion Gap 7 BUN 15 Creatinine 0.64 Estimated GFR Greater than 89 POC Glucose 160 H Random Glucose 167 H Calcium 8.9 Phosphorus 4.2 Magnesium 1.8 Total Bilirubin 0.2 Direct Bilirubin 0.1 Indirect Bilirubin 0.1 AST 7 L ALT 15 Alkaline Phosphatase 67 Total Protein 6.6 Albumin 2.6 L - Procedures 03/0903/09/18 Procedure: 1. Irrigation and debridement of ulcer right foot with wound vac and partial delayed primary closure Wound to dorsal 1st interspace extending to under great toe. Approximately 4cm x 2cm x 1cm depth Excisional debridement of fibrotic tissue down to level of tendon and joint capsule of 1st MTP joint with #15 blade, curette, and rongeur. Partial closure to dorsal aspect with wound extending and open to plantar hallux and 1st interspace area. Wound vac applied. 125mmHg medium continuous setting. Assessment and Plan - Plan 52-year-old female known dfiabetic for 10 years states good hyplyvemic awareness PCP- in [facility] known diabetic- on metformin 500 mg bid per patient she just got a phone call and got approved for Trulicity states she does not have glucometer at home //Diabetic right foot infection - ulcer/abscess with necrosis into the muscle S/P repeated I and D with wound Vac application- last debrided 03/09 s/p Incision drainage debridement expansile to joint capsule and muscle with wound vac application Currently on vancomycin IV MRI of the foot without any evidence of osteomyelitis Wound VAC management per podiatry, Infectious disease consult for recommendation =Continue with wound VAC as per podiatry as well as IV antibiotics as per infectious disease.\ = 03/14 follow-up podiatry recommendations today. //DKA, in a noncompliant type II diabetic, acute hemoglobin a1C - 13 Resolved continue on 70/30 regimen and adjust based on readings will restart her metformin 500 mg po bid per patient her Trulicity was just approved = Glucose elevated in the 200s. Will start insulin 2 units before meals. = Glucose improved today. Continue to monitor. //Hypokalemia Resolved with potassium replacement //Diabetic gastroparesis Continue Reglan 10 mg TID before meals //Hypertension Continue lisinopril 10 mg daily //Abdominal pain-resolved Likely secondary to gastroparesis CT abdomen/pelvis unremarkable //DVT prophylaxis: Lovenox Discharge Planning: needs to ff up with a PCP- CM consult- needs a glucometer Home health care - going home with a VAC pending podiatry clearance = 03/13. Discussed with podiatry, who will see the patient tomorrow Patient will need IV antibiotics as per ID until 03/27. May need PICC line if cleared to go home. Follow up with Dr Jacobson 2 weeks after discharge Continue wound vac upon discharge. Orders in chart. MWF dressing changes. Nonweightbearing right foot
[2018-03-14] MEDS: ceFAZolin 2 GM Premix Inj 2 GM/50 ML PIGGYBACK IV.SIG SCH ×3 (14:49→23:20)
[2018-03-14] MEDS: Enoxaparin Inj 40 MG/0.4 ML Syringe SQ SCH (14:50)
--- NOTE | 2018-03-14 23:13 | P.PNPOD ---
Subjective Interval history: s/p I an D and vac application 03/09/18 Dr Cannon. Physical Exam Vital signs: Vital Signs 03/14/18 00:30 03/14/18 02:54 03/14/18 04:35 Temperature 98.3 F 98.2 F Pulse Rate 69 76 Respiratory Rate 20 16 20 Blood Pressure 120/63 124/76 Pulse Oximetry 95 96 03/14/18 08:00 03/14/18 11:55 03/14/18 16:00 Temperature 97.6 F 97.9 F 98.6 F Pulse Rate 79 73 59 L Respiratory Rate 20 20 20 Blood Pressure 137/63 122/56 L 105/58 L Pulse Oximetry 97 99 97 03/14/18 20:40 Temperature 98.8 F Pulse Rate 79 Respiratory Rate 20 Blood Pressure 117/65 Pulse Oximetry 96 Intake & Output 03/14/18 03/14/18 03/15/18 06:59 18:59 06:59 Intake Total 50 / 50 50 / 50 Balance 50 / 50 50 / 50 Weight 86.4 kg Intake: IV 50 / 50 50 / 50 Ancef 2 GM Premix Inj 2 gm In 50 / 50 50 / 50 50 ml @ 100 mls/hr IV.SIG Q8H [facility] Rx#:[id number] Other: Mode Setting Right Foot Continuous Right foot 1st interspace Continuous # Voids 1 4 Date of Last Bowel Movement 03/13/18 03/14/18 # Bowel Movements 1 Narrative: Intact Vac and no strikethrough Medications and Allergies Active Medications: Active Medications Acetaminophen (Tylenol) 650 mg PO Q4H PRN PRN Reason: Temp > 100.4 Last Admin: 03/03/18 07:20 Dose: 650 mg Hydrocodone Bitart/Acetaminophen ([place] 10/325) 1 tab PO Q4H PRN PRN Reason: Pain 7 to 10 Hydrocodone Bitart/Acetaminophen ([place] 5/325) 1 tab PO Q4H PRN PRN Reason: Pain 3 to 6 Al Hydroxide/Mg Hydroxide (Milk Of Magnesia Liq) 30 ml PO Q12H PRN PRN Reason: Mild Constipation Collagenase (Santyl Oint) 1 applicatio TOPICAL DAILY [facility] Last Admin: 03/14/18 09:07 Dose: Not Given Dextrose (D50w Vial) 50 ml IV.PUSH UNSCH PRN PRN Reason: PER HYPOGLYCEMIA PROTOCOL Enalaprilat (Vasotec Inj) 2.5 mg IV.PUSH Q6H PRN PRN Reason: SBP>160, DBP>90 Enoxaparin Sodium (Lovenox Inj) 40 mg SQ Q24H [facility] Last Admin: 03/14/18 14:50 Dose: 40 mg Glucagon (Glucagon Inj) 1 mg OTHER PRN PRN PRN Reason: for Hypoglycemia Protocol Sodium Phosphate 15 mmol/ (Sodium Chloride) 105 mls @ 25 mls/hr IV.SIG UNSCH PRN PRN Reason: for Phosphate Level < 1.0 Cefazolin Sodium/Dextrose (Ancef 2 Gm Premix Inj) 2 gm in 50 mls @ 100 mls/hr IV.SIG Q8H [facility] Last Admin: 03/14/18 21:03 Dose: 100 mls/hr Insulin Aspart (Novolog Insulin Correctional Sugar Inj) 0 unit SQ [facility]; Protocol Last Admin: 03/14/18 21:21 Dose: Not Given Insulin Aspart (Novolog Inj) 2 units SQ TIDAC [facility] Last Admin: 03/14/18 17:21 Dose: 2 units Insulin Human Isoph/Insulin Regular (Novolin 70/30 Inj) 20 units SQ BID@0800, 1700 [facility] Last Admin: 03/14/18 17:21 Dose: 20 units Lactobacillus Acidophilus (Lactinex) 1 tab PO TID [facility] Last Admin: 03/14/18 17:19 Dose: 1 tab Lisinopril (Prinivil) 5 mg PO DAILY [facility] Last Admin: 03/14/18 08:59 Dose: 5 mg [facility] Last Admin: 03/14/18 17:19 Dose: 500 mg Metoclopramide HCl (Reglan) 10 mg PO [facility] Last Admin: 03/14/18 21:03 Dose: 10 mg Ondansetron HCl (Zofran Inj) 4 mg IV.PUSH Q6H PRN PRN Reason: NAUSEA OR VOMITING Last Admin: 03/04/18 09:56 Dose: 4 mg Prochlorperazine Edisylate (Compazine Inj) 10 mg IV.PUSH Q6H PRN PRN Reason: NAUSEA Last Admin: 03/04/18 16:44 Dose: 10 mg Sodium Bicarbonate (Sodium Bicarbonate 8.4% Inj) 50 meq IV.PUSH UNSCH PRN PRN Reason: for pH 6.9 to 7.0 Sodium Bicarbonate (Sodium Bicarbonate 8.4% Inj) 100 meq IV.PUSH UNSCH PRN PRN Reason: for pH less than 6.9 Sodium Chloride (Ns Flush) 2 ml IV.FLUSH BID [facility] Last Admin: 03/14/18 21:20 Dose: 2 ml Sodium Chloride (Ns Flush) 2 ml IV.FLUSH PRN PRN PRN Reason: FLUSH AFTER USING IV ACCESS Last Admin: 03/04/18 09:56 Dose: 2 ml Allergies Allergy/AdvReac Type Severity Reaction Status Date / Time Sulfa (Sulfonamide Allergy Hives Verified 02/26/18 11:06 Antibiotics) Home Medications Medication Instructions Recorded Confirmed Type metformin 500 mg PO BID 02/26/18 02/28/18 History Results - Labs CBC & Chem 7: 03/14/18 06:55 03/14/18 06:55 Laboratory Results - last 24 hr 03/14/18 03/14/18 03/14/18 06:55 06:55 07:19 WBC 6.9 RBC 3.88 L Hgb 11.4 L Hct 33.8 L MCV 87.1 MCH 29.5 MCHC 33.9 RDW 14.2 Plt Count 319 MPV 8.3 Neut % (Auto) 60.6 Lymph % (Auto) 22.2 [place] % (Auto) 14.8 H Eos % (Auto) 1.6 Baso % (Auto) 0.8 Neut # (Auto) 4.2 Lymph # (Auto) 1.5 [place] # (Auto) 1.0 H Eos # (Auto) 0.1 Baso # (Auto) 0.1 WBC Differential . Differential Comment Auto diff final Sodium 138 Potassium 4.1 Chloride 104 Carbon Dioxide 27.5 Anion Gap 7 BUN 15 Creatinine 0.64 Estimated GFR Greater than 89 POC Glucose 160 H Random Glucose 167 H Calcium 8.9 Phosphorus 4.2 Magnesium 1.8 Total Bilirubin 0.2 Direct Bilirubin 0.1 Indirect Bilirubin 0.1 AST 7 L ALT 15 Alkaline Phosphatase 67 Total Protein 6.6 Albumin 2.6 L 03/14/18 03/14/18 03/14/18 12:01 16:44 21:11 WBC RBC Hgb Hct MCV MCH MCHC RDW Plt Count MPV Neut % (Auto) Lymph % (Auto) [place] % (Auto) Eos % (Auto) Baso % (Auto) Neut # (Auto) Lymph # (Auto) [place] # (Auto) Eos # (Auto) Baso # (Auto) WBC Differential Differential Comment Sodium Potassium Chloride Carbon Dioxide Anion Gap BUN Creatinine Estimated GFR POC Glucose 118 H 132 H 104 Random Glucose Calcium Phosphorus Magnesium Total Bilirubin Direct Bilirubin Indirect Bilirubin AST ALT Alkaline Phosphatase Total Protein Albumin - Procedures 03/0903/09/18 Procedure: 1. Irrigation and debridement of ulcer right foot with wound vac and partial delayed primary closure Wound to dorsal 1st interspace extending to under great toe. Approximately 4cm x 2cm x 1cm depth Excisional debridement of fibrotic tissue down to level of tendon and joint capsule of 1st MTP joint with #15 blade, curette, and rongeur. Partial closure to dorsal aspect with wound extending and open to plantar hallux and 1st interspace area. Wound vac applied. 125mmHg medium continuous setting. Assessment and Plan - Assessment (1) Diabetic infection of right foot Code(s): E11.628 - Type 2 diabetes mellitus with other skin complications; L08.9 - Local infection of the skin and subcutaneous tissue, unspecified Status: Acute - Plan Continue with wound VAC Plan for Dressing chnage with wounc segun and Dr Jacobson on 03/15/18
[2018-03-15] MEDS: ceFAZolin 2 GM Premix Inj 2 GM/50 ML PIGGYBACK IV.SIG SCH ×3 (06:42→21:13)
[2018-03-15] MEDS: Lisinopril 5 MG Tablet PO SCH (09:23)
[2018-03-15] MEDS: Insulin NovoLOG Aspart Correctional Sugar Inj SQ SCH ×4 (09:23→21:13)
[2018-03-15] MEDS: Collagenase Oint 30 GM Tube TOPICAL SCH (09:24)
[2018-03-15] MEDS: Lactobacillus Acidophilus/L. Spores Tablet PO SCH ×3 (09:24→18:30)
[2018-03-15] MEDS: Metoclopramide 10 MG Tablet PO SCH ×4 (09:28→21:09)
--- NOTE | 2018-03-15 10:14 | P.PNIM ---
Subjective Interval history: Patient says she is feeling right. Denies any chest pain or shortness of breath. Denies nausea vomiting. Reports pain is controlled.. Physical Exam Vital signs: Vital Signs 03/14/18 11:55 03/14/18 16:00 03/14/18 20:40 Temperature 97.9 F 98.6 F 98.8 F Pulse Rate 73 59 L 79 Respiratory Rate 20 20 20 Blood Pressure 122/56 L 105/58 L 117/65 Pulse Oximetry 99 97 96 03/15/18 00:35 03/15/18 04:40 03/15/18 08:48 Temperature 98.7 F 98.7 F 97.9 F Pulse Rate 75 77 68 Respiratory Rate 20 20 16 Blood Pressure 104/56 L 105/61 131/70 Pulse Oximetry 95 96 96 Intake & Output 03/14/18 03/15/18 03/15/18 18:59 06:59 18:59 Intake Total 50 / 50 50 / 50 Balance 50 / 50 50 / 50 Weight 86 kg Intake: IV 50 / 50 50 / 50 Ancef 2 GM Premix Inj 2 gm In 50 / 50 50 / 50 50 ml @ 100 mls/hr IV.SIG Q8H [facility] Rx#:[id number] Other: Mode Setting Right foot 1st interspace Continuous Continuous Continuous # Voids 4 3 Date of Last Bowel Movement 03/14/18 03/14/18 03/15/18 # Bowel Movements 1 Narrative: GENERAL: Sitting up in bed eating breakfast.. Appears comfortable. Alert and oriented x3. SKIN: Warm and dry. HEAD: Normocephalic. EYES: No scleral icterus. No injection or drainage. NECK: Supple, trachea midline. No JVD . CARDIOVASCULAR: Regular rate and rhythm without murmurs, gallops, or rubs. RESPIRATORY: Breath sounds equal bilaterally. No accessory muscle use. GASTROINTESTINAL: Abdomen soft, non-tender, nondistended. MUSCULOSKELETAL: No cyanosis. Right foot with wound VAC in place. BACK: Nontender without obvious deformity. No CVA tenderness. Results - Labs CBC & Chem 7: 03/14/18 06:55 03/14/18 06:55 Laboratory Results - last 24 hr 03/14/18 03/14/18 03/14/18 12:01 16:44 21:11 POC Glucose 118 H 132 H 104 03/15/18 07:40 POC Glucose 149 H - Procedures 1/26 01/26/19 Procedure: 1. Irrigation and debridement of ulcer right foot with wound vac and partial delayed primary closure Wound to dorsal 1st interspace extending to under great toe. Approximately 4cm x 2cm x 1cm depth Excisional debridement of fibrotic tissue down to level of tendon and joint capsule of 1st MTP joint with #15 blade, curette, and rongeur. Partial closure to dorsal aspect with wound extending and open to plantar hallux and 1st interspace area. Wound vac applied. 125mmHg medium continuous setting. Assessment and Plan - Plan 52-year-old female known dfiabetic for 10 years states good hyplyvemic awareness PCP- in [facility] known diabetic- on metformin 500 mg bid per patient she [facility] states she does not have glucometer at home //Diabetic right foot infection - ulcer/abscess with necrosis into the muscle S/P repeated I and D with wound Vac application- last debrided 03/09 s/p Incision drainage debridement expansile to joint capsule and muscle with wound vac application Currently on vancomycin IV MRI of the foot without any evidence of osteomyelitis Wound VAC management per podiatry, Infectious disease consult for recommendation =Continue with wound VAC as per podiatry as well as IV antibiotics as per infectious disease.\ = 03/14 follow-up podiatry recommendations today. = 03/15. Discussed with podiatry. Patient is not cleared for discharge from podiatry perspective. //DKA, in a noncompliant type II diabetic, acute hemoglobin a1C - 13 Resolved continue on 70/30 regimen and adjust based on readings will restart her metformin 500 mg po bid per patient her Trulicity was just approved = Glucose elevated in the 200s. Will start insulin 2 units before meals. = Glucose improved today. Continue to monitor. //Hypokalemia Resolved with potassium replacement //Diabetic gastroparesis Continue Reglan 10 mg TID before meals //Hypertension Continue lisinopril 10 mg daily //Abdominal pain-resolved Likely secondary to gastroparesis CT abdomen/pelvis unremarkable //DVT prophylaxis: Lovenox Discharge Planning: needs to ff up with a PCP- CM consult- needs a glucometer Home health care - going home with a VAC pending podiatry clearance = 03/13. Discussed with podiatry, who will see the patient tomorrow Patient will need IV antibiotics as per ID until 03/27. May need PICC line if cleared to go home. Follow up with Dr Jacobson 2 weeks after discharge Continue wound vac upon discharge. Orders in chart. MWF dressing changes. Nonweightbearing right foot
[2018-03-15] MEDS: Enoxaparin Inj 40 MG/0.4 ML Syringe SQ SCH (16:48)
--- NOTE | 2018-03-15 17:34 | P.PNPOD ---
Subjective Interval history: Patient seen bedside with wound care present. Patient denies any nausea vomiting fevers or chills. States she has been staying off her foot as much as she can. Physical Exam Vital signs: Vital Signs 03/14/18 20:40 03/15/18 00:35 03/15/18 04:40 Temperature 98.8 F 98.7 F 98.7 F Pulse Rate 79 75 77 Respiratory Rate 20 20 20 Blood Pressure 117/65 104/56 L 105/61 Pulse Oximetry 96 95 96 03/15/18 08:48 03/15/18 12:22 Temperature 97.9 F 97.9 F Pulse Rate 68 76 Respiratory Rate 16 18 Blood Pressure 131/70 115/76 Pulse Oximetry 96 98 Intake & Output 03/14/18 03/15/18 03/15/18 18:59 06:59 18:59 Intake Total 50 / 50 50 / 50 100 / 100 Balance 50 / 50 50 / 50 100 / 100 Weight 86 kg Intake: IV 50 / 50 50 / 50 100 / 100 Ancef 2 GM Premix Inj 2 gm In 50 / 50 50 / 50 100 / 100 50 ml @ 100 mls/hr IV.SIG Q8H [facility] Rx#:[id number] Other: Mode Setting Right foot 1st interspace Continuous Continuous Continuous # Voids 4 3 Date of Last Bowel Movement 03/14/18 03/14/18 03/15/18 # Bowel Movements 1 Narrative: Mild erythema and edema noted to proximal aspect of wound. Granulation tissue noted to wound bed. Capillary refill time under 3 seconds to digits x5. DP/PT palpable right foot. Medications and Allergies Active Medications: Active Medications Acetaminophen (Tylenol) 650 mg PO Q4H PRN PRN Reason: Temp > 100.4 Last Admin: 03/03/18 07:20 Dose: 650 mg Hydrocodone Bitart/Acetaminophen ([place] 10/325) 1 tab PO Q4H PRN PRN Reason: Pain 7 to 10 Hydrocodone Bitart/Acetaminophen ([place] 5/325) 1 tab PO Q4H PRN PRN Reason: Pain 3 to 6 Al Hydroxide/Mg Hydroxide (Milk Of Magnesia Liq) 30 ml PO Q12H PRN PRN Reason: Mild Constipation Collagenase (Santyl Oint) 1 applicatio TOPICAL DAILY [facility] Last Admin: 03/15/18 09:24 Dose: Not Given Dextrose (D50w Vial) 50 ml IV.PUSH UNSCH PRN PRN Reason: PER HYPOGLYCEMIA PROTOCOL Enalaprilat (Vasotec Inj) 2.5 mg IV.PUSH Q6H PRN PRN Reason: SBP>160, DBP>90 Enoxaparin Sodium (Lovenox Inj) 40 mg SQ Q24H [facility] Last Admin: 03/15/18 16:48 Dose: 40 mg Glucagon (Glucagon Inj) 1 mg OTHER PRN PRN PRN Reason: for Hypoglycemia Protocol Sodium Phosphate 15 mmol/ (Sodium Chloride) 105 mls @ 25 mls/hr IV.SIG UNSCH PRN PRN Reason: for Phosphate Level < 1.0 Cefazolin Sodium/Dextrose (Ancef 2 Gm Premix Inj) 2 gm in 50 mls @ 100 mls/hr IV.SIG Q8H [facility] Last Infusion: 03/15/18 16:48 Dose: Infused Insulin Aspart (Novolog Insulin Correctional Sugar Inj) 0 unit SQ [facility]; Protocol Last Admin: 03/15/18 13:51 Dose: Not Given Insulin Aspart (Novolog Inj) 2 units SQ TIDAC [facility] Last Admin: 03/15/18 13:51 Dose: 2 units Insulin Human Isoph/Insulin Regular (Novolin 70/30 Inj) 20 units SQ BID@0800, 1700 [facility] Last Admin: 03/15/18 09:22 Dose: 20 units Lactobacillus Acidophilus (Lactinex) 1 tab PO TID [facility] Last Admin: 03/15/18 13:51 Dose: 1 tab Lisinopril (Prinivil) 5 mg PO DAILY [facility] Last Admin: 03/15/18 09:23 Dose: 5 mg Metformin HCl (Glucophage) 500 mg [facility] Last Admin: 03/15/18 09:23 Dose: 500 mg Metoclopramide HCl (Reglan) 10 mg PO [facility] Last Admin: 03/15/18 13:51 Dose: 10 mg Ondansetron HCl (Zofran Inj) 4 mg IV.PUSH Q6H PRN PRN Reason: NAUSEA OR VOMITING Last Admin: 03/04/18 09:56 Dose: 4 mg Prochlorperazine Edisylate (Compazine Inj) 10 mg IV.PUSH Q6H PRN PRN Reason: NAUSEA Last Admin: 03/04/18 16:44 Dose: 10 mg Sodium Bicarbonate (Sodium Bicarbonate 8.4% Inj) 50 meq IV.PUSH UNSCH PRN PRN Reason: for pH 6.9 to 7.0 Sodium Bicarbonate (Sodium Bicarbonate 8.4% Inj) 100 meq IV.PUSH UNSCH PRN PRN Reason: for pH less than 6.9 Sodium Chloride (Ns Flush) 2 ml IV.FLUSH BID [facility] Last Admin: 03/15/18 09:24 Dose: 2 ml Sodium Chloride (Ns Flush) 2 ml IV.FLUSH PRN PRN PRN Reason: FLUSH AFTER USING IV ACCESS Last Admin: 03/04/18 09:56 Dose: 2 ml Allergies Allergy/AdvReac Type Severity Reaction Status Date / Time Sulfa (Sulfonamide Allergy Hives Verified 02/26/18 11:06 Antibiotics) Home Medications Medication Instructions Recorded Confirmed Type metformin 500 mg PO BID 02/26/18 02/28/18 History Results - Labs CBC & Chem 7: 03/14/18 06:55 03/14/18 06:55 Laboratory Results - last 24 hr 03/14/18 03/15/18 03/15/18 21:11 07:40 12:13 POC Glucose 104 149 H 143 H Microbiology 03/01/18 13:15 Wound - Foot Fungal Smear - Final No fungal elements seen 03/01/18 13:15 Wound - Foot Fungal Culture - Preliminary No growth in 2 weeks 03/01/18 13:15 Wound - Foot Acid Fast Bacilli Smear - Final No acid fast bacilli seen 03/01/18 13:15 Wound - Foot Mycobacterial Culture - Preliminary No growth in 2 weeks - Procedures 03/0903/09/18 Procedure: 1. Irrigation and debridement of ulcer right foot with wound vac and partial delayed primary closure Wound to dorsal 1st interspace extending to under great toe. Approximately 4cm x 2cm x 1cm depth Excisional debridement of fibrotic tissue down to level of tendon and joint capsule of 1st MTP joint with #15 blade, curette, and rongeur. Partial closure to dorsal aspect with wound extending and open to plantar hallux and 1st interspace area. Wound vac applied. 125mmHg medium continuous setting. Assessment and Plan - Assessment (1) Diabetic infection of right foot Code(s): E11.628 - Type 2 diabetes mellitus with other skin complications; L08.9 - Local infection of the skin and subcutaneous tissue, unspecified Status: Acute - Plan 52-year-old female status post right foot incision and drainage with wound VAC placement performed by Dr. Mohan; repeat debridement irrigation performed by Dr. Cannon Patient examined and evaluated with all questions answered Discussed repeat debridement irrigation with graft placement and wound VAC placement to right foot with patient She understands all risks, occasions alternatives and benefits and would like to proceed with surgical intervention Nonweightbearing to right foot, heel touch okay in surgical shoe Please obtain consent: Consent to read right foot debridement and irrigation with graft placement and wound VAC placement N.p.o. after midnight
--- NOTE | 2018-03-15 18:02 | P.PNWCN ---
Wound Care Nurse Consult Description: Patient seen today for wound VAC dressing change today and wound assessment with Doctor Jacobson. Communicated with: DANIEL Hernandes, patient and Doctor Jacobson Recommendation: Please reinforce dressing as needed for leaks with shauna seal and VAC drape.Doctor Jacobson will see patient on Sunday for possible graft placement. Wound/Pressure Injury - Wound Right foot 1st interspace Wound Assessment: Ongoing Wound Type: Traumatic Wound Requested from Provider a Wound Care Consult: Yes (Patient seen today for wound VAC dressing change and wound assessment) Wound Bed Appearance: Red, Sutures, Yellow Wound Bed Appearance: Wound bed presents with ~10% yellow tissue, 10% white tissue and ~80% red tissue. Periwound presents with erythema today. Doctor Kavon removed 3 sutures on the dorsal aspect of the R foot. Surrounding Tissue Appearance: Erythema Surrounding Tissue Temperature: Warm Drainage Description: Serosanguinous Drainage Amount: Scant Drainage Odor: No Odor Dressing Status: Changed Cleansing Solution: Saline Topical: Povidine-Iodine (Betadine) Wound Packing Type: Woundvac Sponge Primary Dressing: maxorb II to incision line, and hydrocolloid shauna seal to seal with wound VAC dressing Cover Dressing: Transparent Wound Dressing Change Date: 03/15/18 Wound Margin Description: Wound margins are steep. Wound Vac - Wound Vac Right foot 1st interspace Pressure Setting (mmHg): 125 (low) Mode Setting: Continuous Foam type: Black - Additional Information Patient seen for wound VAC dressing change, full note to follow.
[2018-03-16] MEDS: ceFAZolin 2 GM Premix Inj 2 GM/50 ML PIGGYBACK IV.SIG SCH ×3 (06:17→21:37)
[2018-03-16] MEDS ORDERED: Bupivacaine PF 0.5% Inj 30 ML Vial ONE (07:17)
[2018-03-16] MEDS ORDERED: Glycopyrrolate Inj 1 MG/5 ML Syringe IV.PUSH ONE (08:03)
[2018-03-16] MEDS ORDERED: Neostigmine Inj 5 MG/5 ML Syringe IV.PUSH ONE (08:03)
[2018-03-16] MEDS ORDERED: Lidocaine PF 1% Inj 5 ML Syringe OTHER ONE (08:03)
--- NOTE | 2018-03-16 08:07 | P.PNPOD ---
Subjective Interval history: Patient seen preoperatively. Agrees with planned procedure. Physical Exam Vital signs: Vital Signs 03/15/18 08:48 03/15/18 12:22 03/15/18 16:50 Temperature 97.9 F 97.9 F 98.1 F Pulse Rate 68 76 88 Respiratory Rate 16 18 16 Blood Pressure 131/70 115/76 118/72 Pulse Oximetry 96 98 97 03/15/18 20:00 03/16/18 00:00 03/16/18 04:00 Temperature 99.4 F 97.9 F 97.9 F Pulse Rate 77 80 72 Respiratory Rate 20 20 20 Blood Pressure 132/67 135/69 117/63 Pulse Oximetry 96 95 96 Intake & Output 03/15/18 03/16/18 03/16/18 18:59 06:59 18:59 Intake Total 100 / 100 50 / 50 Balance 100 / 100 50 / 50 Weight 86 kg Intake: IV 100 / 100 50 / 50 Ancef 2 GM Premix Inj 2 gm In 100 / 100 50 / 50 50 ml @ 100 mls/hr IV.SIG Q8H [facility] Rx#:[id number] Other: Mode Setting Right foot 1st interspace Continuous Continuous # Voids 3 Date of Last Bowel Movement 03/15/18 03/15/18 Narrative: Wound vac on and functioning at 125mmHg to right foot. [employer] under 3 secs to digits x 5 right foot. Medications and Allergies Active Medications: Active Medications Acetaminophen (Tylenol) 650 mg PO Q4H PRN PRN Reason: Temp > 100.4 Last Admin: 03/03/18 07:20 Dose: 650 mg Hydrocodone Bitart/Acetaminophen ([place] 10/325) 1 tab PO Q4H PRN PRN Reason: Pain 7 to 10 Hydrocodone Bitart/Acetaminophen ([place] 5/325) 1 tab PO Q4H PRN PRN Reason: Pain 3 to 6 Al Hydroxide/Mg Hydroxide (Milk Of Magnesia Liq) 30 ml PO Q12H PRN PRN Reason: Mild Constipation Collagenase (Santyl Oint) 1 applicatio TOPICAL DAILY [facility] Last Admin: 03/15/18 09:24 Dose: Not Given Dextrose (D50w Vial) 50 ml IV.PUSH UNSCH PRN PRN Reason: PER HYPOGLYCEMIA PROTOCOL Enalaprilat (Vasotec Inj) 2.5 mg IV.PUSH Q6H PRN PRN Reason: SBP>160, DBP>90 Enoxaparin Sodium (Lovenox Inj) 40 mg SQ Q24H [facility] Last Admin: 03/15/18 16:48 Dose: 40 mg Glucagon (Glucagon Inj) 1 mg OTHER PRN PRN PRN Reason: for Hypoglycemia Protocol Sodium Phosphate 15 mmol/ (Sodium Chloride) 105 mls @ 25 mls/hr IV.SIG UNSCH PRN PRN Reason: for Phosphate Level < 1.0 Cefazolin Sodium/Dextrose (Ancef 2 Gm Premix Inj) 2 gm in 50 mls @ 100 mls/hr IV.SIG Q8H [facility] Last Admin: 03/16/18 06:17 Dose: 100 mls/hr Insulin Aspart (Novolog Insulin Correctional Sugar Inj) 0 unit SQ [facility]; Protocol Last Admin: 03/15/18 21:13 Dose: Not Given Insulin Aspart (Novolog Inj) 2 units SQ TIDAC [facility] Last Admin: 03/15/18 18:21 Dose: 2 units Insulin Human Isoph/Insulin Regular (Novolin 70/30 Inj) 20 units SQ BID@0800, 1700 [facility] Last Admin: 03/15/18 18:21 Dose: 20 units Lactobacillus Acidophilus (Lactinex) 1 tab PO TID [facility] Last Admin: 03/15/18 18:30 Dose: Not Given Lisinopril (Prinivil) 5 mg PO DAILY [facility] Last Admin: 03/15/18 09:23 Dose: 5 mg Metformin HCl (Glucophage) 500 mg PO BIDPC [facility] Last Admin: 03/15/18 18:20 Dose: 500 mg Metoclopramide HCl (Reglan) 10 mg PO [facility] Last Admin: 03/15/18 21:09 Dose: 10 mg Ondansetron HCl (Zofran Inj) 4 mg IV.PUSH Q6H PRN PRN Reason: NAUSEA OR VOMITING Last Admin: 03/04/18 09:56 Dose: 4 mg Prochlorperazine Edisylate (Compazine Inj) 10 mg IV.PUSH Q6H PRN PRN Reason: NAUSEA Last Admin: 03/04/18 16:44 Dose: 10 mg Sodium Bicarbonate (Sodium Bicarbonate 8.4% Inj) 50 meq IV.PUSH UNSCH PRN PRN Reason: for pH 6.9 to 7.0 Sodium Bicarbonate (Sodium Bicarbonate 8.4% Inj) 100 meq IV.PUSH UNSCH PRN PRN Reason: for pH less than 6.9 Sodium Chloride (Ns Flush) 2 ml IV.FLUSH BID [facility] Last Admin: 03/15/18 21:09 Dose: 2 ml Sodium Chloride (Ns Flush) 2 ml IV.FLUSH PRN PRN PRN Reason: FLUSH AFTER USING IV ACCESS Last Admin: 03/04/18 09:56 Dose: 2 ml Allergies Allergy/AdvReac Type Severity Reaction Status Date / Time Sulfa (Sulfonamide Allergy Hives Verified 02/26/18 11:06 Antibiotics) Home Medications Medication Instructions Recorded Confirmed Type metformin 500 mg PO BID 02/26/18 02/28/18 History Results - Labs CBC & Chem 7: 03/14/18 06:55 03/14/18 06:55 Laboratory Results - last 24 hr 03/15/18 03/15/18 03/15/18 12:13 17:33 21:12 POC Glucose 143 H 206 H 229 H 03/16/18 07:15 POC Glucose 195 H Microbiology 03/01/18 13:15 Wound - Foot Fungal Smear - Final No fungal elements seen 03/01/18 13:15 Wound - Foot Fungal Culture - Preliminary No growth in 2 weeks 03/01/18 13:15 Wound - Foot Acid Fast Bacilli Smear - Final No acid fast bacilli seen 03/01/18 13:15 Wound - Foot Mycobacterial Culture - Preliminary No growth in 2 weeks - Procedures 03/0903/09/18 Procedure: 1. Irrigation and debridement of ulcer right foot with wound vac and partial delayed primary closure Wound to dorsal 1st interspace extending to under great toe. Approximately 4cm x 2cm x 1cm depth Excisional debridement of fibrotic tissue down to level of tendon and joint capsule of 1st MTP joint with #15 blade, curette, and rongeur. Partial closure to dorsal aspect with wound extending and open to plantar hallux and 1st interspace area. Wound vac applied. 125mmHg medium continuous setting. Assessment and Plan - Assessment (1) Diabetic infection of right foot Code(s): E11.628 - Type 2 diabetes mellitus with other skin complications; L08.9 - Local infection of the skin and subcutaneous tissue, unspecified Status: Acute - Plan 52-year-old female status post right foot incision and drainage with wound VAC placement performed by Dr. Mohan; repeat debridement irrigation performed by Dr. Cannon Patient examined and evaluated with all questions answered To OR today for debridement irrigation with graft placement and wound VAC placement to right foot with patient She understands all risks, occasions alternatives and benefits and would like to proceed with surgical intervention Nonweightbearing to right foot, heel touch okay in surgical shoe Consent obtained RLE marked
[2018-03-16] MEDS: Insulin NovoLOG Aspart Correctional Sugar Inj SQ SCH ×4 (09:02→21:35)
[2018-03-16] MEDS: Lactobacillus Acidophilus/L. Spores Tablet PO SCH ×3 (09:03→18:57)
[2018-03-16] MEDS: Metoclopramide 10 MG Tablet PO SCH ×4 (09:03→21:36)
[2018-03-16] MEDS: Lisinopril 5 MG Tablet PO SCH (09:03)
[2018-03-16] MEDS: Collagenase Oint 30 GM Tube TOPICAL SCH (09:03)
[2018-03-16] MEDS ORDERED: fentaNYL Citrate Inj 100 MCG/2 ML Ampul ONE (09:23)
--- NOTE | 2018-03-16 09:23 | P.PCN ---
Date of procedure: 03/16/18 Pre-op diagnosis: Right foot wound/ulceration Post-op diagnosis: same Procedure: Right foot debridement and irrigation with graft and wound vac placement Anesthesia: CHOCO Surgeon: Evonne Jacobson Estimated blood loss (mL): 20 Pathology: none sent Condition: stable Disposition: PACU (with VSS and NVS intact)
--- NOTE | 2018-03-16 10:16 | MP ---
cc: Evonne Jacobson DPM DATE OF OPERATION: 03/16/2018 SURGEON: Evonne Jacobson DPM. LAPIDARIST: None. PREOPERATIVE DIAGNOSIS: Right foot wound/ulceration. POSTOPERATIVE DIAGNOSIS: Right foot wound/ulceration. PROCEDURE PERFORMED: Right foot debridement and irrigation with graft placement as well as wound VAC placement. ANESTHESIA: General. HEMOSTASIS: None. ESTIMATED BLOOD LOSS: 20 mL. MATERIALS: Amniox NEOX cord 3 x 3. INJECTABLES: 0.5% Marcaine plain infiltrated about right foot. COMPLICATIONS: None. INDICATIONS FOR PROCEDURE: The patient is a 52-year-old female who has been admitted in the hospital. She has had repeat debridement and irrigation. At this time, the wound is granular and she is on IV antibiotics with no clinical signs of infection. We will move forward with planned surgical intervention. She understands all risks, benefits, and alternatives associated with a surgical procedure. DESCRIPTION OF PROCEDURE: The patient was brought to the operating room. General anesthesia was then induced. Right foot was prepped and draped in the usual sterile fashion. Attention was then directed to the right foot, where a full-thickness excisional debridement to muscle, tendon, and bone was performed to dorsal foot ulceration as well as a plantar ulcer. There was noted to be a wound dorsally measuring 4 cm x 9 cm. There was also noted to be a wound plantarly measuring 2 cm x 2 cm. Previous sutures that were applied to that site were removed and there was noted to be an open ulcer. Site was copiously irrigated. Versajet was also utilized to debride both sites. An Amniox NEOX cord 3 x 3 graft was applied to the dorsal and plantar submetatarsal wound with 3-0 chromic gut. Adaptic was then applied, followed by wound VAC. The patient tolerated the procedure and anesthesia well. Wound VAC was functioning at 125 mmHg. Prior to patient leaving room, she was transferred to PACU with vital signs stable and neurovascular status intact. Evonne Jacobson DPM JIP/ts , 09:43 AM , 09:49 AM
[2018-03-16] MEDS: Enoxaparin Inj 40 MG/0.4 ML Syringe SQ SCH (14:14)
--- NOTE | 2018-03-16 15:48 | P.PNIM ---
Subjective Interval history: Patient seen today after surgery. Says she is feeling right. Denies any chest pain or shortness of breath. Reports pain is controlled. Physical Exam Vital signs: Vital Signs 03/15/18 16:50 03/15/18 20:00 03/16/18 00:00 Temperature 98.1 F 99.4 F 97.9 F Pulse Rate 88 77 80 Respiratory Rate 16 20 20 Blood Pressure 118/72 132/67 135/69 Pulse Oximetry 97 96 95 03/16/18 04:00 03/16/18 07:16 03/16/18 09:15 Temperature 97.9 F 97.9 F 98.3 F Pulse Rate 72 74 75 Respiratory Rate 20 18 16 Blood Pressure 117/63 135/70 109/64 Pulse Oximetry 96 97 95 03/16/18 09:30 03/16/18 09:40 03/16/18 09:45 Temperature 98.3 F Pulse Rate 72 69 Respiratory Rate 15 16 Blood Pressure 111/67 120/71 Pulse Oximetry 96 95 96 03/16/18 12:20 Temperature 98.1 F Pulse Rate 74 Respiratory Rate 18 Blood Pressure 123/74 Pulse Oximetry 97 Intake & Output 03/15/18 03/16/18 03/16/18 18:59 06:59 18:59 Intake Total 100 / 100 100 / 100 50 / 50 Balance 100 / 100 100 / 100 50 / 50 Weight 86 kg Intake: IV 100 / 100 100 / 100 50 / 50 Ancef 2 GM Premix Inj 2 gm In 100 / 100 100 / 100 50 / 50 50 ml @ 100 mls/hr IV.SIG Q8H [facility] Rx#:[id number] Other: Mode Setting Right foot 1st interspace Continuous Continuous Continuous # Voids 3 Date of Last Bowel Movement 03/15/18 03/15/18 Narrative: GENERAL: Sitting up in bed eating breakfast.. Appears comfortable. Alert and oriented x3. SKIN: Warm and dry. HEAD: Normocephalic. EYES: No scleral icterus. No injection or drainage. NECK: Supple, trachea midline. No JVD . CARDIOVASCULAR: Regular rate and rhythm without murmurs, gallops, or rubs. RESPIRATORY: Breath sounds equal bilaterally. No accessory muscle use. GASTROINTESTINAL: Abdomen soft, non-tender, nondistended. MUSCULOSKELETAL: No cyanosis. Right foot with wound VAC in place. BACK: Nontender without obvious deformity. No CVA tenderness. Results - Labs CBC & Chem 7: 03/14/18 06:55 03/14/18 06:55 Laboratory Results - last 24 hr 03/15/18 03/15/18 03/16/18 17:33 21:12 07:15 POC Glucose 206 H 229 H 195 H 03/16/18 03/16/18 09:21 12:58 POC Glucose 197 H 235 H Microbiology 03/15/18 19:04 Wound - Foot Gram Stain - Final 03/15/18 19:04 Wound - Foot Wound Culture - Preliminary gram negative rods 03/01/18 13:15 Wound - Foot Fungal Smear - Final No fungal elements seen 03/01/18 13:15 Wound - Foot Fungal Culture - Preliminary No growth in 2 weeks 03/01/18 13:15 Wound - Foot Acid Fast Bacilli Smear - Final No acid fast bacilli seen 03/01/18 13:15 Wound - Foot Mycobacterial Culture - Preliminary No growth in 2 weeks - Procedures 03/0903/09/18 Procedure: 1. Irrigation and debridement of ulcer right foot with wound vac and partial delayed primary closure Wound to dorsal 1st interspace extending to under great toe. Approximately 4cm x 2cm x 1cm depth Excisional debridement of fibrotic tissue down to level of tendon and joint capsule of 1st MTP joint with #15 blade, curette, and rongeur. Partial closure to dorsal aspect with wound extending and open to plantar hallux and 1st interspace area. Wound vac applied. 125mmHg medium continuous setting. Assessment and Plan - Plan 52-year-old female known dfiabetic for 10 years states good hyplyvemic awareness PCP- in [facility] known diabetic- on metformin 500 mg bid per patient she just got a phone call and got approved for [employer] states she does not have glucometer at home //Diabetic right foot infection - ulcer/abscess with necrosis into the muscle S/P repeated I and D with wound Vac application- last debrided 03/09 s/p Incision drainage debridement expansile to joint capsule and muscle with wound vac application Currently on vancomycin IV MRI of the foot without any evidence of osteomyelitis Wound VAC management per podiatry, Infectious disease consult for recommendation =Continue with wound VAC as per podiatry as well as IV antibiotics as per infectious disease.\ = 03/14 follow-up podiatry recommendations today. = 2/1. Discussed with podiatry. Patient is not cleared for discharge from podiatry perspective. = 03/16. Patient underwent right foot with graft and wound VAC placement. Appreciate podiatry assistance. //DKA, in a noncompliant type II diabetic, acute hemoglobin a1C - 13 Resolved continue on 70/30 regimen and adjust based on readings will restart her metformin 500 mg po bid per patient her Trulicity was just approved = Glucose elevated in the 200s. Will start insulin 2 units before meals. = Glucose improved today. Continue to monitor. //Hypokalemia Resolved with potassium replacement //Diabetic gastroparesis Continue Reglan 10 mg TID before meals //Hypertension Continue lisinopril 10 mg daily //Abdominal pain-resolved Likely secondary to gastroparesis CT abdomen/pelvis unremarkable //DVT prophylaxis: Lovenox Discussed Condition With: Patient, nurse Discharge Planning: needs to ff up with a PCP- CM consult- needs a glucometer Home health care - going home with a VAC pending podiatry clearance = 03/13. Discussed with podiatry, who will see the patient tomorrow Patient will need IV antibiotics as per ID until 03/27. May need PICC line if cleared to go home. Follow up with Dr Jacobson 2 weeks after discharge Continue wound vac upon discharge. Orders in chart. MWF dressing changes. Nonweightbearing right foot
[2018-03-17] MEDS: ceFAZolin 2 GM Premix Inj 2 GM/50 ML PIGGYBACK IV.SIG SCH ×3 (06:24→21:58)
[2018-03-17] MEDS: Lactobacillus Acidophilus/L. Spores Tablet PO SCH ×3 (08:55→18:32)
[2018-03-17] MEDS: Metoclopramide 10 MG Tablet PO SCH ×4 (08:55→20:21)
[2018-03-17] MEDS: Lisinopril 5 MG Tablet PO SCH (08:55)
[2018-03-17] MEDS: Insulin NovoLOG Aspart Correctional Sugar Inj SQ SCH ×4 (08:56→20:21)
[2018-03-17 09:54] LABS: Baso # (Auto) 0.1 th/mm3 (0.0-0.2); Baso % (Auto) 1.3 % (0.0-2.0); Eos # (Auto) 0.1 th/mm3 (0.0-0.4); Eos % (Auto) 0.9 % (0.0-4.0); Hematocrit 35.6 % (35.0-46.0); Hemoglobin 12.3 gm/dL (11.6-15.3); Lymph # (Auto) 1.6 th/mm3 (1.0-4.8); Lymph % (Auto) 23.4 % (9.0-44.0); Mean Corpuscular HGB Conc 34.5 % (32.0-36.0); Mean Corpuscular Hemoglobin 29.9 pg (27.0-34.0); Mean Corpuscular Volume 86.8 fL (80.0-100.0); Mono # (Auto) 0.7 th/mm3 (0.0-0.9); Mono % (Auto) 10.7 % (0.0-8.0); Neut # (Auto) 4.4 th/mm3 (1.8-7.7); Neut % (Auto) 63.7 % (16.0-70.0); Platelet Count 310 th/mm3 (150-450); Red Blood Count 4.11 mil/mm3 (4.00-5.30); Red Cell Distribution Width 14.4 % (11.6-17.2); White Blood Count 6.9 th/mm3 (4.0-11.0)
[2018-03-17 10:35] LABS: Chloride 102 meq/L (98-107); Glomerular Filtration Rate Greater Than 89 mL/min (>89); Potassium 4.3 meq/L (3.5-5.1); Sodium 137 meq/L (136-145)
[2018-03-17 10:41] LABS: Albumin 2.9 g/dL (3.4-5.0); Anion Gap 9 meq/L (5-15); Blood Urea Nitrogen 14 mg/dL (7-18); Calcium 8.4 mg/dL (8.5-10.1); Carbon Dioxide 26.1 meq/L (21.0-32.0); Glucose,Random 202 mg/dL (74-106); Phosphorus 3.3 mg/dL (2.5-4.9)
--- NOTE | 2018-03-17 11:44 | P.PNPOD ---
Subjective Interval history: Patient seen postop day 1. Denies any calf pain to right lower extremity or shortness of breath. Physical Exam Vital signs: Vital Signs 03/16/18 12:20 03/16/18 16:17 03/16/18 19:30 Temperature 98.1 F 98.4 F 98.2 F Pulse Rate 74 75 79 Respiratory Rate 18 16 17 Blood Pressure 123/74 109/55 L 130/68 Pulse Oximetry 97 95 95 03/16/18 23:50 03/17/18 03:40 03/17/18 08:05 Temperature 98.3 F 98.3 F 97.9 F Pulse Rate 72 71 60 Respiratory Rate 17 19 16 Blood Pressure 123/58 L 125/59 L 110/63 Pulse Oximetry 96 97 99 Intake & Output 03/16/18 03/17/18 03/17/18 18:59 06:59 18:59 Intake Total 650 / 650 50 / 50 Output Total Balance 630 / 630 50 / 50 Weight 84.2 kg Intake: IV 50 / 50 50 / 50 Ancef 2 GM Premix Inj 2 gm In 50 / 50 50 / 50 50 ml @ 100 mls/hr IV.SIG Q8H [facility] Rx#:[id number] Anesthesia Amount 600 / 600 Output: Estimated Blood Loss Other: Mode Setting Right foot 1st interspace Continuous Continuous Continuous # Voids 1 Date of Last Bowel Movement 03/16/18 03/16/18 # Bowel Movements 1 Narrative: Dressing intact to right lower extremity. Wound VAC on and functioning at 125 mm per mercury. Capillary refill time under 3 seconds to digits x5 right foot. Negative pain on calf squeeze right lower extremity. Medications and Allergies Active Medications: Active Medications Acetaminophen (Tylenol) 650 mg PO Q4H PRN PRN Reason: Temp > 100.4 Last Admin: 03/03/18 07:20 Dose: 650 mg Hydrocodone Bitart/Acetaminophen ([place] 10/325) 1 tab PO Q4H PRN PRN Reason: Pain 7 to 10 Hydrocodone Bitart/Acetaminophen ([place] 5/325) 1 tab PO Q4H PRN PRN Reason: Pain 3 to 6 Al Hydroxide/Mg Hydroxide (Milk Of Magnesia Liq) 30 ml PO Q12H PRN PRN Reason: Mild Constipation Collagenase (Santyl Oint) 1 applicatio TOPICAL DAILY [facility] Last Admin: 03/16/18 09:03 Dose: Not Given Dextrose (D50w Vial) 50 ml IV.PUSH UNSCH PRN PRN Reason: PER HYPOGLYCEMIA PROTOCOL Enalaprilat (Vasotec Inj) 2.5 mg IV.PUSH Q6H PRN PRN Reason: SBP>160, DBP>90 Enoxaparin Sodium (Lovenox Inj) 40 mg SQ Q24H [facility] Last Admin: 03/16/18 14:14 Dose: Not Given Glucagon (Glucagon Inj) 1 mg OTHER PRN PRN PRN Reason: for Hypoglycemia Protocol Sodium Phosphate 15 mmol/ (Sodium Chloride) 105 mls @ 25 mls/hr IV.SIG UNSCH PRN PRN Reason: for Phosphate Level < 1.0 Cefazolin Sodium/Dextrose (Ancef 2 Gm Premix Inj) 2 gm in 50 mls @ 100 mls/hr IV.SIG Q8H [facility] Last Admin: 03/17/18 06:24 Dose: 100 mls/hr Insulin Aspart (Novolog Insulin Correctional Sugar Inj) 0 unit SQ [facility]; Protocol Last Admin: 03/17/18 08:56 Dose: 2 unit Insulin Aspart (Novolog Inj) 2 units SQ TIDAC [facility] Last Admin: 03/17/18 08:56 Dose: 2 units Insulin Human Isoph/Insulin Regular (Novolin 70/30 Inj) 20 units SQ BID@0800, 1700 [facility] Last Admin: 03/17/18 08:56 Dose: 20 units Lactobacillus Acidophilus (Lactinex) 1 tab PO TID [facility] Last Admin: 03/17/18 08:55 Dose: 1 tab Lisinopril (Prinivil) 5 mg PO DAILY [facility] Last Admin: 03/17/18 08:55 Dose: 5 mg Metformin HCl (Glucophage) 500 mg PO BIDPC [facility] Last Admin: 03/17/18 08:56 Dose: 500 mg Metoclopramide HCl (Reglan) 10 mg PO [facility] Last Admin: 03/17/18 08:55 Dose: 10 mg Ondansetron HCl (Zofran Inj) 4 mg IV.PUSH Q6H PRN PRN Reason: NAUSEA OR VOMITING Last Admin: 03/04/18 09:56 Dose: 4 mg Prochlorperazine Edisylate (Compazine Inj) 10 mg IV.PUSH Q6H PRN PRN Reason: NAUSEA Last Admin: 03/04/18 16:44 Dose: 10 mg Sodium Bicarbonate (Sodium Bicarbonate 8.4% Inj) 50 meq IV.PUSH UNSCH PRN PRN Reason: for pH 6.9 to 7.0 Sodium Bicarbonate (Sodium Bicarbonate 8.4% Inj) 100 meq IV.PUSH UNSCH PRN PRN Reason: for pH less than 6.9 Sodium Chloride (Ns Flush) 2 ml IV.FLUSH BID [facility] Last Admin: 03/17/18 08:57 Dose: 2 ml Sodium Chloride (Ns Flush) 2 ml IV.FLUSH PRN PRN PRN Reason: FLUSH AFTER USING IV ACCESS Last Admin: 03/04/18 09:56 Dose: 2 ml Allergies Allergy/AdvReac Type Severity Reaction Status Date / Time Sulfa (Sulfonamide Allergy Hives Verified 02/26/18 11:06 Antibiotics) Home Medications Medication Instructions Recorded Confirmed Type metformin 500 mg PO BID 02/26/18 02/28/18 History Results - Labs CBC & Chem 7: 03/17/18 09:29 03/17/18 09:29 Laboratory Results - last 24 hr 03/16/18 03/16/18 03/16/18 12:58 18:06 20:17 WBC RBC Hgb Hct MCV MCH MCHC RDW Plt Count MPV Neut % (Auto) Lymph % (Auto) [place] % (Auto) Eos % (Auto) Baso % (Auto) Neut # (Auto) Lymph # (Auto) [place] # (Auto) Eos # (Auto) Baso # (Auto) WBC Differential Differential Comment Sodium Potassium Chloride Carbon Dioxide Anion Gap BUN Creatinine Estimated GFR POC Glucose 235 H 212 H 242 H Random Glucose Calcium Phosphorus Albumin 03/17/18 03/17/18 03/17/18 07:34 09:29 09:29 WBC 6.9 RBC 4.11 Hgb 12.3 Hct 35.6 MCV 86.8 MCH 29.9 MCHC 34.5 RDW 14.4 Plt Count 310 MPV 8.0 Neut % (Auto) 63.7 Lymph % (Auto) 23.4 [place] % (Auto) 10.7 H Eos % (Auto) 0.9 Baso % (Auto) 1.3 Neut # (Auto) 4.4 Lymph # (Auto) 1.6 [place] # (Auto) 0.7 Eos # (Auto) 0.1 Baso # (Auto) 0.1 WBC Differential . Differential Comment Auto diff final Sodium 137 Potassium 4.3 Chloride 102 Carbon Dioxide 26.1 Anion Gap 9 BUN 14 Creatinine 0.61 Estimated GFR Greater than 89 POC Glucose 199 H Random Glucose 202 H Calcium 8.4 L Phosphorus 3.3 Albumin 2.9 L Microbiology 03/15/18 19:04 Wound - Foot Gram Stain - Final 03/15/18 19:04 Wound - Foot Wound Culture - Final Pseudomonas aeruginosa - Procedures 03/0903/09/18 Procedure: 1. Irrigation and debridement of ulcer right foot with wound vac and partial delayed primary closure Wound to dorsal 1st interspace extending to under great toe. Approximately 4cm x 2cm x 1cm depth Excisional debridement of fibrotic tissue down to level of tendon and joint capsule of 1st MTP joint with #15 blade, curette, and rongeur. Partial closure to dorsal aspect with wound extending and open to plantar hallux and 1st interspace area. Wound vac applied. 125mmHg medium continuous setting. Assessment and Plan - Assessment (1) Diabetic infection of right foot Code(s): E11.628 - Type 2 diabetes mellitus with other skin complications; L08.9 - Local infection of the skin and subcutaneous tissue, unspecified Status: Acute - Plan 52-year-old female status post right foot incision and drainage with wound VAC placement performed by Dr. Mohan; repeat debridement irrigation performed by Dr. Cannon; postop day 1 from repeat debridement irrigation with graft placement and wound VAC placement performed by Dr. Jacobson Patient examined and evaluated with all questions answered Nonweightbearing to right foot Wound care to change wound VAC Sunday, Sunday and Sunday Will have Dr. Cannon evaluate wound later this week
--- NOTE | 2018-03-17 12:11 | P.PNIM ---
Subjective Interval history: Patient says he is feeling well. Denies any chest pain or shortness of breath. Denies nausea or vomiting. Denies constipation. Pain under control. Physical Exam Vital signs: Vital Signs 03/16/18 12:20 03/16/18 16:17 03/16/18 19:30 Temperature 98.1 F 98.4 F 98.2 F Pulse Rate 74 75 79 Respiratory Rate 18 16 17 Blood Pressure 123/74 109/55 L 130/68 Pulse Oximetry 97 95 95 03/16/18 23:50 03/17/18 03:40 03/17/18 08:05 Temperature 98.3 F 98.3 F 97.9 F Pulse Rate 72 71 60 Respiratory Rate 17 19 16 Blood Pressure 123/58 L 125/59 L 110/63 Pulse Oximetry 96 97 99 Intake & Output 03/16/18 03/17/18 03/17/18 18:59 06:59 18:59 Intake Total 650 / 650 50 / 50 Output Total 20 / 20 Balance 630 / 630 50 / 50 Weight 84.2 kg Intake: IV 50 / 50 50 / 50 Ancef 2 GM Premix Inj 2 gm In 50 / 50 50 / 50 50 ml @ 100 mls/hr IV.SIG Q8H [facility] Rx#:[id number] Anesthesia Amount 600 / 600 Output: Estimated Blood Loss Other: Mode Setting Right foot 1st interspace Continuous Continuous Continuous # Voids 1 Date of Last Bowel Movement 03/16/18 03/16/18 # Bowel Movements 1 Narrative: GENERAL: Sitting up in bed eating breakfast.. Appears comfortable. Alert and oriented x3. SKIN: Warm and dry. HEAD: Normocephalic. EYES: No scleral icterus. No injection or drainage. NECK: Supple, trachea midline. No JVD . CARDIOVASCULAR: Regular rate and rhythm without murmurs, gallops, or rubs. RESPIRATORY: Breath sounds equal bilaterally. No accessory muscle use. GASTROINTESTINAL: Abdomen soft, non-tender, nondistended. MUSCULOSKELETAL: No cyanosis. Right foot with wound VAC in place, as before. BACK: Nontender without obvious deformity. No CVA tenderness. Results - Labs CBC & Chem 7: 03/17/18 09:29 03/17/18 09:29 Laboratory Results - last 24 hr 03/16/18 03/16/18 03/16/18 12:58 18:06 20:17 WBC RBC Hgb Hct MCV MCH MCHC RDW Plt Count MPV Neut % (Auto) Lymph % (Auto) [place] % (Auto) Eos % (Auto) Baso % (Auto) Neut # (Auto) Lymph # (Auto) [place] # (Auto) Eos # (Auto) Baso # (Auto) WBC Differential Differential Comment Sodium Potassium Chloride Carbon Dioxide Anion Gap BUN Creatinine Estimated GFR POC Glucose 235 H 212 H 242 H Random Glucose Calcium Phosphorus Albumin 03/17/18 03/17/18 03/17/18 07:34 09:29 09:29 WBC 6.9 RBC 4.11 Hgb 12.3 Hct 35.6 MCV 86.8 MCH 29.9 MCHC 34.5 RDW 14.4 Plt Count 310 MPV 8.0 Neut % (Auto) 63.7 Lymph % (Auto) 23.4 [place] % (Auto) 10.7 H Eos % (Auto) 0.9 Baso % (Auto) 1.3 Neut # (Auto) 4.4 Lymph # (Auto) 1.6 [place] # (Auto) 0.7 Eos # (Auto) 0.1 Baso # (Auto) 0.1 WBC Differential . Differential Comment Auto diff final Sodium 137 Potassium 4.3 Chloride 102 Carbon Dioxide 26.1 Anion Gap 9 BUN 14 Creatinine 0.61 Estimated GFR Greater than 89 POC Glucose 199 H Random Glucose 202 H Calcium 8.4 L Phosphorus 3.3 Albumin 2.9 L 03/17/18 12:03 WBC RBC Hgb Hct MCV MCH MCHC RDW Plt Count MPV Neut % (Auto) Lymph % (Auto) [place] % (Auto) Eos % (Auto) Baso % (Auto) Neut # (Auto) Lymph # (Auto) [place] # (Auto) Eos # (Auto) Baso # (Auto) WBC Differential Differential Comment Sodium Potassium Chloride Carbon Dioxide Anion Gap BUN Creatinine Estimated GFR POC Glucose 227 H Random Glucose Calcium Phosphorus Albumin Microbiology 03/15/18 19:04 Wound - Foot Gram Stain - Final 03/15/18 19:04 Wound - Foot Wound Culture - Final Pseudomonas aeruginosa - Procedures 03/0903/09/18 Procedure: 1. Irrigation and debridement of ulcer right foot with wound vac and partial delayed primary closure Wound to dorsal 1st interspace extending to under great toe. Approximately 4cm x 2cm x 1cm depth Excisional debridement of fibrotic tissue down to level of tendon and joint capsule of 1st MTP joint with #15 blade, curette, and rongeur. Partial closure to dorsal aspect with wound extending and open to plantar hallux and 1st interspace area. Wound vac applied. 125mmHg medium continuous setting. Assessment and Plan - Plan 52-year-old female known dfiabetic for 10 years states good hyplyvemic awareness PCP- in [facility] known diabetic- on metformin 500 mg bid per patient she just got a phone call and got approved for [facility] states she does not have glucometer at home //Diabetic right foot infection - ulcer/abscess with necrosis into the muscle S/P repeated I and D with wound Vac application- last debrided 03/09 s/p Incision drainage debridement expansile to joint capsule and muscle with wound vac application Currently on vancomycin IV MRI of the foot without any evidence of osteomyelitis Wound VAC management per podiatry, Infectious disease consult for recommendation =Continue with wound VAC as per podiatry as well as IV antibiotics as per infectious disease.\ = 03/14 follow-up podiatry recommendations today. = 03/15. Discussed with podiatry. Patient is not cleared for discharge from podiatry perspective. = 03/16. Patient underwent right foot with graft and wound VAC placement. Appreciate podiatry assistance. = 03/17. Discussed with podiatry. Follow-up Dr. Cannon recommendations. Patient likely to be in hospital at least 10 days. //DKA, in a noncompliant type II diabetic, acute hemoglobin a1C - 13 Resolved continue on 70/30 regimen and adjust based on readings will restart her metformin 500 mg po bid per patient her Trulicity was just approved = Glucose elevated in the 200s. Will start insulin 2 units before meals. = Glucose improved today. Continue to monitor. //Hypokalemia Resolved with potassium replacement //Diabetic gastroparesis Continue Reglan 10 mg TID before meals //Hypertension Continue lisinopril 10 mg daily //Abdominal pain-resolved Likely secondary to gastroparesis CT abdomen/pelvis unremarkable //DVT prophylaxis: Lovenox Discussed Condition With: Patient, nurse, outsole skiver. Discharge Planning: needs to ff up with a PCP- CM consult- needs a glucometer Home health care - going home with a VAC pending podiatry clearance = 03/13. Discussed with podiatry, who will see the patient tomorrow Patient will need IV antibiotics as per ID until 03/27. May need PICC line if cleared to go home. Follow up with Dr Jacobson 2 weeks after discharge Continue wound vac upon discharge. Orders in chart. MWF dressing changes. Nonweightbearing right foot
[2018-03-17] MEDS: Collagenase Oint 30 GM Tube TOPICAL SCH (13:07)
[2018-03-17] MEDS: Enoxaparin Inj 40 MG/0.4 ML Syringe SQ SCH (15:41)
[2018-03-18] MEDS: ceFAZolin 2 GM Premix Inj 2 GM/50 ML PIGGYBACK IV.SIG SCH ×3 (06:42→22:31)
[2018-03-18] MEDS: Insulin NovoLOG Aspart Correctional Sugar Inj SQ SCH ×4 (09:06→22:50)
[2018-03-18] MEDS: Lisinopril 5 MG Tablet PO SCH (09:08)
[2018-03-18] MEDS: Lactobacillus Acidophilus/L. Spores Tablet PO SCH ×3 (09:09→17:20)
[2018-03-18] MEDS: Metoclopramide 10 MG Tablet PO SCH ×4 (09:15→22:47)
[2018-03-18] MEDS: Collagenase Oint 30 GM Tube TOPICAL SCH (09:16)
--- NOTE | 2018-03-18 10:57 | P.PNIM ---
Subjective Interval history: Patient says she is feeling all right. No chest pain or shortness of breath. No nausea or vomiting. No constipation. Pain is under control. Physical Exam Vital signs: Vital Signs 03/17/18 11:57 03/17/18 16:53 03/17/18 20:00 Temperature 97.7 F 97.9 F 98.3 F Pulse Rate 83 86 90 Respiratory Rate 16 18 20 Blood Pressure 112/70 135/60 130/75 Pulse Oximetry 97 98 98 03/18/18 00:00 03/18/18 01:46 03/18/18 04:15 Temperature 98.3 F 98.0 F Pulse Rate 90 87 Respiratory Rate 18 18 18 Blood Pressure 131/68 130/74 Pulse Oximetry 97 96 03/18/18 07:45 Temperature 97.9 F Pulse Rate 79 Respiratory Rate 20 Blood Pressure 134/61 Pulse Oximetry 98 Intake & Output 03/17/18 03/18/18 03/18/18 18:59 06:59 18:59 Intake Total 50 / 50 50 / 50 50 / 50 Balance 50 / 50 50 / 50 50 / 50 Weight 87.1 kg Intake: IV 50 / 50 50 / 50 50 / 50 Ancef 2 GM Premix Inj 2 gm In 50 / 50 50 / 50 50 / 50 50 ml @ 100 mls/hr IV.SIG Q8H [facility] Rx#:[id number] Other: Mode Setting Right foot 1st interspace Continuous Continuous # Voids 3 Date of Last Bowel Movement 03/16/18 03/17/18 Narrative: GENERAL: Sitting up in bed eating breakfast.. Appears comfortable. Alert and oriented x3. SKIN: Warm and dry. HEAD: Normocephalic. EYES: No scleral icterus. No injection or drainage. NECK: Supple, trachea midline. No JVD . CARDIOVASCULAR: Regular rate and rhythm without murmurs, gallops, or rubs. RESPIRATORY: Breath sounds equal bilaterally. No accessory muscle use. GASTROINTESTINAL: Abdomen soft, non-tender, nondistended. MUSCULOSKELETAL: No cyanosis. Patient seen during wound dressing change. Graft in place. BACK: Nontender without obvious deformity. No CVA tenderness. Results - Labs CBC & Chem 7: 03/17/18 09:29 03/17/18 09:29 Laboratory Results - last 24 hr 02/03/19 02/03/19 02/03/19 12:03 17:39 20:13 POC Glucose 227 H 202 H 254 H 03/18/18 08:32 POC Glucose 159 H Microbiology 03/15/18 19:04 Wound - Foot Gram Stain - Final 03/15/18 19:04 Wound - Foot Wound Culture - Final Pseudomonas aeruginosa - Procedures 03/0903/09/18 Procedure: 1. Irrigation and debridement of ulcer right foot with wound vac and partial delayed primary closure Wound to dorsal 1st interspace extending to under great toe. Approximately 4cm x 2cm x 1cm depth Excisional debridement of fibrotic tissue down to level of tendon and joint capsule of 1st MTP joint with #15 blade, curette, and rongeur. Partial closure to dorsal aspect with wound extending and open to plantar hallux and 1st interspace area. Wound vac applied. 125mmHg medium continuous setting. Assessment and Plan - Plan 52-year-old female known dfiabetic for 10 years states good hyplyvemic awareness PCP- in [facility] known diabetic- on metformin 500 mg bid per patient she just got a phone call and got approved [facility] states she does not have glucometer at home //Diabetic right foot infection - ulcer/abscess with necrosis into the muscle S/P repeated I and D with wound Vac application- last debrided 03/09 s/p Incision drainage debridement expansile to joint capsule and muscle with wound vac application Currently on vancomycin IV MRI of the foot without any evidence of osteomyelitis Wound VAC management per podiatry, Infectious disease consult for recommendation =Continue with wound VAC as per podiatry as well as IV antibiotics as per infectious disease.\ = 03/14 follow-up podiatry recommendations today. = 2/. Discussed with podiatry. Patient is not cleared for discharge from podiatry perspective. = 2/2. Patient underwent right foot with graft and wound VAC placement. Appreciate podiatry assistance. = 2/3. Discussed with podiatry. Follow-up Dr. Cannon recommendations. Patient likely to be in hospital at least 10 days. = 2/4. Continue wound VAC. Wound cultures positive for Pseudomonas. ID notified. Podiatry following. Will add Levaquin by mouth. //DKA, in a noncompliant type II diabetic, acute hemoglobin a1C - 13 Resolved continue on 70/30 regimen and adjust based on readings will restart her metformin 500 mg po bid per patient her Trulicity was just approved = Glucose elevated in the 200s. Will start insulin 2 units before meals. = Glucose improved today. Continue to monitor. //Hypokalemia Resolved with potassium replacement //Diabetic gastroparesis Continue Reglan 10 mg TID before meals //Hypertension Continue lisinopril 10 mg daily //Abdominal pain-resolved Likely secondary to gastroparesis CT abdomen/pelvis unremarkable //DVT prophylaxis: Lovenox Discussed Condition With: Patient, nurse, Dr. Ricci Discharge Planning: needs to ff up with a PCP- CM consult- needs a glucometer Home health care - going home with a VAC pending podiatry clearance = 03/13. Discussed with podiatry, who will see the patient tomorrow Patient will need IV antibiotics as per ID until 03/27. May need PICC line if cleared to go home. Follow up with Dr Jacobson 2 weeks after discharge Continue wound vac upon discharge. Orders in chart. MWF dressing changes. Nonweightbearing right foot
--- NOTE | 2018-03-18 12:30 | P.PNID ---
Subjective Remarks: Patient states she feels okay. Afebrile. Has wound VAC in place. Changed this morning. Serous drainage. Drainage is less. New culture was performed on 03/15/18 which has Pseudomonas. Patient underwent full-thickness excision of muscle tendon and bone. 52-year-old white female who presented to the emergency department because she had development of an infection of the right great toe interspace. The patient has a callus at the bottom of the interspace between the first and second toe of the right foot, which was being cared for by outpatient debridement of the callus. She came to the emergency department because she noticed redness of the foot. She was seen in the emergency department on 02/26/2018 because of foot and right leg pain. She noted that she was evaluated and a Doppler ultrasound was performed that was negative for deep venous thrombosis and she was sent home. She noted that a blister formed at the dorsal aspect of the interspace between the first and second toe and presented again to the emergency department on 02/28/2018. X-ray of the right foot showed soft tissue swelling surrounding the right great toe suggestive of probable cellulitis and there was no acute fracture or dislocation. MRI of the foot was performed and it showed a small ulcer subjacent to the MTP joint with regional cellulitis. The patient was evaluated by podiatry. She was noted to have vomiting. She was taken to surgery by podiatry and she underwent incision and drainage and also debridement of the joint capsule of the first interspace, and a wound VAC was applied. She was noted to have an abscess, which appeared to go deep into the fascia. Consultation was requested for antibiotic management. Antibiotics: Ceftriaxone Past Medical History: PAST MEDICAL HISTORY: Neuropathic foot ulcer, diabetes mellitus, history of cholecystectomy. Allergies/Adverse Reactions: Allergies Sulfa (Sulfonamide Antibiotics) Allergy (Verified 02/26/18 11:06) Hives Objective Vital Signs 03/17/18 16:53 03/17/18 20:00 03/18/18 00:00 Temperature 97.9 F 98.3 F 98.3 F Pulse Rate 86 90 90 Respiratory Rate 18 20 18 Blood Pressure 135/60 130/75 131/68 Pulse Oximetry 98 98 97 03/18/18 01:46 03/18/18 04:15 03/18/18 07:45 Temperature 98.0 F 97.9 F Pulse Rate 87 79 Respiratory Rate 18 18 20 Blood Pressure 130/74 134/61 Pulse Oximetry 96 98 Intake & Output 03/17/18 03/18/18 03/18/18 18:59 06:59 18:59 Intake Total 50 / 50 50 / 50 50 / 50 Balance 50 / 50 50 / 50 50 / 50 Weight 87.1 kg Intake: IV 50 / 50 50 / 50 50 / 50 Ancef 2 GM Premix Inj 2 gm In 50 / 50 50 / 50 50 / 50 50 ml @ 100 mls/hr IV.SIG Q8H RADHA Rx#:[id number] Other: Mode Setting Right foot 1st interspace Continuous Continuous # Voids 3 Date of Last Bowel Movement 03/16/18 03/17/18 03/15/18 19:04 Wound - Foot Gram Stain - Final 03/15/18 19:04 Wound - Foot Wound Culture - Final Pseudomonas aeruginosa 03/01/18 13:15 Wound - Foot Fungal Smear - Final No fungal elements seen 03/01/18 13:15 Wound - Foot Fungal Culture - Preliminary No growth in 2 weeks 03/01/18 13:15 Wound - Foot Acid Fast Bacilli Smear - Final No acid fast bacilli seen 03/01/18 13:15 Wound - Foot Mycobacterial Culture - Preliminary No growth in 2 weeks Lab - Hematology Results 03/17/18 09:29 WBC 6.9 RBC 4.11 Hgb 12.3 Hct 35.6 MCV 86.8 MCH 29.9 MCHC 34.5 RDW 14.4 Plt Count 310 MPV 8.0 Neut % (Auto) 63.7 Lymph % (Auto) 23.4 Emmons % (Auto) 10.7 H Eos % (Auto) 0.9 Baso % (Auto) 1.3 Neut # (Auto) 4.4 Lymph # (Auto) 1.6 Emmons # (Auto) 0.7 Eos # (Auto) 0.1 Baso # (Auto) 0.1 WBC Differential . Differential Comment Auto diff final Lab - Chemistry Results 03/16/18 03/16/18 03/16/18 12:58 18:06 20:17 Sodium Potassium Chloride Carbon Dioxide Anion Gap BUN Creatinine Estimated GFR POC Glucose 235 H 212 H 242 H Random Glucose Calcium Phosphorus Albumin 03/17/18 03/17/18 03/17/18 07:34 09:29 12:03 Sodium 137 Potassium 4.3 Chloride 102 Carbon Dioxide 26.1 Anion Gap 9 BUN 14 Creatinine 0.61 Estimated GFR Greater than 89 POC Glucose 199 H 227 H Random Glucose 202 H Calcium 8.4 L Phosphorus 3.3 Albumin 2.9 L 03/17/18 03/17/18 03/18/18 17:39 20:13 08:32 Sodium Potassium Chloride Carbon Dioxide Anion Gap BUN Creatinine Estimated GFR POC Glucose 202 H 254 H 159 H Random Glucose Calcium Phosphorus Albumin Imaging: ITS Impressions Foot MRI 03/01/18 00:00 CONCLUSION: 1. Small ulcer subjacent to the MTP joint with regional cellulitis. 2. No findings of associated osteomyelitis. Abdomen/Pelvis CT 03/04/18 00:00 CONCLUSION: 1. Mild hepatomegaly. 2. Mild degenerative changes throughout the thoracolumbar spine. Physical Exam: PHYSICAL EXAMINATION: GENERAL: Patient in no acute distress. She is awake and alert and oriented. HEENT: Head is atraumatic. Extraocular movements are grossly intact. Pupils reactive to light. No icterus. Oropharynx: Moist mucosa. No visible lesions. NECK: Supple without adenopathy. LUNGS: Clear to auscultation. HEART: Regular S1 and S2, without murmurs, rubs or gallops. ABDOMEN: Bowel sounds present, soft, nontender. EXTREMITIES: The right foot has a VAC device in place. SKIN: No diffuse rash. NEUROLOGIC: No gross focal finding. PSYCHIATRIC: Calm and cooperative. Assessment and Plan - Plan IMPRESSION: 1. Wound infection and abscess of the right foot due to group B beta strep. Status post incision and debridement. Repeat culture has Pseudomonas. Patient status post excision of the tendon and bone. 2. Diabetes mellitus. 3. Diabetic foot infection. RECOMMENDATIONS: Continue Ancef IV. Add Levaquin for the Pseudomonas. Discussed with Dr. Rey. Make arrangements for IV Rocephin 2 gms daily until March 27, 2018 when ready for discharge by podiatry Based on the findings from the last podiatry surgery the IV and po antibiotic may need to be continued beyond March 27. Will need a PICC line if IV antibiotics is to be administered outpatient.
[2018-03-18] MEDS: levoFLOXacin 750 MG Tablet PO SCH (13:44)
--- NOTE | 2018-03-18 15:09 | P.PNWCN ---
Wound Care Nurse Consult Description: Patient seen today for wound VAC dressing change today and wound assessment. Communicated with: Spoke with bedside nurse Cory Chisholm RN. Recommendation: Please reinforce dressing as needed for leaks with shauna seal and VAC drape. Wound care to change wound vac dressings [facility]. Additional information: Patient seen for wound VAC dressing change. Removed dressing in place to reveal wound to include one piece of black foam and adaptic gauze. Patient has 2 sutures to the dorsal R foot incision line. Wound is open and unapproximated at the distal end of the incision at the R foot first interspace. Periwound has improving erythema and edema. Wound bed of open portion of incision presents with ~40% red tissue and ~60% white tissue. Skin graft in place and appears healthy at this time. Entire incision was cleansed with normal saline. Shauna seal was then applied ryan wound. Covered exposed tendon with oil emulsion gauze. Then one piece of black foam was placed in wound. Black foam was bridged over VAC drape to R medial lower leg. Sensi trac pad was placed over black foam on R lower leg and all exposed granufoam was covered with VAC drape. Wound VAC is suctioning without leaks. Patient tolerated dressing change well. Wound/Pressure Injury - Patient Status Premedicated for Pain Prior to Dressing Change: No (Not needed) - Wound Right Foot Wound Assessment: Ongoing Wound Type: Traumatic Wound Requested from Provider a Wound Care Consult: Yes (Patient seen today by wound care for dressing change.) Length (cm): 8 Width (cm): 2 Depth (cm): 1.1 (~1.1 cm) Wound Bed Appearance: Red, White Wound Bed Appearance: ~40% Red Granulated tissue and ~60% white tissue. Surrounding Tissue Appearance: Blanched/Dull, Edematous, Erythema Surrounding Tissue Temperature: Warm Drainage Description: Serosanguinous Drainage Amount: Scant Drainage Odor: No Odor Cleansing Solution: Saline Wound Packing Type: Woundvac Sponge (Adaptic Gauze to wound bed then Black Granulofoam. ) Primary Dressing: Negative Pressure Wound Dressing Wound Dressing Change Date: 03/18/18 Wound Vac - Wound Vac Right Foot Pressure Setting (mmHg): 125 Mode Setting: Continuous Drainage Description: Serosanguinous Foam type: Black
[2018-03-18] MEDS: Enoxaparin Inj 40 MG/0.4 ML Syringe SQ SCH (15:27)
[2018-03-19] MEDS: ceFAZolin 2 GM Premix Inj 2 GM/50 ML PIGGYBACK IV.SIG SCH ×3 (05:27→21:50)
[2018-03-19] MEDS: levoFLOXacin 750 MG Tablet PO SCH (08:52)
[2018-03-19] MEDS: Metoclopramide 10 MG Tablet PO SCH ×4 (08:53→22:13)
[2018-03-19] MEDS: Lisinopril 5 MG Tablet PO SCH (08:53)
[2018-03-19] MEDS: Lactobacillus Acidophilus/L. Spores Tablet PO SCH ×3 (08:54→17:33)
[2018-03-19] MEDS: Insulin NovoLOG Aspart Correctional Sugar Inj SQ SCH ×4 (08:58→21:51)
[2018-03-19] MEDS: Collagenase Oint 30 GM Tube TOPICAL SCH (09:00)
[2018-03-19] MEDS: Enoxaparin Inj 40 MG/0.4 ML Syringe SQ SCH (15:51)
--- NOTE | 2018-03-19 16:25 | P.PNIM ---
Subjective Interval history: Patient says she is feeling alright. Denies any chest pain or shortness of breath. Reports pain is controlled. Physical Exam Vital signs: Vital Signs 03/18/18 20:15 03/19/18 00:10 03/19/18 04:15 Temperature 98.7 F 98.3 F 98.6 F Pulse Rate 75 77 89 Respiratory Rate 20 20 20 Blood Pressure 122/58 L 114/58 L 113/57 L Pulse Oximetry 97 97 96 03/19/18 08:10 03/19/18 12:00 Temperature 98.5 F 98.0 F Pulse Rate 83 99 H Respiratory Rate 20 20 Blood Pressure 124/71 106/78 Pulse Oximetry 98 97 Intake & Output 03/18/18 03/19/18 03/19/18 18:59 06:59 18:59 Intake Total 100 / 100 100 / 100 Balance 100 / 100 100 / 100 Weight 83.8 kg Intake: IV 100 / 100 100 / 100 Ancef 2 GM Premix Inj 2 gm In 100 / 100 100 / 100 50 ml @ 100 mls/hr IV.SIG Q8H RADHA Rx#:[id number] Other: Mode Setting Right Foot Continuous Right foot 1st interspace Continuous Continuous # Voids 3 4 Date of Last Bowel Movement 03/17/18 03/17/18 Narrative: GENERAL: Sitting up in bed eating breakfast.. Appears comfortable. Alert and oriented x3. SKIN: Warm and dry. HEAD: Normocephalic. EYES: No scleral icterus. No injection or drainage. NECK: Supple, trachea midline. No JVD . CARDIOVASCULAR: Regular rate and rhythm without murmurs, gallops, or rubs. RESPIRATORY: Breath sounds equal bilaterally. No accessory muscle use. GASTROINTESTINAL: Abdomen soft, non-tender, nondistended. MUSCULOSKELETAL: No cyanosis. 2/4 patient seen during wound dressing change. Graft in place. 2/. Wound VAC in place. BACK: Nontender without obvious deformity. No CVA tenderness. Results - Labs CBC & Chem 7: 03/17/18 09:29 03/17/18 09:29 Laboratory Results - last 24 hr 03/18/18 03/18/18 03/19/18 17:19 22:47 08:07 POC Glucose 173 H 111 H 194 H 03/19/18 12:43 POC Glucose 129 H - Procedures 03/0903/09/18 Procedure: 1. Irrigation and debridement of ulcer right foot with wound vac and partial delayed primary closure Wound to dorsal 1st interspace extending to under great toe. Approximately 4cm x 2cm x 1cm depth Excisional debridement of fibrotic tissue down to level of tendon and joint capsule of 1st MTP joint with #15 blade, curette, and rongeur. Partial closure to dorsal aspect with wound extending and open to plantar hallux and 1st interspace area. Wound vac applied. 125mmHg medium continuous setting. Assessment and Plan - Plan 52-year-old female known dfiabetic for 10 years states good hyplyvemic awareness PCP- in [facility] known diabetic- on metformin 500 mg bid per patient she just got a phone call and got approved for [facility] states she does not have glucometer at home //Diabetic right foot infection - ulcer/abscess with necrosis into the muscle S/P repeated I and D with wound Vac application- last debrided 03/09 s/p Incision drainage debridement expansile to joint capsule and muscle with wound vac application Currently on vancomycin IV MRI of the foot without any evidence of osteomyelitis Wound VAC management per podiatry, Infectious disease consult for recommendation =Continue with wound VAC as per podiatry as well as IV antibiotics as per infectious disease.\ = 03/14 follow-up podiatry recommendations today. = 2/. Discussed with podiatry. Patient is not cleared for discharge from podiatry perspective. = 2/2. Patient underwent right foot with graft and wound VAC placement. Appreciate podiatry assistance. = 2/3. Discussed with podiatry. Follow-up Dr. Cannon recommendations. Patient likely to be in hospital at least 10 days. = 2/4. Continue wound VAC. Wound cultures positive for Pseudomonas. ID notified. Podiatry following. Will add Levaquin by mouth. = 2/4. Continue antibiotics as per ID. Follow-up podiatry recommendations. //DKA, in a noncompliant type II diabetic, acute hemoglobin a1C - 13 Resolved continue on 70/30 regimen and adjust based on readings will restart her metformin 500 mg po bid per patient her Trulicity was just approved = Glucose elevated in the 200s. Will start insulin 2 units before meals. = Glucose acceptable. Continue to monitor. //Hypokalemia Resolved with potassium replacement //Diabetic gastroparesis Continue Reglan 10 mg TID before meals //Hypertension Continue lisinopril 10 mg daily //Abdominal pain-resolved Likely secondary to gastroparesis CT abdomen/pelvis unremarkable //DVT prophylaxis: Lovenox Discussed Condition With: Patient, nurse, pillowcase folder. Discharge Planning: Pending podiatry clearance. needs to ff up with a PCP- CM consult- needs a glucometer Home health care - going home with a VAC pending podiatry clearance Patient will need IV antibiotics as per ID until 03/27. May need PICC line if cleared to go home. Follow up with Dr Jacobson 2 weeks after discharge Continue wound vac upon discharge. Orders in chart. MWF dressing changes. Nonweightbearing right foot
[2018-03-20] MEDS: ceFAZolin 2 GM Premix Inj 2 GM/50 ML PIGGYBACK IV.SIG SCH ×3 (05:52→21:08)
[2018-03-20] MEDS: levoFLOXacin 750 MG Tablet PO SCH (09:30)
[2018-03-20] MEDS: Lactobacillus Acidophilus/L. Spores Tablet PO SCH ×3 (09:30→17:55)
[2018-03-20] MEDS: Lisinopril 5 MG Tablet PO SCH (09:31)
[2018-03-20] MEDS: Metoclopramide 10 MG Tablet PO SCH ×4 (09:31→21:18)
[2018-03-20] MEDS: Insulin NovoLOG Aspart Correctional Sugar Inj SQ SCH ×4 (09:36→21:12)
[2018-03-20] MEDS: Collagenase Oint 30 GM Tube TOPICAL SCH (12:46)
[2018-03-20] MEDS: Enoxaparin Inj 40 MG/0.4 ML Syringe SQ SCH (15:19)
--- NOTE | 2018-03-20 16:08 | P.PNIM ---
Subjective Interval history: Patient says she is feeling right. Denies any chest pain or shortness of breath. Denies nausea or vomiting. Denies constipation. Reports pain is under control. Physical Exam Vital signs: Vital Signs 03/19/18 21:11 03/20/18 01:23 03/20/18 05:22 Temperature 97.6 F 98.1 F 98.1 F Pulse Rate 79 73 79 Respiratory Rate 20 20 20 Blood Pressure 133/69 125/60 152/66 H Pulse Oximetry 99 97 98 03/20/18 08:15 03/20/18 11:20 Temperature 98.1 F 98.3 F Pulse Rate 77 81 Respiratory Rate 20 20 Blood Pressure 117/74 119/74 Pulse Oximetry 97 99 Intake & Output 03/19/18 03/20/18 03/20/18 18:59 06:59 18:59 Intake Total 410 / 410 50 / 50 50 / 50 Balance 410 / 410 50 / 50 50 / 50 Weight 87.2 kg Intake: IV 50 / 50 50 / 50 50 / 50 Ancef 2 GM Premix Inj 2 gm In 50 / 50 50 / 50 50 / 50 50 ml @ 100 mls/hr IV.SIG Q8H RADHA Rx#:[id number] Oral 360 / 360 Other: Mode Setting Right foot 1st interspace Continuous Continuous # Voids 3 2 Date of Last Bowel Movement 03/17/18 # Bowel Movements 1 Narrative: GENERAL: Sitting up in chair. Appears comfortable. Alert and oriented x3. SKIN: Warm and dry. HEAD: Normocephalic. EYES: No scleral icterus. No injection or drainage. NECK: Supple, trachea midline. No JVD . CARDIOVASCULAR: Regular rate and rhythm without murmurs, gallops, or rubs. RESPIRATORY: Breath sounds equal bilaterally. No accessory muscle use. GASTROINTESTINAL: Abdomen soft, non-tender, nondistended. MUSCULOSKELETAL: No cyanosis. Dressing in place with wound VAC as before. BACK: Nontender without obvious deformity. No CVA tenderness. Results - Labs CBC & Chem 7: 03/17/18 09:29 03/17/18 09:29 Laboratory Results - last 24 hr 03/19/18 03/19/18 03/20/18 17:32 20:51 08:17 POC Glucose 117 H 178 H 137 H 03/20/18 11:08 POC Glucose 182 H - Procedures 03/0903/09/18 Procedure: 1. Irrigation and debridement of ulcer right foot with wound vac and partial delayed primary closure Wound to dorsal 1st interspace extending to under great toe. Approximately 4cm x 2cm x 1cm depth Excisional debridement of fibrotic tissue down to level of tendon and joint capsule of 1st MTP joint with #15 blade, curette, and rongeur. Partial closure to dorsal aspect with wound extending and open to plantar hallux and 1st interspace area. Wound vac applied. 125mmHg medium continuous setting. Assessment and Plan - Plan 52-year-old female known diabetic for 10 years, A1c of 13, her right foot diabetic ulcer. It is post debridements and graft placement. On IV antibiotics as per ID. Difficult discharge due to self-pay. Pending podiatry clearance. PCP- in [facility] known diabetic- on metformin 500 mg bid per patient she just got a phone call and got approved for [facility] states she does not have glucometer at home //Diabetic right foot infection - ulcer/abscess with necrosis into the muscle S/P repeated I and D with wound Vac application- last debrided 03/09 s/p Incision drainage debridement expansile to joint capsule and muscle with wound vac application Currently on vancomycin IV MRI of the foot without any evidence of osteomyelitis Wound VAC management per podiatry, Infectious disease consult for recommendation =Continue with wound VAC as per podiatry as well as IV antibiotics as per infectious disease.\ = 03/14 follow-up podiatry recommendations today. = 03/15. Discussed with podiatry. Patient is not cleared for discharge from podiatry perspective. = 2/2. Patient underwent right foot with graft and wound VAC placement. Appreciate podiatry assistance. = 2/3. Discussed with podiatry. Follow-up Dr. Cannon recommendations. Patient likely to be in hospital at least 10 days. = 2/4. Continue wound VAC. Wound cultures positive for Pseudomonas. ID notified. Podiatry following. Will add Levaquin by mouth. = 2/. Continue antibiotics as per ID. Follow-up podiatry recommendations. = 2. Follow-up podiatry recommendations. Continues on IV antibiotics as per ID. //DKA, in a noncompliant type II diabetic, acute hemoglobin a1C - 13 Resolved continue on 70/30 regimen and adjust based on readings will restart her metformin 500 mg po bid per patient her Trulicity was just approved = Glucose elevated in the 200s. Will start insulin 2 units before meals. = Glucose acceptable. Continue to monitor. //Hypokalemia Resolved with potassium replacement //Diabetic gastroparesis Continue Reglan 10 mg TID before meals //Hypertension Continue lisinopril 10 mg daily //Abdominal pain-resolved Likely secondary to gastroparesis CT abdomen/pelvis unremarkable //DVT prophylaxis: Lovenox Discussed Condition With: Patient, nurse Discharge Planning: Pending podiatry clearance. needs to ff up with a PCP- CM consult- needs a glucometer Home health care - going home with a VAC pending podiatry clearance Patient will need IV antibiotics as per ID until 03/27. May need PICC line if cleared to go home. Follow up with Dr Jacobson 2 weeks after discharge Continue wound vac upon discharge. Orders in chart. MWF dressing changes. Nonweightbearing right foot
[2018-03-20] MEDS: Acetaminophen 325 MG Tablet PO PRN (21:08)
[2018-03-21] MEDS: ceFAZolin 2 GM Premix Inj 2 GM/50 ML PIGGYBACK IV.SIG SCH ×3 (05:29→20:59)
[2018-03-21] MEDS: levoFLOXacin 750 MG Tablet PO SCH (09:26)
[2018-03-21] MEDS: Metoclopramide 10 MG Tablet PO SCH ×4 (09:26→20:59)
[2018-03-21] MEDS: Lactobacillus Acidophilus/L. Spores Tablet PO SCH ×3 (09:26→17:52)
[2018-03-21] MEDS: Lisinopril 5 MG Tablet PO SCH (09:26)
[2018-03-21] MEDS: Insulin NovoLOG Aspart Correctional Sugar Inj SQ SCH ×4 (09:28→21:35)
[2018-03-21] MEDS: Collagenase Oint 30 GM Tube TOPICAL SCH (09:29)
[2018-03-21] MEDS: Enoxaparin Inj 40 MG/0.4 ML Syringe SQ SCH (14:32)
--- NOTE | 2018-03-21 14:41 | P.PNPOD ---
Subjective Interval history: Patient doing well continuing IV antibiotics and wound VAC Physical Exam Vital signs: Vital Signs 03/20/18 16:15 03/20/18 20:00 03/21/18 00:00 Temperature 97.6 F 98 F 97.7 F Pulse Rate 88 77 73 Respiratory Rate 20 18 18 Blood Pressure 105/63 114/66 131/61 Pulse Oximetry 98 96 99 03/21/18 04:00 03/21/18 07:30 03/21/18 11:50 Temperature 97.9 F 98.1 F 98.1 F Pulse Rate 71 78 80 Respiratory Rate 18 16 18 Blood Pressure 126/62 111/55 L 123/71 Pulse Oximetry 97 97 100 Intake & Output 03/20/18 03/21/18 03/21/18 18:59 06:59 18:59 Intake Total 100 / 100 500 / 500 Balance 100 / 100 500 / 500 Weight 85.7 kg Intake: IV 100 / 100 100 / 100 Ancef 2 GM Premix Inj 2 gm In 100 / 100 100 / 100 50 ml @ 100 mls/hr IV.SIG Q8H [facility] Rx#:[id number] Oral 400 / 400 Other: Mode Setting Right foot 1st interspace Continuous Continuous Continuous # Voids 4 1 Date of Last Bowel Movement 03/20/18 03/20/18 # Bowel Movements 1 - Constitutional no acute distress - Neurological Alert and oriented x3 - Routine Extremities Exam Comments: Right lower extremity, please see wound care nurse for complete exact wound care measurements. There appears to remain a deep cavitating surgical ulcer but no longer probes to bone it appears to be granulating in. The dorsum of the foot has wound graft intact there appears to be much improvement with minimal edema with minimal redness dorsum of the foot good capillary fill time to digits sensation decreased below the ankle no crepitus or instability of forefoot hindfoot ankle Medications and Allergies Active Medications: Active Medications Acetaminophen (Tylenol) 650 mg PO Q4H PRN PRN Reason: Temp > 100.4 Last Admin: 03/20/18 21:08 Dose: 650 mg Hydrocodone Bitart/Acetaminophen ([place] 10/325) 1 tab PO Q4H PRN PRN Reason: Pain 7 to 10 Hydrocodone Bitart/Acetaminophen ([place] 5/325) 1 tab PO Q4H PRN PRN Reason: Pain 3 to 6 Al Hydroxide/Mg Hydroxide (Milk Of Magnesia Liq) 30 ml PO Q12H PRN PRN Reason: Mild Constipation Collagenase (Santyl Oint) 1 applicatio TOPICAL DAILY [facility] Last Admin: 03/21/18 09:29 Dose: Not Given Dextrose (D50w Vial) 50 ml IV.PUSH UNSCH PRN PRN Reason: PER HYPOGLYCEMIA PROTOCOL Enalaprilat (Vasotec Inj) 2.5 mg IV.PUSH Q6H PRN PRN Reason: SBP>160, DBP>90 Enoxaparin Sodium (Lovenox Inj) 40 mg SQ Q24H [facility] Last Admin: 03/21/18 14:32 Dose: 40 mg Glucagon (Glucagon Inj) 1 mg OTHER PRN PRN PRN Reason: for Hypoglycemia Protocol Sodium Phosphate 15 mmol/ (Sodium Chloride) 105 mls @ 25 mls/hr IV.SIG UNSCH PRN PRN Reason: for Phosphate Level < 1.0 Cefazolin Sodium/Dextrose (Ancef 2 Gm Premix Inj) 2 gm in 50 mls @ 100 mls/hr IV.SIG Q8H [facility] Last Admin: 03/21/18 14:02 Dose: 100 mls/hr Insulin Aspart (Novolog Insulin Correctional Sugar Inj) 0 unit SQ [facility]; Protocol Last Admin: 03/21/18 12:49 Dose: 7 unit Insulin Aspart (Novolog Inj) 2 units SQ TIDAC [facility] Last Admin: 03/21/18 12:48 Dose: 2 units Insulin Human Isoph/Insulin Regular (Novolin 70/30 Inj) 20 units SQ BID@0800, 1700 [facility] Last Admin: 03/21/18 09:25 Dose: 20 units Lactobacillus Acidophilus (Lactinex) 1 tab PO TID [facility] Last Admin: 03/21/18 12:49 Dose: 1 tab Levofloxacin (Levaquin) 750 mg PO DAILY [facility] Last Admin: 03/21/18 09:26 Dose: 750 mg Lisinopril (Prinivil) 5 mg PO DAILY [facility] Last Admin: 03/21/18 09:26 Dose: 5 mg Metformin HCl (Glucophage) 500 mg PO BIDPC [facility] Last Admin: 03/21/18 09:26 Dose: 500 mg Metoclopramide HCl (Reglan) 10 mg PO ACHS [facility] Last Admin: 03/21/18 12:49 Dose: 10 mg Ondansetron HCl (Zofran Inj) 4 mg IV.PUSH Q6H PRN PRN Reason: NAUSEA OR VOMITING Last Admin: 03/04/18 09:56 Dose: 4 mg Prochlorperazine Edisylate (Compazine Inj) 10 mg IV.PUSH Q6H PRN PRN Reason: NAUSEA Last Admin: 03/04/18 16:44 Dose: 10 mg Sodium Bicarbonate (Sodium Bicarbonate 8.4% Inj) 50 meq IV.PUSH UNSCH PRN PRN Reason: for pH 6.9 to 7.0 Sodium Bicarbonate (Sodium Bicarbonate 8.4% Inj) 100 meq IV.PUSH UNSCH PRN PRN Reason: for pH less than 6.9 Sodium Chloride (Ns Flush) 2 ml IV.FLUSH BID [facility] Last Admin: 03/21/18 09:27 Dose: 2 ml Sodium Chloride (Ns Flush) 2 ml IV.FLUSH PRN PRN PRN Reason: FLUSH AFTER USING IV ACCESS Last Admin: 03/20/18 05:52 Dose: 2 ml Allergies Allergy/AdvReac Type Severity Reaction Status Date / Time Sulfa (Sulfonamide Allergy Hives Verified 02/26/18 11:06 Antibiotics) Home Medications Medication Instructions Recorded Confirmed Type metformin 500 mg PO BID 02/26/18 02/28/18 History Results - Labs CBC & Chem 7: 03/17/18 09:29 03/17/18 09:29 Laboratory Results - last 24 hr 03/20/18 03/20/18 03/21/18 17:58 21:10 07:54 POC Glucose 217 H 147 H 145 H 03/21/18 11:48 POC Glucose 261 H - Procedures 03/0903/09/18 Procedure: 1. Irrigation and debridement of ulcer right foot with wound vac and partial delayed primary closure Wound to dorsal 1st interspace extending to under great toe. Approximately 4cm x 2cm x 1cm depth Excisional debridement of fibrotic tissue down to level of tendon and joint capsule of 1st MTP joint with #15 blade, curette, and rongeur. Partial closure to dorsal aspect with wound extending and open to plantar hallux and 1st interspace area. Wound vac applied. 125mmHg medium continuous setting. Assessment and Plan - Assessment (1) Diabetic infection of right foot Code(s): E11.628 - Type 2 diabetes mellitus with other skin complications; L08.9 - Local infection of the skin and subcutaneous tissue, unspecified Status: Acute - Plan There is improvement, however wound needs to further granulate in in preparation for artificial or graft harvesting placement. Wound culture taken after superficial debridement with iris scissors. Possibly plan for skin graft placement 5-7 days. Continue wound VAC changes Sunday, Sunday bandage changed will be coordinated with wound care nurse.
--- NOTE | 2018-03-21 14:44 | P.PNWCN ---
Wound Care Nurse Consult Description: Patient seen today for wound VAC dressing change today and wound assessment. Communicated with: DANIEL shukla and Doctor Mohan Recommendation: Please reinforce dressing as needed for leaks with shauna seal and VAC drape. Wound care to change wound vac dressing on Sunday and then will change with podiatry on Sunday. Wound/Pressure Injury - Wound Right foot 1st interspace surgical wound Wound Assessment: Ongoing Is This a Chronic Wound: No Requested from Provider a Wound Care Consult: Yes Wound Bed Appearance: [place], White Wound Bed Appearance: Wound bed presents with ~40% red granulation tissue and ~60% white tissue. Amniox graft was placed by Doctor marion on 03/16/2018 Surrounding Tissue Appearance: [place] (There is a small wound with slough located at 11 o'clock to periwound) Surrounding Tissue Temperature: Cool Drainage Description: Serosanguinous Drainage Amount: Scant Drainage Odor: No Odor Dressing Status: Changed Cleansing Solution: Saline Wound Packing Type: Woundvac Sponge Wound Margin Description: Wound margins are steep. Wound Vac - Wound Vac Right foot 1st interspace surgical wound Pressure Setting (mmHg): 125 (low) Mode Setting: Continuous Foam type: Black - Additional Information Patient seen for wound VAC dressing change. Removed all dressings from R foot including gauze, rolled gauze, elastic wrap (GLENROY wrap), 1 piece of black foam shauna seal from periwound, hydrocolloid from periwound and maxorb II from periwound to reveal open surgical wound to R first interspace with amniox graft in place. ~6 sutures are noted to periwound. Wound bed presents ~40% red granulation tissue and ~60% white tissue. Amniox graft was placed by Doctor marion on 03/16/2018. Periwound has improved. Small wound with slough is noted to periwound at 11 o'clock. Wound was cleansed with normal saline and patted dry. Applied skin barrier film to periwound and up to R medial lower leg. Applied maxorb II over open wound to periwound and covered with hydrocolloid dressing and secured with VAC transparent drape. One piece of black foam was applied to wound bed and bridged over VAC drape to R medial lower leg. Shauna seal was applied lining open wound to seal. Sensi Trac pad was applied over black foam to bridged foam on R medial lower leg. All exposed black foam was covered with transparent VAC drape. Wound VAC is suctioning well without leaks at 125 mm/Hg low continuous suction. Patient tolerated procedure well. Doctor Mohan was in room today to assess wound during dressing change. Doctor Removed two sutures from the plantar aspect of the R foot.Will change wound VAC dressing on Sunday03/25/2018.
--- NOTE | 2018-03-21 16:26 | P.PN ---
Subjective Interval history: Follow-up right diabetic foot infection March 21, 2018-patient seen and examined, afebrile, denies any right lower extremity pain. Currently on IV antibiotic Physical Exam Vital signs: Vital Signs 03/20/18 20:00 03/21/18 00:00 03/21/18 04:00 Temperature 98 F 97.7 F 97.9 F Pulse Rate 77 73 71 Respiratory Rate 18 18 18 Blood Pressure 114/66 131/61 126/62 Pulse Oximetry 96 99 97 03/21/18 07:30 03/21/18 11:50 Temperature 98.1 F 98.1 F Pulse Rate 78 80 Respiratory Rate 16 18 Blood Pressure 111/55 L 123/71 Pulse Oximetry 97 100 Intake & Output 03/20/18 03/21/18 03/21/18 18:59 06:59 18:59 Intake Total 100 / 100 500 / 500 Balance 100 / 100 500 / 500 Weight 85.7 kg Intake: IV 100 / 100 100 / 100 Ancef 2 GM Premix Inj 2 gm In 100 / 100 100 / 100 50 ml @ 100 mls/hr IV.SIG Q8H [facility] Rx#:[id number] Oral 400 / 400 Other: Mode Setting Right foot 1st interspace Continuous Continuous Continuous Right foot 1st interspace Continuous surgical wound # Voids 4 1 Date of Last Bowel Movement 03/20/18 03/20/18 # Bowel Movements 1 Narrative: GENERAL: NAD SKIN: Warm and dry. HEAD: Atraumatic. Normocephalic. EYES: Pupils equal and round. No scleral icterus. No injection or drainage. ENT: No nasal bleeding or discharge. Mucous membranes pink and moist. NECK: Trachea midline. No JVD. CARDIOVASCULAR: Regular rate and rhythm. RESPIRATORY: No accessory muscle use. Clear to auscultation. Breath sounds equal bilaterally. GASTROINTESTINAL: Abdomen soft, non-tender, nondistended. Hepatic and splenic margins not palpable. MUSCULOSKELETAL: Extremities without clubbing, cyanosis, or edema. No obvious deformities. Wound VAC in place right lower extremity NEUROLOGICAL: Awake and alert. No obvious cranial nerve deficits. Motor grossly within normal limits. Five out of 5 muscle strength in the arms and legs. Normal speech. PSYCHIATRIC: Appropriate mood and affect; insight and judgment normal. Results - Labs CBC & Chem 7: 03/17/18 09:29 03/17/18 09:29 Laboratory Results - last 24 hr 03/20/18 03/20/18 03/21/18 17:58 21:10 07:54 POC Glucose 217 H 147 H 145 H 03/21/18 11:48 POC Glucose 261 H - Procedures 03/0903/09/18 Procedure: 1. Irrigation and debridement of ulcer right foot with wound vac and partial delayed primary closure Wound to dorsal 1st interspace extending to under great toe. Approximately 4cm x 2cm x 1cm depth Excisional debridement of fibrotic tissue down to level of tendon and joint capsule of 1st MTP joint with #15 blade, curette, and rongeur. Partial closure to dorsal aspect with wound extending and open to plantar hallux and 1st interspace area. Wound vac applied. 125mmHg medium continuous setting. Assessment and Plan - Plan 52-year-old female with Sepsis-source right foot infection Diabetic right foot infection Currently on Ancef IV and Levaquin per ID MRI of the foot without any evidence of osteomyelitis s/p Incision drainage debridement expansile to joint capsule and muscle with wound vac application Wound VAC management per podiatry Status post skin graft placement DKA, in a noncompliant type II diabetic, acute Resolved s/p insulin drip Diabetes type 1 Currently on NovoLog 70/30 20 units twice daily, insulin sliding scale, Aspart, Metformin (?) per patient her Trulicity was just approved hemoglobin A1c >13 Hypokalemia Resolved with potassium replacement Diabetic gastroparesis Continue Reglan 10 mg TID before meals Hypertension Continue lisinopril 10 mg daily Abdominal pain-resolved Likely secondary to gastroparesis CT abdomen/pelvis unremarkable DVT prophylaxis: Lovenox
[2018-03-22] MEDS: ceFAZolin 2 GM Premix Inj 2 GM/50 ML PIGGYBACK IV.SIG SCH ×3 (05:57→21:00)
[2018-03-22] MEDS: Lactobacillus Acidophilus/L. Spores Tablet PO SCH ×3 (08:48→17:53)
[2018-03-22] MEDS: Metoclopramide 10 MG Tablet PO SCH ×4 (08:49→21:00)
[2018-03-22] MEDS: Lisinopril 5 MG Tablet PO SCH (08:49)
[2018-03-22] MEDS: levoFLOXacin 750 MG Tablet PO SCH (08:49)
[2018-03-22] MEDS: Insulin NovoLOG Aspart Correctional Sugar Inj SQ SCH ×4 (08:49→21:04)
--- NOTE | 2018-03-22 11:27 | P.PN ---
Subjective Interval history: Follow-up right diabetic foot infection March 21, 2018-patient seen and examined, afebrile, denies any right lower extremity pain. Currently on IV antibiotic March 22, 2018-patient seen and examined, remains stable no complaint. Afebrile. Physical Exam Vital signs: Vital Signs 03/21/18 11:50 03/21/18 15:30 03/21/18 20:00 Temperature 98.1 F 98.1 F 98.1 F Pulse Rate 80 81 81 Respiratory Rate 18 20 20 Blood Pressure 123/71 106/64 103/62 Pulse Oximetry 100 99 96 03/22/18 06:00 03/22/18 07:10 Temperature 98.4 F 98.1 F Pulse Rate 74 77 Respiratory Rate 18 20 Blood Pressure 124/73 126/64 Pulse Oximetry 96 96 Intake & Output 03/21/18 03/22/18 03/22/18 18:59 06:59 18:59 Intake Total 50 / 50 520 / 520 Balance 50 / 50 520 / 520 Weight 85.4 kg Intake: IV 50 / 50 100 / 100 Ancef 2 GM Premix Inj 2 gm In 50 / 50 100 / 100 50 ml @ 100 mls/hr IV.SIG Q8H [facility] Rx#:[id number] Oral 420 / 420 Other: Mode Setting Right foot 1st interspace Continuous Continuous Right foot 1st interspace Continuous surgical wound # Voids 1 2 Date of Last Bowel Movement 03/20/18 03/21/18 # Bowel Movements 1 Narrative: GENERAL: NAD SKIN: Warm and dry. HEAD: Atraumatic. Normocephalic. EYES: Pupils equal and round. No scleral icterus. No injection or drainage. ENT: No nasal bleeding or discharge. Mucous membranes pink and moist. NECK: Trachea midline. No JVD. CARDIOVASCULAR: Regular rate and rhythm. RESPIRATORY: No accessory muscle use. Clear to auscultation. Breath sounds equal bilaterally. GASTROINTESTINAL: Abdomen soft, non-tender, nondistended. Hepatic and splenic margins not palpable. MUSCULOSKELETAL: Extremities without clubbing, cyanosis, or edema. No obvious deformities. Wound VAC in place right lower extremity NEUROLOGICAL: Awake and alert. No obvious cranial nerve deficits. Motor grossly within normal limits. Five out of 5 muscle strength in the arms and legs. Normal speech. PSYCHIATRIC: Appropriate mood and affect; insight and judgment normal. Results - Labs CBC & Chem 7: 03/17/18 09:29 03/17/18 09:29 Laboratory Results - last 24 hr 03/21/18 03/21/18 03/21/18 11:48 17:23 21:39 POC Glucose 261 H 114 H 131 H 03/22/18 07:59 POC Glucose 169 H Microbiology 03/21/18 14:34 Wound - Foot Gram Stain - Final - Procedures 03/0903/09/18 Procedure: 1. Irrigation and debridement of ulcer right foot with wound vac and partial delayed primary closure Wound to dorsal 1st interspace extending to under great toe. Approximately 4cm x 2cm x 1cm depth Excisional debridement of fibrotic tissue down to level of tendon and joint capsule of 1st MTP joint with #15 blade, curette, and rongeur. Partial closure to dorsal aspect with wound extending and open to plantar hallux and 1st interspace area. Wound vac applied. 125mmHg medium continuous setting. Assessment and Plan - Plan 52-year-old female with Sepsis-source right foot infection Diabetic right foot infection Currently on Ancef IV and Levaquin per ID MRI of the foot without any evidence of osteomyelitis s/p Incision drainage debridement expansile to joint capsule and muscle with wound vac application Wound VAC management per podiatry May need skin graft placement next week DKA, in a noncompliant type II diabetic, acute Resolved s/p insulin drip Diabetes type 1 Currently on NovoLog 70/30 20 units twice daily, insulin sliding scale, Aspart, Metformin (?) per patient her Trulicity was just approved hemoglobin A1c >13 Hypokalemia Resolved with potassium replacement Diabetic gastroparesis Continue Reglan 10 mg TID before meals Hypertension Continue lisinopril 10 mg daily Abdominal pain-resolved Likely secondary to gastroparesis CT abdomen/pelvis unremarkable DVT prophylaxis: Lovenox
[2018-03-22] MEDS: Collagenase Oint 30 GM Tube TOPICAL SCH (13:15)
[2018-03-22] MEDS: Enoxaparin Inj 40 MG/0.4 ML Syringe SQ SCH (17:52)
[2018-03-23] MEDS: Insulin NovoLOG Aspart Correctional Sugar Inj SQ SCH ×4 (08:39→21:35)
[2018-03-23] MEDS: Metoclopramide 10 MG Tablet PO SCH ×4 (08:40→21:35)
[2018-03-23] MEDS: levoFLOXacin 750 MG Tablet PO SCH (08:40)
[2018-03-23] MEDS: Lactobacillus Acidophilus/L. Spores Tablet PO SCH ×3 (08:40→18:13)
[2018-03-23] MEDS: Lisinopril 5 MG Tablet PO SCH (08:40)
--- NOTE | 2018-03-23 10:37 | P.PN ---
Subjective Interval history: Follow-up right diabetic foot infection March 21, 2018-patient seen and examined, afebrile, denies any right lower extremity pain. Currently on IV antibiotic March 22, 2018-patient seen and examined, remains stable no complaint. Afebrile. March 23, 2018-patient seen and examined, denies any acute event overnight. Stable. Physical Exam Vital signs: Vital Signs 03/22/18 16:00 03/22/18 20:00 03/23/18 07:39 Temperature 99.5 F 98.4 F 97.9 F Pulse Rate 86 75 77 Respiratory Rate 20 15 18 Blood Pressure 147/70 H 112/66 141/67 H Pulse Oximetry 97 98 99 Intake & Output 03/22/18 03/23/18 03/23/18 18:59 06:59 18:59 Intake Total 50 / 50 420 / 420 Balance 50 / 50 420 / 420 Weight 85.4 kg Intake: IV 50 / 50 50 / 50 Ancef 2 GM Premix Inj 2 gm In 50 / 50 50 / 50 50 ml @ 100 mls/hr IV.SIG Q8H [facility] Rx#:[id number] Oral 370 / 370 Other: Mode Setting Right foot 1st interspace Continuous Continuous Right foot 1st interspace Continuous surgical wound # Voids 2 Date of Last Bowel Movement 03/21/18 03/22/18 # Bowel Movements 1 Narrative: GENERAL: NAD SKIN: Warm and dry. HEAD: Atraumatic. Normocephalic. EYES: Pupils equal and round. No scleral icterus. No injection or drainage. ENT: No nasal bleeding or discharge. Mucous membranes pink and moist. NECK: Trachea midline. No JVD. CARDIOVASCULAR: Regular rate and rhythm. RESPIRATORY: No accessory muscle use. Clear to auscultation. Breath sounds equal bilaterally. GASTROINTESTINAL: Abdomen soft, non-tender, nondistended. Hepatic and splenic margins not palpable. MUSCULOSKELETAL: Extremities without clubbing, cyanosis, or edema. No obvious deformities. Wound VAC in place right lower extremity NEUROLOGICAL: Awake and alert. No obvious cranial nerve deficits. Motor grossly within normal limits. Five out of 5 muscle strength in the arms and legs. Normal speech. PSYCHIATRIC: Appropriate mood and affect; insight and judgment normal. Results - Labs CBC & Chem 7: 03/17/18 09:29 03/17/18 09:29 Laboratory Results - last 24 hr 02/09/3003/22/18 03/22/18 12:46 17:52 21:03 POC Glucose 147 H 145 H 155 H 03/23/18 08:04 POC Glucose 165 H Microbiology 03/21/18 14:34 Wound - Foot Gram Stain - Final 03/21/18 14:34 Wound - Foot Wound Culture - Preliminary Group D Enterococcus 03/01/18 13:15 Wound - Foot Fungal Smear - Final No fungal elements seen 03/01/18 13:15 Wound - Foot Fungal Culture - Preliminary No growth in 3 weeks 03/01/18 13:15 Wound - Foot Acid Fast Bacilli Smear - Final No acid fast bacilli seen 03/01/18 13:15 Wound - Foot Mycobacterial Culture - Preliminary No growth in 3 weeks - Procedures 03/0903/09/18 Procedure: 1. Irrigation and debridement of ulcer right foot with wound vac and partial delayed primary closure Wound to dorsal 1st interspace extending to under great toe. Approximately 4cm x 2cm x 1cm depth Excisional debridement of fibrotic tissue down to level of tendon and joint capsule of 1st MTP joint with #15 blade, curette, and rongeur. Partial closure to dorsal aspect with wound extending and open to plantar hallux and 1st interspace area. Wound vac applied. 125mmHg medium continuous setting. Assessment and Plan - Plan 52-year-old female with Sepsis-source right foot infection Diabetic right foot infection Currently on Ancef IV and Levaquin per ID MRI of the foot without any evidence of osteomyelitis s/p Incision drainage debridement expansile to joint capsule and muscle with wound vac application Wound VAC management per podiatry May need skin graft placement next week DKA, in a noncompliant type II diabetic, acute Resolved Diabetes type 1 Continue NovoLog 70/30 20 units twice daily, insulin sliding scale, Aspart, Metformin (?) per patient her Trulicity was just approved hemoglobin A1c >13 Hypokalemia Resolved with potassium replacement Diabetic gastroparesis Continue Reglan 10 mg TID before meals Hypertension Normotensive Continue lisinopril 10 mg daily DVT prophylaxis: Lovenox
[2018-03-23] MEDS: ceFAZolin 2 GM Premix Inj 2 GM/50 ML PIGGYBACK IV.SIG SCH ×3 (13:55→21:35)
[2018-03-23] MEDS: Collagenase Oint 30 GM Tube TOPICAL SCH (14:04)
[2018-03-23] MEDS: Enoxaparin Inj 40 MG/0.4 ML Syringe SQ SCH (18:13)
[2018-03-24] MEDS: ceFAZolin 2 GM Premix Inj 2 GM/50 ML PIGGYBACK IV.SIG SCH ×3 (05:16→21:38)
[2018-03-24] MEDS: Lisinopril 5 MG Tablet PO SCH (08:52)
[2018-03-24] MEDS: Insulin NovoLOG Aspart Correctional Sugar Inj SQ SCH ×4 (08:53→20:36)
[2018-03-24] MEDS: levoFLOXacin 750 MG Tablet PO SCH (08:53)
[2018-03-24] MEDS: Lactobacillus Acidophilus/L. Spores Tablet PO SCH ×3 (08:53→18:05)
[2018-03-24] MEDS: Metoclopramide 10 MG Tablet PO SCH ×4 (08:53→20:35)
[2018-03-24] MEDS: Collagenase Oint 30 GM Tube TOPICAL SCH (08:54)
--- NOTE | 2018-03-24 11:39 | P.PN ---
Subjective Interval history: Follow-up right diabetic foot infection March 21, 2018-patient seen and examined, afebrile, denies any right lower extremity pain. Currently on IV antibiotic March 22, 2018-patient seen and examined, remains stable no complaint. Afebrile. March 23, 2018-patient seen and examined, denies any acute event overnight. Stable. March 24, 2018-patient seen and examined, no complaint, stable, afebrile. Physical Exam Vital signs: Vital Signs 03/23/18 21:07 03/24/18 08:29 Temperature 98.3 F 97.5 F L Pulse Rate 80 70 Respiratory Rate 20 16 Blood Pressure 132/63 129/65 Pulse Oximetry 97 98 Intake & Output 03/23/18 03/24/18 03/24/18 18:59 06:59 18:59 Intake Total 50 / 50 100 / 100 Balance 50 / 50 100 / 100 Weight 83.3 kg Intake: IV 50 / 50 100 / 100 Ancef 2 GM Premix Inj 2 gm In 50 / 50 100 / 100 50 ml @ 100 mls/hr IV.SIG Q8H [facility] Rx#:[id number] Other: Mode Setting Right foot 1st interspace Continuous Continuous Right foot 1st interspace Continuous Continuous surgical wound # Voids 2 Date of Last Bowel Movement 03/22/18 Narrative: GENERAL: NAD SKIN: Warm and dry. HEAD: Atraumatic. Normocephalic. EYES: Pupils equal and round. No scleral icterus. No injection or drainage. ENT: No nasal bleeding or discharge. Mucous membranes pink and moist. NECK: Trachea midline. No JVD. CARDIOVASCULAR: Regular rate and rhythm. RESPIRATORY: No accessory muscle use. Clear to auscultation. Breath sounds equal bilaterally. GASTROINTESTINAL: Abdomen soft, non-tender, nondistended. Hepatic and splenic margins not palpable. MUSCULOSKELETAL: Extremities without clubbing, cyanosis, or edema. No obvious deformities. Wound VAC in place right lower extremity NEUROLOGICAL: Awake and alert. No obvious cranial nerve deficits. Motor grossly within normal limits. Five out of 5 muscle strength in the arms and legs. Normal speech. PSYCHIATRIC: Appropriate mood and affect; insight and judgment normal. Results - Labs CBC & Chem 7: 03/17/18 09:29 03/17/18 09:29 Laboratory Results - last 24 hr 03/23/18 03/23/18 03/23/18 12:44 17:15 21:32 POC Glucose 110 123 H 187 H 03/24/18 07:52 POC Glucose 116 H Microbiology 03/21/18 14:34 Wound - Foot Gram Stain - Final 03/21/18 14:34 Wound - Foot Wound Culture - Final Enterococcus faecalis - Procedures 03/0903/09/18 Procedure: 1. Irrigation and debridement of ulcer right foot with wound vac and partial delayed primary closure Wound to dorsal 1st interspace extending to under great toe. Approximately 4cm x 2cm x 1cm depth Excisional debridement of fibrotic tissue down to level of tendon and joint capsule of 1st MTP joint with #15 blade, curette, and rongeur. Partial closure to dorsal aspect with wound extending and open to plantar hallux and 1st interspace area. Wound vac applied. 125mmHg medium continuous setting. Assessment and Plan - Plan 52-year-old female with Sepsis-source right foot infection Diabetic right foot infection Currently on Ancef IV and Levaquin per ID MRI of the foot without any evidence of osteomyelitis s/p Incision drainage debridement expansile to joint capsule and muscle with wound vac application Wound VAC management per podiatry May need skin graft placement next week DKA, in a noncompliant type II diabetic, acute Resolved Diabetes type 1 Continue NovoLog 70/30 20 units twice daily, insulin sliding scale, Aspart, Metformin (?) per patient her Trulicity was just approved hemoglobin A1c >13 Hypokalemia Resolved with potassium replacement Diabetic gastroparesis Continue Reglan 10 mg TID before meals Hypertension Normotensive Continue lisinopril 10 mg daily DVT prophylaxis: Lovenox
[2018-03-24] MEDS: Enoxaparin Inj 40 MG/0.4 ML Syringe SQ SCH (18:05)
[2018-03-24] MEDS: Acetaminophen 325 MG Tablet PO PRN (20:35)
[2018-03-25] MEDS: ceFAZolin 2 GM Premix Inj 2 GM/50 ML PIGGYBACK IV.SIG SCH ×3 (06:03→21:11)
[2018-03-25] MEDS: Lactobacillus Acidophilus/L. Spores Tablet PO SCH ×3 (08:33→17:08)
[2018-03-25] MEDS: Insulin NovoLOG Aspart Correctional Sugar Inj SQ SCH ×4 (08:33→21:12)
[2018-03-25] MEDS: Lisinopril 5 MG Tablet PO SCH (08:33)
[2018-03-25] MEDS: levoFLOXacin 750 MG Tablet PO SCH (08:34)
[2018-03-25] MEDS: Metoclopramide 10 MG Tablet PO SCH ×4 (08:42→21:11)
[2018-03-25] MEDS: Collagenase Oint 30 GM Tube TOPICAL SCH (08:43)
--- NOTE | 2018-03-25 11:49 | P.PNIM ---
Subjective Interval history: Follow-up diabetic foot infection right lower extremity March 25, 2018patient seen and examined, states she has had some neuropathic pain to the right lower extremity otherwise stable. Afebrile. Physical Exam Vital signs: Vital Signs 03/24/18 20:00 03/25/18 07:50 Temperature 98.6 F 97.7 F Pulse Rate 88 80 Respiratory Rate 18 20 Blood Pressure 117/69 134/76 Pulse Oximetry 97 98 Intake & Output 03/24/18 03/25/18 03/25/18 18:59 06:59 18:59 Intake Total 50 / 50 100 / 100 Balance 50 / 50 100 / 100 Weight 83.3 kg Intake: IV 50 / 50 100 / 100 Ancef 2 GM Premix Inj 2 gm In 50 / 50 100 / 100 50 ml @ 100 mls/hr IV.SIG Q8H RADHA Rx#:[id number] Other: Mode Setting Right foot 1st interspace Continuous Continuous Continuous Right foot 1st interspace Continuous Continuous Continuous surgical wound # Voids 3 Date of Last Bowel Movement 03/22/18 Narrative: GENERAL: NAD SKIN: Warm and dry. HEAD: Atraumatic. Normocephalic. EYES: Pupils equal and round. No scleral icterus. No injection or drainage. ENT: No nasal bleeding or discharge. Mucous membranes pink and moist. NECK: Trachea midline. No JVD. CARDIOVASCULAR: Regular rate and rhythm. RESPIRATORY: No accessory muscle use. Clear to auscultation. Breath sounds equal bilaterally. GASTROINTESTINAL: Abdomen soft, non-tender, nondistended. Hepatic and splenic margins not palpable. MUSCULOSKELETAL: Extremities without clubbing, cyanosis, or edema. No obvious deformities. Wound VAC in place right lower extremity NEUROLOGICAL: Awake and alert. No obvious cranial nerve deficits. Motor grossly within normal limits. Five out of 5 muscle strength in the arms and legs. Normal speech. PSYCHIATRIC: Appropriate mood and affect; insight and judgment normal. Results Labs CBC & Chem 7: 03/17/18 09:29 03/17/18 09:29 Labs: Microbiology 03/21/18 14:34 Wound - Foot Gram Stain - Final 03/21/18 14:34 Wound - Foot Wound Culture - Final Enterococcus faecalis Procedures Procedures: 03/0903/09/18 Procedure: 1. Irrigation and debridement of ulcer right foot with wound vac and partial delayed primary closure Wound to dorsal 1st interspace extending to under great toe. Approximately 4cm x 2cm x 1cm depth Excisional debridement of fibrotic tissue down to level of tendon and joint capsule of 1st MTP joint with #15 blade, curette, and rongeur. Partial closure to dorsal aspect with wound extending and open to plantar hallux and 1st interspace area. Wound vac applied. 125mmHg medium continuous setting. Assessment and Plan Plan 52-year-old female with Sepsis-source right foot infection Diabetic right foot infection Currently on Ancef IV and Levaquin per ID MRI of the foot without any evidence of osteomyelitis s/p Incision drainage debridement expansile to joint capsule and muscle with wound vac application Wound VAC management per podiatry. Wound VAC change today March 25, 2018 May need skin graft placement this week DKA, in a noncompliant type II diabetic, acute Resolved Diabetes type 1 Continue NovoLog 70/30 20 units twice daily, insulin sliding scale, Aspart, Metformin (?) per patient her Trulicity was just approved hemoglobin A1c >13 Hypokalemia Resolved with potassium replacement Diabetic gastroparesis Continue Reglan 10 mg TID before meals Neuropathic pain Consider Neurontin Hypertension Normotensive Continue lisinopril 10 mg daily DVT prophylaxis: Lovenox Progress Note: Quality VTE Deep Vein Thrombosis/Pulmonary Embolism Present on Admission: No
[2018-03-25] MEDS: Enoxaparin Inj 40 MG/0.4 ML Syringe SQ SCH (14:27)
--- NOTE | 2018-03-25 16:37 | P.PNWCN ---
Wound Care Nurse Consult Description: Patient seen today for wound VAC dressing change today and wound assessment. Communicated with: Spoke with bedside nurse Demarco Harris RN. Recommendation: Please reinforce dressing as needed for leaks with shauna seal and VAC drape. Wound care to change wound vac dressing on Sunday with podiatry. Additional information: Patient seen for wound VAC dressing change. Removed all dressings from R foot including gauze, rolled gauze, elastic wrap (GLENROY wrap), 1 piece of black foam shauna seal from periwound, hydrocolloid from periwound and maxorb II from periwound to reveal open surgical wound to R first interspace with amniox graft in place. ~4 sutures are noted to periwound. Wound bed presents ~40% red granulation tissue and ~60% white tissue. Amniox graft was placed by Doctor marion on 03/16/2018. Periwound has improved. Small wound with slough is noted to periwound at 11 o'clock. Wound was cleansed with normal saline and patted dry. Applied skin barrier film to periwound and up to R lateral lower leg. Applied maxorb II over open wound to periwound and covered with hydrocolloid dressing and secured with VAC transparent drape. Adaptic was placed to exposed tendon in wound bed. One piece of black foam was applied over the adaptic and bridged over VAC drape to R lateral lower leg. Shauna seal was applied lining open wound to seal. Sensi Trac pad was applied over black foam to bridged foam on R lateral lower leg. All exposed black foam was covered with transparent VAC drape. Wound VAC is suctioning well without leaks at 125 mm/Hg low continuous suction. Patient tolerated procedure well. Wound/Pressure Injury - Patient Status Premedicated for Pain Prior to Dressing Change: No (Not Needed) - Wound Right Foot 1st Interspace Wound Assessment: Ongoing Wound Type: Traumatic Wound Requested from Provider a Wound Care Consult: Yes (Seen today by wound care nurse.) Length (cm): 8.2 Width (cm): 1.4 Depth (cm): 0.9 Wound Bed Appearance: Red, White Wound Bed Appearance: ~40% red granulation tissue and ~60% white tissue. Surrounding Tissue Appearance: Blanched/Dull Surrounding Tissue Temperature: Warm Drainage Description: Serosanguinous Drainage Amount: Scant Drainage Odor: No Odor Dressing Status: Changed Cleansing Solution: Saline Wound Packing Type: Woundvac Sponge (Adaptic gauze and 1 Piece of Black foam) Primary Dressing: Negative Pressure Wound Dressing Wound Dressing Change Date: 03/25/18 Wound Margin Description: Margins are steep. Wound Vac - Wound Vac Right Foot 1st Interspace Pressure Setting (mmHg): 125 Mode Setting: Continuous Drainage Description: Serosanguinous Foam type: Black
[2018-03-26] MEDS: ceFAZolin 2 GM Premix Inj 2 GM/50 ML PIGGYBACK IV.SIG SCH (05:14)
[2018-03-26] MEDS: Insulin NovoLOG Aspart Correctional Sugar Inj SQ SCH ×4 (08:19→20:23)
[2018-03-26] MEDS: Lactobacillus Acidophilus/L. Spores Tablet PO SCH ×3 (08:21→17:08)
[2018-03-26] MEDS: Lisinopril 5 MG Tablet PO SCH (08:21)
[2018-03-26] MEDS: Metoclopramide 10 MG Tablet PO SCH ×4 (08:22→20:18)
[2018-03-26] MEDS: levoFLOXacin 750 MG Tablet PO SCH (08:22)
[2018-03-26] MEDS: Collagenase Oint 30 GM Tube TOPICAL SCH (08:23)
--- NOTE | 2018-03-26 10:42 | P.PNIM ---
Subjective Interval history: Follow-up diabetic foot infection of right lower extremity March 26, 2018-patient seen and examined, no complaint and she is looking forward to Sunday for evaluation by podiatry. Stable and afebrile Physical Exam Vital signs: Vital Signs 03/25/18 20:00 03/26/18 07:40 Temperature 98.1 F 98 F Pulse Rate 75 72 Respiratory Rate 20 20 Blood Pressure 111/64 127/76 Pulse Oximetry 96 97 Intake & Output 03/25/18 03/26/18 03/26/18 18:59 06:59 18:59 Intake Total 50 / 50 350 / 350 Balance 50 / 50 350 / 350 Intake: IV 50 / 50 100 / 100 Ancef 2 GM Premix Inj 2 gm In 50 / 50 100 / 100 50 ml @ 100 mls/hr IV.SIG Q8H RADHA Rx#:[id number] Oral 250 / 250 Other: Mode Setting Right Foot 1st Interspace Continuous Right foot 1st interspace Continuous Continuous Continuous Right foot 1st interspace Continuous Continuous Continuous surgical wound # Voids 3 Narrative: GENERAL: NAD SKIN: Warm and dry. HEAD: Atraumatic. Normocephalic. EYES: Pupils equal and round. No scleral icterus. No injection or drainage. ENT: No nasal bleeding or discharge. Mucous membranes pink and moist. NECK: Trachea midline. No JVD. CARDIOVASCULAR: Regular rate and rhythm. RESPIRATORY: No accessory muscle use. Clear to auscultation. Breath sounds equal bilaterally. GASTROINTESTINAL: Abdomen soft, non-tender, nondistended. Hepatic and splenic margins not palpable. MUSCULOSKELETAL: Extremities without clubbing, cyanosis, or edema. No obvious deformities. Wound VAC in place right lower extremity NEUROLOGICAL: Awake and alert. No obvious cranial nerve deficits. Motor grossly within normal limits. Five out of 5 muscle strength in the arms and legs. Normal speech. PSYCHIATRIC: Appropriate mood and affect; insight and judgment normal. Results Labs CBC & Chem 7: 03/17/18 09:29 03/17/18 09:29 Procedures Procedures: 03/0903/09/18 Procedure: 1. Irrigation and debridement of ulcer right foot with wound vac and partial delayed primary closure Wound to dorsal 1st interspace extending to under great toe. Approximately 4cm x 2cm x 1cm depth Excisional debridement of fibrotic tissue down to level of tendon and joint capsule of 1st MTP joint with #15 blade, curette, and rongeur. Partial closure to dorsal aspect with wound extending and open to plantar hallux and 1st interspace area. Wound vac applied. 125mmHg medium continuous setting. Assessment and Plan Plan 52-year-old female with Sepsis-source right foot infection Diabetic right foot infection Currently on Ancef IV and Levaquin per ID MRI of the foot without any evidence of osteomyelitis s/p Incision drainage debridement expansile to joint capsule and muscle with wound vac application Wound VAC management per podiatry. May need skin graft placement this week, possible March DKA, in a noncompliant type II diabetic, acute Resolved Diabetes type 1 Continue NovoLog 70/30 20 units twice daily, insulin sliding scale, Aspart, Metformin (?) per patient her Trulicity was just approved hemoglobin A1c >13 Hypokalemia Resolved with potassium replacement Diabetic gastroparesis Continue Reglan 10 mg TID before meals Neuropathic pain Consider Neurontin Hypertension Normotensive Continue lisinopril 10 mg daily DVT prophylaxis: Lovenox Progress Note: Quality VTE Deep Vein Thrombosis/Pulmonary Embolism Present on Admission: No
--- NOTE | 2018-03-26 13:51 | P.PNID ---
Subjective Remarks: Patient is without complaint. Afebrile. Has wound VAC in place. No drainage. Wound culture sent on 03/22 from the foot to Enterococcus faecalis. Culture on 03/15/18 which has Pseudomonas. Culture on 03/01/18 has group B beta strep. Patient underwent full-thickness excision of muscle tendon and bone. 52-year-old white female who presented to the emergency department because she had development of an infection of the right great toe interspace. The patient has a callus at the bottom of the interspace between the first and second toe of the right foot, which was being cared for by outpatient debridement of the callus. She came to the emergency department because she noticed redness of the foot. She was seen in the emergency department on 02/26/2018 because of foot and right leg pain. She noted that she was evaluated and a Doppler ultrasound was performed that was negative for deep venous thrombosis and she was sent home. She noted that a blister formed at the dorsal aspect of the interspace between the first and second toe and presented again to the emergency department on 02/28/2018. X-ray of the right foot showed soft tissue swelling surrounding the right great toe suggestive of probable cellulitis and there was no acute fracture or dislocation. MRI of the foot was performed and it showed a small ulcer subjacent to the MTP joint with regional cellulitis. The patient was evaluated by podiatry. She was noted to have vomiting. She was taken to surgery by podiatry and she underwent incision and drainage and also debridement of the joint capsule of the first interspace, and a wound VAC was applied. She was noted to have an abscess, which appeared to go deep into the fascia. Consultation was requested for antibiotic management. Antibiotics: Ceftriaxone Levaquin Past Medical History: PAST MEDICAL HISTORY: Neuropathic foot ulcer, diabetes mellitus, history of cholecystectomy. Allergies/Adverse Reactions: Allergies Sulfa (Sulfonamide Antibiotics) Allergy (Verified 02/26/18 11:06) Hives Objective Vital Signs 03/25/18 20:00 03/26/18 07:40 Temperature 98.1 F 98 F Pulse Rate 75 72 Respiratory Rate 20 20 Blood Pressure 111/64 127/76 Pulse Oximetry 96 97 Intake & Output 03/25/18 03/26/18 03/26/18 18:59 06:59 18:59 Intake Total 50 / 50 350 / 350 Balance 50 / 50 350 / 350 Intake: IV 50 / 50 100 / 100 Ancef 2 GM Premix Inj 2 gm In 50 / 50 100 / 100 50 ml @ 100 mls/hr IV.SIG Q8H RADHA Rx#:[id number] Oral 250 / 250 Other: Mode Setting Right Foot 1st Interspace Continuous Right foot 1st interspace Continuous Continuous Continuous Right foot 1st interspace Continuous Continuous Continuous surgical wound # Voids 3 03/21/18 14:34 Wound - Foot Gram Stain - Final 03/21/18 14:34 Wound - Foot Wound Culture - Final Enterococcus faecalis Lab - Chemistry Results 03/24/18 03/24/18 03/25/18 17:22 20:00 07:46 POC Glucose 168 H 177 H 132 H 03/25/18 03/25/18 03/25/18 11:45 16:26 20:31 POC Glucose 114 H 138 H 141 H 03/26/18 03/26/18 07:11 11:33 POC Glucose 131 H 138 H Imaging: ITS Impressions Foot MRI 03/01/18 00:00 CONCLUSION: 1. Small ulcer subjacent to the MTP joint with regional cellulitis. 2. No findings of associated osteomyelitis. Abdomen/Pelvis CT 03/04/18 00:00 CONCLUSION: 1. Mild hepatomegaly. 2. Mild degenerative changes throughout the thoracolumbar spine. Physical Exam: PHYSICAL EXAMINATION: GENERAL: Patient in no acute distress. HEENT: Head is atraumatic. Extraocular movements are grossly intact. Pupils reactive to light. No icterus. Oropharynx: Moist mucosa. No visible lesions. NECK: Supple without adenopathy. LUNGS: Clear to auscultation. HEART: Regular S1 and S2, without murmurs, rubs or gallops. ABDOMEN: Bowel sounds present, soft, nontender. EXTREMITIES: The right foot has VAC device in place. No drainage. SKIN: No diffuse rash. NEUROLOGIC: No gross focal finding. PSYCHIATRIC: Calm and cooperative. Assessment and Plan - Plan IMPRESSION: 1. Wound infection and abscess of the right foot due to group B beta strep. Status post incision and debridement. Previous culture had Pseudomonas. Patient status post excision of the tendon and bone. Latest wound culture has enterococcus faecalis. 2. Diabetes mellitus. 3. Diabetic foot infection. RECOMMENDATIONS: Change Ancef to Unasyn for coverage of the enterococcus. Continue Levaquin for the Pseudomonas. Podiatry to decide on whether skin grafting is feasible. Based on the findings from the last podiatry surgery the IV and po antibiotic may need to be continued beyond March 27.
[2018-03-26] MEDS: Enoxaparin Inj 40 MG/0.4 ML Syringe SQ SCH (14:22)
[2018-03-26] MEDS: Ampicillin/Sulbactam Inj 3 GM in Sodium Chloride 0.9% Inj 100 ML IV.SIG SCH ×2 (14:22→20:18)
[2018-03-27] MEDS: Ampicillin/Sulbactam Inj 3 GM in Sodium Chloride 0.9% Inj 100 ML IV.SIG SCH ×4 (02:11→21:16)
[2018-03-27] MEDS: Lactobacillus Acidophilus/L. Spores Tablet PO SCH ×3 (09:13→17:57)
[2018-03-27] MEDS: Lisinopril 5 MG Tablet PO SCH (09:13)
[2018-03-27] MEDS: Metoclopramide 10 MG Tablet PO SCH ×4 (09:13→21:16)
[2018-03-27] MEDS: levoFLOXacin 750 MG Tablet PO SCH (09:13)
[2018-03-27] MEDS: Insulin NovoLOG Aspart Correctional Sugar Inj SQ SCH ×3 (09:23→17:47)
[2018-03-27] MEDS: Collagenase Oint 30 GM Tube TOPICAL SCH (09:24)
--- NOTE | 2018-03-27 09:33 | P.PNIM ---
Subjective Interval history: Follow-up diabetic foot infection March 27, 2018patient seen and examined, stable and no acute event overnight. Awaiting for evaluation from podiatry of right foot today. Physical Exam Vital signs: Vital Signs 03/26/18 20:31 Temperature 97.9 F Pulse Rate 77 Respiratory Rate 20 Blood Pressure 121/69 Pulse Oximetry 99 Intake & Output 03/26/18 03/27/18 03/27/18 18:59 06:59 18:59 Intake Total 100 / 100 200 / 200 Balance 100 / 100 200 / 200 Weight 85.7 kg Intake: IV 100 / 100 200 / 200 Unasyn Inj 3 GM In NS Inj 100 100 / 100 200 / 200 ML @ 200 mls/hr IV.SIG Q6H RADHA Rx#:[id number] Other: Mode Setting Right foot 1st interspace Continuous Right foot 1st interspace Continuous Continuous surgical wound # Voids 3 Date of Last Bowel Movement 03/26/18 03/26/18 Narrative: GENERAL: NAD SKIN: Warm and dry. HEAD: Atraumatic. Normocephalic. EYES: Pupils equal and round. No scleral icterus. No injection or drainage. ENT: No nasal bleeding or discharge. Mucous membranes pink and moist. NECK: Trachea midline. No JVD. CARDIOVASCULAR: Regular rate and rhythm. RESPIRATORY: No accessory muscle use. Clear to auscultation. Breath sounds equal bilaterally. GASTROINTESTINAL: Abdomen soft, non-tender, nondistended. Hepatic and splenic margins not palpable. MUSCULOSKELETAL: Extremities without clubbing, cyanosis, or edema. No obvious deformities. Wound VAC in place right lower extremity NEUROLOGICAL: Awake and alert. No obvious cranial nerve deficits. Motor grossly within normal limits. Five out of 5 muscle strength in the arms and legs. Normal speech. PSYCHIATRIC: Appropriate mood and affect; insight and judgment normal. Results Labs CBC & Chem 7: 03/17/18 09:29 03/17/18 09:29 Procedures Procedures: 03/0903/09/18 Procedure: 1. Irrigation and debridement of ulcer right foot with wound vac and partial delayed primary closure Wound to dorsal 1st interspace extending to under great toe. Approximately 4cm x 2cm x 1cm depth Excisional debridement of fibrotic tissue down to level of tendon and joint capsule of 1st MTP joint with #15 blade, curette, and rongeur. Partial closure to dorsal aspect with wound extending and open to plantar hallux and 1st interspace area. Wound vac applied. 125mmHg medium continuous setting. Assessment and Plan Plan 52-year-old female with Sepsis-source right foot infection Diabetic right foot infection Currently on Ancef IV and Levaquin per ID MRI of the foot without any evidence of osteomyelitis s/p Incision drainage debridement expansile to joint capsule and muscle with wound vac application Wound VAC management per podiatry. Awaiting for evaluation from podiatry today May need skin graft placement this week, possible March DKA, in a noncompliant type II diabetic, acute Resolved Diabetes type 1 Continue NovoLog 70/30 20 units twice daily, insulin sliding scale, Aspart, Metformin (?) per patient her Trulicity was just approved hemoglobin A1c >13 Hypokalemia Resolved with potassium replacement Diabetic gastroparesis Continue Reglan 10 mg TID before meals Neuropathic pain Consider Neurontin Hypertension Normotensive Continue lisinopril 10 mg daily DVT prophylaxis: Lovenox Progress Note: Quality VTE Deep Vein Thrombosis/Pulmonary Embolism Present on Admission: No
[2018-03-27] MEDS: Enoxaparin Inj 40 MG/0.4 ML Syringe SQ SCH (14:32)
--- NOTE | 2018-03-27 17:01 | P.PNWCN ---
Wound Care Nurse Consult Description: Patient seen today for wound VAC dressing change today. Surgery planned for this Sunday03/29/[address] Drake. Communicated with: Spoke with bedside nurse Kera Wallace RN. Recommendation: Please reinforce dressing as needed for leaks with shauna seal and VAC drape. Wound care to change wound vac dressing after surgery when appropriate. Additional information: Patient seen for wound VAC dressing change. Dr. Drake saw patient at bedside and assessed wound. Per bedside environmental services attendant will be planned for this Sunday. wants wound vac dressing put back in place. Removed dressing from R foot to reveal open surgical wound to R first interspace with amniox graft in place. ~4 sutures are noted to periwound. Wound bed presents ~40% red granulation tissue and ~60% white tissue. Amniox graft was placed by Doctor Jacobson on 2018. Periwound has improved. Small wound with slough is noted to periwound at 11 o'clock. Wound was cleansed with normal saline and patted dry. Applied skin barrier film to periwound and up to R lateral lower leg. Applied maxorb II over open wound to periwound and covered with hydrocolloid dressing and secured with VAC transparent drape. Adaptic was placed to exposed tendon in wound bed. One piece of black foam was applied over the adaptic and bridged over VAC drape to R lateral lower leg. Shauna seal was applied lining open wound to seal. Sensi Trac pad was applied over black foam to bridged foam on R lateral lower leg. All exposed black foam was covered with transparent VAC drape. Maxorb II was placed to scabbed area on plantar aspect of foot. Dressing was then secured with rolled gauze and elastic (GLENROY) wrap. Wound VAC is suctioning well without leaks at 125 mm/Hg low continuous suction. Patient tolerated procedure well. Wound/Pressure Injury - Patient Status Premedicated for Pain Prior to Dressing Change: No (Not Needed) - Wound Right Foot 1st Interspace Wound Assessment: Ongoing Wound Type: Traumatic Wound Requested from Provider a Wound Care Consult: Yes Wound Bed Appearance: Red, White Wound Bed Appearance: ~40% red granulation tissue and ~60% white tissue. Surrounding Tissue Appearance: Blanched/Dull Surrounding Tissue Temperature: Warm Drainage Description: Serosanguinous Drainage Amount: Scant Drainage Odor: No Odor Dressing Status: Changed Cleansing Solution: Saline Wound Packing Type: Woundvac Sponge (Adaptic gauze dressing then 1 Piece of black foam) Primary Dressing: Negative Pressure Wound Dressing Cover Dressing: Gauze Roll/Wrap (Rolled gauze then elastic wrap) Wound Dressing Change Date: 03/27/18 Wound Margin Description: Margins are steep. Wound Vac - Wound Vac Right Foot 1st Interspace Pressure Setting (mmHg): 125 Mode Setting: Continuous Drainage Description: Serosanguinous Foam type: Black (1 Piece)
--- NOTE | 2018-03-27 22:50 | P.PNPOD ---
Subjective Interval history: Chronic right foot wound Physical Exam Vital signs: Vital Signs 03/27/18 08:30 03/27/18 20:29 Temperature 97.8 F 98.0 F Pulse Rate 74 84 Respiratory Rate 20 20 Blood Pressure 129/79 119/72 Pulse Oximetry 97 99 Intake & Output 03/27/18 03/27/18 03/28/18 06:59 18:59 06:59 Intake Total 200 / 200 200 / 200 Balance 200 / 200 200 / 200 Weight 85.7 kg Intake: IV 200 / 200 200 / 200 Unasyn Inj 3 GM In NS Inj 100 200 / 200 200 / 200 ML @ 200 mls/hr IV.SIG Q6H [facility] Rx#:[id number] Other: Mode Setting Right Foot 1st Interspace Continuous Right foot 1st interspace Continuous Continuous surgical wound # Voids 3 Date of Last Bowel Movement 03/26/18 03/26/18 Narrative: Right foot with 90% granular base. No drainage No acute soi No erythema. Medications and Allergies Active Medications: Active Medications Acetaminophen (Tylenol) 650 mg PO Q4H PRN PRN Reason: Temp > 100.4 Last Admin: 03/24/18 20:35 Dose: 650 mg Hydrocodone Bitart/Acetaminophen ([place] 10/325) 1 tab PO Q4H PRN PRN Reason: Pain 7 to 10 Hydrocodone Bitart/Acetaminophen ([place] 5/325) 1 tab PO Q4H PRN PRN Reason: Pain 3 to 6 Al Hydroxide/Mg Hydroxide (Milk Of Magnesia Liq) 30 ml PO Q12H PRN PRN Reason: Mild Constipation Collagenase (Santyl Oint) 1 applicatio TOPICAL DAILY [facility] Last Admin: 03/27/18 09:24 Dose: Not Given Dextrose (D50w Vial) 50 ml IV.PUSH UNSCH PRN PRN Reason: PER HYPOGLYCEMIA PROTOCOL Enalaprilat (Vasotec Inj) 2.5 mg IV.PUSH Q6H PRN PRN Reason: SBP>160, DBP>90 Enoxaparin Sodium (Lovenox Inj) 40 mg SQ Q24H [facility] Last Admin: 03/27/18 14:32 Dose: 40 mg Glucagon (Glucagon Inj) 1 mg OTHER PRN PRN PRN Reason: for Hypoglycemia Protocol Ampicillin Sodium/Sulbactam (Sodium 3 gm/ Sodium Chloride) 100 mls @ 200 mls/ hr IV.SIG Q6H [facility] Last Admin: 03/27/18 21:16 Dose: 100 mls/hr Sodium Phosphate 15 mmol/ (Sodium Chloride) 105 mls @ 25 mls/hr IV.SIG UNSCH PRN PRN Reason: for Phosphate Level < 1.0 Insulin Aspart (Novolog Insulin Correctional Sugar Inj) 0 unit SQ [facility]; Protocol Last Admin: 03/27/18 17:47 Dose: Not Given Insulin Aspart (Novolog Inj) 2 units SQ TIDAC [facility] Last Admin: 03/27/18 17:57 Dose: 2 units Insulin Human Isoph/Insulin Regular (Novolin 70/30 Inj) 20 units SQ BID@0800, 1700 [facility] Last Admin: 03/27/18 17:57 Dose: 20 units Lactobacillus Acidophilus (Lactinex) 1 tab PO TID [facility] Last Admin: 03/27/18 17:57 Dose: 1 tab Levofloxacin (Levaquin) 750 mg PO DAILY [facility] Last Admin: 03/27/18 09:13 Dose: 750 mg Lisinopril (Prinivil) 5 mg PO DAILY [facility] Last Admin: 03/27/18 09:13 Dose: 5 mg [facility] Last Admin: 03/27/18 17:57 Dose: 500 mg Metoclopramide HCl (Reglan) 10 mg PO [facility] Last Admin: 03/27/18 21:16 Dose: 10 mg Ondansetron HCl (Zofran Inj) 4 mg IV.PUSH Q6H PRN PRN Reason: NAUSEA OR VOMITING Last Admin: 03/04/18 09:56 Dose: 4 mg Prochlorperazine Edisylate (Compazine Inj) 10 mg IV.PUSH Q6H PRN PRN Reason: NAUSEA Last Admin: 03/04/18 16:44 Dose: 10 mg Sodium Bicarbonate (Sodium Bicarbonate 8.4% Inj) 50 meq IV.PUSH UNSCH PRN PRN Reason: for pH 6.9 to 7.0 Sodium Bicarbonate (Sodium Bicarbonate 8.4% Inj) 100 meq IV.PUSH UNSCH PRN PRN Reason: for pH less than 6.9 Sodium Chloride (Ns Flush) 2 ml IV.FLUSH BID [facility] Last Admin: 03/27/18 21:20 Dose: 2 ml Sodium Chloride (Ns Flush) 2 ml IV.FLUSH PRN PRN PRN Reason: FLUSH AFTER USING IV ACCESS Last Admin: 03/20/18 05:52 Dose: 2 ml Allergies Allergy/AdvReac Type Severity Reaction Status Date / Time Sulfa (Sulfonamide Allergy Hives Verified 02/26/18 11:06 Antibiotics) Home Medications Medication Instructions Recorded Confirmed Type metformin 500 mg PO BID 02/26/18 02/28/18 History Results - Labs CBC & Chem 7: 03/17/18 09:29 03/17/18 09:29 Laboratory Results - last 24 hr 03/27/18 03/27/18 03/27/18 07:23 12:13 17:39 POC Glucose 120 H 129 H 147 H 03/27/18 22:11 POC Glucose 171 H - Procedures 03/0903/09/18 Procedure: 1. Irrigation and debridement of ulcer right foot with wound vac and partial delayed primary closure Wound to dorsal 1st interspace extending to under great toe. Approximately 4cm x 2cm x 1cm depth Excisional debridement of fibrotic tissue down to level of tendon and joint capsule of 1st MTP joint with #15 blade, curette, and rongeur. Partial closure to dorsal aspect with wound extending and open to plantar hallux and 1st interspace area. Wound vac applied. 125mmHg medium continuous setting. Assessment and Plan - Assessment (1) Diabetic infection of right foot Code(s): E11.628 - Type 2 diabetes mellitus with other skin complications; L08.9 - Local infection of the skin and subcutaneous tissue, unspecified Status: Acute - Plan Continue with wound VAC Plan for Split thickness skin graft on 03/29/[address] Mohan at 1600 NPO on 03/28/18 at midnight Medical Clearance per PCP.
[2018-03-28] MEDS: Ampicillin/Sulbactam Inj 3 GM in Sodium Chloride 0.9% Inj 100 ML IV.SIG SCH ×4 (03:00→20:26)
[2018-03-28] MEDS: Insulin NovoLOG Aspart Correctional Sugar Inj SQ SCH ×5 (03:50→20:48)
[2018-03-28] MEDS: levoFLOXacin 750 MG Tablet PO SCH (08:28)
[2018-03-28] MEDS: Lisinopril 5 MG Tablet PO SCH (08:28)
[2018-03-28] MEDS: Metoclopramide 10 MG Tablet PO SCH ×4 (08:28→20:39)
[2018-03-28] MEDS: Lactobacillus Acidophilus/L. Spores Tablet PO SCH ×3 (08:29→17:20)
[2018-03-28] MEDS: Collagenase Oint 30 GM Tube TOPICAL SCH (08:32)
--- NOTE | 2018-03-28 10:08 | P.PNIM ---
Subjective Interval history: Follow-up diabetic foot infection March 28, 2018patient seen and examined, no complaints. Looking forward for split thickness skin graft tomorrow. Afebrile. Good glucose readings Physical Exam Vital signs: Vital Signs 03/27/18 20:29 03/28/18 08:10 Temperature 98.0 F 98.7 F Pulse Rate 84 74 Respiratory Rate 20 20 Blood Pressure 119/72 126/75 Pulse Oximetry 99 98 Intake & Output 03/27/18 03/28/18 03/28/18 18:59 06:59 18:59 Intake Total 200 / 200 200 / 200 100 / 100 Balance 200 / 200 200 / 200 100 / 100 Weight 85.7 kg Intake: IV 200 / 200 200 / 200 100 / 100 Unasyn Inj 3 GM In NS Inj 100 200 / 200 200 / 200 100 / 100 ML @ 200 mls/hr IV.SIG Q6H [facility] Rx#:[id number] Other: Mode Setting Right Foot 1st Interspace Continuous Right foot 1st interspace Continuous Continuous Continuous surgical wound # Voids 3 Date of Last Bowel Movement 03/26/18 03/26/18 Narrative: GENERAL: NAD SKIN: Warm and dry. HEAD: Atraumatic. Normocephalic. EYES: Pupils equal and round. No scleral icterus. No injection or drainage. ENT: No nasal bleeding or discharge. Mucous membranes pink and moist. NECK: Trachea midline. No JVD. CARDIOVASCULAR: Regular rate and rhythm. RESPIRATORY: No accessory muscle use. Clear to auscultation. Breath sounds equal bilaterally. GASTROINTESTINAL: Abdomen soft, non-tender, nondistended. Hepatic and splenic margins not palpable. MUSCULOSKELETAL: Extremities without clubbing, cyanosis, or edema. No obvious deformities. Wound VAC in place right lower extremity NEUROLOGICAL: Awake and alert. No obvious cranial nerve deficits. Motor grossly within normal limits. Five out of 5 muscle strength in the arms and legs. Normal speech. PSYCHIATRIC: Appropriate mood and affect; insight and judgment normal. Results Labs CBC & Chem 7: 03/17/18 09:29 03/17/18 09:29 Procedures Procedures: 03/0903/09/18 Procedure: 1. Irrigation and debridement of ulcer right foot with wound vac and partial delayed primary closure Wound to dorsal 1st interspace extending to under great toe. Approximately 4cm x 2cm x 1cm depth Excisional debridement of fibrotic tissue down to level of tendon and joint capsule of 1st MTP joint with #15 blade, curette, and rongeur. Partial closure to dorsal aspect with wound extending and open to plantar hallux and 1st interspace area. Wound vac applied. 125mmHg medium continuous setting. Assessment and Plan Plan 52-year-old female with Sepsis-source right foot infection Diabetic right foot infection Currently on Ancef IV and Levaquin per ID MRI of the foot without any evidence of osteomyelitis s/p Incision drainage debridement expansile to joint capsule and muscle with wound vac application Wound VAC management per podiatry. Plan for split thickness skin graft tomorrow March 29, 2018 Patient is medically clear for procedure DKA, in a noncompliant type II diabetic, acute Resolved Diabetes type 1 Continue NovoLog 70/30 20 units twice daily, insulin sliding scale, Aspart, Metformin (?) per patient her Trulicity was just approved hemoglobin A1c >13 Hypokalemia Resolved with potassium replacement Diabetic gastroparesis Continue Reglan 10 mg TID before meals Neuropathic pain Consider Neurontin Hypertension Normotensive Continue lisinopril 10 mg daily DVT prophylaxis: Lovenox Progress Note: Quality VTE Deep Vein Thrombosis/Pulmonary Embolism Present on Admission: No
[2018-03-28] MEDS: Enoxaparin Inj 40 MG/0.4 ML Syringe SQ SCH (14:24)
--- NOTE | 2018-03-28 18:27 | P.PNPOD ---
Subjective Interval history: No events the patient has been doing well with antibiotics and wound VAC Physical Exam Vital signs: Vital Signs 03/27/18 20:29 03/28/18 08:10 Temperature 98.0 F 98.7 F Pulse Rate 84 74 Respiratory Rate 20 20 Blood Pressure 119/72 126/75 Pulse Oximetry 99 98 Intake & Output 03/27/18 03/28/18 03/28/18 18:59 06:59 18:59 Intake Total 200 / 200 200 / 200 200 / 200 Balance 200 / 200 200 / 200 200 / 200 Weight 85.7 kg Intake: IV 200 / 200 200 / 200 200 / 200 Unasyn Inj 3 GM In NS Inj 100 200 / 200 200 / 200 200 / 200 ML @ 200 mls/hr IV.SIG Q6H [facility] Rx#:[id number] Other: Mode Setting Right Foot 1st Interspace Continuous Right foot 1st interspace Continuous Continuous Continuous surgical wound # Voids 3 3 Date of Last Bowel Movement 03/26/18 03/26/18 03/28/18 # Bowel Movements 2 - Neurological Alert and oriented x3 - Routine Extremities Exam Comments: Right lower extremity near completely granular wound with significant filling of the first interspace, wound measurements approximately 15 cm 3 cm 8 mm of depth. Minimal redness minimal edema no bone exposed no odor foot is warm decreased sensation to light touch no instability pulses remain intact Medications and Allergies Active Medications: Active Medications Acetaminophen (Tylenol) 650 mg PO Q4H PRN PRN Reason: Temp > 100.4 Last Admin: 03/24/18 20:35 Dose: 650 mg Hydrocodone Bitart/Acetaminophen ([place] 10/325) 1 tab PO Q4H PRN PRN Reason: Pain 7 to 10 Hydrocodone Bitart/Acetaminophen ([place] 5/325) 1 tab PO Q4H PRN PRN Reason: Pain 3 to 6 Al Hydroxide/Mg Hydroxide (Milk Of Magnesia Liq) 30 ml PO Q12H PRN PRN Reason: Mild Constipation Collagenase (Santyl Oint) 1 applicatio TOPICAL DAILY [facility] Last Admin: 03/28/18 08:32 Dose: Not Given Dextrose (D50w Vial) 50 ml IV.PUSH UNSCH PRN PRN Reason: PER HYPOGLYCEMIA PROTOCOL Enalaprilat (Vasotec Inj) 2.5 mg IV.PUSH Q6H PRN PRN Reason: SBP>160, DBP>90 Enoxaparin Sodium (Lovenox Inj) 40 mg SQ Q24H [facility] Last Admin: 03/28/18 14:24 Dose: 40 mg Glucagon (Glucagon Inj) 1 mg OTHER PRN PRN PRN Reason: for Hypoglycemia Protocol Ampicillin Sodium/Sulbactam (Sodium 3 gm/ Sodium Chloride) 100 mls @ 200 mls/ hr IV.SIG Q6H [facility] Last Infusion: 03/28/18 15:33 Dose: Infused Sodium Phosphate 15 mmol/ (Sodium Chloride) 105 mls @ 25 mls/hr IV.SIG UNSCH PRN PRN Reason: for Phosphate Level < 1.0 Insulin Aspart (Novolog Insulin Correctional Sugar Inj) 0 unit SQ [facility]; Protocol Last Admin: 03/28/18 17:22 Dose: 2 unit Insulin Aspart (Novolog Inj) 2 units SQ TIDAC [facility] Last Admin: 03/28/18 17:22 Dose: 2 units Insulin Human Isoph/Insulin Regular (Novolin 70/30 Inj) 20 units SQ BID@0800, 1700 [facility] Last Admin: 03/28/18 17:22 Dose: 20 units Lactobacillus Acidophilus (Lactinex) 1 tab PO TID [facility] Last Admin: 03/28/18 17:20 Dose: 1 tab Levofloxacin (Levaquin) 750 mg PO DAILY [facility] Last Admin: 03/28/18 08:28 Dose: 750 mg Lisinopril (Prinivil) 5 mg PO DAILY [facility] Last Admin: 03/28/18 08:28 Dose: 5 mg Metformin HCl (Glucophage) 500 mg PO BIDPC [facility] Last Admin: 03/28/18 17:20 Dose: 500 mg Metoclopramide HCl (Reglan) 10 mg PO [facility] Last Admin: 03/28/18 17:20 Dose: 10 mg Ondansetron HCl (Zofran Inj) 4 mg IV.PUSH Q6H PRN PRN Reason: NAUSEA OR VOMITING Last Admin: 03/04/18 09:56 Dose: 4 mg Prochlorperazine Edisylate (Compazine Inj) 10 mg IV.PUSH Q6H PRN PRN Reason: NAUSEA Last Admin: 03/04/18 16:44 Dose: 10 mg Sodium Bicarbonate (Sodium Bicarbonate 8.4% Inj) 50 meq IV.PUSH UNSCH PRN PRN Reason: for pH 6.9 to 7.0 Sodium Bicarbonate (Sodium Bicarbonate 8.4% Inj) 100 meq IV.PUSH UNSCH PRN PRN Reason: for pH less than 6.9 Sodium Chloride (Ns Flush) 2 ml IV.FLUSH BID [facility] Last Admin: 03/28/18 08:32 Dose: 2 ml Sodium Chloride (Ns Flush) 2 ml IV.FLUSH PRN PRN PRN Reason: FLUSH AFTER USING IV ACCESS Last Admin: 03/20/18 05:52 Dose: 2 ml Allergies Allergy/AdvReac Type Severity Reaction Status Date / Time Sulfa (Sulfonamide Allergy Hives Verified 02/26/18 11:06 Antibiotics) Home Medications Medication Instructions Recorded Confirmed Type metformin 500 mg PO BID 02/26/18 02/28/18 History Results - Labs CBC & Chem 7: 03/17/18 09:29 03/17/18 09:29 Laboratory Results - last 24 hr 03/27/18 03/28/18 03/28/18 22:11 07:30 11:46 POC Glucose 171 H 139 H 159 H 03/28/18 16:52 POC Glucose 197 H - Procedures 03/0903/09/18 Procedure: 1. Irrigation and debridement of ulcer right foot with wound vac and partial delayed primary closure Wound to dorsal 1st interspace extending to under great toe. Approximately 4cm x 2cm x 1cm depth Excisional debridement of fibrotic tissue down to level of tendon and joint capsule of 1st MTP joint with #15 blade, curette, and rongeur. Partial closure to dorsal aspect with wound extending and open to plantar hallux and 1st interspace area. Wound vac applied. 125mmHg medium continuous setting. Assessment and Plan - Assessment (1) Diabetic infection of right foot Code(s): E11.628 - Type 2 diabetes mellitus with other skin complications; L08.9 - Local infection of the skin and subcutaneous tissue, unspecified Status: Acute - Plan Patient has much improved since last being seen. The plan is for right foot split thickness skin graft harvest from thigh and application to the foot with application of wound VAC and ulcer debridement and closure. This will take place tomorrow the patient is n.p.o. after breakfast for the case will not take place until after 4 PM tomorrow. Risks and benefits of the procedure explained including but not limited to need for more surgery graft harvesting infection possible burning tingling numbness discoloration of skin and failure of graft. No guarantees given or implied regarding the outcome. Anticipate wound VAC application and then DC on IV antibiotics and likely follow-up in 1 week to check graft harvest just make sure it has taken after surgery tomorrow
[2018-03-29] MEDS: Ampicillin/Sulbactam Inj 3 GM in Sodium Chloride 0.9% Inj 100 ML IV.SIG SCH ×6 (02:28→22:38)
[2018-03-29] MEDS: Insulin NovoLOG Aspart Correctional Sugar Inj SQ SCH ×3 (08:18→18:58)
[2018-03-29] MEDS: Lactobacillus Acidophilus/L. Spores Tablet PO SCH ×3 (08:18→19:20)
[2018-03-29] MEDS: Lisinopril 5 MG Tablet PO SCH (08:18)
[2018-03-29] MEDS: levoFLOXacin 750 MG Tablet PO SCH (08:19)
[2018-03-29] MEDS: Metoclopramide 10 MG Tablet PO SCH ×4 (08:19→22:47)
[2018-03-29] MEDS: Collagenase Oint 30 GM Tube TOPICAL SCH (09:57)
--- NOTE | 2018-03-29 11:40 | P.PNIM ---
Subjective Interval history: Follow-up diabetic foot infection right foot March 29, 2018patient seen and examined, currently n.p.o. pending placement of skin graft Physical Exam Vital signs: Vital Signs 03/28/18 19:27 03/29/18 07:44 Temperature 98.0 F 98.1 F Pulse Rate 71 82 Respiratory Rate 18 16 Blood Pressure 121/67 127/73 Pulse Oximetry 99 99 Intake & Output 03/28/18 03/29/18 03/29/18 18:59 06:59 18:59 Intake Total 200 / 200 200 / 200 100 / 100 Balance 200 / 200 200 / 200 100 / 100 Weight 82.9 kg Intake: IV 200 / 200 200 / 200 100 / 100 Unasyn Inj 3 GM In NS Inj 100 200 / 200 200 / 200 100 / 100 ML @ 200 mls/hr IV.SIG Q6H [facility] Rx#:[id number] Other: Mode Setting Right foot 1st interspace Continuous surgical wound # Voids 3 3 Date of Last Bowel Movement 03/28/18 03/28/18 # Bowel Movements 2 Narrative: GENERAL: NAD SKIN: Warm and dry. HEAD: Atraumatic. Normocephalic. EYES: Pupils equal and round. No scleral icterus. No injection or drainage. ENT: No nasal bleeding or discharge. Mucous membranes pink and moist. NECK: Trachea midline. No JVD. CARDIOVASCULAR: Regular rate and rhythm. RESPIRATORY: No accessory muscle use. Clear to auscultation. Breath sounds equal bilaterally. GASTROINTESTINAL: Abdomen soft, non-tender, nondistended. Hepatic and splenic margins not palpable. MUSCULOSKELETAL: Extremities without clubbing, cyanosis, or edema. No obvious deformities. Wound VAC in place right lower extremity NEUROLOGICAL: Awake and alert. No obvious cranial nerve deficits. Motor grossly within normal limits. Five out of 5 muscle strength in the arms and legs. Normal speech. PSYCHIATRIC: Appropriate mood and affect; insight and judgment normal. Results Labs CBC & Chem 7: 03/17/18 09:29 03/17/18 09:29 Procedures Procedures: 03/0903/09/18 Procedure: 1. Irrigation and debridement of ulcer right foot with wound vac and partial delayed primary closure Wound to dorsal 1st interspace extending to under great toe. Approximately 4cm x 2cm x 1cm depth Excisional debridement of fibrotic tissue down to level of tendon and joint capsule of 1st MTP joint with #15 blade, curette, and rongeur. Partial closure to dorsal aspect with wound extending and open to plantar hallux and 1st interspace area. Wound vac applied. 125mmHg medium continuous setting. Assessment and Plan Plan 52-year-old female with Sepsis-source right foot infection Diabetic right foot infection Currently on Ancef IV and Levaquin per ID MRI of the foot without any evidence of osteomyelitis s/p Incision drainage debridement expansile to joint capsule and muscle with wound vac application Wound VAC management per podiatry. Plan for split thickness skin graft today March 29, 2018 DKA, in a noncompliant type II diabetic, acute Resolved Diabetes type 1 Continue NovoLog 70/30 20 units twice daily, insulin sliding scale, Aspart, Metformin (?) per patient her Trulicity was just approved hemoglobin A1c >13 Hypokalemia Resolved with potassium replacement Diabetic gastroparesis Continue Reglan 10 mg TID before meals Neuropathic pain Consider Neurontin Hypertension Normotensive Continue lisinopril 10 mg daily DVT prophylaxis: Lovenox Progress Note: Quality VTE Deep Vein Thrombosis/Pulmonary Embolism Present on Admission: No
[2018-03-29] MEDS ORDERED: Bupivacaine PF 0.25% Inj 30 ML Vial ONE (14:01)
--- NOTE | 2018-03-29 14:57 | P.PNID ---
Subjective Remarks: Patient is without complaint. No fever. Reports that her IV catheter is not functioning. Plans for possible skin graft today. Wound culture sent on 03/22 from the foot has Enterococcus faecalis. Culture on 03/15/18 which has Pseudomonas. Culture on 03/01/18 has group B beta strep. Patient underwent full-thickness excision of muscle tendon and bone. 52-year-old white female who presented to the emergency department because she had development of an infection of the right great toe interspace. The patient has a callus at the bottom of the interspace between the first and second toe of the right foot, which was being cared for by outpatient debridement of the callus. She came to the emergency department because she noticed redness of the foot. She was seen in the emergency department on 02/26/2018 because of foot and right leg pain. She noted that she was evaluated and a Doppler ultrasound was performed that was negative for deep venous thrombosis and she was sent home. She noted that a blister formed at the dorsal aspect of the interspace between the first and second toe and presented again to the emergency department on 02/28/2018. X-ray of the right foot showed soft tissue swelling surrounding the right great toe suggestive of probable cellulitis and there was no acute fracture or dislocation. MRI of the foot was performed and it showed a small ulcer subjacent to the MTP joint with regional cellulitis. The patient was evaluated by podiatry. She was noted to have vomiting. She was taken to surgery by podiatry and she underwent incision and drainage and also debridement of the joint capsule of the first interspace, and a wound VAC was applied. She was noted to have an abscess, which appeared to go deep into the fascia. Consultation was requested for antibiotic management. Antibiotics: Unasyn Levaquin Past Medical History: PAST MEDICAL HISTORY: Neuropathic foot ulcer, diabetes mellitus, history of cholecystectomy. Allergies/Adverse Reactions: Allergies Sulfa (Sulfonamide Antibiotics) Allergy (Verified 02/26/18 11:06) Hives Objective Vital Signs 03/28/18 19:27 03/29/18 07:44 Temperature 98.0 F 98.1 F Pulse Rate 71 82 Respiratory Rate 18 16 Blood Pressure 121/67 127/73 Pulse Oximetry 99 99 Intake & Output 03/28/18 03/29/18 03/29/18 18:59 06:59 18:59 Intake Total 200 / 200 200 / 200 100 / 100 Balance 200 / 200 200 / 200 100 / 100 Weight 82.9 kg Intake: IV 200 / 200 200 / 200 100 / 100 Unasyn Inj 3 GM In NS Inj 100 200 / 200 200 / 200 100 / 100 ML @ 200 mls/hr IV.SIG Q6H [facility] Rx#:[id number] Other: Mode Setting Right foot 1st interspace Continuous surgical wound # Voids 3 3 Date of Last Bowel Movement 03/28/18 03/28/18 # Bowel Movements 2 03/01/18 13:15 Wound - Foot Fungal Smear - Final No fungal elements seen 03/01/18 13:15 Wound - Foot Fungal Culture - Final No growth in 4 weeks 03/01/18 13:15 Wound - Foot Acid Fast Bacilli Smear - Final No acid fast bacilli seen 03/01/18 13:15 Wound - Foot Mycobacterial Culture - Preliminary No growth in 4 weeks Lab - Chemistry Results 03/27/18 03/27/18 03/28/18 17:39 22:11 07:30 POC Glucose 147 H 171 H 139 H 03/28/18 03/28/18 03/28/18 11:46 16:52 20:45 POC Glucose 159 H 197 H 201 H 03/29/18 03/29/18 06:57 12:16 POC Glucose 111 H 141 H Imaging: ITS Impressions Foot MRI 03/01/18 00:00 CONCLUSION: 1. Small ulcer subjacent to the MTP joint with regional cellulitis. 2. No findings of associated osteomyelitis. Abdomen/Pelvis CT 03/04/18 00:00 CONCLUSION: 1. Mild hepatomegaly. 2. Mild degenerative changes throughout the thoracolumbar spine. Physical Exam: PHYSICAL EXAMINATION: GENERAL: No acute distress. HEENT: Head is atraumatic. Extraocular movements are grossly intact. Pupils reactive to light. No icterus. Oropharynx: Moist mucosa. No visible lesions. NECK: Supple without adenopathy. LUNGS: Clear to auscultation. HEART: Regular S1 and S2, without murmurs, rubs or gallops. ABDOMEN: Bowel sounds present, soft, nontender. EXTREMITIES: The right foot has VAC device in place. No drainage. SKIN: No diffuse rash. NEUROLOGIC: No gross focal finding. PSYCHIATRIC: Calm and cooperative. Assessment and Plan - Plan IMPRESSION: 1. Wound infection and abscess of the right foot due to group B beta strep. Status post incision and debridement. Previous culture had Pseudomonas. Patient status post excision of the tendon and bone. Latest wound culture has enterococcus faecalis. 2. Diabetes mellitus. 3. Diabetic foot infection. RECOMMENDATIONS: Continue Unasyn. Wound for 2 weeks additional IV antibiotics from today.. Stop Levaquin Orders written for the IV antibiotics for when she is ready for discharge. PICC line ordered. Plan for discharge from my standpoint when cleared by podiatry. Follow-up with podiatry.
--- NOTE | 2018-03-29 14:59 | P.DCO ---
Post Hospital Infusion Therapy - Infusion Therapy Location of Infusion Therapy: Home Health Care IV Infusion Order - Patient Information Patient Weight: 82.9 kg - Diagnosis (1) Abscess of foot including toes Code(s): L02.619 - Cutaneous abscess of unspecified foot (2) Abscess of right foot Code(s): L02.611 - Cutaneous abscess of right foot (3) Diabetic infection of right foot Code(s): E11.628 - Type 2 diabetes mellitus with other skin complications; L08.9 - Local infection of the skin and subcutaneous tissue, unspecified (4) Ulcer of right foot with necrosis of muscle Code(s): L97.513 - Non-pressure chronic ulcer of other part of right foot with necrosis of muscle - Administer Medication Ampicillin/Sulbactam Additional Dosing Instructions: 3 g IV every 6 hours. Until April 12, 2018. Stop Treatment: 04/12/18 - Additional Information Venous Access: PICC Line Additional Instructions: [x] Peripheral flush and dressing changes per protocol [x] Implanted port and central power lineman technician: * Implanted port: 10 ml Normal Saline followed by 5 ml Heparin 100 units/ml Heparin flush after each use and monthly to maintain. [] May leave port accessed during therapy. [] May leave peripheral site accessed for duration of therapy. [x] If patient has SOB or respiratory distress, check oxygen saturation. If less than 90% or clinical signs of respiratory distress, administer oxygen at 2 L/min. via nasal cannula and notify physician. [x] Anaphylaxis/Reaction orders: * Stop infusion. * Keep IV line open with saline flush. * Notify physician. * Monitor vital signs every 15 minutes until symptoms resolve. * Check Oxygen saturation; Oxygen at 2 L/min. via nasal cannula if less than 90% or clinical signs of respiratory distress. * Administer diphenhydramine (Benadryl) 25 mg IV STAT, (unless patient has received as pre-med). May repeat once, if necessary. * Solu-Cortef 250 mg IVP over 30-60 seconds, use 100 mg vials for each dissolution. * Epinephrine (1mg/1 ml) 0.3 mg subcutaneously or IVP now with any signs of respiratory distress. * Check with physician for new additional pre-med orders if patient is re- challenged or re-treated. [x] May remove PICC line when treatment complete, after confirming with Physician. [x] If the patient is admitted to the hospital, the ED, or transferred via [facility] , complete transfer form including medication reconciliation order sheet. Weekly Labs: BMP - Case Management Consult Case Management Consult-IVF: Yes - Patient Information Allergies Sulfa (Sulfonamide Antibiotics) Allergy (Verified 02/26/18 11:06) Hives (1) Abscess of foot including toes Qualifiers: Laterality: right Qualified Code(s): L02.611 - Cutaneous abscess of right foot
[2018-03-29] MEDS: Enoxaparin Inj 40 MG/0.4 ML Syringe SQ SCH (16:18)
[2018-03-29] MEDS ORDERED: Lidocaine PF 1% Inj 5 ML Syringe INFILTRATN ONE (16:52)
[2018-03-29] MEDS ORDERED: Glycopyrrolate Inj 1 MG/5 ML Syringe IV.PUSH ONE (16:52)
[2018-03-29] MEDS ORDERED: Neostigmine Inj 5 MG/5 ML Syringe IV.PUSH ONE (16:52)
[2018-03-29] MEDS ORDERED: Lidocaine 1%/Epinephrine 1:100,000 Inj 50 ML Vial ONE (17:01)
--- NOTE | 2018-03-29 18:29 | P.OP ---
- Preoperative Diagnosis (1) Ulcer of right foot - Postoperative Diagnosis (1) Ulcer of right foot Procedure: Right foot ulcer, elipse and wound closure plantar foot Split thickness skin graft harvest right lower extremity and application to foot measuring 75 mm x 25mm Anesthesia: CHOCO, local Surgeon: Mic Russo DPM Delivery Driver: Dr. Florentino Cannon Estimated blood loss (mL): 5 (ml) Pathology: none sent Operation and Findings: Justification for procedure: Diabetic female with severe infection who is undergone incision drainage, and umbilical graft placement to allow filling of the wound. The patient has continued to improve and we decided it was best to move forward with skin graft harvest and application to salvage the patient's foot and wound. Procedure in detail: Under mild sedation the patient was brought in the operating room and placed on the operative the supine position. Following the induction of general anesthesia the patient's right lower extremity was scrubbed prepped and draped up to the patient's groin. Right foot is examined there is a wound measurement of 75 mm x 25 mm with ranging 2 mm to 5 mm of depth extending to the first interspace to the dorsum of the foot. There is a 1 cm ulceration of the plantar aspect of the first MPJ. No clinical signs of infection noted. Sharp elliptical incision took place removing the ulceration of the plantar first MPJ curettage of the base revealed no signs of infection plantar and the wound was primarily closed utilizing 2-0 nylon. Attention was then directed to the patient's anterior thigh in which local anesthesia 1% Marcaine plain was infiltrated across an area measuring 20 mm x 70 mm. Next utilizing standard technique with a dermatome a split thickness skin graft was harvested from the anterior thigh without any complication. The graft was then prepared with 1-1-1/2 mesher and then placed along the deficit of the first interspace coursing to the dorsum of the foot. It was sutured in place and then a wound VAC was placed under adequate seal and suction. Xeroform was placed directly on the harvest site and the application site to avoid adherence. Wound VAC will remain intact for minimum 1 week. It is recommended the patient continue nonweightbearing, IV antibiotics, and strict hyperglycemic control. The patient is best suited to maintain near complete bed rest status for the next week either in the hospital or halfway facility to allow the skin graft to take.
[2018-03-29] MEDS ORDERED: fentaNYL Citrate Inj 100 MCG/2 ML Ampul ONE ×2 (18:41)
[2018-03-29] MEDS: Acetaminophen 325 MG Tablet PO PRN (23:00)
[2018-03-30] MEDS: Insulin NovoLOG Aspart Correctional Sugar Inj SQ SCH ×5 (03:26→20:22)
[2018-03-30] MEDS: Ampicillin/Sulbactam Inj 3 GM in Sodium Chloride 0.9% Inj 100 ML IV.SIG SCH ×4 (04:33→20:14)
[2018-03-30] MEDS: Acetaminophen 325 MG Tablet PO PRN ×4 (04:50→18:26)
[2018-03-30] MEDS: levoFLOXacin 750 MG Tablet PO SCH (09:02)
[2018-03-30] MEDS: Lisinopril 5 MG Tablet PO SCH (09:02)
[2018-03-30] MEDS: Metoclopramide 10 MG Tablet PO SCH ×4 (09:03→20:15)
[2018-03-30] MEDS: Lactobacillus Acidophilus/L. Spores Tablet PO SCH ×3 (09:03→18:26)
[2018-03-30] MEDS: Collagenase Oint 30 GM Tube TOPICAL SCH (09:04)
--- NOTE | 2018-03-30 09:50 | P.PNIM ---
Subjective Interval history: Follow-up diabetic foot infection March 30, 2018patient seen and examined, she is status post thickness skin graft harvest right lower extremity and application to foot yesterday March 29, 2018. Denies any significant right lower extremity pain. Currently afebrile. Physical Exam Vital signs: Vital Signs 03/29/18 18:35 03/29/18 18:45 03/29/18 19:00 Temperature 98.5 F Pulse Rate 93 H 89 72 Respiratory Rate 12 15 16 Blood Pressure 137/72 129/67 123/75 Pulse Oximetry 98 97 96 03/29/18 19:15 03/29/18 19:20 03/29/18 20:00 Temperature 97.8 F Pulse Rate 70 Respiratory Rate 16 18 Blood Pressure 120/69 Pulse Oximetry 97 96 03/29/18 20:20 03/30/18 07:50 Temperature 97.8 F 97.9 F Pulse Rate 84 80 Respiratory Rate 18 20 Blood Pressure 163/86 H 126/75 Pulse Oximetry 98 96 Intake & Output 03/29/18 03/30/18 03/30/18 18:59 06:59 18:59 Intake Total 600 / 600 340 / 340 Output Total 5 / 5 Balance 595 / 595 340 / 340 Weight 82.9 kg 84.6 kg Intake: IV 200 / 200 100 / 100 Unasyn Inj 3 GM In NS Inj 100 200 / 200 100 / 100 ML @ 200 mls/hr IV.SIG Q6H [facility] Rx#:[id number] Oral 240 / 240 Anesthesia Amount 400 / 400 Output: Estimated Blood Loss 5 / 5 Other: Mode Setting Right foot 1st interspace Continuous surgical wound # Voids 4 1 Narrative: GENERAL: NAD SKIN: Warm and dry. HEAD: Atraumatic. Normocephalic. EYES: Pupils equal and round. No scleral icterus. No injection or drainage. ENT: No nasal bleeding or discharge. Mucous membranes pink and moist. NECK: Trachea midline. No JVD. CARDIOVASCULAR: Regular rate and rhythm. RESPIRATORY: No accessory muscle use. Clear to auscultation. Breath sounds equal bilaterally. GASTROINTESTINAL: Abdomen soft, non-tender, nondistended. Hepatic and splenic margins not palpable. MUSCULOSKELETAL: Extremities without clubbing, cyanosis, or edema. No obvious deformities. Dressing over right thigh and right foot. Wound VAC in place right lower extremity NEUROLOGICAL: Awake and alert. No obvious cranial nerve deficits. Motor grossly within normal limits. Five out of 5 muscle strength in the arms and legs. Normal speech. PSYCHIATRIC: Appropriate mood and affect; insight and judgment normal. Results Labs CBC & Chem 7: 03/17/18 09:29 03/17/18 09:29 Labs: Microbiology 03/01/18 13:15 Wound - Foot Fungal Smear - Final No fungal elements seen 03/01/18 13:15 Wound - Foot Fungal Culture - Final No growth in 4 weeks 03/01/18 13:15 Wound - Foot Acid Fast Bacilli Smear - Final No acid fast bacilli seen 03/01/18 13:15 Wound - Foot Mycobacterial Culture - Preliminary No growth in 4 weeks Procedures Procedures: 03/0903/09/18 Procedure: 1. Irrigation and debridement of ulcer right foot with wound vac and partial delayed primary closure Wound to dorsal 1st interspace extending to under great toe. Approximately 4cm x 2cm x 1cm depth Excisional debridement of fibrotic tissue down to level of tendon and joint capsule of 1st MTP joint with #15 blade, curette, and rongeur. Partial closure to dorsal aspect with wound extending and open to plantar hallux and 1st interspace area. Wound vac applied. 125mmHg medium continuous setting. Assessment and Plan (1) Abscess of foot including toes: Code(s): L02.619 - Cutaneous abscess of unspecified foot Status: Acute (2) Abscess of right foot: Code(s): L02.611 - Cutaneous abscess of right foot Status: Acute (3) Diabetic infection of right foot: Code(s): E11.628 - Type 2 diabetes mellitus with other skin complications; L08.9 - Local infection of the skin and subcutaneous tissue, unspecified Status: Acute (4) Ulcer of right foot with necrosis of muscle: Code(s): L97.513 - Non-pressure chronic ulcer of other part of right foot with necrosis of muscle Status: Acute Plan 52-year-old female with Sepsis-source right foot infection Diabetic right foot infection Currently on Ancef IV until April 12, 2018 and Levaquin per ID MRI of the foot without any evidence of osteomyelitis s/p Incision drainage debridement expansile to joint capsule and muscle with wound vac application Wound VAC management per podiatry. s/p Right foot ulcer, elipse and wound closure plantar foot 03/29/18 s/p Split thickness skin graft harvest right lower extremity and application to foot 03/29/18 DKA, in a noncompliant type II diabetic, acute Resolved Diabetes type 1 Continue NovoLog 70/30 20 units twice daily, insulin sliding scale, Aspart, Metformin (?) per patient her Trulicity was just approved hemoglobin A1c >13 Hypokalemia Resolved with potassium replacement Diabetic gastroparesis Continue Reglan 10 mg TID before meals Neuropathic pain Consider Neurontin Hypertension Normotensive Continue lisinopril 10 mg daily DVT prophylaxis: Lovenox Progress Note: Quality VTE Deep Vein Thrombosis/Pulmonary Embolism Present on Admission: No _ (1) Abscess of foot including toes Qualifiers: Laterality: right Qualified Code(s): L02.611 - Cutaneous abscess of right foot
[2018-03-30 12:46] LABS: Hematocrit 35.8 % (35.0-46.0); Hemoglobin 12.2 gm/dL (11.6-15.3); Mean Corpuscular HGB Conc 33.9 % (32.0-36.0); Mean Corpuscular Hemoglobin 29.7 pg (27.0-34.0); Mean Corpuscular Volume 87.5 fL (80.0-100.0); Mean Platelet Volume 8.2 fL (7.0-11.0); Platelet Count 281 th/mm3 (150-450); Red Cell Distribution Width 14.9 % (11.6-17.2); White Blood Count 6.5 th/mm3 (4.0-11.0)
[2018-03-30 13:09] LABS: Anion Gap 7 meq/L (5-15); Blood Urea Nitrogen 11 mg/dL (7-18); Calcium 8.7 mg/dL (8.5-10.1); Chloride 105 meq/L (98-107); Glomerular Filtration Rate Greater Than 89 mL/min (>89); Glucose,Random 127 mg/dL (74-106); Sodium 140 meq/L (136-145)
[2018-03-30] MEDS ORDERED: Heparin Central Flush 100 UNIT/ML 5 ML Vial IV.FLUSH PRN (16:05)
[2018-03-30] MEDS: Enoxaparin Inj 40 MG/0.4 ML Syringe SQ SCH (18:26)
--- NOTE | 2018-03-30 22:57 | P.PNPOD ---
Subjective Interval history: POD # 1 s/p right foot wound debridement/ellipse and application of STSG AAO x 3 Doing well at bedside this am Physical Exam Vital signs: Vital Signs 03/30/18 07:50 03/30/18 20:15 Temperature 97.9 F 97.6 F Pulse Rate 80 81 Respiratory Rate 20 20 Blood Pressure 126/75 124/60 Pulse Oximetry 96 98 Intake & Output 03/30/18 03/30/18 03/31/18 06:59 18:59 06:59 Intake Total 340 / 340 2200 / 2200 Balance 340 / 340 2200 / 2200 Weight 84.6 kg Intake: IV 100 / 100 200 / 200 Unasyn Inj 3 GM In NS Inj 100 100 / 100 200 / 200 ML @ 200 mls/hr IV.SIG Q6H [facility] Rx#:[id number] Oral 240 / 240 1999 / 1999 Other: Mode Setting Right foot 1st interspace Continuous surgical wound # Voids 4 2 # Bowel Movements 1 Narrative: RLE intact VAC Intact dressing to foot and thigh NVS intact Medications and Allergies Active Medications: Active Medications Acetaminophen (Tylenol) 650 mg PO Q4H PRN PRN Reason: Temp > 100.4 Last Admin: 03/30/18 18:26 Dose: 650 mg Hydrocodone Bitart/Acetaminophen ([place] 10/325) 1 tab PO Q4H PRN PRN Reason: Pain 7 to 10 Hydrocodone Bitart/Acetaminophen ([place] 5/325) 1 tab PO Q4H PRN PRN Reason: Pain 3 to 6 Al Hydroxide/Mg Hydroxide (Milk Of Magnesia Liq) 30 ml PO Q12H PRN PRN Reason: Mild Constipation Collagenase (Santyl Oint) 1 applicatio TOPICAL DAILY [facility] Last Admin: 03/30/18 09:04 Dose: 1 applicatio Dextrose (D50w Vial) 50 ml IV.PUSH UNSCH PRN PRN Reason: PER HYPOGLYCEMIA PROTOCOL Enalaprilat (Vasotec Inj) 2.5 mg IV.PUSH Q6H PRN PRN Reason: SBP>160, DBP>90 Enoxaparin Sodium (Lovenox Inj) 40 mg SQ Q24H [facility] Last Admin: 03/30/18 18:26 Dose: 40 mg Glucagon (Glucagon Inj) 1 mg OTHER PRN PRN PRN Reason: for Hypoglycemia Protocol Heparin Sodium (Porcine) (Heparin Central Flush) 0 unit IV.FLUSH PRN PRN PRN Reason: Flush PICC Line Ampicillin Sodium/Sulbactam (Sodium 3 gm/ Sodium Chloride) 100 mls @ 200 mls/ hr IV.SIG Q6H [facility] Last Admin: 03/30/18 20:14 Dose: 200 mls/hr Sodium Phosphate 15 mmol/ (Sodium Chloride) 105 mls @ 25 mls/hr IV.SIG UNSCH PRN PRN Reason: for Phosphate Level < 1.0 Insulin Aspart (Novolog Insulin Correctional Sugar Inj) 0 unit SQ [facility]; Protocol Last Admin: 03/30/18 20:22 Dose: 2 unit Insulin Aspart (Novolog Inj) 2 units SQ [facility]IDAC [facility] Last Admin: 03/30/18 18:27 Dose: 2 units Insulin Human Isoph/Insulin Regular (Novolin 70/30 Inj) 20 units SQ BID@0800, 1700 [facility] Last Admin: 03/30/18 18:27 Dose: 20 units Lactobacillus Acidophilus (Lactinex) 1 tab PO TID [facility] Last Admin: 03/30/18 18:26 Dose: 1 tab Levofloxacin (Levaquin) 750 mg PO DAILY [facility] Last Admin: 03/30/18 09:02 Dose: 750 mg Lisinopril (Prinivil) 5 mg PO DAILY [facility] Last Admin: 03/30/18 09:02 Dose: 5 mg Metformin [facility] ([facility]ucophage) [facility] Last Admin: 03/30/18 18:26 Dose: 500 mg Metoclopramide HCl (Reglan) 10 mg PO [facility] Last Admin: 03/30/18 20:15 Dose: 10 mg Ondansetron HCl (Zofran Inj) 4 mg IV.PUSH Q6H PRN PRN Reason: NAUSEA OR VOMITING Last Admin: 03/04/18 09:56 Dose: 4 mg Prochlorperazine Edisylate (Compazine Inj) 10 mg IV.PUSH Q6H PRN PRN Reason: NAUSEA Last Admin: 03/04/18 16:44 Dose: 10 mg Sodium Bicarbonate (Sodium Bicarbonate 8.4% Inj) 50 meq IV.PUSH UNSCH PRN PRN Reason: for pH 6.9 to 7.0 Sodium Bicarbonate (Sodium Bicarbonate 8.4% Inj) 100 meq IV.PUSH UNSCH PRN PRN Reason: for pH less than 6.9 Sodium Chloride (Ns Flush) 0 ml IV.FLUSH DAILY [facility] Sodium Chloride (Ns Flush) 0 ml IV.FLUSH PRN PRN PRN Reason: Flush After Blood Draws Sodium Chloride (Ns Flush) 0 ml IV.FLUSH PRN PRN PRN Reason: FLUSH AFTER USING IV ACCESS Sodium Chloride (Ns Flush) 2 ml IV.FLUSH BID [facility] Last Admin: 03/30/18 20:15 Dose: 2 ml Sodium Chloride (Ns Flush) 2 ml IV.FLUSH PRN PRN PRN Reason: FLUSH AFTER USING IV ACCESS Last Admin: 03/20/18 05:52 Dose: 2 ml Allergies Allergy/AdvReac Type Severity Reaction Status Date / Time Sulfa (Sulfonamide Allergy Hives Verified 02/26/18 11:06 Antibiotics) Home Medications Medication Instructions Recorded Confirmed Type metformin 500 mg PO BID 02/26/18 02/28/18 History Results - Labs CBC & Chem 7: 03/30/18 12:25 03/30/18 12:25 Laboratory Results - last 24 hr 03/29/18 03/30/18 03/30/18 22:47 07:18 11:28 WBC RBC Hgb Hct MCV MCH MCHC RDW Plt Count MPV Sodium Potassium Chloride Carbon Dioxide Anion Gap BUN Creatinine Estimated GFR POC Glucose 187 H 171 H 112 H Random Glucose Calcium 03/30/18 03/30/18 03/30/18 12:25 12:25 16:46 WBC 6.5 RBC 4.10 Hgb 12.2 Hct 35.8 MCV 87.5 MCH 29.7 MCHC 33.9 RDW 14.9 Plt Count 281 MPV 8.2 Sodium 140 Potassium 4.0 Chloride 105 Carbon Dioxide 28.0 Anion Gap 7 BUN 11 Creatinine 0.63 Estimated GFR Greater than 89 POC Glucose 169 H Random Glucose 127 H Calcium 8.7 03/30/18 20:13 WBC RBC Hgb Hct MCV MCH MCHC RDW Plt Count MPV Sodium Potassium Chloride Carbon Dioxide Anion Gap BUN Creatinine Estimated GFR POC Glucose 174 H Random Glucose Calcium - Procedures 03/0903/09/18 Procedure: 1. Irrigation and debridement of ulcer right foot with wound vac and partial delayed primary closure Wound to dorsal 1st interspace extending to under great toe. Approximately 4cm x 2cm x 1cm depth Excisional debridement of fibrotic tissue down to level of tendon and joint capsule of 1st MTP joint with #15 blade, curette, and rongeur. Partial closure to dorsal aspect with wound extending and open to plantar hallux and 1st interspace area. Wound vac applied. 125mmHg medium continuous setting. Assessment and Plan - Assessment (1) Diabetic infection of right foot Code(s): E11.628 - Type 2 diabetes mellitus with other skin complications; L08.9 - Local infection of the skin and subcutaneous tissue, unspecified Status: Acute - Plan Continue with wound VAC Planning PICC OK to d/c per Podiatry f/u with Dr Drake on 04/04/[address] [facility] right Plan for posterior splint on the right No dressing changes until f/u with Dr Drake, keep dressing clean dry and intact.
[2018-03-31] MEDS: Ampicillin/Sulbactam Inj 3 GM in Sodium Chloride 0.9% Inj 100 ML IV.SIG SCH ×4 (02:30→22:02)
[2018-03-31] MEDS: Insulin NovoLOG Aspart Correctional Sugar Inj SQ SCH ×4 (07:20→20:51)
[2018-03-31] MEDS: levoFLOXacin 750 MG Tablet PO SCH (08:47)
[2018-03-31] MEDS: Lactobacillus Acidophilus/L. Spores Tablet PO SCH ×3 (08:47→18:16)
[2018-03-31] MEDS: Lisinopril 5 MG Tablet PO SCH (08:47)
[2018-03-31] MEDS: Acetaminophen 325 MG Tablet PO PRN ×4 (08:48→20:53)
[2018-03-31] MEDS: Metoclopramide 10 MG Tablet PO SCH ×4 (08:48→20:52)
[2018-03-31] MEDS: Collagenase Oint 30 GM Tube TOPICAL SCH (08:49)
--- NOTE | 2018-03-31 09:48 | P.PNIM ---
Subjective Interval history: Follow-up diabetic right foot infection March 31, 2018patient seen and examined, patient had a cast placed to the right lower extremity last night. Denies any pain right lower extremity. Currently afebrile. Physical Exam Vital signs: Vital Signs 03/30/18 20:15 03/31/18 08:00 Temperature 97.6 F 98.4 F Pulse Rate 81 71 Respiratory Rate 20 18 Blood Pressure 124/60 154/72 H Pulse Oximetry 98 97 Intake & Output 03/30/18 03/31/18 03/31/18 18:59 06:59 18:59 Intake Total 2200 / 2200 200 / 200 Balance 2200 / 2200 200 / 200 Intake: IV 200 / 200 200 / 200 Unasyn Inj 3 GM In NS Inj 100 200 / 200 200 / 200 ML @ 200 mls/hr IV.SIG Q6H [facility] Rx#:[id number] Oral 1999 Other: Mode Setting Right foot 1st interspace Continuous Continuous Continuous surgical wound # Voids 2 3 Date of Last Bowel Movement 03/30/18 # Bowel Movements 1 Narrative: GENERAL: NAD SKIN: Warm and dry. HEAD: Atraumatic. Normocephalic. EYES: Pupils equal and round. No scleral icterus. No injection or drainage. ENT: No nasal bleeding or discharge. Mucous membranes pink and moist. NECK: Trachea midline. No JVD. CARDIOVASCULAR: Regular rate and rhythm. RESPIRATORY: No accessory muscle use. Clear to auscultation. Breath sounds equal bilaterally. GASTROINTESTINAL: Abdomen soft, non-tender, nondistended. Hepatic and splenic margins not palpable. MUSCULOSKELETAL: Extremities without clubbing, cyanosis, or edema. No obvious deformities. Dressing over right thigh and right foot. Wound VAC in place right lower extremity NEUROLOGICAL: Awake and alert. No obvious cranial nerve deficits. Motor grossly within normal limits. Five out of 5 muscle strength in the arms and legs. Normal speech. PSYCHIATRIC: Appropriate mood and affect; insight and judgment normal. Results Labs CBC & Chem 7: 03/30/18 12:25 03/30/18 12:25 Procedures Procedures: 03/0903/09/18 Procedure: 1. Irrigation and debridement of ulcer right foot with wound vac and partial delayed primary closure Wound to dorsal 1st interspace extending to under great toe. Approximately 4cm x 2cm x 1cm depth Excisional debridement of fibrotic tissue down to level of tendon and joint capsule of 1st MTP joint with #15 blade, curette, and rongeur. Partial closure to dorsal aspect with wound extending and open to plantar hallux and 1st interspace area. Wound vac applied. 125mmHg medium continuous setting. Assessment and Plan (1) Abscess of foot including toes: Code(s): L02.619 - Cutaneous abscess of unspecified foot Status: Acute (2) Abscess of right foot: Code(s): L02.611 - Cutaneous abscess of right foot Status: Acute (3) Diabetic infection of right foot: Code(s): E11.628 - Type 2 diabetes mellitus with other skin complications; L08.9 - Local infection of the skin and subcutaneous tissue, unspecified Status: Acute (4) Ulcer of right foot with necrosis of muscle: Code(s): L97.513 - Non-pressure chronic ulcer of other part of right foot with necrosis of muscle Status: Acute Plan 52-year-old female with Sepsis-source right foot infection Diabetic right foot infection Currently on Ancef IV until April 12, 2018 and Levaquin per ID MRI of the foot without any evidence of osteomyelitis s/p Incision drainage debridement expansile to joint capsule and muscle with wound vac application Wound VAC management per podiatry. s/p Right foot ulcer, elipse and wound closure plantar foot 03/29/18 s/p Split thickness skin graft harvest right lower extremity and application to foot 03/29/18 DKA, in a noncompliant type II diabetic, acute Resolved Diabetes type 1 Continue NovoLog 70/30 20 units twice daily, insulin sliding scale, Aspart, Metformin (?) per patient her Trulicity was just approved hemoglobin A1c >13 Hypokalemia Resolved with potassium replacement Diabetic gastroparesis Continue Reglan 10 mg TID before meals Neuropathic pain Consider Neurontin Hypertension Normotensive Continue lisinopril 10 mg daily DVT prophylaxis: Lovenox Discharge home early next week Progress Note: Quality VTE Deep Vein Thrombosis/Pulmonary Embolism Present on Admission: No _ (1) Abscess of foot including toes Qualifiers: Laterality: right Qualified Code(s): L02.611 - Cutaneous abscess of right foot
[2018-03-31] MEDS: Enoxaparin Inj 40 MG/0.4 ML Syringe SQ SCH (18:17)
--- NOTE | 2018-03-31 19:27 | P.PNIM ---
Subjective Interval history: Not seen. Follow-up for diabetic right foot infection Physical Exam Vital signs: Vital Signs 03/30/18 20:15 03/31/18 08:00 03/31/18 12:00 Temperature 97.6 F 98.4 F 98.5 F Pulse Rate 81 71 78 Respiratory Rate 20 18 16 Blood Pressure 124/60 154/72 H 117/63 Pulse Oximetry 98 97 95 Intake & Output 03/31/18 03/31/18 04/01/18 06:59 18:59 06:59 Intake Total 200 / 200 2200 / 2200 Balance 200 / 200 2200 / 2200 Intake: IV 200 / 200 200 / 200 Unasyn Inj 3 GM In NS Inj 100 200 / 200 200 / 200 ML @ 200 mls/hr IV.SIG Q6H [facility] Rx#:[id number] Oral 1999 Other: Mode Setting Right foot 1st interspace Continuous Continuous surgical wound # Voids 3 3 Date of Last Bowel Movement 03/30/18 # Bowel Movements 1 Narrative: GENERAL: NAD SKIN: Warm and dry. HEAD: Atraumatic. Normocephalic. EYES: Pupils equal and round. No scleral icterus. No injection or drainage. ENT: No nasal bleeding or discharge. Mucous membranes pink and moist. NECK: Trachea midline. No JVD. CARDIOVASCULAR: Regular rate and rhythm. RESPIRATORY: No accessory muscle use. Clear to auscultation. Breath sounds equal bilaterally. GASTROINTESTINAL: Abdomen soft, non-tender, nondistended. Hepatic and splenic margins not palpable. MUSCULOSKELETAL: Extremities without clubbing, cyanosis, or edema. No obvious deformities. Dressing over right thigh and right foot. Wound VAC in place right lower extremity NEUROLOGICAL: Awake and alert. No obvious cranial nerve deficits. Motor grossly within normal limits. Five out of 5 muscle strength in the arms and legs. Normal speech. PSYCHIATRIC: Appropriate mood and affect; insight and judgment normal. Results Labs CBC & Chem 7: 03/30/18 12:25 03/30/18 12:25 Imaging Imaging: ITS Impressions Foot MRI 03/01/18 00:00 CONCLUSION: 1. Small ulcer subjacent to the MTP joint with regional cellulitis. 2. No findings of associated osteomyelitis. Abdomen/Pelvis CT 03/04/18 00:00 CONCLUSION: 1. Mild hepatomegaly. 2. Mild degenerative changes throughout the thoracolumbar spine. Procedures Procedures: 03/09/18 Procedure: 1. Irrigation and debridement of ulcer right foot with wound vac and partial delayed primary closure Wound to dorsal 1st interspace extending to under great toe. Approximately 4cm x 2cm x 1cm depth Excisional debridement of fibrotic tissue down to level of tendon and joint capsule of 1st MTP joint with #15 blade, curette, and rongeur. Partial closure to dorsal aspect with wound extending and open to plantar hallux and 1st interspace area. Wound vac applied. 125mmHg medium continuous setting. Assessment and Plan (1) Abscess of foot including toes: Code(s): L02.619 - Cutaneous abscess of unspecified foot Status: Acute (2) Abscess of right foot: Code(s): L02.611 - Cutaneous abscess of right foot Status: Acute (3) Diabetic infection of right foot: Code(s): E11.628 - Type 2 diabetes mellitus with other skin complications; L08.9 - Local infection of the skin and subcutaneous tissue, unspecified Status: Acute (4) Ulcer of right foot with necrosis of muscle: Code(s): L97.513 - Non-pressure chronic ulcer of other part of right foot with necrosis of muscle Status: Acute Plan 52-year-old female with Sepsis-source right foot infection Diabetic right foot infection Currently on Ancef IV until April 12, 2018 and Levaquin per ID MRI of the foot without any evidence of osteomyelitis s/p Incision drainage debridement expansile to joint capsule and muscle with wound vac application Wound VAC management per podiatry. s/p Right foot ulcer, elipse and wound closure plantar foot 03/29/18 s/p Split thickness skin graft harvest right lower extremity and application to foot 03/29/18 DKA, in a noncompliant type II diabetic, acute Resolved Diabetes type 1 Continue NovoLog 70/30 20 units twice daily, insulin sliding scale, Aspart, Metformin (?) per patient her Trulicity was just approved hemoglobin A1c >13 Hypokalemia Resolved with potassium replacement Diabetic gastroparesis Continue Reglan 10 mg TID before meals Neuropathic pain Consider Neurontin Hypertension Normotensive Continue lisinopril 10 mg daily DVT prophylaxis: Lovenox Discharge home early next week Progress Note: Quality VTE Deep Vein Thrombosis/Pulmonary Embolism Present on Admission: No _ (1) Abscess of foot including toes Qualifiers: Laterality: right Qualified Code(s): L02.611 - Cutaneous abscess of right foot
--- NOTE | 2018-03-31 23:20 | P.PNPOD ---
Subjective Interval history: s/p Right STSG with Dr Mohan Doing well this am and in nad Physical Exam Vital signs: Vital Signs 03/31/18 08:00 03/31/18 12:00 03/31/18 19:36 Temperature 98.4 F 98.5 F Pulse Rate 71 78 Respiratory Rate 18 16 16 Blood Pressure 154/72 H 117/63 Pulse Oximetry 97 95 03/31/18 20:40 Temperature 97.9 F Pulse Rate 79 Respiratory Rate 17 Blood Pressure 124/78 Pulse Oximetry 96 Intake & Output 03/31/18 03/31/18 04/01/18 06:59 18:59 06:59 Intake Total 200 / 200 2200 / 2200 Balance 200 / 200 2200 / 2200 Intake: IV 200 / 200 200 / 200 Unasyn Inj 3 GM In NS Inj 100 200 / 200 200 / 200 ML @ 200 mls/hr IV.SIG Q6H [facility] Rx#:[id number] Oral 1999 Other: Mode Setting Right foot 1st interspace Continuous Continuous Continuous surgical wound # Voids 3 3 Date of Last Bowel Movement 03/30/18 03/31/18 # Bowel Movements 1 Medications and Allergies Active Medications: Active Medications Acetaminophen (Tylenol) 650 mg PO Q4H PRN PRN Reason: Temp > 100.4 Last Admin: 03/31/18 20:53 Dose: 650 mg Hydrocodone Bitart/Acetaminophen ([place] 10/325) 1 tab PO Q4H PRN PRN Reason: Pain 7 to 10 Hydrocodone Bitart/Acetaminophen ([place] 5/325) 1 tab PO Q4H PRN PRN Reason: Pain 3 to 6 Al Hydroxide/Mg Hydroxide (Milk Of Magnesia Liq) 30 ml PO Q12H PRN PRN Reason: Mild Constipation Collagenase (Santyl Oint) 1 applicatio TOPICAL DAILY [facility] Last Admin: 03/31/18 08:49 Dose: 1 applicatio Dextrose (D50w Vial) 50 ml IV.PUSH UNSCH PRN PRN Reason: PER HYPOGLYCEMIA PROTOCOL Enalaprilat (Vasotec Inj) 2.5 mg IV.PUSH Q6H PRN PRN Reason: SBP>160, DBP>90 Enoxaparin Sodium (Lovenox Inj) 40 mg SQ Q24H [facility] Last Admin: 03/31/18 18:17 Dose: 40 mg Glucagon (Glucagon Inj) 1 mg OTHER PRN PRN PRN Reason: for Hypoglycemia Protocol Heparin Sodium (Porcine) (Heparin Central Flush) 0 unit IV.FLUSH PRN PRN PRN Reason: Flush PICC Line Ampicillin Sodium/Sulbactam (Sodium 3 gm/ Sodium Chloride) 100 mls @ 200 mls/ hr IV.SIG Q6H [facility] Last Admin: 03/31/18 22:02 Dose: 200 mls/hr Sodium Phosphate 15 mmol/ (Sodium Chloride) 105 mls @ 25 mls/hr IV.SIG UNSCH PRN PRN Reason: for Phosphate Level < 1.0 Insulin Aspart (Novolog Insulin Correctional Sugar Inj) 0 unit SQ [facility]; Protocol Last Admin: 03/31/18 20:51 Dose: 2 unit Insulin Aspart (Novolog Inj) 2 units SQ TIDAC [facility] Last Admin: 03/31/18 18:17 Dose: 2 units Insulin Human Isoph/Insulin Regular (Novolin 70/30 Inj) 20 units SQ BID@0800, 1700 [facility] Last Admin: 03/31/18 18:17 Dose: 20 units Lactobacillus Acidophilus (Lactinex) 1 tab PO TID [facility] Last Admin: 03/31/18 18:16 Dose: 1 tab Levofloxacin (Levaquin) 750 mg PO DAILY [facility] Last Admin: 03/31/18 08:47 Dose: 750 mg Lisinopril (Prinivil) 5 mg PO DAILY [facility] Last Admin: 03/31/18 08:47 Dose: 5 mg [facility] Last Admin: 03/31/18 18:17 Dose: 500 mg Metoclopramide HCl (Reglan) 10 mg PO [facility] Last Admin: 03/31/18 20:52 Dose: 10 mg Ondansetron HCl (Zofran Inj) 4 mg IV.PUSH Q6H PRN PRN Reason: NAUSEA OR VOMITING Last Admin: 03/04/18 09:56 Dose: 4 mg Prochlorperazine Edisylate (Compazine Inj) 10 mg IV.PUSH Q6H PRN PRN Reason: NAUSEA Last Admin: 03/04/18 16:44 Dose: 10 mg Sodium Bicarbonate (Sodium Bicarbonate 8.4% Inj) 50 meq IV.PUSH UNSCH PRN PRN Reason: for pH 6.9 to 7.0 Sodium Bicarbonate (Sodium Bicarbonate 8.4% Inj) 100 meq IV.PUSH UNSCH PRN PRN Reason: for pH less than 6.9 Sodium Chloride (Ns Flush) 0 ml IV.FLUSH DAILY [facility] Last Admin: 03/31/18 08:48 Dose: 10 ml Sodium Chloride (Ns Flush) 0 ml IV.FLUSH PRN PRN PRN Reason: Flush After Blood Draws Sodium Chloride (Ns Flush) 0 ml IV.FLUSH PRN PRN PRN Reason: FLUSH AFTER USING IV ACCESS Sodium Chloride (Ns Flush) 2 ml IV.FLUSH BID [facility] Last Admin: 03/31/18 20:53 Dose: 2 ml Sodium Chloride (Ns Flush) 2 ml IV.FLUSH PRN PRN PRN Reason: FLUSH AFTER USING IV ACCESS Last Admin: 03/20/18 05:52 Dose: 2 ml Allergies Allergy/AdvReac Type Severity Reaction Status Date / Time Sulfa (Sulfonamide Allergy Hives Verified 02/26/18 11:06 Antibiotics) Home Medications Medication Instructions Recorded Confirmed Type metformin 500 mg PO BID 02/26/18 02/28/18 History Results - Labs CBC & Chem 7: 03/30/18 12:25 03/30/18 12:25 Laboratory Results - last 24 hr 03/31/18 03/31/18 03/31/18 07:15 11:52 16:58 POC Glucose 137 H 123 H 151 H 03/31/18 20:27 POC Glucose 166 H - Procedures 03/09/18 Procedure: 1. Irrigation and debridement of ulcer right foot with wound vac and partial delayed primary closure Wound to dorsal 1st interspace extending to under great toe. Approximately 4cm x 2cm x 1cm depth Excisional debridement of fibrotic tissue down to level of tendon and joint capsule of 1st MTP joint with #15 blade, curette, and rongeur. Partial closure to dorsal aspect with wound extending and open to plantar hallux and 1st interspace area. Wound vac applied. 125mmHg medium continuous setting. Assessment and Plan - Assessment (1) Diabetic infection of right foot Code(s): E11.628 - Type 2 diabetes mellitus with other skin complications; L08.9 - Local infection of the skin and subcutaneous tissue, unspecified Status: Acute - Plan Continue with wound VAC Planning PICC OK to d/c per Podiatry f/u with Dr Drake on 04/04/18 at [facility] right Plan for posterior splint on the right No dressing changes until f/u with Dr Drake, keep dressing clean dry and intact. Dr Jacobson to follow 04/01/18
[2018-04-01] MEDS: Ampicillin/Sulbactam Inj 3 GM in Sodium Chloride 0.9% Inj 100 ML IV.SIG SCH ×4 (02:23→21:00)
[2018-04-01] MEDS: Insulin NovoLOG Aspart Correctional Sugar Inj SQ SCH ×3 (08:17→18:25)
[2018-04-01] MEDS: levoFLOXacin 750 MG Tablet PO SCH (09:09)
[2018-04-01] MEDS: Lisinopril 5 MG Tablet PO SCH (09:10)
[2018-04-01] MEDS: Metoclopramide 10 MG Tablet PO SCH ×4 (09:10→21:01)
[2018-04-01] MEDS: Lactobacillus Acidophilus/L. Spores Tablet PO SCH ×3 (09:10→17:18)
[2018-04-01] MEDS: Acetaminophen 325 MG Tablet PO PRN ×2 (09:28→20:59)
--- NOTE | 2018-04-01 10:37 | P.DCO ---
Diagnosis (1) Diabetic infection of right foot: Status: Acute Physical Therapy Order: Evaluate and treat, Improve ambulation and Strength and gait training Home Health Nursing Order: Signs/symptoms of disease process, Diabetic education, Wound care and dressing changes (WD vac changes) and Nursing assessment with vital signs Case Management Consult Case Management Consult-Home Health: Yes I have seen patient Emily Rolle on 04/01/18. My clinical findings support the need for the requested home health care services because: Limited mobility due to disease progression I certify that my clinical findings support that this patient is homebound because: Unsafe to leave home unassisted
--- NOTE | 2018-04-01 11:01 | P.PNIM ---
Subjective Interval history: Follow-up diabetic foot infection. She is doing well wants to be discharged. Discussed with case management awaiting wound VAC to be arranged Physical Exam Vital signs: Vital Signs 03/31/18 12:00 03/31/18 19:36 03/31/18 20:40 Temperature 98.5 F 97.9 F Pulse Rate 78 79 Respiratory Rate 16 16 17 Blood Pressure 117/63 124/78 Pulse Oximetry 95 96 04/01/18 07:15 Temperature 98.2 F Pulse Rate 73 Respiratory Rate 18 Blood Pressure 144/70 H Pulse Oximetry 96 Intake & Output 03/31/18 04/01/18 04/01/18 18:59 06:59 18:59 Intake Total 2200 / 2200 642 / 642 Output Total 125 / 125 Balance 2200 / 2200 517 / 517 Weight 84.6 kg Intake: IV 200 / 200 200 / 200 Unasyn Inj 3 GM In NS Inj 100 200 / 200 200 / 200 ML @ 200 mls/hr IV.SIG Q6H [facility] Rx#:[id number] Oral 1999 442 / 442 Output: Wound Drainage 0 / 0 # 1 Right Foot 0 / 0 Wound Vac Amount 125 / 125 Right foot 1st interspace 125 / 125 surgical wound Other: Mode Setting Right foot 1st interspace Continuous Continuous surgical wound # Voids 3 Date of Last Bowel Movement 03/31/18 # Bowel Movements 1 1 Narrative: GENERAL: NAD SKIN: Warm and dry. CARDIOVASCULAR: Regular rate and rhythm. RESPIRATORY: No accessory muscle use. Clear to auscultation. Breath sounds equal bilaterally. GASTROINTESTINAL: Abdomen soft, non-tender, nondistended. MUSCULOSKELETAL: Extremities without clubbing, cyanosis, or edema. No obvious deformities. Dressing over right thigh and right foot. Wound VAC in place right lower extremity NEUROLOGICAL: Awake and alert. No obvious cranial nerve deficits. Motor grossly within normal limits. Five out of 5 muscle strength in the arms and legs. Normal speech. PSYCHIATRIC: Appropriate mood and affect; insight and judgment normal. Results Labs CBC & Chem 7: 03/30/18 12:25 03/30/18 12:25 Procedures Procedures: 03/09/18 Procedure: 1. Irrigation and debridement of ulcer right foot with wound vac and partial delayed primary closure Wound to dorsal 1st interspace extending to under great toe. Approximately 4cm x 2cm x 1cm depth Excisional debridement of fibrotic tissue down to level of tendon and joint capsule of 1st MTP joint with #15 blade, curette, and rongeur. Partial closure to dorsal aspect with wound extending and open to plantar hallux and 1st interspace area. Wound vac applied. 125mmHg medium continuous setting. Assessment and Plan (1) Diabetic infection of right foot: Code(s): E11.628 - Type 2 diabetes mellitus with other skin complications; L08.9 - Local infection of the skin and subcutaneous tissue, unspecified Status: Acute Plan 52-year-old female with Sepsis-source right foot infection Diabetic right foot infection Currently on Unasyn IV until April 12, 2018 and Levaquin per ID MRI of the foot without any evidence of osteomyelitis s/p Incision drainage debridement expansile to joint capsule and muscle with wound vac application Wound VAC management per podiatry. s/p Right foot ulcer, elipse and wound closure plantar foot 03/29/18 s/p Split thickness skin graft harvest right lower extremity and application to foot 03/29/18 DKA, in a noncompliant type II diabetic, acute Resolved Diabetes type 1 Continue NovoLog 70/30 20 units twice daily in-house, insulin sliding scale, Aspart, Metformin per patient her Trulicity was just approved hemoglobin A1c >13 Hypokalemia Resolved with potassium replacement Diabetic gastroparesis Continue Reglan 10 mg TID before meals Neuropathic pain Consider Neurontin Hypertension Normotensive Continue lisinopril 10 mg daily DVT prophylaxis: Lovenox Discharge home when wound VAC arranged Progress Note: Quality VTE Deep Vein Thrombosis/Pulmonary Embolism Present on Admission: No
[2018-04-01] MEDS: Collagenase Oint 30 GM Tube TOPICAL SCH (11:27)
[2018-04-01] MEDS: Enoxaparin Inj 40 MG/0.4 ML Syringe SQ SCH (17:17)
[2018-04-01 21:17] VITALS: RESP 20
[2018-04-02] MEDS: Insulin NovoLOG Aspart Correctional Sugar Inj SQ SCH ×4 (00:15→18:00)
[2018-04-02] MEDS: Ampicillin/Sulbactam Inj 3 GM in Sodium Chloride 0.9% Inj 100 ML IV.SIG SCH ×3 (02:30→13:26)
[2018-04-02 08:07] VITALS: BP 144/69; PULSE 75; TEMP 97.7; O2SAT 97
[2018-04-02] MEDS: levoFLOXacin 750 MG Tablet PO SCH (09:15)
[2018-04-02] MEDS: Lisinopril 5 MG Tablet PO SCH (09:16)
[2018-04-02] MEDS: Metoclopramide 10 MG Tablet PO SCH ×3 (09:16→18:03)
[2018-04-02] MEDS: Acetaminophen 325 MG Tablet PO PRN (09:28)
[2018-04-02] MEDS: Lactobacillus Acidophilus/L. Spores Tablet PO SCH ×3 (10:10→18:03)
[2018-04-02] MEDS: Collagenase Oint 30 GM Tube TOPICAL SCH (10:11)
--- NOTE | 2018-04-02 15:20 | P.PNIM ---
Subjective Interval history: Follow-up diabetic foot infection. Awaiting wound VAC for discharge Physical Exam Vital signs: Vital Signs 04/01/18 21:17 04/02/18 08:00 Temperature 98.0 F 97.7 F Pulse Rate 76 75 Respiratory Rate 20 20 Blood Pressure 105/59 L 144/69 H Pulse Oximetry 98 97 Intake & Output 04/01/18 04/02/18 04/02/18 18:59 06:59 18:59 Intake Total 200 / 200 200 / 200 100 / 100 Balance 200 / 200 200 / 200 100 / 100 Weight 87.5 kg Intake: IV 200 / 200 200 / 200 100 / 100 Unasyn Inj 3 GM In NS Inj 100 200 / 200 200 / 200 100 / 100 ML @ 200 mls/hr IV.SIG Q6H [facility] Rx#:[id number] Other: Mode Setting Right foot 1st interspace Continuous Continuous surgical wound # Voids 2 2 Date of Last Bowel Movement 03/31/18 03/31/18 Narrative: GENERAL: Well-developed and well-nourished in no distress SKIN: Warm and dry. CARDIOVASCULAR: Regular rate and rhythm. RESPIRATORY: No accessory muscle use. Clear to auscultation. Breath sounds equal bilaterally. GASTROINTESTINAL: Abdomen soft, non-tender, nondistended. MUSCULOSKELETAL: Extremities without clubbing, cyanosis, or edema. No obvious deformities. Wound VAC to right lower extremity NEUROLOGICAL: Awake and alert. No obvious cranial nerve deficits. Motor grossly within normal limits. Five out of 5 muscle strength in the arms and legs. Normal speech. PSYCHIATRIC: Appropriate mood and affect; insight and judgment normal. Results Labs CBC & Chem 7: 03/30/18 12:25 03/30/18 12:25 Procedures Procedures: s/p Right foot ulcer, elipse and wound closure plantar foot 03/29/18 s/p Split thickness skin graft harvest right lower extremity and application to foot 03/29/18 Assessment and Plan (1) Diabetic infection of right foot: Code(s): E11.628 - Type 2 diabetes mellitus with other skin complications; L08.9 - Local infection of the skin and subcutaneous tissue, unspecified Status: Acute Plan 52-year-old female with Sepsis-source right foot infection Diabetic right foot infection Currently on Unasyn IV until April 12, 2018 per ID MRI of the foot without any evidence of osteomyelitis s/p Incision drainage debridement expansile to joint capsule and muscle with wound vac application Wound VAC management per podiatry. s/p Right foot ulcer, elipse and wound closure plantar foot 03/29/18 s/p Split thickness skin graft harvest right lower extremity and application to foot 03/29/18 DKA, in a noncompliant type II diabetic, acute Resolved Diabetes type 1 Continue NovoLog 70/30 20 units twice daily in-house, insulin sliding scale, Aspart, Metformin per patient her Trulicity was just approved awaiting supply (will give 10- day supply of 70/30 patient aware not to use it with Trulicity) hemoglobin A1c >13 Hypokalemia Resolved with potassium replacement Diabetic gastroparesis Continue Reglan 10 mg TID before meals Neuropathic pain Consider Neurontin Hypertension Normotensive Continue lisinopril 10 mg daily DVT prophylaxis: Lovenox Discharge home when wound VAC arranged Progress Note: Quality VTE Deep Vein Thrombosis/Pulmonary Embolism Present on Admission: No
[2018-04-02] MEDS: Enoxaparin Inj 40 MG/0.4 ML Syringe SQ SCH (19:46)
[2018-04-02] MEDS ORDERED: AMPICILLIN IV.SIG SCH (20:00)
[2018-04-02] MEDS ORDERED: SODIUM CHLOR 0.9% IV.SIG SCH (20:00)
[2018-04-02] MEDS ORDERED: SULBACTAM IV.SIG SCH (20:00)
== END 2018-04-02 20:03 | disposition home health service (06) | DRG 853 ==
LOC: NEDDLT 13:03 → HIMC 19:28 → N05 03-01 15:16
PROVIDERS: ADMIT Internal Medicine; ATTEND Internal Medicine
DX: B95.1 Streptococcus, group B, as the cause of diseases classified elsewhere; L02.611 Cutaneous abscess of right foot; Z79.84 Long term (current) use of oral hypoglycemic drugs; A41.9 Sepsis, unspecified organism; E11.10 Type 2 diabetes mellitus with ketoacidosis without coma; Z90.49 Acquired absence of other specified parts of digestive tract; Z91.19 Patient's noncompliance with other medical treatment and regimen; K31.84 Gastroparesis; E11.621 Type 2 diabetes mellitus with foot ulcer; E11.40 Type 2 diabetes mellitus with diabetic neuropathy, unspecified; Z79.899 Other long term (current) drug therapy; L97.513 Non-pressure chronic ulcer of other part of right foot with necrosis of muscle; R60.9 Edema, unspecified; L03.90 Cellulitis, unspecified; I10 Essential (primary) hypertension; E87.6 Hypokalemia
CPT/HCPCS: 36569; 36600; 71010; 71045; 73630; 73720; 74177; 76937; 80048; 80053; 80069; 80076; 80202; 81001; 82010; 82565; 82805; 82948; 82962; 83036; 83605; 83735; 85025; 85027; 86403; 87015; 87040; 87070; 87077; 87102; 87116; 87186; 87205; 87206; 87641; 90765; 90775; 93005; 94150; 96365; 96375; 97110; 97116; 97161; 97164; 97530; 99291; A9585; J0295; J0330; J0690; J0780; J1100; J1170; J1580; J1650; J1815; J1817; J2250; J2370; J2405; J2543; J2550; J2704; J2710; J2765; J3010; J3370; J3480; J7030; J7040; J7042; J7050; Q4148; Q9967